=== PATIENT | male | born 1950 | race Caucasian/White ===

== ENCOUNTER 2016-12-22 06:48 | Inpatient (IN) | payer OTHER ==
[2016-12-22] MEDS ORDERED: SOLU-Medrol 125 MG VIAL ONE (06:50)
--- NOTE | 2016-12-22 06:59 | DR.SOBA ---
HPI - Time Seen Time seen: 06:55 - HPI Comment HPI Comment: KNOWN PATIENT WITH COPD AND CHF PRESENTS WITH INCREASE SOB. WORSE THIS AM. DID NOT TAKE BREATHING TREATMENT BEFORE COMING. NO FEVER. - Complaints Chief Complaint Doctors Comments: INCREASING SOB FOR 4 DAYS. - Reviewed Nurses Notes Reviewed: Yes - Source History Provided: Parent - Mode of Arrival Mode of Arrival: Wheelchair - Duration Duration: Hours - Context Onset:: At Rest PE Risk Factors:: None History of:: COPD, CHF Currently on:: Neither Prehospital Care:: None - Modifying Factors Worsens:: Nothing Improves:: Nothing - Associated Signs and Symptoms Associated Signs and Symptoms: Wheeze, Cough, Sore Throat. denies: Nasal Congestion - If Chest Pain Quality: Sharp, Pleuritic Location: Substernal - If Cough Cough: Productive, Yellow PMH - PMH Past Medical History: Angina, [place], Hypertension, Diabetes Past Surgical History: Yes Surgical History: Abdominal Surgery, Angioplasty/Stents, Thyroidectomy - Family History Family Medical History: Diabetes Mellitus, Cancer, [place] - Social History Do you use any recreational Drugs:: No ROS - Review of Systems Constitutional: Diaphoresis, Weakness, Fatigue, Loss of Appetite. negative: Chills, Fever Eyes: No Symptoms Reported. negative: Eye Pain, Discharge ENTM: No Symptoms Reported, Mouth Swelling, Throat Pain. negative: Ear Pain, Nose Discharge, Nose Congestion Respiratoy: Productive Cough, Non-Productive Cough, Short of Breath, Wheezing. negative: Hemoptysis Cardiovascular: Chest Pain, Edema (TRACE) Gastrointestinal/Abdominal: No Symptoms Reported. negative: Abdominal Pain, Diarrhea, Nausea, Vomiting Genitourinary: No Symptoms Reported. negative: Dysuria, Frequency, Hematuria Neurological: Weakness, Dizziness. negative: Headache Musculoskeletal: Muscle Pain Integumentary: No Symptoms Reported Hematologic/Lymphatic: No Symptoms Reported Endocrine: No Symptoms Reported All Other Systems: Reviewed and Negative PE - Vital Signs Vitals: Temperature 97.8 F Pulse Rate [Left Brachial] 62 Pulse Rate 63 Respiratory Rate 28 Blood Pressure [Right Arm] 113/75 Blood Pressure [Left Arm] 152/75 Blood Pressure 154/73 O2 Sat by Pulse Oximetry 88 - General Limitations: Other (RESPIRATORY DISTRESS) General Appearance: Alert - Head Head Exam: Normal Inspection - Eyes Eye exam: Normal Appearance - ENT ENT Exam: Normal External Ear Exam - Neck Neck Exam: Trachea Midline. negative: Tenderness, Meningismus, Lymphadenopathy - Chest Chest Inspection: Symmetric Chest Wall Rise - Respiratory Respiratory Exam: Accessory Muscle Use, Prolonged Expiratory Phase, Respiratory Distress Respiratory Exam: Bilateral Wheezing, Bilateral Rhonchi, Upper Wheezing, Upper Rhonchi, Lower Wheezing, Lower Rhonchi - Cardiovascular Cardiovascular Exam: Regular Rate, Normal Rhythm, Normal Heart Sounds - Abdominal Exam Abdominal Exam: Normal Bowel Sounds, Soft. negative: Tenderness - Extremities Extremities Exam: Normal Inspection - Back Back Exam: Normal Inspection - Neurologic Neurological Exam: Alert, Oriented X3, CN II-XII Intact. negative: Motor Sensory Deficit - Psychiatric Psychiatric Exam: Anxious - Skin Skin Exam: Normal Color MDM - Additional Information Obtained Additional Information Obtained From: Family - Differential Diagnosis Differential Diagnosis: Bronchitis, CHF, COPD, Hypertensive Emergency, Hyponatremia, Mycardial Infarction, Pneumonia, Pneumothorax, Pulmonary embolism , Respiratory Insufficiency, Sinusitis, URI Course - Treatment Treatment: SEE ORDERS. NEB TREATMENT AND IV SOLUMEDROL. PAIN IMPROVING. - Reevaluation 1st: Improved - Consultation Consultation Comments: PATIENT DISCUSS WITH DR. COLEMAN. HE WILL ADMIT PATIENT. - Education/Counseling Education/Counseling: Patient, Education Educated On: Treatment, Diagnosis ROR - Labs Reviewed Laboratory Results Reviewed?: Yes Result Diagrams: 12/23/16 04:37 12/23/16 04:37 Laboratory: WBC 6.9 X10^3/uL (3.6-10.0) 12/22/16 07:17 RBC 4.39 X10^6/uL (4.7-6.0) L 12/22/16 07:17 Hgb 10.4 g/dL (13.5-18.0) L 12/22/16 07:17 Hct 34.2 % (42.0-54.0) L 12/22/16 07:17 MCV 77.9 fL (80.0-100.0) L 12/22/16 07:17 MCH 23.8 pg (27.0-34.0) L 12/22/16 07:17 MCHC 30.5 g/dL (33.0-35.0) L 12/22/16 07:17 RDW 17.9 % (11.6-16.5) H 12/22/16 07:17 Plt Count 189 X10^3/uL (150.0-450.0) 12/22/16 07:17 Plt Count Comment Adequate (ADEQUATE) 12/22/16 07: MPV 8.3 fL (7.4-11.0) 12/22/16 07:17 Neut % 78.9 % (42.0-75.0) H 12/22/16 07:17 Lymph % 13.4 % (21.0-51.0) L 12/22/16 07:17 [place] % 6.0 % (0.0-13.0) 12/22/16 07:17 Eos % 1.4 % (0.9-2.9) 12/22/16 07:17 Baso % 0.3 % (0.2-1.0) 12/22/16 07:17 Neut # 5.4 x10^3/uL (2.2-4.8) H 12/22/16 07:17 Lymph # 0.9 X10^3/uL (1.3-2.9) L 12/22/16 07:17 [place] # 0.4 x10^3/uL (0.3-0.8) 12/22/16 07:17 Eos # 0.1 x10^3/uL (0.0-0.2) 12/22/16 07:17 Baso # 0.0 X10^3/uL (0.0-0.1) 12/22/16 07:17 Absolute Nucleated RBC 0.0 /100WBC 12/22/16 07:17 Plt Morphology Comment Normal (NORMAL) 12/22/16 07:17 RBC Morphology Abnormal (NORMAL) 12/22/16 07:17 Hypochromasia 1+ A 12/22/16 07:17 Sample Site L rad 12/22/16 06:51 ABG pH 7.370 (7.35-7.45) 12/22/16 06:51 ABG pCO2 44.0 mmHg (35.0-45.0) 12/22/16 06:51 ABG pO2 79.0 mmHg (80.0-100.0) L 12/22/16 06:51 ABG HCO3 25.4 mmol/L (22-26) 12/22/16 06:51 ABG O2 Saturation 95.0 % (90-100) 12/22/16 06:51 ABG Base Excess -0.1 mmol/L (-2.0-2.0) 12/22/16 06:51 Marcus Test Pos 12/22/16 06:51 A-a Gradient 579.0 mmHg 12/22/16 06:51 FiO2 100.000 12/22/16 06:51 Blood Gas Comments Taj well, afh 12/22/16 06:51 Sodium 145 mmol/L (136-145) 12/22/16 07:17 Corrected Sodium 147 mmol/L (136-145) H 12/22/16 07:17 Potassium 4.1 mmol/L (3.5-5.1) 12/22/16 07:17 Chloride 107 mmol/L (98-107) 12/22/16 07:17 Carbon Dioxide 27.6 mmol/L (21-32) 12/22/16 07:17 BUN 12 mg/dL (7-18) 12/22/16 07:17 Creatinine 0.99 mg/dL (0.70-1.30) 12/22/16 07:17 Est GFR (MDRD) Af Amer > 60 (>60) 12/22/16 07:17 Est GFR (MDRD) Non-Af > 60 (>60) 12/22/16 07:17 Glucose 182 mg/dL (65-99) H 12/22/16 07:17 Calcium 8.4 mg/dL (8.5-10.1) L 12/22/16 07:17 Corrected Calcium TNP 12/22/16 07:17 Total Bilirubin 0.70 mg/dL (0.2-1.0) 12/22/16 07:17 AST 12 Units/L (15-37) L 12/22/16 07:17 ALT 18 Units/L (12-78) 12/22/16 07:17 Alkaline Phosphatase 95 Units/L (46-116) 12/22/16 07:17 Creatine Kinase 39 Units/L (39-308) 12/22/16 07:17 CK-MB (CK-2) < 1.0 ng/mL (0-4.0) 12/22/16 07:17 CK/CKMB % Calc 2.6 % (<4) 12/22/16 07:17 Troponin I 0.02 ng/mL (0-1.5) 12/22/16 07:17 B-Natriuretic Peptide 487 pg/mL (0-79) H 12/22/16 07:17 Total Protein 7.1 g/dL (6.4-8.2) 12/22/16 07:17 Albumin 3.4 g/dL (3.4-5.0) 12/22/16 07:17 Globulin 3.7 g/dL (2.5-4.5) 12/22/16 07:17 Albumin/Globulin Ratio 0.9 Ratio (1.1-2.1) L 12/22/16 07:17 - XRAY XRAY Interpreted by: Radiologist XRAY Findings: REPORT DISCUSS WITH PATIENT AND FAMILY. - EKG Rhythm: NSR (EKG NOTED.) - Diagnosis Discharge Problem: COPD exacerbation, Pleural effusion CHF (congestive heart failure) Qualifiers: Congestive heart failure type: combined Congestive heart failure chronicity: acute Qualified Code(s): I50.41 - Acute combined systolic (congestive) and diastolic (congestive) heart failure Pulmonary edema Qualifiers: Chronicity: acute Qualified Code(s): J81.0 - Acute pulmonary edema - Discharge Plan Disposition: ADMITTED INPATIENT Condition: Stable - Follow ups/Referrals - Instructions
[2016-12-22 07:02] LABS: ABG BASE EXCESS -0.1 mmol/L (-2.0-2.0); ABG HCO3 25.4 mmol/L (22-26)
[2016-12-22] MEDS ORDERED: SOLU-Medrol 125 MG VIAL IVP ONE (07:02)
[2016-12-22 07:03] LABS: ABG ALLEN TEST POS
[2016-12-22] MEDS ORDERED: DUONEB 0.5 MG/3 MG NEB ONE (07:08)
[2016-12-22 07:27] LABS: BASOPHILS % (AUTO) 0.3 % (0.2-1.0); EOSINOPHILS # (AUTO) 0.1 x10^3/uL (0.0-0.2); EOSINOPHILS % (AUTO) 1.4 % (0.9-2.9); HEMATOCRIT 34.2 % (42.0-54.0); HEMOGLOBIN 10.4 g/dL (13.5-18.0); LYMPHOCYTES # (AUTO) 0.9 X10^3/uL (1.3-2.9); LYMPHOCYTES % (AUTO) 13.4 % (21.0-51.0); MEAN CORPUSCULAR HEMOGLOBIN 23.8 pg (27.0-34.0); MEAN CORPUSCULAR HGB CONC 30.5 g/dL (33.0-35.0); MEAN CORPUSCULAR VOLUME 77.9 fL (80.0-100.0); MEAN PLATELET VOLUME 8.3 fL (7.4-11.0); MONOCYTES # (AUTO) 0.4 x10^3/uL (0.3-0.8); NEUTROPHILS # (AUTO) 5.4 x10^3/uL (2.2-4.8); NEUTROPHILS % (AUTO) 78.9 % (42.0-75.0); PLATELET COUNT 189 X10^3/uL (150.0-450.0); RED BLOOD COUNT 4.39 X10^6/uL (4.7-6.0); RED CELL DISTRIBUTION WIDTH 17.9 % (11.6-16.5); WHITE BLOOD COUNT 6.9 X10^3/uL (3.6-10.0)
--- NOTE | 2016-12-22 07:33 | RAD ---
HISTORY: Chest pain, shortness of breath Study: Single-view chest Comparison: June 02, 2015 Findings: Cardiac monitoring electrodes are noted on the chest. The trachea is midline. There is cardiomegaly with pulmonary vascular congestion and signs of CHF and interstitial and alveolar pulmonary edema bi laterally. Left-sided pleural effusion is suspected. Osseous structures are intact. IMPRESSION: Pulmonary edema pattern, likely on a cardiogenic basis with a left-sided pleural effusion suspected. Reported By:
[2016-12-22 07:38] LABS: B-TYPE NATRIURETIC PEPTIDE 487 pg/mL (0-79)
[2016-12-22 07:45] LABS: ALANINE AMINOTRANSFERASE 18 Units/L (12-78); ALBUMIN 3.4 g/dL (3.4-5.0); ALKALINE PHOSPHATASE 95 Units/L (46-116); ASPARTATE AMINO TRANSFERASE 12 Units/L (15-37); BLOOD UREA NITROGEN 12 mg/dL (7-18); CALCIUM 8.4 mg/dL (8.5-10.1); CARBON DIOXIDE 27.6 mmol/L (21-32); CHLORIDE 107 mmol/L (98-107); CKMB % 2.6 % (<4); COR NA(FOR HYPERGLY) 147 mmol/L (136-145); CREATINE KINASE 39 Units/L (39-308); CREATINE KINASE MB < 1.0 ng/mL (0-4.0); CREATININE 0.99 mg/dL (0.70-1.30); GLUCOSE 182 mg/dL (65-99); SODIUM 145 mmol/L (136-145); TOTAL PROTEIN 7.1 g/dL (6.4-8.2); TROPONIN I 0.02 ng/mL (0-1.5); eGFR BLACK RACES > 60 (>60); eGFR NON BLACK RACES > 60 (>60)
[2016-12-22 07:49] LABS: HYPOCHROMASIA 1+; PLATELET MORPHOLOGY COMMENT NORMAL (NORMAL)
[2016-12-22] MEDS: LASIX IVP SCH ×4 (07:53→20:46)
[2016-12-22] MEDS ORDERED: FLUOXETINE HCL 10 MG PO SCH (09:00)
[2016-12-22] MEDS ORDERED: LOSARTAN POTASSIUM 50 MG PO SCH (09:00)
[2016-12-22] MEDS ORDERED: GLIPIZIDE 5 MG PO SCH (09:00)
[2016-12-22] MEDS ORDERED: METOPROLOL TARTRATE 50 MG PO SCH (09:00)
[2016-12-22] MEDS ORDERED: PATIENT'S HOME MEDICATION (Amlodipine Besylate [Amlodipine Besylate] 10 MG) PO SCH (09:00)
[2016-12-22] MEDS ORDERED: ISOSORBIDE MONONITRATE 30 MG PO SCH (09:00)
[2016-12-22] MEDS ORDERED: LEVOTHYROXINE SODIUM 200 MCG PO SCH (09:00)
[2016-12-22 09:57] LABS: BILIRUBIN,URINE NEGATIVE (NEGATIVE); BLOOD/HEMOGLOBIN,URINE NEGATIVE (NEGATIVE); GLUCOSE, URINE NEGATIVE (NEGATIVE); KETONES,URINE NEGATIVE (NEGATIVE); LEUKOCYTE ESTERASE ,URINE NEGATIVE (NEGATIVE); NITRITES,URINE NEGATIVE (NEGATIVE); PROTEIN,URINE NEGATIVE (NEGATIVE); UROBILINOGEN,URINE NORMAL (NORMAL)
[2016-12-22] MEDS ORDERED: MORPHINE SULFATE INJ 2 MG ONE (10:03)
[2016-12-22] MEDS: MORPHINE SULFATE INJ 2 MG IVP PRN ×3 (10:07→18:48)
[2016-12-22 10:14] LABS: APPEARANCE,URINE CLEAR (CLEAR); BACTERIA,URINE NEGATIVE /HPF (NEGATIVE); COLOR,URINE YELLOW (YELLOW); RBC,URINE NONE SEEN /HPF (NEGATIVE); SQUAMOUS EPITHELIAL CELL,UR NEGATIVE /HPF (NEGATIVE)
[2016-12-22] MEDS ORDERED: GLUCOPHAGE ONE (10:17)
[2016-12-22] MEDS: NS 500 ML IV 500 ML IV SCH (10:26)
[2016-12-22] MEDS: FORTAZ or TAZICEF INJ 1 GM in NS 50 ML IV + SPIKE MINIBAG* 50 ML IV SCH ×3 (10:26→21:44)
[2016-12-22] MEDS: NORVASC TAB 10 MG PO SCH (10:27)
[2016-12-22] MEDS: COZAAR PO SCH (10:27)
[2016-12-22] MEDS: SINGULAIR TAB 10 MG PO SCH (10:27)
[2016-12-22] MEDS: GLUCOPHAGE PO SCH (10:27)
[2016-12-22] MEDS: PROzac PO SCH (10:27)
[2016-12-22] MEDS: NexIUM PO SCH ×2 (10:27→20:44)
[2016-12-22] MEDS: LOPRESSOR TAB 50 MG PO SCH ×2 (10:28→20:44)
[2016-12-22] MEDS: PLAVIX PO SCH (10:28)
[2016-12-22] MEDS: K-DUR TAB 20 MEQ PO SCH (10:28)
[2016-12-22] MEDS: IMDUR PO SCH (10:28)
[2016-12-22] MEDS: SYNTHROID 100 mcg TAB PO SCH (10:28)
[2016-12-22] MEDS: GLUCOTROL PO SCH ×2 (10:30→20:44)
[2016-12-22 11:01] VITALS: BMI 30.4
[2016-12-22] MEDS: HumuLIN R SUBCUT PRN ×3 (11:34→20:44)
[2016-12-22] MEDS ORDERED: NS 100 ML IV 100 ML IV ONE (13:17)
[2016-12-22] MEDS: NEURONTIN CAP 300 MG PO SCH ×2 (13:50→21:44)
--- NOTE | 2016-12-22 14:00 | CT ---
HISTORY: Elevated D-dimer Study: CTA chest with contrast for pulmonary embolus Comparison: October 03, 2013 Technique: Axial post-contrast images with coronal and sagittal reformats. Additional 3 dimensional maximum intensity projection images were obtained and evaluated dose reduction procedures were use w ith MA/kv adjusted for body size. Findings: There is no evidence for acute pulmonary thromboembolic disease. Examination of the mediastinum demo nstrated no evidence for mediastinal masses, enlarged lymphadenopathy, or enlarged hilar adenopathy. Scattered nonenlarged mediastinal nodes are present. The heart is enlarged. Bilateral pleural effus ions are identified. No chest wall or axillary abnormality is identified. Those portions of the uppe r abdominal organs visualized were within normal limits. Examination of the lung pang demonstrate changes of centrilobular emphysema to be present not significantly different from the prior examinat ion. There is diffuse interstitial prominence with prominent Severo's B lines suggestive of mild int erstitial edema. No alveolar edema, alveolar infiltrates, or areas of consolidation are identified. There are some mild atelectatic changes in both lung bases. IMPRESSION: No evidence for acute pulmonary thromboembolic disease Cardiomegaly with mild congestive heart failure in the form of interstitial edema Centrilobular emphysema Reported By:
[2016-12-22 14:01] LABS: CKMB % 1.9 % (<4); CREATINE KINASE MB 0.7 ng/mL (0-4.0); TROPONIN I 0.01 ng/mL (0-1.5)
[2016-12-22 19:53] LABS: CKMB % 2.9 % (<4); CREATINE KINASE 34 Units/L (39-308); CREATINE KINASE MB < 1.0 ng/mL (0-4.0); TROPONIN I < 0.02 ng/mL (0-1.5)
[2016-12-22] MEDS: FLOMAX PO SCH (20:44)
[2016-12-22] MEDS: LIPITOR TAB 40 MG PO SCH (20:44)
[2016-12-22] MEDS: SNACK - Diabetic Appropriate PO SCH (20:45)
[2016-12-22] MEDS ORDERED: ATORVASTATIN CALCIUM 40 MG PO SCH (21:00)
[2016-12-23] MEDS: NEURONTIN CAP 300 MG PO SCH ×3 (05:25→21:50)
[2016-12-23] MEDS: FORTAZ or TAZICEF INJ 1 GM in NS 50 ML IV + SPIKE MINIBAG* 50 ML IV SCH ×3 (05:25→21:50)
[2016-12-23 05:30] LABS: ALANINE AMINOTRANSFERASE 16 Units/L (12-78); ALBUMIN 3.2 g/dL (3.4-5.0); ALKALINE PHOSPHATASE 85 Units/L (46-116); ASPARTATE AMINO TRANSFERASE 8 Units/L (15-37); BLOOD UREA NITROGEN 15 mg/dL (7-18); CALCIUM 8.6 mg/dL (8.5-10.1); CARBON DIOXIDE 33.4 mmol/L (21-32); CHLORIDE 106 mmol/L (98-107); CHOL/HDL RATIO 2.3 (0.0-5.0); CHOLESTEROL 102 mg/dL (0-200); COR CA(FOR HYPOALB) 9.2 mg/dL (8.5-10.1); COR NA(FOR HYPERGLY) 145 mmol/L (136-145); GLUCOSE 134 mg/dL (65-99); HDL CHOLESTEROL 45 mg/dL (40-60); MAGNESIUM 1.3 mg/dL (1.7-2.9); SODIUM 144 mmol/L (136-145); TOTAL PROTEIN 6.6 g/dL (6.4-8.2); TRIGLYCERIDES 66 mg/dL (0-150); eGFR BLACK RACES > 60 (>60); eGFR NON BLACK RACES > 60 (>60)
[2016-12-23 05:31] LABS: BASOPHILS % (AUTO) 0.3 % (0.2-1.0); EOSINOPHILS % (AUTO) 0.1 % (0.9-2.9); LYMPHOCYTES # (AUTO) 0.8 X10^3/uL (1.3-2.9); MEAN CORPUSCULAR HGB CONC 31.4 g/dL (33.0-35.0); MEAN CORPUSCULAR VOLUME 76.6 fL (80.0-100.0); MEAN PLATELET VOLUME 8.5 fL (7.4-11.0); MONOCYTES # (AUTO) 0.6 x10^3/uL (0.3-0.8); MONOCYTES % (AUTO) 8.5 % (0.0-13.0); NEUTROPHILS # (AUTO) 5.1 x10^3/uL (2.2-4.8); NEUTROPHILS % (AUTO) 79.1 % (42.0-75.0); PLATELET COUNT 181 X10^3/uL (150.0-450.0); RED BLOOD COUNT 4.18 X10^6/uL (4.7-6.0); RED CELL DISTRIBUTION WIDTH 17.9 % (11.6-16.5); WHITE BLOOD COUNT 6.5 X10^3/uL (3.6-10.0)
[2016-12-23 05:47] LABS: ANISOCYTOSIS 1+; HYPOCHROMASIA 1+; MICROCYTOSIS 1+; PLATELET MORPHOLOGY COMMENT NORMAL (NORMAL)
[2016-12-23] MEDS: SYNTHROID 100 mcg TAB PO SCH (06:06)
--- NOTE | 2016-12-23 07:40 | DR.H&P ---
H&P - Chief Complaint Chief Complaint: is a 66 year old patient of our who presented to the emergency room with reports of increasing shortness of breath. Patient reports that he has a history of COPD, however, symptoms of shortness of breath has worsened over the last four days. Patient reports shortness of breath while at rest with nothing improving symptoms. He reports sharp pain to substernal area. Patient noted with a productive cough with thick yellow sputum. He reports that associated symptoms include diaphoresis, weakness, fatigue, loss of appetite, dizziness and muscle pain. He is noted with wheezing and rhonchi in bilateral lung pang on auscultation. Vitals on arrival to er were 97.8, 63, 25, 97% 2L NC, 154/73. CBC wnl except RBC 4.39, Hgb 10.4, Hct 34.2, MCV 77.9, MCH 23.8, MCHC 30.5, RDW 17.9. D-Dimer 1360. CMP wnl except Sodium 147, Glucose 182, Calcium 8.4, AST 12, Creatine Kinase 37, BNP 487, A/G Ratio 0.9. ABG: pO2 79.0. Chest X-Ray reported pulmonary edema pattern, likely on a cardiogenic basis with a left-sided pleural effusion suspected. Cardiac enzymes wnl. EKG reported Sinus Rhythm with rate of 71. He was given Lasix 40mg iv x 1 dose, solumedrol 125mg iv x 1 dose, and duoneb x 1 dose in er. We admitted patient for further treatment and evaluation. We started him on ns@20ml /hr, fortaz 1 gm iv q8h, lasix 40mg iv bid, sliding scale insulin, morphine 1- 2mg iv q4h bid, and will review home medications. We planned to recheck labs and follow up with patient in am. - Allergies Allergies/Adverse Reactions: Allergies Allergy/AdvReac Type Severity Reaction Status Date / Time No Known Drug Allergies Allergy Verified 12/22/16 07:08 - Past Medical History Past Medical History: Angina, Anxiety, Asthma, COPD, Coronary Artery Disease, Depression, Diabetes, Dyslipidemia, GERD, Hypertension, Hypothyroidism, [place] Additional Medical History: [place] X 2, UNKNOWN NUMBER OF STENTS, UMBILICAL HERNIA, CYSTITIS, BPH, - Past Surgical History Surgical History: Abdominal Surgery, Angioplasty/Stents, Thyroidectomy Additional Surgical History: COLON RESECTION - Family History Family Medical History: Diabetes Mellitus, Cancer, [place], Coronary Artery Disease - Social History Does patient currently use any type of tobacco product: No Have you used tobacco products in the last 12 months: No Type of Tobacco Use: None Does any household member use tobacco: No Alcohol Use: None Drug Use: None - Medications Home Medications: Albuterol Sulfate [Proair Hfa] 1 inh INH PRN PRN 12/22/16 [History Confirmed ] Clopidogrel Bisulfate [PLAVIX TAB 75 MG *] 1 tab PO DAILY 12/22/16 [History Confirmed 12/22/16] Esomeprazole Magnesium [NEXIUM 40 MG *] 1 tab PO BID 12/22/16 [History Confirmed 12/22/16] - Review of Systems Constitutional: See HPI, Weakness. denies: No Symptoms Reported, Fever, Chills , Sweats, Malaise, Other Eyes: No Symptoms Reported. denies: See HPI, Pain, Vision Change, Conjunctivae Inflammation, Eyelid Inflammation, Redness, Other ENT: No Symptoms Reported. denies: See HPI, Ear Pain, Ear Discharge, Nose Pain , Nose Discharge, Nose Congestion, Mouth Pain, Mouth Swelling, Throat Pain, Throat Swelling, Other Respiratory: See HPI, Cough, Shortness of Breath, Sputum, Wheezing. denies: No Symptoms Reported, Dry, Hemoptysis, SOB with Excertion, Pleuritic Pain, Other Cardiovascular: Light Headedness. denies: No Symptoms Reported, Chest Pain, See HPI, Palpitations, Orthopnea, Paroxysmal Noc. Dyspnea, Edema, Other Gastrointestinal: No Symptoms Reported. denies: See HPI, Nausea, Vomiting, Abdominal Pain, Diarrhea, Constipation, Melena, Hematochezia, Other Genitourinary: No Symptoms Reported. denies: See HPI, Dysuria, Frequency, Incontinence, Hematuria, Retention, Other Musculoskeletal: See HPI. denies: No Symptoms Reported, Shoulder Pain, Arm Pain , Back Pain, Hand Pain, Leg Pain, Foot Pain, Neck Pain, Other Skin: No Symptoms Reported. denies: See HPI, Rash, Lesions, Jaundice, Bruising , Wound, Ecchymosis, Other Neurological: Weakness. denies: No Symptoms Reported, See HPI, Numbness, Incoordination, Change in Speech, Confusion, Seizures, Other - Physical Exam Vital Signs: Temperature 98.6 F Pulse Rate [Left Brachial] 54 Respiratory Rate 16 Blood Pressure [Left Arm] 118/64 O2 Sat by Pulse Oximetry 98 Oriented: Normal. negative: Time, Person, Place, Not Oriented, Unable to test, Other Eyes: Normal. negative: Blurred Vision, Diplopia, Discharge, Pain, Redness, Photophobia, Other Ear: Normal. negative: Right, Left, Swelling, Ecchymosis, Hemotypanum, Abrasion , Laceration Nose: Normal. negative: Injected, Discharge, Blood, Other Throat: Normal. negative: Tonsillar Hypertrophy, Red, Exudate, Dry, Other Respiratory: Rhonchi Throughout, Wheezes Throughout. negative: Clear Throughout , Diminished Throughout, Rales Throughout, RUL Clear, RML Clear, RLL Clear, LATRIC[place] Clear, LML Clear, LLL Clear, RUL Diminished, RML Diminished, RLL Diminished, [place] Diminished, LML Diminished, LLL Diminished, RUL Absent, RML Absent, RLL Absent, [place] Absent, LML Absent, LLL Absent, RUL Rhonchi, RML Rhonchi, RLL Rhonchi, LATRICIA Rhonchi, LML Rhonchi, LLL Rhonchi, RUL Insp. Wheeze, RML Insp. Wheeze, RLL Insp. Wheeze, [place]RIC[place] Insp.Wheeze, LML Insp.Wheeze, LLL Insp.Wheeze, RUL Exp. Wheeze, RML Exp. Wheeze, RLL Exp. Wheeze, LATRICIA Exp. Wheeze, LML Exp. Wheeze, LLL Exp. Wheeze, RUL Rales, RML Rales, RLL Rales, LATRICIA Rales, LML Rales, LLL Rales, RUL Rub, RML Rub, RLL Rub, [place] Rub, LML Rub, LLL Rub, RUL Squeak, RML Squeak, RLL Squeak, LATRICIA Squeak, LML Squeak, LLL Squeak Cardiovascular: Normal. negative: Tachycardia, Bradycardia, Irregular, S3, S4, Systolic, Diastolic, Murmur, Edema, Other : Normal. negative: Dysuria, Hematuria, Frequency, Discharge, Testicular Pain , Bleeding, , Other Auscultation: Bowel Sounds: Normal. negative: Bruit, Absent, Increased, Decreased, High Pitched, Other Palpation: Normal. negative: Spleen Enlarged, Liver Enlarged, Mass Pulsatile, Other Tenderness: Normal. negative: Diffuse, RUQ, RLQ, LUQ, LLQ, Epigastric, Periumbilical, Suprapubic, Mild, Moderate, Severe, Rebound, Guarding, Rigidity, Other Skin: Normal. negative: Decreased Turgur, Rash, Papular, Macular, Maculopapular , Vesicular, Pustular, Petechial, Red, Tender, Hot, Diaphoresis, Wound, Bruising , Ecchymosis, Other Musculoskeletal: Normal. negative: Right, Left, Shoulder, Clavicle, Arm, Elbow , Forearm, Wrist, Hand, Hip, Thigh, Knee, Leg, Ankle, Foot, Back:Thoracic, Back: Lumbar, Back:Midline, Back:Paraspinous, Pelvis, Swelling, Tender, Deformity, Pulse Deficit, Motor Deficit, Sensory Deficit, Instability, Crepitance Psychiatric: Normal. negative: Anxiety, Depression, Agitation, Other Mood Description: Calm. negative: Angry, Apathetic, Depressed, Fearful, Flat, Happy, Hostile, Sad, Suspicious, Withdrawn, Anxious, Appropriate, Labile Affect: Normal. negative: Angry, Anxious, Depressed, Flat, Hysterical, Quiet, Violent Speech Pattern: Clear. negative: Appropriate, Unclear, Inappropriate, Delayed, Slurred, Excessive, Aphasic, Artificially Ventilated - Assessment/Plan (1) Acute on chronic systolic (congestive) heart failure Status: Acute Plan: LASIX 40MG IV BID, DUONEB AND PULMICORT TX, CPAP AT HS, CONTINUE TO MONITOR LABS AND CHEST XRAY (2) COPD exacerbation Status: Acute Plan: SOLU-MEDROL 80MG IV Q8H, DUONEB AND PULMICORT TX, CPAP AT HS, CONTINUE TO MONITOR LABS AND CHEST XRAY (3) Pleural effusion Status: Acute Plan: LASIX 40MG IV BID, FORTAZ 1 GM IV Q8H, CONTINUE TO MONITOR LABS AND CHEST XRAY (4) Pulmonary edema Qualifiers: Chronicity: acute Qualified Code(s): J81.0 - Acute pulmonary edema Status: Acute Plan: LASIX 40MG IV BID, SOLUMEDROL 80MG IV Q8H, DUONEB AND PULMICORT NEB TX, CONTINUE TO MONITOR LABS AND CHEST XRAY,
[2016-12-23] MEDS: NORVASC TAB 10 MG PO SCH (08:28)
[2016-12-23] MEDS: GLUCOTROL PO SCH ×2 (08:28→20:26)
[2016-12-23] MEDS: SINGULAIR TAB 10 MG PO SCH (08:28)
[2016-12-23] MEDS: IMDUR PO SCH (08:28)
[2016-12-23] MEDS: COZAAR PO SCH (08:28)
[2016-12-23] MEDS: NexIUM PO SCH ×2 (08:28→20:25)
[2016-12-23] MEDS: K-DUR TAB 20 MEQ PO SCH (08:28)
[2016-12-23] MEDS: PROzac PO SCH (08:28)
[2016-12-23] MEDS: LOPRESSOR TAB 50 MG PO SCH ×2 (08:28→21:49)
[2016-12-23] MEDS: LASIX IVP SCH ×2 (08:29→20:26)
[2016-12-23] MEDS: PLAVIX PO SCH (08:30)
[2016-12-23] MEDS: SOLU-Medrol 40 MG VIAL IVP SCH ×2 (08:35→16:27)
[2016-12-23] MEDS: HumuLIN R SUBCUT PRN ×3 (11:19→20:33)
[2016-12-23] MEDS: NS 500 ML IV 500 ML IV SCH (11:20)
[2016-12-23] MEDS: MAGNESIUM SULFATE 1 GM/100 mL PREMIX 1 GM/100 ML BAG IV SCH ×2 (11:25→12:35)
[2016-12-23] MEDS: DUONEB 0.5 MG/3 MG NEB SCH ×3 (12:24→21:08)
--- NOTE | 2016-12-23 16:06 | PCM.PROG ---
Progress Note - Progress Note for Day of Date: 12/23/16 - Subjective Subjective: WAS ALERT AND ORIENTED, LYING IN BED ON MORNING ROUNDS. HE CONTINUES WITH COMPLAINTS OF SHORTNESS OF BREATH AND PRODUCTIVE COUGH. HE IS NOTED WITH RHONCHI AND WHEEZING IN BILATERAL LUNG ROSA. LOWER EXTREMITIES NOTED WITH PITTING EDEMA. VITALS THIS AM ARE 98.6-54-16-98%-118/64. CBC WNL EXCEPT RBC 4.18, HGB 10, HCT 32. CMP WNL EXCEPT CARBON DIOXIDE 33.4, GLUCOSE 134 , AST 8, ALBUMIN 3.2, MAGNESIUM 1.3. WE PLAN TO START KLONOPIN 2MG HS, CPAP AT HS, AND FLUID RESTRICTION LESS THAN 1,000CC/HR. WE PLAN TO RECHECK LABS AND XRAY AND FOLLOW UP WITH PATIENT IN AM. - Past Medical Family Social History Past Med/Fam/Surg Hx: No changes since H&P Allergies: Allergies No Known Drug Allergies Allergy (Verified 12/22/16 07:08) - Review of Systems ROS: No change since H&P - Vital Signs and I&O's Vital Signs: Temperature 99 F Pulse Rate [Left Brachial] 58 Respiratory Rate 23 Blood Pressure [Left Arm] 107/57 O2 Sat by Pulse Oximetry 96 Intake and Output: Intake & Output 12/21/16 12/22/16 12/23/16 12/24/16 11:59 11:59 11:59 11:59 Intake Total 073 363 0199 Output Total 1300 2350 1300 Balance -6896 -4970 -285 - Physical Exam Oriented: Normal. negative: Time, Person, Place, Not Oriented, Unable to test, Other Eyes: Normal. negative: Blurred Vision, Diplopia, Discharge, Pain, Redness, Photophobia, Other Ear: Normal. negative: Right, Left, Swelling, Ecchymosis, Hemotypanum, Abrasion , Laceration Nose: Normal. negative: Injected, Discharge, Blood, Other Throat: Normal. negative: Tonsillar Hypertrophy, Red, Exudate, Dry, Other Respiratory: Right, Left, Wheezes, Rhonchi. negative: Normal, Generalized, Superior, Inferior, Diminished, Rales, OTHER Cardiovascular: Normal. negative: Tachycardia, Bradycardia, Irregular, S3, S4, Systolic, Diastolic, Murmur, Edema, Other : Normal. negative: Dysuria, Hematuria, Frequency, Discharge, Testicular Pain , Bleeding, , Other Auscultation: Bowel Sounds: Normal. negative: Bruit, Absent, Increased, Decreased, High Pitched, Other Palpation: Normal Tenderness: Normal. negative: Diffuse, RUQ, RLQ, LUQ, LLQ, Epigastric, Periumbilical, Suprapubic, Mild, Moderate, Severe, Rebound, Guarding, Rigidity, Other Skin: Normal. negative: Decreased Turgur, Rash, Papular, Macular, Maculopapular , Vesicular, Pustular, Petechial, Red, Tender, Hot, Diaphoresis, Wound, Bruising , Ecchymosis, Other Musculoskeletal: Normal. negative: Right, Left, Shoulder, Clavicle, Arm, Elbow , Forearm, Wrist, Hand, Hip, Thigh, Knee, Leg, Ankle, Foot, Back:Thoracic, Back: Lumbar, Back:Midline, Back:Paraspinous, Pelvis, Swelling, Tender, Deformity, Pulse Deficit, Motor Deficit, Sensory Deficit, Instability, Crepitance Psychiatric: Normal. negative: Anxiety, Depression, Agitation, Other Mood Description: Calm. negative: Angry, Apathetic, Depressed, Fearful, Flat, Happy, Hostile, Sad, Suspicious, Withdrawn, Anxious, Appropriate, Labile Affect: Normal. negative: Angry, Anxious, Depressed, Flat, Hysterical, Quiet, Violent Speech Pattern: Clear. negative: Appropriate, Unclear, Inappropriate, Delayed, Slurred, Excessive, Aphasic, Artificially Ventilated - Laboratory and Diagnostics Result Diagrams: 12/23/16 04:37 12/23/16 04:37 Labs: Laboratory WBC 6.5 X10^3/uL (3.6-10.0) 12/23/16 04:37 RBC 4.18 X10^6/uL (4.7-6.0) L 12/23/16 04:37 Hgb 10.0 g/dL (13.5-18.0) L 12/23/16 04:37 Hct 32.0 % (42.0-54.0) L 12/23/16 04:37 MCV 76.6 fL (80.0-100.0) L 12/23/16 04:37 MCH 24.0 pg (27.0-34.0) L 12/23/16 04:37 MCHC 31.4 g/dL (33.0-35.0) L 12/23/16 04:37 RDW 17.9 % (11.6-16.5) H 12/23/16 04:37 Plt Count 181 X10^3/uL (150.0-450.0) 12/23/16 04:37 Plt Count Comment Adequate (ADEQUATE) 12/23/16 04:37 MPV 8.5 fL (7.4-11.0) 12/23/16 04:37 Neut % 79.1 % (42.0-75.0) H 12/23/16 04:37 Lymph % 12.0 % (21.0-51.0) L 12/23/16 04:37 [place] % 8.5 % (0.0-13.0) 12/23/16 04:37 Eos % 0.1 % (0.9-2.9) L 12/23/16 04:37 Baso % 0.3 % (0.2-1.0) 12/23/16 04:37 Neut # 5.1 x10^3/uL (2.2-4.8) H 12/23/16 04:37 Lymph # 0.8 X10^3/uL (1.3-2.9) L 12/23/16 04:37 [place] # 0.6 x10^3/uL (0.3-0.8) 12/23/16 04:37 Eos # 0.0 x10^3/uL (0.0-0.2) 12/23/16 04:37 Baso # 0.0 X10^3/uL (0.0-0.1) 12/23/16 04:37 Absolute Nucleated RBC 0.1 /100WBC 12/23/16 04:37 Plt Morphology Comment Normal (NORMAL) 12/23/16 04:37 RBC Morphology Abnormal (NORMAL) 12/23/16 04:37 Hypochromasia 1+ A 12/23/16 04:37 Anisocytosis 1+ A 12/23/16 04:37 Microcytosis 1+ A 12/23/16 04:37 D-Dimer 1360 ng/mL (0-400) H* 12/22/16 07:20 Sample Site L rad 12/22/16 06:51 ABG pH 7.370 (7.35-7.45) 12/22/16 06:51 ABG pCO2 44.0 mmHg (35.0-45.0) 12/22/16 06:51 ABG pO2 79.0 mmHg (80.0-100.0) L 12/22/16 06:51 ABG HCO3 25.4 mmol/L (22-26) 12/22/16 06:51 ABG O2 Saturation 95.0 % (90-100) 12/22/16 06:51 ABG Base Excess -0.1 mmol/L (-2.0-2.0) 12/22/16 06:51 Marcus Test Pos 12/22/16 06:51 A-a Gradient 579.0 mmHg 12/22/16 06:51 FiO2 100.000 12/22/16 06:51 Blood Gas Comments Taj well, afh 12/22/16 06:51 Sodium 144 mmol/L (136-145) 12/23/16 04:37 Corrected Sodium 145 mmol/L (136-145) 12/23/16 04:37 Potassium 4.3 mmol/L (3.5-5.1) 12/23/16 04:37 Chloride 106 mmol/L (98-107) 12/23/16 04:37 Carbon Dioxide 33.4 mmol/L (21-32) H 12/23/16 04:37 BUN 15 mg/dL (7-18) 12/23/16 04:37 Creatinine 1.10 mg/dL (0.70-1.30) 12/23/16 04:37 Est GFR (MDRD) Af Amer > 60 (>60) 12/23/16 04:37 Est GFR (MDRD) Non-Af > 60 (>60) 12/23/16 04:37 Glucose 134 mg/dL (65-99) H 12/23/16 04:37 Calcium 8.6 mg/dL (8.5-10.1) 12/23/16 04:37 Corrected Calcium 9.2 mg/dL (8.5-10.1) 12/23/16 04:37 Magnesium 1.3 mg/dL (1.7-2.9) L 12/23/16 04:37 Total Bilirubin 0.60 mg/dL (0.2-1.0) 12/23/16 04:37 AST 8 Units/L (15-37) L 12/23/16 04:37 ALT 16 Units/L (12-78) 12/23/16 04:37 Alkaline Phosphatase 85 Units/L (46-116) 12/23/16 04:37 Creatine Kinase 34 Units/L (39-308) L 12/22/16 19:17 CK-MB (CK-2) < 1.0 ng/mL (0-4.0) 12/22/16 19:17 CK/CKMB % Calc 2.9 % (<4) 12/22/16 19:17 Troponin I < 0.02 ng/mL (0-1.5) 12/22/16 19:17 B-Natriuretic Peptide 487 pg/mL (0-79) H 12/22/16 07:17 Total Protein 6.6 g/dL (6.4-8.2) 12/23/16 04:37 Albumin 3.2 g/dL (3.4-5.0) L 12/23/16 04:37 Globulin 3.4 g/dL (2.5-4.5) 12/23/16 04:37 Albumin/Globulin Ratio 0.9 Ratio (1.1-2.1) L 12/23/16 04:37 Triglycerides 66 mg/dL (0-150) 12/23/16 04:37 Cholesterol 102 mg/dL (0-200) 12/23/16 04:37 LDL Cholesterol, Calc 44 mg/dL (0-100) 12/23/16 04:37 HDL Cholesterol 45 mg/dL (40-60) 12/23/16 04:37 Cholesterol/HDL Ratio 2.3 (0.0-5.0) 12/23/16 04:37 Specimen Type Clean catch urine 12/22/16 09:30 Urine Color Yellow (YELLOW) 12/22/16 09:30 Urine Appearance Clear (CLEAR) 12/22/16 09:30 Urine pH 7.0 (5.0 - 8.0) 12/22/16 09:30 Ur Specific [place] 1.010 (1.000-1.030) 12/22/16 09:30 Urine Protein Negative (NEGATIVE) 12/22/16 09:30 Urine Glucose (UA) Negative (NEGATIVE) 12/22/16 09:30 Urine Ketones Negative (NEGATIVE) 12/22/16 09:30 Urine Occult Blood Negative (NEGATIVE) 12/22/16 09:30 Urine Nitrite Negative (NEGATIVE) 12/22/16 09:30 Urine Bilirubin Negative (NEGATIVE) 12/22/16 09:30 Urine Urobilinogen Normal (NORMAL) 12/22/16 09:30 Ur Leukocyte Esterase Negative (NEGATIVE) 12/22/16 09:30 Urine RBC None seen /HPF (NEGATIVE) 12/22/16 09:30 Urine WBC None seen /HPF (NEGATIVE) 12/22/16 09:30 Ur Squamous Epith Cells Negative /HPF (NEGATIVE) 12/22/16 09:30 Urine Bacteria Negative /HPF (NEGATIVE) 12/22/16 09:30 Ur Culture Indicated? No/not indicated 12/22/16 09:30 - Plan (1) Acute on chronic systolic (congestive) heart failure Status: Acute Plan: LASIX 40MG IV BID, DUONEB AND PULMICORT TX, CPAP AT HS, CONTINUE TO MONITOR LABS AND CHEST XRAY (2) COPD exacerbation Status: Acute Plan: SOLU-MEDROL 80MG IV Q8H, DUONEB AND PULMICORT TX, CPAP AT HS, CONTINUE TO MONITOR LABS AND CHEST XRAY (3) Pleural effusion Status: Acute Plan: LASIX 40MG IV BID, FORTAZ 1 GM IV Q8H, CONTINUE TO MONITOR LABS AND CHEST XRAY (4) Pulmonary edema Status: Acute Qualifiers: Chronicity: acute Qualified Code(s): J81.0 - Acute pulmonary edema Plan: LASIX 40MG IV BID, SOLUMEDROL 80MG IV Q8H, DUONEB AND PULMICORT NEB TX, CONTINUE TO MONITOR LABS AND CHEST XRAY,
[2016-12-23] MEDS: SNACK - Diabetic Appropriate PO SCH (20:00)
[2016-12-23] MEDS: FLOMAX PO SCH (20:25)
[2016-12-23] MEDS: LIPITOR TAB 40 MG PO SCH (20:26)
[2016-12-23] MEDS: KLONOPIN TAB 1 MG PO SCH (21:00)
[2016-12-23] MEDS: PULMICORT NEB TX 0.5 MG NEB SCH (21:08)
[2016-12-24] MEDS: DUONEB 0.5 MG/3 MG NEB SCH ×6 (01:10→21:05)
[2016-12-24] MEDS: SOLU-Medrol 40 MG VIAL IVP SCH ×3 (01:35→16:03)
[2016-12-24] MEDS: NEURONTIN CAP 300 MG PO SCH ×3 (06:05→21:27)
[2016-12-24] MEDS: FORTAZ or TAZICEF INJ 1 GM in NS 50 ML IV + SPIKE MINIBAG* 50 ML IV SCH ×3 (06:05→21:24)
[2016-12-24] MEDS: SYNTHROID 100 mcg TAB PO SCH (06:07)
[2016-12-24 06:08] LABS: BASOPHILS % (AUTO) 0.2 % (0.2-1.0); HEMATOCRIT 32.8 % (42.0-54.0); HEMOGLOBIN 10.2 g/dL (13.5-18.0); LYMPHOCYTES # (AUTO) 0.4 X10^3/uL (1.3-2.9); LYMPHOCYTES % (AUTO) 6.3 % (21.0-51.0); MEAN CORPUSCULAR HEMOGLOBIN 23.8 pg (27.0-34.0); MEAN CORPUSCULAR HGB CONC 31.1 g/dL (33.0-35.0); MEAN CORPUSCULAR VOLUME 76.7 fL (80.0-100.0); MEAN PLATELET VOLUME 8.6 fL (7.4-11.0); MONOCYTES # (AUTO) 0.3 x10^3/uL (0.3-0.8); MONOCYTES % (AUTO) 3.7 % (0.0-13.0); NEUTROPHILS # (AUTO) 6.2 x10^3/uL (2.2-4.8); NEUTROPHILS % (AUTO) 89.8 % (42.0-75.0); PLATELET COUNT 170 X10^3/uL (150.0-450.0); RED BLOOD COUNT 4.28 X10^6/uL (4.7-6.0); RED CELL DISTRIBUTION WIDTH 17.6 % (11.6-16.5); WHITE BLOOD COUNT 6.9 X10^3/uL (3.6-10.0)
[2016-12-24] MEDS: HumuLIN R SUBCUT PRN ×4 (06:20→21:26)
[2016-12-24 06:44] LABS: ALANINE AMINOTRANSFERASE 14 Units/L (12-78); ALBUMIN 3.3 g/dL (3.4-5.0); ALKALINE PHOSPHATASE 83 Units/L (46-116); ASPARTATE AMINO TRANSFERASE 7 Units/L (15-37); BLOOD UREA NITROGEN 24 mg/dL (7-18); CALCIUM 8.6 mg/dL (8.5-10.1); CARBON DIOXIDE 31.4 mmol/L (21-32); CHLORIDE 105 mmol/L (98-107); COR CA(FOR HYPOALB) 9.2 mg/dL (8.5-10.1); COR NA(FOR HYPERGLY) 145 mmol/L (136-145); CREATININE 1.37 mg/dL (0.70-1.30); GLUCOSE 187 mg/dL (65-99); SODIUM 143 mmol/L (136-145); TOTAL PROTEIN 6.9 g/dL (6.4-8.2); eGFR BLACK RACES > 60 (>60); eGFR NON BLACK RACES 55 (>60)
[2016-12-24 06:47] LABS: PLATELET MORPHOLOGY COMMENT NORMAL (NORMAL)
[2016-12-24 06:48] LABS: HYPOCHROMASIA 1+
[2016-12-24 07:14] LABS: MAGNESIUM 1.8 mg/dL (1.7-2.9)
[2016-12-24] MEDS: LASIX IVP SCH ×2 (08:01→21:25)
[2016-12-24] MEDS: NORVASC TAB 10 MG PO SCH (08:01)
[2016-12-24] MEDS: COZAAR PO SCH (08:01)
[2016-12-24] MEDS: K-DUR TAB 20 MEQ PO SCH (08:01)
[2016-12-24] MEDS: SINGULAIR TAB 10 MG PO SCH (08:02)
[2016-12-24] MEDS: PLAVIX PO SCH (08:02)
[2016-12-24] MEDS: IMDUR PO SCH (08:02)
[2016-12-24] MEDS: GLUCOTROL PO SCH ×2 (08:02→21:28)
[2016-12-24] MEDS: LOPRESSOR TAB 50 MG PO SCH ×2 (08:02→21:28)
[2016-12-24] MEDS: NexIUM PO SCH ×2 (08:02→21:27)
[2016-12-24] MEDS: PROzac PO SCH (08:02)
[2016-12-24] MEDS: PULMICORT NEB TX 0.5 MG NEB SCH ×2 (09:05→21:05)
--- NOTE | 2016-12-24 09:49 | RAD ---
HISTORY: Shortness of breath Study: Single view of the chest Comparison: December 22, 2016 Findings: The trachea is midline. The cardiac silhouette is enlarged with pulmonary vascular congestion. Abiel ma and or infiltrate are also noted and are most pronounced within the right lower lobe similar to p rior exam. The aortic knob is partially calcified.. IMPRESSION: 1. Cardiomegaly with central pulmonary vascular congestion and interstitial edema versus infiltrate as noted above. Reported By:
[2016-12-24] MEDS: NS 500 ML IV 500 ML IV SCH (11:01)
--- NOTE | 2016-12-24 11:01 | PCM.PROG ---
Progress Note - Progress Note for Day of Date: 12/24/16 - Subjective Subjective: WAS ALERT AND ORIENTED, LYING IN BED ON MORNING ROUNDS. HE CONTINUES WITH COMPLAINTS OF SHORTNESS OF BREATH AND PRODUCTIVE COUGH, BUT REPORTS THAT HE FEELS SOME BETTER THAN YESTERDAY. HE CONTINUES WITH RHONCHI AND WHEEZING IN BILATERAL LUNG ROSA. VITALS THIS AM ARE 98.7-66-17-94%-139/62. CBC WNL EXCEPT RBC 4.28, HGB 10.2, HCT 32.8. CMP WNL EXCEPT BUN 24, CREATININE 1.37, GLUCOSE 187, AST 7, ALBUMIN 3.3, BNP 533. CHEST XRAY REPORTED CARDIOMEGALY WITH CENTRAL PULMONARY VASCULAR CONGESTION AND INTERSTITIAL EDEMA VERSUS INFILTRATE. WE WILL CONTINUE WITH CURRENT PLAN OF CARE. WE PLAN TO RECHECK LABS AND XRAY AND FOLLOW UP WITH PATIENT IN AM. - Past Medical Family Social History Past Med/Fam/Surg Hx: No changes since H&P Allergies: Allergies No Known Drug Allergies Allergy (Verified 12/22/16 07:08) - Review of Systems ROS: No change since H&P - Vital Signs and I&O's Vital Signs: Temperature 98.8 F Pulse Rate [Left Brachial] 69 Pulse Rate 66 Respiratory Rate 19 Blood Pressure [Left Arm] 119/55 O2 Sat by Pulse Oximetry 95 Intake and Output: Intake & Output 12/21/16 12/22/16 12/23/16 12/24/16 11:59 11:59 11:59 11:59 Intake Total 963 420 5054 Output Total 1300 2350 1900 Balance -8281 -9947 -039 - Physical Exam Oriented: Normal. negative: Time, Person, Place, Not Oriented, Unable to test, Other Eyes: Normal. negative: Blurred Vision, Diplopia, Discharge, Pain, Redness, Photophobia, Other Ear: Normal. negative: Right, Left, Swelling, Ecchymosis, Hemotypanum, Abrasion , Laceration Nose: Normal. negative: Injected, Discharge, Blood, Other Throat: Normal. negative: Tonsillar Hypertrophy, Red, Exudate, Dry, Other Respiratory: Right, Left, Wheezes, Rhonchi. negative: Normal, Generalized, Superior, Inferior, Diminished, Rales, OTHER Cardiovascular: Normal. negative: Tachycardia, Bradycardia, Irregular, S3, S4, Systolic, Diastolic, Murmur, Edema, Other : Normal. negative: Dysuria, Hematuria, Frequency, Discharge, Testicular Pain , Bleeding, , Other Auscultation: Bowel Sounds: Normal. negative: Bruit, Absent, Increased, Decreased, High Pitched, Other Palpation: Normal Tenderness: Normal. negative: Diffuse, RUQ, RLQ, LUQ, LLQ, Epigastric, Periumbilical, Suprapubic, Mild, Moderate, Severe, Rebound, Guarding, Rigidity, Other Skin: Normal. negative: Decreased Turgur, Rash, Papular, Macular, Maculopapular , Vesicular, Pustular, Petechial, Red, Tender, Hot, Diaphoresis, Wound, Bruising , Ecchymosis, Other Musculoskeletal: Normal. negative: Right, Left, Shoulder, Clavicle, Arm, Elbow , Forearm, Wrist, Hand, Hip, Thigh, Knee, Leg, Ankle, Foot, Back:Thoracic, Back: Lumbar, Back:Midline, Back:Paraspinous, Pelvis, Swelling, Tender, Deformity, Pulse Deficit, Motor Deficit, Sensory Deficit, Instability, Crepitance Psychiatric: Normal. negative: Anxiety, Depression, Agitation, Other Mood Description: Calm. negative: Angry, Apathetic, Depressed, Fearful, Flat, Happy, Hostile, Sad, Suspicious, Withdrawn, Anxious, Appropriate, Labile Affect: Normal. negative: Angry, Anxious, Depressed, Flat, Hysterical, Quiet, Violent Speech Pattern: Clear, Appropriate - Laboratory and Diagnostics Result Diagrams: 12/24/16 05:36 12/24/16 05:36 Labs: Laboratory WBC 6.9 X10^3/uL (3.6-10.0) 12/24/16 05:36 RBC 4.28 X10^6/uL (4.7-6.0) L 12/24/16 05:36 Hgb 10.2 g/dL (13.5-18.0) L 12/24/16 05:36 Hct 32.8 % (42.0-54.0) L 12/24/16 05:36 MCV 76.7 fL (80.0-100.0) L 12/24/16 05:36 MCH 23.8 pg (27.0-34.0) L 12/24/16 05:36 MCHC 31.1 g/dL (33.0-35.0) L 12/24/16 05:36 RDW 17.6 % (11.6-16.5) H 12/24/16 05:36 Plt Count 170 X10^3/uL (150.0-450.0) 12/24/16 05:36 Plt Count Comment Adequate (ADEQUATE) 12/24/16 05:36 MPV 8.6 fL (7.4-11.0) 12/24/16 05:36 Neut % 89.8 % (42.0-75.0) H 12/24/16 05:36 Lymph % 6.3 % (21.0-51.0) L 12/24/16 05:36 [place] % 3.7 % (0.0-13.0) 12/24/16 05:36 Eos % 0.0 % (0.9-2.9) L 12/24/16 05:36 Baso % 0.2 % (0.2-1.0) 12/24/16 05:36 Neut # 6.2 x10^3/uL (2.2-4.8) H 12/24/16 05:36 Lymph # 0.4 X10^3/uL (1.3-2.9) L 12/24/16 05:36 [place] # 0.3 x10^3/uL (0.3-0.8) 12/24/16 05:36 Eos # 0.0 x10^3/uL (0.0-0.2) 12/24/16 05:36 Baso # 0.0 X10^3/uL (0.0-0.1) 12/24/16 05:36 Absolute Nucleated RBC 0.0 /100WBC 12/24/16 05:36 Plt Morphology Comment Normal (NORMAL) 12/24/16 05:36 RBC Morphology Abnormal (NORMAL) 12/24/16 05:36 Hypochromasia 1+ A 12/24/16 05:36 Anisocytosis 1+ A 12/23/16 04:37 Microcytosis 1+ A 12/23/16 04:37 D-Dimer 1360 ng/mL (0-400) H* 12/22/16 07:20 Sample Site L rad 12/22/16 06:51 ABG pH 7.370 (7.35-7.45) 12/22/16 06:51 ABG pCO2 44.0 mmHg (35.0-45.0) 12/22/16 06:51 ABG pO2 79.0 mmHg (80.0-100.0) L 12/22/16 06:51 ABG HCO3 25.4 mmol/L (22-26) 12/22/16 06:51 ABG O2 Saturation 95.0 % (90-100) 12/22/16 06:51 ABG Base Excess -0.1 mmol/L (-2.0-2.0) 12/22/16 06:51 Marcus Test Pos 12/22/16 06:51 A-a Gradient 579.0 mmHg 12/22/16 06:51 FiO2 100.000 12/22/16 06:51 Blood Gas Comments Taj well, afh 12/22/16 06:51 Sodium 143 mmol/L (136-145) 12/24/16 05:36 Corrected Sodium 145 mmol/L (136-145) 12/24/16 05:36 Potassium 4.3 mmol/L (3.5-5.1) 12/24/16 05:36 Chloride 105 mmol/L (98-107) 12/24/16 05:36 Carbon Dioxide 31.4 mmol/L (21-32) 12/24/16 05:36 BUN 24 mg/dL (7-18) H 12/24/16 05:36 Creatinine 1.37 mg/dL (0.70-1.30) H 12/24/16 05:36 Est GFR (MDRD) Af Amer > 60 (>60) 12/24/16 05:36 Est GFR (MDRD) Non-Af 55 (>60) L 12/24/16 05:36 Glucose 187 mg/dL (65-99) H 12/24/16 05:36 Calcium 8.6 mg/dL (8.5-10.1) 12/24/16 05:36 Corrected Calcium 9.2 mg/dL (8.5-10.1) 12/24/16 05:36 Magnesium 1.8 mg/dL (1.7-2.9) 12/24/16 05:36 Total Bilirubin 0.50 mg/dL (0.2-1.0) 12/24/16 05:36 AST 7 Units/L (15-37) L 12/24/16 05:36 ALT 14 Units/L (12-78) 12/24/16 05:36 Alkaline Phosphatase 83 Units/L (46-116) 12/24/16 05:36 Creatine Kinase 34 Units/L (39-308) L 12/22/16 19:17 CK-MB (CK-2) < 1.0 ng/mL (0-4.0) 12/22/16 19:17 CK/CKMB % Calc 2.9 % (<4) 12/22/16 19:17 Troponin I < 0.02 ng/mL (0-1.5) 12/22/16 19:17 B-Natriuretic Peptide 533 pg/mL (0-79) H* 12/24/16 05:36 Total Protein 6.9 g/dL (6.4-8.2) 12/24/16 05:36 Albumin 3.3 g/dL (3.4-5.0) L 12/24/16 05:36 Globulin 3.6 g/dL (2.5-4.5) 12/24/16 05:36 Albumin/Globulin Ratio 0.9 Ratio (1.1-2.1) L 12/24/16 05:36 Triglycerides 66 mg/dL (0-150) 12/23/16 04:37 Cholesterol 102 mg/dL (0-200) 12/23/16 04:37 LDL Cholesterol, Calc 44 mg/dL (0-100) 12/23/16 04:37 HDL Cholesterol 45 mg/dL (40-60) 12/23/16 04:37 Cholesterol/HDL Ratio 2.3 (0.0-5.0) 12/23/16 04:37 Specimen Type Clean catch urine 12/22/16 09:30 Urine Color Yellow (YELLOW) 12/22/16 09:30 Urine Appearance Clear (CLEAR) 12/22/16 09:30 Urine pH 7.0 (5.0 - 8.0) 12/22/16 09:30 Ur Specific [place] 1.010 (1.000-1.030) 12/22/16 09:30 Urine Protein Negative (NEGATIVE) 12/22/16 09:30 Urine Glucose (UA) Negative (NEGATIVE) 12/22/16 09:30 Urine Ketones Negative (NEGATIVE) 12/22/16 09:30 Urine Occult Blood Negative (NEGATIVE) 12/22/16 09:30 Urine Nitrite Negative (NEGATIVE) 12/22/16 09:30 Urine Bilirubin Negative (NEGATIVE) 12/22/16 09:30 Urine Urobilinogen Normal (NORMAL) 12/22/16 09:30 Ur Leukocyte Esterase Negative (NEGATIVE) 12/22/16 09:30 Urine RBC None seen /HPF (NEGATIVE) 12/22/16 09:30 Urine WBC None seen /HPF (NEGATIVE) 12/22/16 09:30 Ur Squamous Epith Cells Negative /HPF (NEGATIVE) 12/22/16 09:30 Urine Bacteria Negative /HPF (NEGATIVE) 12/22/16 09:30 Ur Culture Indicated? No/not indicated 12/22/16 09:30 - Plan (1) Acute on chronic systolic (congestive) heart failure Status: Acute Plan: LASIX 40MG IV BID, DUONEB AND PULMICORT TX, CPAP AT HS, CONTINUE TO MONITOR LABS AND CHEST XRAY (2) COPD exacerbation Status: Acute Plan: SOLU-MEDROL 80MG IV Q8H, DUONEB AND PULMICORT TX, CPAP AT HS, CONTINUE TO MONITOR LABS AND CHEST XRAY (3) Pleural effusion Status: Acute Plan: LASIX 40MG IV BID, FORTAZ 1 GM IV Q8H, CONTINUE TO MONITOR LABS AND CHEST XRAY (4) Pulmonary edema Status: Acute Qualifiers: Chronicity: acute Qualified Code(s): J81.0 - Acute pulmonary edema Plan: LASIX 40MG IV BID, SOLUMEDROL 80MG IV Q8H, DUONEB AND PULMICORT NEB TX, CONTINUE TO MONITOR LABS AND CHEST XRAY, (5) CAD (coronary artery disease) Status: Chronic Qualifiers: Coronary Disease-Associated Artery/Lesion type: C [place] vs. transplanted heart: N Associated angina: A (6) Diabetes Status: Chronic Qualifiers: Diabetes mellitus type: type 2 Diabetes mellitus complication status: D Diabetes mellitus complication detail: D Diabetic retinopathy severity: D Proliferative retinopathy type: P Diabetes mellitus macular edema: D Diabetes mellitus halfway insulin use: unspecified halfway insulin use status Laterality: L Chronic kidney disease stage: unspecified stage Qualified Code(s): E11.22 - Type 2 diabetes mellitus with diabetic chronic kidney disease Plan: CONTINUE GLUCOTROL, SLIDING SCALE INSULIN, CONTINUE TO MONITOR (7) GERD (gastroesophageal reflux disease) Status: Chronic Qualifiers: Esophagitis presence: esophagitis presence not specified Qualified Code(s) : K21.9 - Gastro-esophageal reflux disease without esophagitis Plan: CONTINUE NEXIUM, CONTINUE TO MONITOR (8) Hyperlipidemia Status: Chronic Qualifiers: Hyperlipidemia type: mixed hyperlipidemia Qualified Code(s): E78.2 - Mixed hyperlipidemia Plan: CONTINUE LIPITOR, CONTINUE TO MONITOR (9) Hypertension Status: Chronic Qualifiers: Hypertension type: essential hypertension Qualified Code(s): I10 - Essential (primary) hypertension Plan: CONTINUE NORVASC, CONTINUE COZAAR, CONTINUE LOPRESSOR, CONTINUE TO MONITOR (10) Hypothyroid Status: Chronic Qualifiers: Hypothyroidism type: acquired Qualified Code(s): E03.9 - Hypothyroidism, unspecified Plan: CONTINUE SYNTHROID, CONTINUE TO MONITOR
[2016-12-24] MEDS ORDERED: MAALOX or MYLANTA PO PRN (11:02)
[2016-12-24] MEDS: SNACK - Diabetic Appropriate PO SCH (19:46)
[2016-12-24] MEDS: LIPITOR TAB 40 MG PO SCH (21:27)
[2016-12-24] MEDS: FLOMAX PO SCH (21:27)
[2016-12-24] MEDS: KLONOPIN TAB 1 MG PO SCH (21:28)
[2016-12-25] MEDS: DUONEB 0.5 MG/3 MG NEB SCH ×6 (00:56→20:57)
[2016-12-25] MEDS: SOLU-Medrol 40 MG VIAL IVP SCH ×3 (01:19→17:02)
[2016-12-25] MEDS: FORTAZ or TAZICEF INJ 1 GM in NS 50 ML IV + SPIKE MINIBAG* 50 ML IV SCH ×3 (05:49→21:28)
[2016-12-25] MEDS: NEURONTIN CAP 300 MG PO SCH ×3 (05:50→21:30)
[2016-12-25] MEDS: HumuLIN R SUBCUT PRN ×4 (05:51→21:37)
[2016-12-25] MEDS ORDERED: NS 250 ML IV 250 ML IV ONE (06:00)
[2016-12-25] MEDS: SYNTHROID 100 mcg TAB PO SCH (06:02)
[2016-12-25 06:14] LABS: BASOPHILS % (AUTO) 0 % (0.2-1.0); HEMOGLOBIN 10.1 g/dL (13.5-18.0); LYMPHOCYTES # (AUTO) 0.4 X10^3/uL (1.3-2.9); LYMPHOCYTES % (AUTO) 5.1 % (21.0-51.0); MEAN CORPUSCULAR HGB CONC 31.5 g/dL (33.0-35.0); MEAN CORPUSCULAR VOLUME 76.1 fL (80.0-100.0); MEAN PLATELET VOLUME 8.5 fL (7.4-11.0); MONOCYTES # (AUTO) 0.2 x10^3/uL (0.3-0.8); MONOCYTES % (AUTO) 2.8 % (0.0-13.0); NEUTROPHILS # (AUTO) 7.2 x10^3/uL (2.2-4.8); NEUTROPHILS % (AUTO) 92.1 % (42.0-75.0); PLATELET COUNT 180 X10^3/uL (150.0-450.0); RED BLOOD COUNT 4.21 X10^6/uL (4.7-6.0); RED CELL DISTRIBUTION WIDTH 17.8 % (11.6-16.5); WHITE BLOOD COUNT 7.8 X10^3/uL (3.6-10.0)
[2016-12-25 06:33] LABS: ALANINE AMINOTRANSFERASE 18 Units/L (12-78); ALBUMIN 3.1 g/dL (3.4-5.0); ALKALINE PHOSPHATASE 72 Units/L (46-116); ASPARTATE AMINO TRANSFERASE 8 Units/L (15-37); BLOOD UREA NITROGEN 30 mg/dL (7-18); CALCIUM 8.6 mg/dL (8.5-10.1); CARBON DIOXIDE 29.4 mmol/L (21-32); CHLORIDE 104 mmol/L (98-107); COR CA(FOR HYPOALB) 9.3 mg/dL (8.5-10.1); COR NA(FOR HYPERGLY) 144 mmol/L (136-145); CREATININE 1.12 mg/dL (0.70-1.30); GLUCOSE 209 mg/dL (65-99); SODIUM 141 mmol/L (136-145); TOTAL PROTEIN 6.5 g/dL (6.4-8.2); eGFR BLACK RACES > 60 (>60); eGFR NON BLACK RACES > 60 (>60)
[2016-12-25 06:44] LABS: B-TYPE NATRIURETIC PEPTIDE 433 pg/mL (0-79)
[2016-12-25 06:51] LABS: PLATELET MORPHOLOGY COMMENT NORMAL (NORMAL)
--- NOTE | 2016-12-25 08:16 | RAD ---
Chest, one view Indication: Shortness of breath Comparison: December 24, 2016 Findings: The cardiac silhouette is enlarged. There is persistent but improving pulmonary vascular c ongestion and interstitial edema. No focal consolidation is identified. Trace bilateral effusions pe rsist. Impression: Decompensated congestive heart failure with persistent but improving interstitial edema and trace bilateral effusions. Reported By:
[2016-12-25] MEDS: NexIUM PO SCH ×2 (08:51→21:31)
[2016-12-25] MEDS: NORVASC TAB 10 MG PO SCH (08:52)
[2016-12-25] MEDS: IMDUR PO SCH (08:52)
[2016-12-25] MEDS: K-DUR TAB 20 MEQ PO SCH (08:52)
[2016-12-25] MEDS: LOPRESSOR TAB 50 MG PO SCH ×2 (08:52→21:30)
[2016-12-25] MEDS: COZAAR PO SCH (08:52)
[2016-12-25] MEDS: SINGULAIR TAB 10 MG PO SCH (08:52)
[2016-12-25] MEDS: GLUCOTROL PO SCH ×2 (08:52→21:31)
[2016-12-25] MEDS: LASIX IVP SCH ×2 (08:53→21:30)
[2016-12-25] MEDS: PROzac PO SCH (08:53)
[2016-12-25] MEDS: PLAVIX PO SCH (08:55)
[2016-12-25] MEDS: PULMICORT NEB TX 0.5 MG NEB SCH ×2 (09:32→20:57)
--- NOTE | 2016-12-25 10:43 | PCM.PROG ---
Progress Note - Progress Note for Day of Date: 12/25/16 - Subjective Subjective: WAS ALERT AND ORIENTED, LYING IN BED ON MORNING ROUNDS. HE REPORTS FEELING MUCH BETTER TODAY. HE DOES COMPLAIN OF MILD SHORTNESS OF BREATH, BUT STATES THAT IT IS MUCH BETTER THAN DAY OF ADMISSION. HE CONTINUES WITH WHEEZING ON AUSCULTATION. VITALS THIS AM ARE 98.7-69-21-92%-125/67. CBC WNL EXCEPT RBC 4.21, HGB 10.1, HCT 32.0. CMP WNL EXCEPT BUN 30, CREATININE 1.12 , GLUCOSE 209, AST 8, ALT 18, ALBUMIN 3.1, BNP 433. CHEST XRAY REPORTED DECOMPENSATED CONGESTIVE HEART FAILURE WITH PERSISTENT BUT IMPROVING INTERSTITIAL EDEMA AND TRACE BILATERAL EFFUSIONS. WE WILL CONTINUE WITH CURRENT PLAN OF CARE. WE PLAN TO RECHECK LABS AND XRAY AND FOLLOW UP WITH PATIENT IN AM WITH PLANS TO DISCHARGE IF STABLE. - Past Medical Family Social History Past Med/Fam/Surg Hx: No changes since H&P Allergies: Allergies No Known Drug Allergies Allergy (Verified 12/22/16 07:08) - Review of Systems ROS: No change since H&P - Vital Signs and I&O's Vital Signs: Temperature 98.5 F Pulse Rate [Left Brachial] 74 Pulse Rate 78 Respiratory Rate 19 Blood Pressure [Left Arm] 128/93 O2 Sat by Pulse Oximetry 92 Intake and Output: Intake & Output 12/22/16 12/23/16 12/24/16 12/25/16 11:59 11:59 11:59 11:59 Intake Total 455 720 0285 1231 Output Total 1300 2350 1900 2300 Balance -3300 -1655 -585 -1069 - Physical Exam Oriented: Normal. negative: Time, Person, Place, Not Oriented, Unable to test, Other Eyes: Normal. negative: Blurred Vision, Diplopia, Discharge, Pain, Redness, Photophobia, Other Ear: Normal. negative: Right, Left, Swelling, Ecchymosis, Hemotypanum, Abrasion , Laceration Nose: Normal. negative: Injected, Discharge, Blood, Other Throat: Normal. negative: Tonsillar Hypertrophy, Red, Exudate, Dry, Other Respiratory: Right, Left, Wheezes. negative: Normal, Generalized, Superior, Inferior, Diminished, Rales, Rhonchi, OTHER Cardiovascular: Normal. negative: Tachycardia, Bradycardia, Irregular, S3, S4, Systolic, Diastolic, Murmur, Edema, Other : Normal. negative: Dysuria, Hematuria, Frequency, Discharge, Testicular Pain , Bleeding, , Other Auscultation: Bowel Sounds: Normal. negative: Bruit, Absent, Increased, Decreased, High Pitched, Other Palpation: Normal Tenderness: Normal. negative: Diffuse, RUQ, RLQ, LUQ, LLQ, Epigastric, Periumbilical, Suprapubic, Mild, Moderate, Severe, Rebound, Guarding, Rigidity, Other Skin: Normal. negative: Decreased Turgur, Rash, Papular, Macular, Maculopapular , Vesicular, Pustular, Petechial, Red, Tender, Hot, Diaphoresis, Wound, Bruising , Ecchymosis, Other Musculoskeletal: Normal. negative: Right, Left, Shoulder, Clavicle, Arm, Elbow , Forearm, Wrist, Hand, Hip, Thigh, Knee, Leg, Ankle, Foot, Back:Thoracic, Back: Lumbar, Back:Midline, Back:Paraspinous, Pelvis, Swelling, Tender, Deformity, Pulse Deficit, Motor Deficit, Sensory Deficit, Instability, Crepitance Psychiatric: Normal. negative: Anxiety, Depression, Agitation, Other Mood Description: Calm. negative: Angry, Apathetic, Depressed, Fearful, Flat, Happy, Hostile, Sad, Suspicious, Withdrawn, Anxious, Appropriate, Labile Affect: Normal. negative: Angry, Anxious, Depressed, Flat, Hysterical, Quiet, Violent Speech Pattern: Clear, Appropriate - Laboratory and Diagnostics Result Diagrams: 12/25/16 05:18 12/25/16 05:18 Labs: Laboratory WBC 7.8 X10^3/uL (3.6-10.0) 12/25/16 05:18 RBC 4.21 X10^6/uL (4.7-6.0) L 12/25/16 05:18 Hgb 10.1 g/dL (13.5-18.0) L 12/25/16 05:18 Hct 32.0 % (42.0-54.0) L 12/25/16 05:18 MCV 76.1 fL (80.0-100.0) L 12/25/16 05:18 MCH 24.0 pg (27.0-34.0) L 12/25/16 05:18 MCHC 31.5 g/dL (33.0-35.0) L 12/25/16 05:18 RDW 17.8 % (11.6-16.5) H 12/25/16 05:18 Plt Count 180 X10^3/uL (150.0-450.0) 12/25/16 05:18 Plt Count Comment Adequate (ADEQUATE) 12/25/16 05:18 MPV 8.5 fL (7.4-11.0) 12/25/16 05:18 Neut % 92.1 % (42.0-75.0) H 12/25/16 05:18 Lymph % 5.1 % (21.0-51.0) L 12/25/16 05:18 [place] % 2.8 % (0.0-13.0) 12/25/16 05:18 Eos % 0.0 % (0.9-2.9) L 12/25/16 05:18 Baso % 0 % (0.2-1.0) L 12/25/16 05:18 Neut # 7.2 x10^3/uL (2.2-4.8) H 12/25/16 05:18 Lymph # 0.4 X10^3/uL (1.3-2.9) L 12/25/16 05:18 [place]kin # 0.2 x10^3/uL (0.3-0.8) L 12/25/16 05:18 Eos # 0.0 x10^3/uL (0.0-0.2) 12/25/16 05:18 Baso # 0.0 X10^3/uL (0.0-0.1) 12/25/16 05:18 Absolute Nucleated RBC 0.1 /100WBC 12/25/16 05:18 Total Counted 100 12/25/16 05:18 Neutrophils % (Manual) 89 % (39-76) H 12/25/16 05:18 Lymphocytes % (Manual) 9 % (13-43) L 12/25/16 05:18 Monocytes % (Manual) 2 % (4-9) L 12/25/16 05:18 Plt Morphology Comment Normal (NORMAL) 12/25/16 05:18 RBC Morphology Normal (NORMAL) 12/25/16 05:18 Hypochromasia 1+ A 12/24/16 05:36 Anisocytosis 1+ A 12/23/16 04:37 Microcytosis 1+ A 12/23/16 04:37 D-Dimer 1360 ng/mL (0-400) H* 12/22/16 07:20 Sample Site L rad 12/22/16 06:51 ABG pH 7.370 (7.35-7.45) 12/22/16 06:51 ABG pCO2 44.0 mmHg (35.0-45.0) 12/22/16 06:51 ABG pO2 79.0 mmHg (80.0-100.0) L 12/22/16 06:51 ABG HCO3 25.4 mmol/L (22-26) 12/22/16 06:51 ABG O2 Saturation 95.0 % (90-100) 12/22/16 06:51 ABG Base Excess -0.1 mmol/L (-2.0-2.0) 12/22/16 06:51 Marcus Test Pos 12/22/16 06:51 A-a Gradient 579.0 mmHg 12/22/16 06:51 FiO2 100.000 12/22/16 06:51 Blood Gas Comments [facility], [facility] 12/22/16 06:51 Sodium 141 mmol/L (136-145) 12/25/16 05:18 Corrected Sodium 144 mmol/L (136-145) 12/25/16 05:18 Potassium 4.1 mmol/L (3.5-5.1) 12/25/16 05:18 Chloride 104 mmol/L (98-107) 12/25/16 05:18 Carbon Dioxide 29.4 mmol/L (21-32) 12/25/16 05:18 BUN 30 mg/dL (7-18) H 12/25/16 05:18 Creatinine 1.12 mg/dL (0.70-1.30) 12/25/16 05:18 Est GFR (MDRD) Af Amer > 60 (>60) 12/25/16 05:18 Est GFR (MDRD) Non-Af > 60 (>60) 12/25/16 05:18 Glucose 209 mg/dL (65-99) H 12/25/16 05:18 Calcium 8.6 mg/dL (8.5-10.1) 12/25/16 05:18 Corrected Calcium 9.3 mg/dL (8.5-10.1) 12/25/16 05:18 Magnesium 1.8 mg/dL (1.7-2.9) 12/24/16 05:36 Total Bilirubin 0.40 mg/dL (0.2-1.0) 12/25/16 05:18 AST 8 Units/L (15-37) L 12/25/16 05:18 ALT 18 Units/L (12-78) 12/25/16 05:18 Alkaline Phosphatase 72 Units/L (46-116) 12/25/16 05:18 Creatine Kinase 34 Units/L (39-308) L 12/22/16 19:17 CK-MB (CK-2) < 1.0 ng/mL (0-4.0) 12/22/16 19:17 CK/CKMB % Calc 2.9 % (<4) 12/22/16 19:17 Troponin I < 0.02 ng/mL (0-1.5) 12/22/16 19:17 B-Natriuretic Peptide 433 pg/mL (0-79) H 12/25/16 05:18 Total Protein 6.5 g/dL (6.4-8.2) 12/25/16 05:18 Albumin 3.1 g/dL (3.4-5.0) L 12/25/16 05:18 Globulin 3.4 g/dL (2.5-4.5) 12/25/16 05:18 Albumin/Globulin Ratio 0.9 Ratio (1.1-2.1) L 12/25/16 05:18 Triglycerides 66 mg/dL (0-150) 12/23/16 04:37 Cholesterol 102 mg/dL (0-200) 12/23/16 04:37 LDL Cholesterol, Calc 44 mg/dL (0-100) 12/23/16 04:37 HDL Cholesterol 45 mg/dL (40-60) 12/23/16 04:37 Cholesterol/HDL Ratio 2.3 (0.0-5.0) 12/23/16 04:37 Specimen Type Clean catch urine 12/22/16 09:30 Urine Color Yellow (YELLOW) 12/22/16 09:30 Urine Appearance Clear (CLEAR) 12/22/16 09:30 Urine pH 7.0 (5.0 - 8.0) 12/22/16 09:30 Ur Specific [place] 1.010 (1.000-1.030) 12/22/16 09:30 Urine Protein Negative (NEGATIVE) 12/22/16 09:30 Urine Glucose (UA) Negative (NEGATIVE) 12/22/16 09:30 Urine Ketones Negative (NEGATIVE) 12/22/16 09:30 Urine Occult Blood Negative (NEGATIVE) 12/22/16 09:30 Urine Nitrite Negative (NEGATIVE) 12/22/16 09:30 Urine Bilirubin Negative (NEGATIVE) 12/22/16 09:30 Urine Urobilinogen Normal (NORMAL) 12/22/16 09:30 Ur Leukocyte Esterase Negative (NEGATIVE) 12/22/16 09:30 Urine RBC None seen /HPF (NEGATIVE) 12/22/16 09:30 Urine WBC None seen /HPF (NEGATIVE) 12/22/16 09:30 Ur Squamous Epith Cells Negative /HPF (NEGATIVE) 12/22/16 09:30 Urine Bacteria Negative /HPF (NEGATIVE) 12/22/16 09:30 Ur Culture Indicated? No/not indicated 12/22/16 09:30 - Plan (1) Acute on chronic systolic (congestive) heart failure Status: Acute Plan: LASIX 40MG IV BID, DUONEB AND PULMICORT TX, CPAP AT HS, CONTINUE TO MONITOR LABS AND CHEST XRAY (2) COPD exacerbation Status: Acute Plan: SOLU-MEDROL 80MG IV Q8H, DUONEB AND PULMICORT TX, CPAP AT HS, CONTINUE TO MONITOR LABS AND CHEST XRAY (3) Pleural effusion Status: Acute Plan: LASIX 40MG IV BID, FORTAZ 1 GM IV Q8H, CONTINUE TO MONITOR LABS AND CHEST XRAY (4) Pulmonary edema Status: Acute Qualifiers: Chronicity: acute Qualified Code(s): J81.0 - Acute pulmonary edema Plan: LASIX 40MG IV BID, SOLUMEDROL 80MG IV Q8H, DUONEB AND PULMICORT NEB TX, CONTINUE TO MONITOR LABS AND CHEST XRAY, (5) CAD (coronary artery disease) Status: Chronic Qualifiers: Coronary Disease-Associated Artery/Lesion type: C [place] vs. transplanted heart: N Associated angina: A (6) Diabetes Status: Chronic Qualifiers: Diabetes mellitus type: type 2 Diabetes mellitus complication status: D Diabetes mellitus complication detail: D Diabetic retinopathy severity: D Proliferative retinopathy type: P Diabetes mellitus macular edema: D Diabetes mellitus terminal makeup operator insulin use: unspecified terminal makeup operator insulin use status Laterality: L Chronic kidney disease stage: unspecified stage Qualified Code(s): E11.22 - Type 2 diabetes mellitus with diabetic chronic kidney disease Plan: CONTINUE GLUCOTROL, SLIDING SCALE INSULIN, CONTINUE TO MONITOR (7) GERD (gastroesophageal reflux disease) Status: Chronic Qualifiers: Esophagitis presence: esophagitis presence not specified Qualified Code(s) : K21.9 - Gastro-esophageal reflux disease without esophagitis Plan: CONTINUE NEXIUM, CONTINUE TO MONITOR (8) Hyperlipidemia Status: Chronic Qualifiers: Hyperlipidemia type: mixed hyperlipidemia Qualified Code(s): E78.2 - Mixed hyperlipidemia Plan: CONTINUE LIPITOR, CONTINUE TO MONITOR (9) Hypertension Status: Chronic Qualifiers: Hypertension type: essential hypertension Qualified Code(s): I10 - Essential (primary) hypertension Plan: CONTINUE NORVASC, CONTINUE COZAAR, CONTINUE LOPRESSOR, CONTINUE TO MONITOR (10) Hypothyroid Status: Chronic Qualifiers: Hypothyroidism type: acquired Qualified Code(s): E03.9 - Hypothyroidism, unspecified Plan: CONTINUE SYNTHROID, CONTINUE TO MONITOR
[2016-12-25] MEDS: NS 500 ML IV 500 ML IV SCH ×2 (11:31→18:32)
[2016-12-25] MEDS ORDERED: GLUCOPHAGE ONE ×2 (11:33→21:13)
[2016-12-25] MEDS: GLUCOPHAGE PO SCH ×2 (11:37→21:31)
[2016-12-25] MEDS ORDERED: RESTORIL CAP 15 MG PO PRN (20:09)
[2016-12-25] MEDS: SNACK - Diabetic Appropriate PO SCH (21:03)
[2016-12-25] MEDS: FLOMAX PO SCH (21:30)
[2016-12-25] MEDS: LIPITOR TAB 40 MG PO SCH (21:30)
[2016-12-25] MEDS: KLONOPIN TAB 1 MG PO SCH (21:30)
[2016-12-26] MEDS: SOLU-Medrol 40 MG VIAL IVP SCH ×2 (00:33→08:42)
[2016-12-26] MEDS: DUONEB 0.5 MG/3 MG NEB SCH ×4 (02:17→12:34)
[2016-12-26] MEDS: HumuLIN R SUBCUT PRN ×2 (06:11→12:45)
[2016-12-26] MEDS: SYNTHROID 100 mcg TAB PO SCH (06:14)
[2016-12-26] MEDS: FORTAZ or TAZICEF INJ 1 GM in NS 50 ML IV + SPIKE MINIBAG* 50 ML IV SCH ×2 (06:14→13:06)
[2016-12-26] MEDS: NEURONTIN CAP 300 MG PO SCH ×2 (06:14→13:06)
[2016-12-26 06:21] LABS: BASOPHILS % (AUTO) 0.1 % (0.2-1.0); HEMATOCRIT 32.4 % (42.0-54.0); HEMOGLOBIN 10.1 g/dL (13.5-18.0); LYMPHOCYTES # (AUTO) 0.4 X10^3/uL (1.3-2.9); MEAN CORPUSCULAR HEMOGLOBIN 23.7 pg (27.0-34.0); MEAN CORPUSCULAR HGB CONC 31.2 g/dL (33.0-35.0); MEAN CORPUSCULAR VOLUME 75.8 fL (80.0-100.0); MEAN PLATELET VOLUME 8.9 fL (7.4-11.0); MONOCYTES # (AUTO) 0.2 x10^3/uL (0.3-0.8); MONOCYTES % (AUTO) 2.5 % (0.0-13.0); NEUTROPHILS # (AUTO) 6.7 x10^3/uL (2.2-4.8); NEUTROPHILS % (AUTO) 92.4 % (42.0-75.0); PLATELET COUNT 189 X10^3/uL (150.0-450.0); RED BLOOD COUNT 4.27 X10^6/uL (4.7-6.0); RED CELL DISTRIBUTION WIDTH 17.3 % (11.6-16.5); WHITE BLOOD COUNT 7.3 X10^3/uL (3.6-10.0)
[2016-12-26 06:22] LABS: ALANINE AMINOTRANSFERASE 20 Units/L (12-78); ALBUMIN 2.9 g/dL (3.4-5.0); ALKALINE PHOSPHATASE 75 Units/L (46-116); ASPARTATE AMINO TRANSFERASE 9 Units/L (15-37); BLOOD UREA NITROGEN 35 mg/dL (7-18); CALCIUM 8.7 mg/dL (8.5-10.1); CARBON DIOXIDE 32.9 mmol/L (21-32); CHLORIDE 102 mmol/L (98-107); COR CA(FOR HYPOALB) 9.6 mg/dL (8.5-10.1); COR NA(FOR HYPERGLY) 143 mmol/L (136-145); CREATININE 1.12 mg/dL (0.70-1.30); GLUCOSE 224 mg/dL (65-99); SODIUM 140 mmol/L (136-145); TOTAL PROTEIN 6.1 g/dL (6.4-8.2); eGFR BLACK RACES > 60 (>60); eGFR NON BLACK RACES > 60 (>60)
[2016-12-26 06:44] LABS: B-TYPE NATRIURETIC PEPTIDE 278 pg/mL (0-79)
[2016-12-26 07:02] LABS: ANISOCYTOSIS 1+; HYPOCHROMASIA 1+; PLATELET MORPHOLOGY COMMENT NORMAL (NORMAL)
[2016-12-26] MEDS ORDERED: GLUCOPHAGE ONE (08:12)
[2016-12-26] MEDS: K-DUR TAB 20 MEQ PO SCH (08:43)
[2016-12-26] MEDS: PLAVIX PO SCH (08:43)
[2016-12-26] MEDS: NexIUM PO SCH (08:43)
[2016-12-26] MEDS: LASIX IVP SCH (08:44)
[2016-12-26] MEDS: NORVASC TAB 10 MG PO SCH (08:45)
[2016-12-26] MEDS: GLUCOTROL PO SCH (08:45)
[2016-12-26] MEDS: GLUCOPHAGE PO SCH (08:45)
[2016-12-26] MEDS: LOPRESSOR TAB 50 MG PO SCH (08:45)
[2016-12-26] MEDS: COZAAR PO SCH (08:45)
[2016-12-26] MEDS: IMDUR PO SCH (08:45)
[2016-12-26] MEDS: SINGULAIR TAB 10 MG PO SCH (08:46)
[2016-12-26] MEDS: PROzac PO SCH (08:46)
[2016-12-26] MEDS: PULMICORT NEB TX 0.5 MG NEB SCH (09:35)
[2016-12-26 16:04] VITALS: BP 123/78
--- NOTE | 2016-12-26 21:55 | RAD ---
Portable chest Indication: Dyspnea Comparison: December 25, 2016 Impression: There is stable cardiomegaly with no significant interval change in appearance of central vascular congestion and mild interstitial edema. Layering left pleural effusion appears similar as well. No n ew abnormality. Reported By:
== END 2016-12-26 16:15 | disposition home or self-care (01) | DRG 292 ==
LOC: ER 06:48 → ICU 08:30
PROVIDERS: ADMIT Internal Medicine; ATTEND Internal Medicine
DX: I50.23 Acute on chronic systolic (congestive) heart failure (principal); J44.1 Chronic obstructive pulmonary disease with (acute) exacerbation; J90 Pleural effusion, not elsewhere classified; J81.0 Acute pulmonary edema; R06.02 Shortness of breath; I10 Essential (primary) hypertension; E11.65 Type 2 diabetes mellitus with hyperglycemia; R94.31 Abnormal electrocardiogram [ECG] [EKG]; R60.0 Localized edema; E11.22 Type 2 diabetes mellitus with diabetic chronic kidney disease; K21.9 Gastro-esophageal reflux disease without esophagitis; E78.2 Mixed hyperlipidemia; E03.8 Other specified hypothyroidism; I25.10 Atherosclerotic heart disease of native coronary artery without angina pectoris; R06.00 Dyspnea, unspecified; J20.8 Acute bronchitis due to other specified organisms
CPT/HCPCS: 36415; 36600; 71010; 71275; 80053; 80061; 81001; 82550; 82553; 82803; 83735; 83880; 84484; 85025; 85378; 93005; 94640; 94660; 96365; 96374; 96375; 99238; 99284; 99285; A4222; A4618; A7030; J0713; J1815; J1940; J2270; J2920; J2930; J7620; J7626

== ENCOUNTER 2017-04-28 02:40 | Inpatient (IN) | payer OTHER ==
[2017-04-28] MEDS ORDERED: DUONEB 0.5 MG/3 MG ONE (02:47)
[2017-04-28] MEDS ORDERED: TORADOL 30 MG VIAL ONE (02:56)
[2017-04-28] MEDS ORDERED: TORADOL 30 MG VIAL IVP ONE (02:56)
--- NOTE | 2017-04-28 03:08 | DR.GENAD ---
HPI - PCP Primary Care Physician: deb - HPI Comment HPI Comment: ALSO GENERALIZE WEAKNESS , CHEST PAIN AND COUGH. TONIGHT WORSE. PATIENT EATING POORLY. HEART RATE RAPID IN ED AND IS IRREGULARLY IRREGULAR. - Complaint/Symptoms Chief Complaint Doctors Comments: INCREASING SOB, FEVER TIMES ONE DAY. Chief Complaint:: pt states" I THINK I'M FILLING UP WITH FLUID CAUSE I CAN'T BREATH I'M HAVING CHEST PAIN TO I TOOK MY ACID REFLUX MEDICINE IT DIDN'T HELP" . PT IN MINOR DISTRESS INSTRUCTED PT TO SLOW HIS BREATHING DOWN - Nurses notes reviewed Nurses Notes Review: Yes - Source History Provided: Patient - Mode of Arrival Mode of Arrival: Ambulatory - Timing Onset of Chief Complaint: 04/27/17 Came on: Suddenly - Duration Duration: Constant Duration: Hours - Severity Severity: Moderate, Severe PMH - PMH Past Medical History: Yes Past Medical History: Angina, CHF, Diabetes, Hypertension, PR Past Surgical History: Yes Surgical History: Abdominal Surgery, Angioplasty/Stents, Thyroidectomy - Family History History of Family Medical Conditions: Yes Family Medical History: Diabetes Mellitus, Cancer, PR - Social History Do you use any recreational Drugs:: No Lives With: Family Lives Where: Home - infectious screening In the last 2 months have you had wt loss of >10#?: NO Have you had fever, night sweats or hemotysis?: No Have you traveled outside the country in the last 6 months?: No Isolation: Standard ROS - Review of Systems Constitutional: No Symptoms Reported Eyes: No Symptoms Reported ENTM: No Symptoms Reported Respiratoy: Short of Breath, Wheezing. negative: Productive Cough, Non- Productive Cough, Hemoptysis Cardiovascular: See HPI, Chest Pain, Palpitations (IRREGULAR HEART RATE.) Gastrointestinal/Abdominal: No Symptoms Reported Genitourinary: No Symptoms Reported Neurological: Headache, Weakness, Dizziness Musculoskeletal: Back Pain Integumentary: Change in Color Hematologic/Lymphatic: Easy Bleeding, Easy Bruising Endocrine: No Symptoms Reported All Other Systems: Reviewed and Negative PE - Vital Signs Vitals: Temperature 103.8 F Pulse Rate [Right Brachial] 122 Pulse Rate 126 Respiratory Rate 22 Blood Pressure [Right Arm] 134/79 Blood Pressure [Left Arm] 123/78 Blood Pressure 177/103 O2 Sat by Pulse Oximetry 93 - General Limitations: No Limitations General Appearance: Alert - Head Head Exam: Normal Inspection - Eyes Eye exam: Normal Appearance - ENT ENT Exam: Normal External Ear Exam External Ear Exam: Normal External Inspection TM/Canal Exam: Bilateral Normal Nose Exam: Normal Nose Exam Mouth Exam: Normal Inspection Throat Exam: Normal Inspection - Chest Chest Inspection: Symmetric Chest Wall Rise - Respiratory Respiratory Exam: Respiratory Distress Respiratory Exam: Bilateral Wheezing, Bilateral Rhonchi, Upper Wheezing, Lower Wheezing, Lower Rhonchi - Cardiovascular Cardiovascular Exam: Tachycardia, Irregular Rhythm - Abdominal Exam Abdominal Exam: Normal Bowel Sounds, Soft. negative: Tenderness - Extremities Extremities Exam: Normal Inspection - Back Back Exam: Paraspinal Tenderness, Vertebral Tenderness - Neurologic Neurological Exam: Alert, Oriented X3, CN II-XII Intact. negative: Motor Sensory Deficit - Psychiatric Psychiatric Exam: Anxious - Skin Skin Exam: Erythema MDM - Additional Information Additional Information Obtained From: Family - Differential Diagnosis Differential Diagnosis: A FIB WITH RVR, RESPIRATORY DISTRESS, CHEST PAIN, PR, PNEUMONIA, FLUE Course - Treatment Treatment: SEE ORDERS. FEVER TREATED, HR STILL HIGH WITH A FIB. CARDIOZEM PO AND RATE CONTROL. PATIENT STILL IN A FIB. THIS IS NEW ONSET FOR PATIENT. - Consultation Consultation Comments: DISCUSS PATIENT WITH DR. COLEMAN. HE WILL ADMIT PATIENT. - Education/Counseling Education/Counseling: Patient, Education Educated On: Diagnosis, Needs for Follow Up ROR - Labs Reviewed Laboratory Results Reviewed?: Yes Result Diagrams: 04/28/17 02:50 04/28/17 02:50 Laboratory: WBC 5.6 X10^3/uL (3.6-10.0) 04/28/17 02:50 RBC 4.99 X10^6/uL (4.7-6.0) 04/28/17 02:50 Hgb 11.3 g/dL (13.5-18.0) L 04/28/17 02:50 Hct 36.3 % (42.0-54.0) L 04/28/17 02:50 MCV 72.8 fL (80.0-100.0) L 04/28/17 02:50 MCH 22.7 pg (27.0-34.0) L 04/28/17 02:50 MCHC 31.1 g/dL (33.0-35.0) L 04/28/17 02:50 RDW 18.2 % (11.6-16.5) H 04/28/17 02:50 Plt Count 155 X10^3/uL (150.0-450.0) 04/28/17 02:50 Plt Count Comment Adequate (ADEQUATE) 04/28/17 02:50 MPV 9.0 fL (7.4-11.0) 04/28/17 02:50 Neut % 74.3 % (42.0-75.0) 04/28/17 02:50 Lymph % 14.7 % (21.0-51.0) L 04/28/17 02:50 [place] % 8.1 % (0.0-13.0) 04/28/17 02:50 Eos % 1.8 % (0.9-2.9) 04/28/17 02:50 Baso % 1.1 % (0.2-1.0) H 04/28/17 02:50 Neut # 4.1 x10^3/uL (2.2-4.8) 04/28/17 02:50 Lymph # 0.8 X10^3/uL (1.3-2.9) L 04/28/17 02:50 [place] # 0.5 x10^3/uL (0.3-0.8) 04/28/17 02:50 Eos # 0.1 x10^3/uL (0.0-0.2) 04/28/17 02:50 Baso # 0.1 X10^3/uL (0.0-0.1) 04/28/17 02:50 Absolute Nucleated RBC 0.0 /100WBC 04/28/17 02:50 Plt Morphology Comment Normal (NORMAL) 04/28/17 02:50 RBC Morphology Abnormal (NORMAL) 04/28/17 02:50 Hypochromasia Slight A 04/28/17 02:50 Sample Site Rrad 04/28/17 03:03 ABG pH 7.500 (7.35-7.45) H 04/28/17 03:03 ABG pCO2 33.0 mmHg (35.0-45.0) L 04/28/17 03:03 ABG pO2 69.0 mmHg (80.0-100.0) L 04/28/17 03:03 ABG HCO3 25.7 mmol/L (22-26) 04/28/17 03:03 ABG O2 Saturation 95.0 % (90-100) 04/28/17 03:03 ABG Base Excess 2.8 mmol/L (-2.0-2.0) H 04/28/17 03:03 Marcus Test Pos 04/28/17 03:03 A-a Gradient 89.0 mmHg 04/28/17 03:03 FiO2 28.000 04/28/17 03:03 Blood Gas Comments Taj abg well-[facility] 04/28/17 03:03 Sodium 140 mmol/L (136-145) 04/28/17 02:50 Corrected Sodium 141 mmol/L (136-145) 04/28/17 02:50 Potassium 4.1 mmol/L (3.5-5.1) 04/28/17 02:50 Chloride 103 mmol/L (98-107) 04/28/17 02:50 Carbon Dioxide 25.2 mmol/L (21-32) 04/28/17 02:50 BUN 15 mg/dL (7-18) 04/28/17 02:50 Creatinine 1.27 mg/dL (0.70-1.30) 04/28/17 02:50 Est GFR (MDRD) Af Amer > 60 (>60) 04/28/17 02:50 Est GFR (MDRD) Non-Af > 60 (>60) 04/28/17 02:50 Glucose 150 mg/dL (65-99) H 04/28/17 02:50 Calcium 9.3 mg/dL (8.5-10.1) 04/28/17 02:50 Corrected Calcium TNP 04/28/17 02:50 Total Bilirubin 0.50 mg/dL (0.2-1.0) 04/28/17 02:50 AST 11 Units/L (15-37) L 04/28/17 02:50 ALT 23 Units/L (12-78) 04/28/17 02:50 Alkaline Phosphatase 112 Units/L (46-116) 04/28/17 02:50 Creatine Kinase 62 Units/L (39-308) 04/28/17 02:50 CK-MB (CK-2) 1.5 ng/mL (0-4.0) 04/28/17 02:50 CK/CKMB % Calc 2.4 % (<4) 04/28/17 02:50 Troponin I 0.02 ng/mL (0-1.5) 04/28/17 02:50 Total Protein 7.5 g/dL (6.4-8.2) 04/28/17 02:50 Albumin 3.7 g/dL (3.4-5.0) 04/28/17 02:50 Globulin 3.8 g/dL (2.5-4.5) 04/28/17 02:50 Albumin/Globulin Ratio 1.0 Ratio (1.1-2.1) L 04/28/17 02:50 Influenza Type A (PCR) Negative (NEGATIVE) 04/28/17 03:04 Influenza Type B (PCR) Negative (NEGATIVE) 04/28/17 03:04 - XRAY XRAY Interpreted by: Radiologist XRAY Findings: REPORT DISCUSS WITH PATIENT. - EKG Rhythm: Afib (EKG NOTED) - Diagnosis Discharge Problem: New onset a-fib, Atrial fibrillation with RVR, Hyperglycemia, Bronchitis Hypertension Qualifiers: Hypertension type: essential hypertension Qualified Code(s): I10 - Essential ( primary) hypertension COPD (chronic obstructive pulmonary disease) Qualifiers: COPD type: COPD with acute exacerbation Qualified Code(s): J44.1 - Chronic obstructive pulmonary disease with (acute) exacerbation Fever Qualifiers: Fever type: unspecified Qualified Code(s): R50.9 - Fever, unspecified - Discharge Plan Condition: Stable - Follow ups/Referrals - Instructions
[2017-04-28] MEDS ORDERED: TYLENOL 500 MG TAB EXTRA STRENGTH PO ONE ×2 (03:14→03:16)
[2017-04-28 03:24] LABS: ABG BASE EXCESS 2.8 mmol/L (-2.0-2.0); ABG HCO3 25.7 mmol/L (22-26)
[2017-04-28 03:25] LABS: ABG ALLEN TEST POS
[2017-04-28 03:36] LABS: BLOOD UREA NITROGEN 15 mg/dL (7-18); CALCIUM 9.3 mg/dL (8.5-10.1); CARBON DIOXIDE 25.2 mmol/L (21-32); CHLORIDE 103 mmol/L (98-107); COR NA(FOR HYPERGLY) 141 mmol/L (136-145); CREATININE 1.27 mg/dL (0.70-1.30); SODIUM 140 mmol/L (136-145); TROPONIN I 0.02 ng/mL (0-1.5); eGFR BLACK RACES > 60 (>60); eGFR NON BLACK RACES > 60 (>60)
[2017-04-28 03:37] LABS: BASOPHILS # (AUTO) 0.1 X10^3/uL (0.0-0.1); BASOPHILS % (AUTO) 1.1 % (0.2-1.0); EOSINOPHILS # (AUTO) 0.1 x10^3/uL (0.0-0.2); EOSINOPHILS % (AUTO) 1.8 % (0.9-2.9); HEMATOCRIT 36.3 % (42.0-54.0); HEMOGLOBIN 11.3 g/dL (13.5-18.0); LYMPHOCYTES # (AUTO) 0.8 X10^3/uL (1.3-2.9); LYMPHOCYTES % (AUTO) 14.7 % (21.0-51.0); MEAN CORPUSCULAR HEMOGLOBIN 22.7 pg (27.0-34.0); MEAN CORPUSCULAR HGB CONC 31.1 g/dL (33.0-35.0); MEAN CORPUSCULAR VOLUME 72.8 fL (80.0-100.0); MONOCYTES # (AUTO) 0.5 x10^3/uL (0.3-0.8); MONOCYTES % (AUTO) 8.1 % (0.0-13.0); NEUTROPHILS # (AUTO) 4.1 x10^3/uL (2.2-4.8); NEUTROPHILS % (AUTO) 74.3 % (42.0-75.0); PLATELET COUNT 155 X10^3/uL (150.0-450.0); RED BLOOD COUNT 4.99 X10^6/uL (4.7-6.0); RED CELL DISTRIBUTION WIDTH 18.2 % (11.6-16.5); WHITE BLOOD COUNT 5.6 X10^3/uL (3.6-10.0)
[2017-04-28 03:40] LABS: ALANINE AMINOTRANSFERASE 23 Units/L (12-78); ALBUMIN 3.7 g/dL (3.4-5.0); ALKALINE PHOSPHATASE 112 Units/L (46-116); ASPARTATE AMINO TRANSFERASE 11 Units/L (15-37); CKMB % 2.4 % (<4); CREATINE KINASE 62 Units/L (39-308); CREATINE KINASE MB 1.5 ng/mL (0-4.0); TOTAL PROTEIN 7.5 g/dL (6.4-8.2)
[2017-04-28 03:44] LABS: HYPOCHROMASIA SLIGHT; PLATELET MORPHOLOGY COMMENT NORMAL (NORMAL)
--- NOTE | 2017-04-28 03:55 | RAD ---
AP chest Indication: Chest pain and shortness of breath Comparison: 12/26/2016 Findings: Heart size remains enlarged. Trachea is midline. Central pulmonary vascular congestion marshall bronchial thickening and interstitial hat opacities bilaterally most consistent with mild interstitia l edema. Blunting of both costophrenic sulci appears similar prior examination likely representing sm all right and smaller moderate left-sided pleural effusions and/or scarring. No pneumothorax. No acut e osseous abnormality. Impression: Cardiomegaly with central pulmonary vascular congestion, interstitial opacities and perib ronchial thickening is most consistent with pulmonary interstitial edema. Suspected small right and s mall to moderate left-sided pleural effusion and/or scarring. Reported By:
[2017-04-28] MEDS ORDERED: LASIX IVP ONE ×2 (04:06→04:14)
[2017-04-28] MEDS ORDERED: ROCEPHIN VIAL 1 GM 1 GM in NS 50 ML IV + SPIKE MINIBAG* 50 ML IV ONE (04:47)
[2017-04-28] MEDS ORDERED: CARDIZEM TAB 30 MG PLAIN PO ONE (04:49)
[2017-04-28] MEDS ORDERED: ROCEPHIN 1 GM IV PREMIX 1 GM/50 ML IV.SOLN. IV ONE (04:57)
[2017-04-28 05:16] LABS: BILIRUBIN,URINE NEGATIVE (NEGATIVE); BLOOD/HEMOGLOBIN,URINE NEGATIVE (NEGATIVE); GLUCOSE, URINE NEGATIVE (NEGATIVE); KETONES,URINE NEGATIVE (NEGATIVE); LEUKOCYTE ESTERASE ,URINE NEGATIVE (NEGATIVE); NITRITES,URINE NEGATIVE (NEGATIVE); PROTEIN,URINE 1+ (NEGATIVE); UROBILINOGEN,URINE NORMAL (NORMAL)
[2017-04-28 05:22] LABS: APPEARANCE,URINE CLEAR (CLEAR); BACTERIA,URINE NEGATIVE /HPF (NEGATIVE); COLOR,URINE YELLOW (YELLOW); RBC,URINE 0-3 /HPF (NEGATIVE); SQUAMOUS EPITHELIAL CELL,UR RARE /HPF (NEGATIVE)
[2017-04-28] MEDS ORDERED: NS 100 ML IV 100 ML IV ONE (05:46)
--- NOTE | 2017-04-28 06:27 | CT ---
HISTORY: Chest pain, shortness of breath, elevated D-dimer Study: CTA chest, PE protocol Comparison: 12/22/2016 Technique: Multiple axial images of the chest were obtained from the thoracic inlet to the upper abdo men during the administration of IV contrast. In addition to standard multi planar reconstructions, M IP reconstructions were performed in coronal and sagittal planes. Dose reduction techniques utilized automatic exposure control. Findings: The mediastinum does not demonstrate significant pathological lymphadenopathy. There is no pericardi al effusion observed. The thoracic aorta is normal in its contour without evidence for aneurysmal di latation. There are calcifications present within right and left coronary arteries. The central pulmo nary arterial system does not demonstrate central filling defects to suggest pulmonary emboli. Evaluation of the lung parenchyma reveals centrilobular emphysema cylindrical bronchiectasis. Patchy bibasilar foci of bronchopneumonia present in the upper lung pang bilaterally. Very small amount of infiltrate is present in the left lung base also.. No dense consolidation or fluid is seen.. No pul monary nodule or mass can be identified. The bony thorax is unremarkable in its appearance. The spl een is enlarged. Liver and adrenal glands are normal. There are multiple calcified gallstones present involving the region of the gallbladder neck.. IMPRESSION: No evidence of thoracic aortic aneurysm or pulmonary embolus. COPD with patchy bilateral infiltrates. No dense consolidation or fluid is seen. Bilateral coronary artery calcifications. Splenomegaly. Multiple calcified gallstones. Reported By:
[2017-04-28] MEDS: DUONEB 0.5 MG/3 MG NEB SCH ×3 (08:43→12:10)
[2017-04-28] MEDS: NS 1000 ML 1,000 ML IV SCH (08:53)
[2017-04-28] MEDS: K-DUR TAB 20 MEQ PO SCH ×2 (08:55)
[2017-04-28] MEDS: FORTAZ or TAZICEF INJ 1 GM in NS 50 ML IV + SPIKE MINIBAG* 50 ML IV SCH ×3 (08:56→21:03)
[2017-04-28] MEDS: LASIX IVP SCH ×3 (08:58→20:54)
[2017-04-28] MEDS ORDERED: CARDIZEM TAB 30 MG PLAIN PO SCH (09:00)
[2017-04-28] MEDS: CARDIZEM INJ 125 MG VIAL 125 MG in NS 100 ML IV 100 ML IV PRN ×2 (09:14→18:35)
[2017-04-28] MEDS: LEVAQUIN PREMIX IV 750 MG 750 MG/150 ML BAG IV SCH ×2 (09:25)
[2017-04-28 09:52] VITALS: BMI 28.4
[2017-04-28 09:56] LABS: CKMB % 2.1 % (<4); CREATINE KINASE 48 Units/L (39-308); CREATINE KINASE MB < 1.0 ng/mL (0-4.0); TROPONIN I < 0.02 ng/mL (0-1.5)
[2017-04-28] MEDS: XOPENEX 1.25 MG/3 ML NEBULE NEB SCH ×2 (12:12→16:39)
[2017-04-28] MEDS ORDERED: TYLENOL 325 MG TAB PO PRN (12:45)
[2017-04-28] MEDS: ZOFRAN INJ 4 MG VIAL IVP PRN (13:03)
[2017-04-28 15:11] LABS: CKMB % 2.3 % (<4); CREATINE KINASE 43 Units/L (39-308); TROPONIN I < 0.02 ng/mL (0-1.5)
[2017-04-28] MEDS ORDERED: NORCO 5/325 MG TAB PO PRN (19:37)
[2017-04-28] MEDS: SNACK - Diabetic Appropriate PO SCH (21:22)
[2017-04-28] MEDS ORDERED: MORPHINE SULFATE INJ 2 MG INJ IVP PRN (23:03)
[2017-04-28] MEDS ORDERED: MORPHINE SULFATE INJ 4 MG ONE (23:11)
[2017-04-28] MEDS: MORPHINE SULFATE INJ 4 MG IVP PRN (23:24)
[2017-04-29] MEDS: XOPENEX 1.25 MG/3 ML NEBULE NEB SCH ×5 (00:58→17:16)
[2017-04-29] MEDS: FORTAZ or TAZICEF INJ 1 GM in NS 50 ML IV + SPIKE MINIBAG* 50 ML IV SCH ×3 (05:42→21:06)
[2017-04-29] MEDS: ZOFRAN INJ 4 MG VIAL IVP PRN (05:43)
[2017-04-29] MEDS: LASIX IVP SCH ×4 (06:08→21:05)
[2017-04-29 06:24] LABS: BASOPHILS % (AUTO) 0.3 % (0.2-1.0); EOSINOPHILS % (AUTO) 1.1 % (0.9-2.9); HEMATOCRIT 34.1 % (42.0-54.0); HEMOGLOBIN 10.6 g/dL (13.5-18.0); LYMPHOCYTES # (AUTO) 0.7 X10^3/uL (1.3-2.9); LYMPHOCYTES % (AUTO) 15.9 % (21.0-51.0); MEAN CORPUSCULAR HEMOGLOBIN 22.8 pg (27.0-34.0); MEAN CORPUSCULAR HGB CONC 31.2 g/dL (33.0-35.0); MEAN CORPUSCULAR VOLUME 73.2 fL (80.0-100.0); MEAN PLATELET VOLUME 8.9 fL (7.4-11.0); MONOCYTES # (AUTO) 0.4 x10^3/uL (0.3-0.8); MONOCYTES % (AUTO) 9.3 % (0.0-13.0); NEUTROPHILS # (AUTO) 3.2 x10^3/uL (2.2-4.8); NEUTROPHILS % (AUTO) 73.4 % (42.0-75.0); PLATELET COUNT 147 X10^3/uL (150.0-450.0); RED BLOOD COUNT 4.66 X10^6/uL (4.7-6.0); RED CELL DISTRIBUTION WIDTH 18.3 % (11.6-16.5); WHITE BLOOD COUNT 4.3 X10^3/uL (3.6-10.0)
[2017-04-29 06:46] LABS: ANISOCYTOSIS SLIGHT; HYPOCHROMASIA SLIGHT; PLATELET MORPHOLOGY COMMENT NORMAL (NORMAL); POIKILOCYTOSIS SLIGHT
[2017-04-29] MEDS: CARDIZEM INJ 125 MG VIAL 125 MG in NS 100 ML IV 100 ML IV PRN ×2 (06:57→21:38)
--- NOTE | 2017-04-29 07:00 | RAD ---
Examination: Chest, portable AP History: Chest pain SOB Comparison reference 04/28/2017 Findings: Continued cardiac prominence with vascular congestion and bilateral interstitial changes co nsistent with fibrosis and/or perivascular edema. No consolidation or pneumothorax. Impression: No change since 1 day earlier. Reported By:
[2017-04-29 07:21] LABS: ALANINE AMINOTRANSFERASE 19 Units/L (12-78); ALKALINE PHOSPHATASE 86 Units/L (46-116); ASPARTATE AMINO TRANSFERASE 11 Units/L (15-37); BLOOD UREA NITROGEN 12 mg/dL (7-18); CALCIUM 8.6 mg/dL (8.5-10.1); CARBON DIOXIDE 25.3 mmol/L (21-32); CHLORIDE 103 mmol/L (98-107); COR CA(FOR HYPOALB) 9.4 mg/dL (8.5-10.1); CREATININE 1.16 mg/dL (0.70-1.30); SODIUM 141 mmol/L (136-145); TOTAL PROTEIN 6.5 g/dL (6.4-8.2); eGFR BLACK RACES > 60 (>60); eGFR NON BLACK RACES > 60 (>60)
[2017-04-29] MEDS ORDERED: PATIENT'S HOME MEDICATION (Tizanidine Hcl [Zanaflex 4 Mg] 4 MG) PO PRN (07:49)
[2017-04-29] MEDS ORDERED: NEURONTIN CAP 400 MG PO PRN (07:49)
[2017-04-29] MEDS ORDERED: PATIENT'S HOME MEDICATION (Albuterol Sulfate [Proair Hfa] 1 INH) INH PRN (07:49)
[2017-04-29] MEDS ORDERED: [UNRECOGNIZED DRUG - OTHER] PO PRN (07:49)
[2017-04-29] MEDS ORDERED: OXYCODONE HCL PO PRN (07:49)
[2017-04-29] MEDS ORDERED: ACETAMINOPHEN PO PRN (07:49)
[2017-04-29] MEDS ORDERED: PATIENT'S HOME MEDICATION (Alprazolam [Alprazolam] 1 MG) PO PRN (07:49)
[2017-04-29] MEDS ORDERED: NORCO 10/325 TAB PO PRN (07:55)
[2017-04-29] MEDS ORDERED: XANAX PO PRN (08:22)
[2017-04-29] MEDS ORDERED: ZANAFLEX PO PRN (08:24)
[2017-04-29 08:41] LABS: ABG BASE EXCESS 5.9 mmol/L (-2.0-2.0); ABG HCO3 29.7 mmol/L (22-26)
[2017-04-29] MEDS: LEVAQUIN PREMIX IV 750 MG 750 MG/150 ML BAG IV SCH (08:48)
[2017-04-29] MEDS: IMDUR PO SCH (08:49)
[2017-04-29] MEDS: PLAVIX PO SCH (08:49)
[2017-04-29] MEDS: NexIUM PO SCH ×2 (08:49→21:08)
[2017-04-29] MEDS: PROzac PO SCH (08:49)
[2017-04-29] MEDS: K-DUR TAB 20 MEQ PO SCH (08:49)
[2017-04-29] MEDS: SINGULAIR TAB 10 MG PO SCH (08:49)
[2017-04-29] MEDS: NS 1000 ML 1,000 ML IV SCH (08:50)
[2017-04-29] MEDS: COZAAR PO SCH (08:50)
[2017-04-29] MEDS ORDERED: LEVOTHYROXINE SODIUM 200 MCG PO SCH (09:00)
[2017-04-29] MEDS ORDERED: ISOSORBIDE MONONITRATE 30 MG PO SCH (09:00)
[2017-04-29] MEDS ORDERED: LASIX PO SCH (09:00)
[2017-04-29] MEDS ORDERED: FLUOXETINE HCL 10 MG PO SCH (09:00)
[2017-04-29] MEDS ORDERED: LASIX ONE (10:18)
[2017-04-29] MEDS: SOLU-Medrol 40 MG VIAL IVP SCH ×3 (10:21→21:05)
[2017-04-29] MEDS: HumuLIN R SUBCUT PRN ×3 (11:18→21:12)
[2017-04-29] MEDS ORDERED: SNACK - Diabetic Appropriate PO SCH (20:00)
[2017-04-29] MEDS ORDERED: ELAVIL PO SCH (21:00)
[2017-04-29] MEDS ORDERED: FLOMAX PO SCH (21:00)
[2017-04-29] MEDS ORDERED: LIPITOR TAB 40 MG PO SCH (21:00)
[2017-04-29] MEDS ORDERED: ATORVASTATIN CALCIUM 40 MG PO SCH (21:00)
--- NOTE | 2017-04-29 21:04 | DR.H&P ---
H&P - History & Physical for Day of: H&P Date: 04/28/17 - Chief Complaint Chief Complaint: short of breath, chest pain, weakness, cough - Allergies Allergies/Adverse Reactions: Allergies Allergy/AdvReac Type Severity Reaction Status Date / Time No Known Drug Allergies Allergy Verified 12/22/16 07:08 - History of Present Illness History of Present Illness: is a 67 year old patient of ours who presented to the emergency room with reports of increasing shortness of breath, weakness, chest pain and congestion. Patient reports symptoms started suddenly yesterday and became worse tonight. Patient states I think Im filling up with fluid because I cant breath. I took my acid reflux medicine and it didnt help. Associated symptoms include shortness of breath, wheezing, headache, weakness and dizziness. Medical history includes the following: CAD, [place], CHF, Hyperlipidemia, Hypertension, [place], Asthma, Bronchitis, COPD, Gerd, Cystitis, BPH , Arthritis, DM type II, Hypothyroidism, Anxiety, Depression. On examination, heart rate is rapid and irregular. Atrial fibrillation is seen on the cardiac monior. Scattered wheezing and rhonchi noted throughout on auscultation of lung pang. Abdomen is round, soft, and non-tender with normal bowel sounds noted in all quadrants. There is normal range of motion noted in all extremities. On arrival to the emergency department, vitals were 103.8, 108, 24, 93% 2L NC, 171/ 98. Labs and xrays were obtained. Abnormal Lab values include the following: Hgb 11.3, Hct 36.3, MCV 72.8, MCH 22.7, MCHC 31.1, RDW 18.2, D-Dimer 421, Glucose 150, AST 11, A/G Ratio 1.0. ABG: pH 7.500, pCO2 33.0, pO2 69.0, Base Excess 2.8. Blood Cultures x2 Pending. Sputum Culture Pending, Sputum Gram Stain - Gram Neg Cocci Few, Gram Pos Diblococci, Yeast Few. EKG reports: Atrial Fibrillation. Zimb=204. Chest X-Ray reports: Cardiomegaly with central pulmonary vascular congestion, interstitial opacities and peribronchial thickening is most consistent with pulmonary interstitial edema. Suspected small right and small to moderate left-sided pleural effusion and/or scarring. Chest CTA reports: No evidence of thoracic aortic aneurysm or pulmonary embolus. COPD with patchy bilateral infiltrates. No dense consolidation or fluid is seen. Bilateral coronary artery calcifications. Splenomegaly. Multiple calcified gallstones. He was given Cardizem 30mg po x 1 in the ER as well as Toradol 30mg iv x 1, Tylenol 1000mg po x 1, Rocephin 1gm iv x 1, duoneb x 1, and Lasix 40mg iv x 1. Only slight improvement in symptoms noted. He was admitted to the intensive care unit for further treatment and evaluation. He was started on Levaquin 750mg iv daily, fortaz 1gm iv q8h, and neb tx. He was also started on a Cardizem drip per protocol. We plan to follow up with am labs , chest xray, and EKG and continue to monitor patient. - Past Medical History Past Medical History: Angina, CHF, Diabetes, Hypertension, [place] Additional Medical History: [place] X 2, UNKNOWN NUMBER OF STENTS, UMBILICAL HERNIA, CYSTITIS, BPH, - Past Surgical History Surgical History: Abdominal Surgery, Angioplasty/Stents, Thyroidectomy, Other Additional Surgical History: COLON RESECTION - Family History Family Medical History: Diabetes Mellitus, Cancer, [place] - Social History Does patient currently use any type of tobacco product: No Have you used tobacco products in the last 12 months: No Type of Tobacco Use: None Does any household member use tobacco: No Alcohol Use: None Drug Use: None - Medications Home Medications: Alprazolam 1 mg PO Q6H PRN 04/28/17 [History Confirmed 04/28/17] Amitriptyline HCl [ELAVIL 25 MG *] 25 mg PO HS 04/28/17 [History Confirmed 04/28] Gabapentin 400 mg PO TID PRN 04/28/17 [History Confirmed 04/28/17] Hydrocodone/Acetaminophen [Lorcet Hd 10-325 mg] 1 tab PO Q6H PRN 04/28/17 [ History Confirmed 04/28/17] Ipratropium/Albuterol Nebule [DUONEB 0.5 MG/3 MG NEBULE *] 1 ea NEB Q4RESP PRN 04/28/17 [History Confirmed 04/28/17] Oxycodone HCl/Acetaminophen [Percocet 10-325 mg Tablet] 1 each PO Q6H PRN [History Confirmed 04/28/17] Tizanidine HCl [Zanaflex 4 mg] 4 mg PO HS PRN 04/28/17 [History Confirmed ] - Review of Systems Constitutional: Fever, Weakness Eyes: No Symptoms Reported. denies: See HPI, Pain, Vision Change, Conjunctivae Inflammation, Eyelid Inflammation, Redness, Other ENT: Nose Congestion Respiratory: See HPI, Cough, Shortness of Breath, Wheezing Cardiovascular: Chest Pain, Palpitations, Light Headedness Gastrointestinal: No Symptoms Reported Genitourinary: No Symptoms Reported Musculoskeletal: Back Pain (chronic back pain ) Skin: No Symptoms Reported Neurological: Weakness - Physical Exam Vital Signs: Temperature 98.9 F Pulse Rate [Apical] 98 Pulse Rate [Right Brachial] 78 Pulse Rate 100 Respiratory Rate 14 Blood Pressure [Right Arm] 122/66 Blood Pressure [Left Arm] 123/78 Blood Pressure 121/86 O2 Sat by Pulse Oximetry 96 Oriented: Normal Eyes: Normal Ear: Normal Nose: Normal Throat: Normal Respiratory: Rhonchi Throughout, Wheezes Throughout Cardiovascular: Irregular (atrial fibrillatin ) : Normal Auscultation: Bowel Sounds: Normal Palpation: Normal Tenderness: Normal Skin: Normal Musculoskeletal: Back:Lumbar (chronic lower back pain ) Psychiatric: Normal Mood Description: Calm Affect: Normal Speech Pattern: Clear - Assessment/Plan (1) Atrial fibrillation with RVR Status: Acute Plan: cardizem drip, telemetry, supplemental oxygen, continue to monitor ekg (2) Bronchitis Status: Acute Plan: continue levaquin, continue fortaz, continue respiratory tx, continue to monitor (3) COPD exacerbation Status: Acute Plan: continue respiratory tx, continue supplemental oxygen, continue to monitor
[2017-04-29] MEDS: SNACK - Diabetic Appropriate PO SCH (21:07)
[2017-04-29] MEDS: MORPHINE SULFATE INJ 4 MG IVP PRN (21:27)
[2017-04-30] MEDS: XOPENEX 1.25 MG/3 ML NEBULE NEB SCH ×3 (00:52→11:32)
[2017-04-30] MEDS: FORTAZ or TAZICEF INJ 1 GM in NS 50 ML IV + SPIKE MINIBAG* 50 ML IV SCH (05:32)
[2017-04-30] MEDS: SOLU-Medrol 40 MG VIAL IVP SCH (05:32)
[2017-04-30 05:47] LABS: BASOPHILS % (AUTO) 0 % (0.2-1.0); HEMATOCRIT 35.5 % (42.0-54.0); HEMOGLOBIN 11.1 g/dL (13.5-18.0); LYMPHOCYTES # (AUTO) 0.4 X10^3/uL (1.3-2.9); LYMPHOCYTES % (AUTO) 8.7 % (21.0-51.0); MEAN CORPUSCULAR HEMOGLOBIN 22.9 pg (27.0-34.0); MEAN CORPUSCULAR HGB CONC 31.4 g/dL (33.0-35.0); MEAN CORPUSCULAR VOLUME 72.8 fL (80.0-100.0); MEAN PLATELET VOLUME 8.5 fL (7.4-11.0); MONOCYTES # (AUTO) 0.1 x10^3/uL (0.3-0.8); MONOCYTES % (AUTO) 3.2 % (0.0-13.0); NEUTROPHILS # (AUTO) 3.6 x10^3/uL (2.2-4.8); NEUTROPHILS % (AUTO) 88.1 % (42.0-75.0); PLATELET COUNT 158 X10^3/uL (150.0-450.0); RED BLOOD COUNT 4.88 X10^6/uL (4.7-6.0); WHITE BLOOD COUNT 4.1 X10^3/uL (3.6-10.0)
[2017-04-30 06:22] LABS: ALANINE AMINOTRANSFERASE 16 Units/L (12-78); ALBUMIN 2.9 g/dL (3.4-5.0); ALKALINE PHOSPHATASE 77 Units/L (46-116); ASPARTATE AMINO TRANSFERASE 9 Units/L (15-37); BLOOD UREA NITROGEN 16 mg/dL (7-18); CALCIUM 8.7 mg/dL (8.5-10.1); CARBON DIOXIDE 26.4 mmol/L (21-32); CHLORIDE 102 mmol/L (98-107); COR CA(FOR HYPOALB) 9.6 mg/dL (8.5-10.1); COR NA(FOR HYPERGLY) 141 mmol/L (136-145); CREATININE 1.33 mg/dL (0.70-1.30); SODIUM 138 mmol/L (136-145); TOTAL PROTEIN 6.7 g/dL (6.4-8.2); eGFR BLACK RACES > 60 (>60); eGFR NON BLACK RACES 57 (>60)
[2017-04-30] MEDS: HumuLIN R SUBCUT PRN (06:23)
[2017-04-30 06:37] LABS: ANISOCYTOSIS SLIGHT; HYPOCHROMASIA SLIGHT; PLATELET MORPHOLOGY COMMENT NORMAL (NORMAL)
[2017-04-30] MEDS ORDERED: SYNTHROID 100 mcg TAB PO SCH (07:00)
[2017-04-30] MEDS ORDERED: LASIX IVP SCH (07:00)
--- NOTE | 2017-04-30 07:40 | RAD ---
The Examination: Portable AP chest History: None available Comparison reference 04/29/2017. Findings: No change in heart size. Vascular distention and diffuse interstitial process again noted w ith perhaps minimal improvement. No developing pleural fluid, or pneumothorax identified. Impression: Persistent interstitial changes of inflammation/edema with slight suspect improvement, no new abnormality. Reported By:
[2017-04-30] MEDS: COZAAR PO SCH (10:49)
[2017-04-30] MEDS: SINGULAIR TAB 10 MG PO SCH (10:49)
[2017-04-30] MEDS: PROzac PO SCH (10:49)
[2017-04-30] MEDS: K-DUR TAB 20 MEQ PO SCH (10:49)
[2017-04-30] MEDS: NexIUM PO SCH (10:49)
[2017-04-30] MEDS: PLAVIX PO SCH (10:50)
[2017-04-30] MEDS: LEVAQUIN PREMIX IV 750 MG 750 MG/150 ML BAG IV SCH (10:51)
[2017-04-30] MEDS: IMDUR PO SCH (10:51)
[2017-04-30 13:34] VITALS: BP 127/77
[2017-04-30] MEDS: NS 1000 ML 1,000 ML IV SCH (13:36)
== END 2017-04-30 13:30 | disposition home or self-care (01) | DRG 309 ==
LOC: ER 02:40 → ICU 07:12
PROVIDERS: ADMIT Internal Medicine; ATTEND Internal Medicine
DX: I48.91 Unspecified atrial fibrillation (principal); J20.8 Acute bronchitis due to other specified organisms; J44.1 Chronic obstructive pulmonary disease with (acute) exacerbation; R07.89 Other chest pain; R06.02 Shortness of breath; R53.1 Weakness; R51 Headache; E11.65 Type 2 diabetes mellitus with hyperglycemia; I10 Essential (primary) hypertension; R94.31 Abnormal electrocardiogram [ECG] [EKG]
CPT/HCPCS: 36415; 36600; 71010; 71275; 80053; 81001; 82550; 82553; 82803; 84484; 85025; 85378; 85610; 85730; 87040; 87070; 87205; 87502; 93005; 93041; 94640; 96365; 96374; 96375; 99284; A4222; J0696; J0713; J1815; J1885; J1940; J1956; J2270; J2405; J2920; J7620

== ENCOUNTER 2017-05-15 17:52 | Inpatient (IN) | payer OTHER ==
[2017-05-15] MEDS ORDERED: SOLU-Medrol 125 MG VIAL IVP ONE (17:57)
[2017-05-15] MEDS ORDERED: DUONEB 0.5 MG/3 MG NEB ONE ×2 (17:57)
--- NOTE | 2017-05-15 18:01 | DR.GENAD ---
HPI - Complaint/Symptoms Chief Complaint Doctors Comments: Patient presents with SOB,wheezing and hurting all over for a long time. States he has taken several breathing treatments at home without improvement. States he had a cough and they doubled his lasix but it is not doing any good. He is continued to swell. He denies chest pain presently, fever or chills. - Nurses notes reviewed Nurses Notes Review: Yes - Source History Provided: Patient, Family Member - Mode of Arrival Mode of Arrival: Wheelchair - Timing Came on: Gradually - Duration Duration: Intermittent How lon Duration: Days - Location Location: hurting all over - Severity Severity: Moderate - Modifying Factors Worsens:: nothing Improves:: nothing PMH - PMH Past Medical History: Angina, CHF, Diabetes, Hypertension, [place] Past Surgical History: Yes Surgical History: Abdominal Surgery, Angioplasty/Stents, Thyroidectomy, Other - Family History Family Medical History: Diabetes Mellitus, Cancer, [place] - Social History Do you use any recreational Drugs:: No ROS - Review of Systems Constitutional: No Symptoms Reported Eyes: No Symptoms Reported ENTM: No Symptoms Reported Respiratoy: Non-Productive Cough, Short of Breath, Wheezing. negative: No Symptoms Reported, See HPI, Productive Cough, Moist Cough, Dry Cough, Hacking Cough, Barking Cough, Brassy Cough, Orthopnea, Stridor, Hemoptysis, Other Cardiovascular: No Symptoms Reported, Chest Pain, Edema Gastrointestinal/Abdominal: No Symptoms Reported Genitourinary: No Symptoms Reported Neurological: No Symptoms Reported Musculoskeletal: No Symptoms Reported Integumentary: No Symptoms Reported Hematologic/Lymphatic: No Symptoms Reported Endocrine: No Symptoms Reported Psychiatric: No Symptoms Reported. negative: See HPI, Anxiety, Depression, Hallucinations, Excessive crying, Suicidal, Other PE - Vital Signs Vitals: Blood Pressure [Right Arm] 127/77 Blood Pressure [Left Arm] 123/78 Blood Pressure 127/77 - General Limitations: No Limitations General Appearance: Alert, In Distress (moderate) - Head Head Exam: Normal Inspection, Atraumatic, Normocephalic - Eyes Eye exam: Normal Appearance, PERRL, EOMI. negative: Scleral Icterus, Conjunctival Injection, Nystagmus, Miosis, Mydrasis, Periorbital Swelling, Periorbital Tenderness, Other - ENT ENT Exam: Normal Exam, Normal Oropharynx, Normal External Ear Exam, Mucous Membranes Moist, TM's Normal Bilaterally External Ear Exam: Normal External Inspection TM/Canal Exam: Bilateral Normal Nose Exam: Normal Nose Exam Mouth Exam: Normal Inspection Throat Exam: Normal Inspection - Neck Neck Exam: Normal Inspection, Full ROM, Trachea Midline - Chest Chest Inspection: Normal Inspection, Symmetric Chest Wall Rise - Respiratory Respiratory Exam: Normal Lung Sounds Bilat, Prolonged Expiratory Phase Respiratory Exam: Bilateral Wheezing, Bilateral Rales, Bilateral Rhonchi, Bilateral Decreased Breath Sounds - Cardiovascular Cardiovascular Exam: Regular Rate, Normal Rhythm, Normal Heart Sounds - Abdominal Exam Abdominal Exam: Normal Inspection, Normal Bowel Sounds, Soft Abdominal Tenderness: negative: RUQ, RLQ, LUQ, LLQ, Epigastrium, Suprapubic, Diffuse, Mild, Moderate, Severe, Other - Extremities Extremities Exam: Normal Inspection, Full ROM, Normal Capillary Refill - Back Back Exam: Normal Inspection, Full ROM, Tenderness - Neurologic Neurological Exam: Alert, Oriented X3, CN II-XII Intact, Reflexes Normal. negative: Normal Gait (gait not tested) - Psychiatric Psychiatric Exam: Normal Affect, Normal Mood - Skin Skin Exam: Warm, Dry, Intact, Normal Color ROR - Labs Reviewed Laboratory Results Reviewed?: Yes (all labs and x-ray results reviewed and discussed with patient) Result Diagrams: 05/15/17 17:55 05/15/17 17:55 - Diagnosis Discharge Problem: Hypercapnemia, COPD (chronic obstructive pulmonary disease), Respiratory failure, Acute on chronic systolic (congestive) heart failure, Chronic kidney disease (CKD) - Discharge Plan Disposition: ADMITTED INPATIENT Condition: Stable - Follow ups/Referrals - Instructions
[2017-05-15 18:08] LABS: BASOPHILS % (AUTO) 0.4 % (0.2-1.0); EOSINOPHILS # (AUTO) 0.1 x10^3/uL (0.0-0.2); EOSINOPHILS % (AUTO) 0.8 % (0.9-2.9); HEMATOCRIT 35.9 % (42.0-54.0); HEMOGLOBIN 11.4 g/dL (13.5-18.0); LYMPHOCYTES # (AUTO) 0.9 X10^3/uL (1.3-2.9); LYMPHOCYTES % (AUTO) 8.8 % (21.0-51.0); MEAN CORPUSCULAR HEMOGLOBIN 22.9 pg (27.0-34.0); MEAN CORPUSCULAR HGB CONC 31.8 g/dL (33.0-35.0); MEAN CORPUSCULAR VOLUME 72.1 fL (80.0-100.0); MEAN PLATELET VOLUME 8.6 fL (7.4-11.0); MONOCYTES # (AUTO) 0.8 x10^3/uL (0.3-0.8); MONOCYTES % (AUTO) 7.7 % (0.0-13.0); NEUTROPHILS # (AUTO) 8.8 x10^3/uL (2.2-4.8); NEUTROPHILS % (AUTO) 82.3 % (42.0-75.0); PLATELET COUNT 170 X10^3/uL (150.0-450.0); RED BLOOD COUNT 4.98 X10^6/uL (4.7-6.0); RED CELL DISTRIBUTION WIDTH 18.3 % (11.6-16.5); WHITE BLOOD COUNT 10.8 X10^3/uL (3.6-10.0)
[2017-05-15] MEDS ORDERED: SOLU-Medrol 125 MG VIAL ONE (18:13)
[2017-05-15] MEDS ORDERED: TYLENOL 325 MG TAB PO ONE ×2 (18:17→18:18)
[2017-05-15 18:24] LABS: BLOOD UREA NITROGEN 36 mg/dL (7-18); CALCIUM 8.7 mg/dL (8.5-10.1); CHLORIDE 105 mmol/L (98-107); CREATININE 1.99 mg/dL (0.70-1.30); SODIUM 144 mmol/L (136-145); TROPONIN I < 0.02 ng/mL (0-1.5); eGFR BLACK RACES 43 (>60); eGFR NON BLACK RACES 36 (>60)
[2017-05-15 18:26] LABS: PLATELET MORPHOLOGY COMMENT NORMAL (NORMAL)
[2017-05-15 18:27] LABS: ANISOCYTOSIS SLIGHT; HYPOCHROMASIA SLIGHT
[2017-05-15 18:28] LABS: ALANINE AMINOTRANSFERASE 27 Units/L (12-78); ALBUMIN 3.4 g/dL (3.4-5.0); ALKALINE PHOSPHATASE 80 Units/L (46-116); ASPARTATE AMINO TRANSFERASE 14 Units/L (15-37); CKMB % 3.1 % (<4); CREATINE KINASE 32 Units/L (39-308); CREATINE KINASE MB < 1.0 ng/mL (0-4.0); MAGNESIUM 1.2 mg/dL (1.7-2.9); TOTAL PROTEIN 7.3 g/dL (6.4-8.2)
[2017-05-15] MEDS ORDERED: ROCEPHIN VIAL 1 GM 1 GM in NS 100 ML IV + SPIKE MINIBAG* 100 ML IV ONE (20:09)
[2017-05-15] MEDS ORDERED: PROTONIX INJ 40 MG VIAL IVP ONE (20:15)
[2017-05-15] MEDS ORDERED: ROCEPHIN VIAL 1 GM ONE (20:35)
[2017-05-15] MEDS ORDERED: NS 100 ML IV 0 ML IV ONE (20:36)
[2017-05-15] MEDS ORDERED: LEVAQUIN PREMIX IV 500 MG 500 MG/100 ML BAG IV ONE (21:00)
--- NOTE | 2017-05-15 21:15 | RAD ---
Chest, one view Indication: 'I can't breath' Comparison: 04/30/2017 Findings: There is stable cardiomegaly. Interstitial opacities within the mid and lower left lung mercy ear unchanged. There are new patchy opacities within the right lung base. The upper lungs remain eric r. No significant pleural effusion or pneumothorax identified. Impression: Stable cardiomegaly with persistent and slightly worsening bilateral interstitial opacities, either r eflecting edema from congestive heart failure or acute infiltrate. Correlation recommended. Reported By:
[2017-05-15] MEDS: DUONEB 0.5 MG/3 MG NEB SCH (21:41)
[2017-05-15 21:55] VITALS: BMI 26.6
[2017-05-15] MEDS ORDERED: MERREM VIAL ONE (22:11)
[2017-05-15] MEDS: NS 250 ML IV 250 ML IV SCH (22:22)
[2017-05-15] MEDS: MERREM PREMIX IV 500 MG 500 MG/50 ML BAG IV SCH (22:32)
[2017-05-15] MEDS ORDERED: NS 50 ML IV 50 ML IV ONE (22:33)
[2017-05-15] MEDS ORDERED: PROTONIX INJ 40 MG VIAL ONE (22:33)
[2017-05-16] MEDS: DUONEB 0.5 MG/3 MG NEB SCH ×7 (01:15→21:10)
[2017-05-16] MEDS: SOLU-Medrol 40 MG VIAL IVP SCH ×3 (06:03→21:52)
[2017-05-16 06:31] LABS: BASOPHILS % (AUTO) 0.1 % (0.2-1.0); HEMATOCRIT 30.6 % (42.0-54.0); HEMOGLOBIN 9.6 g/dL (13.5-18.0); LYMPHOCYTES # (AUTO) 0.3 X10^3/uL (1.3-2.9); LYMPHOCYTES % (AUTO) 7.5 % (21.0-51.0); MEAN CORPUSCULAR HGB CONC 31.5 g/dL (33.0-35.0); MEAN CORPUSCULAR VOLUME 72.9 fL (80.0-100.0); MONOCYTES # (AUTO) 0.1 x10^3/uL (0.3-0.8); MONOCYTES % (AUTO) 1.6 % (0.0-13.0); NEUTROPHILS # (AUTO) 3.4 x10^3/uL (2.2-4.8); NEUTROPHILS % (AUTO) 90.8 % (42.0-75.0); PLATELET COUNT 120 X10^3/uL (150.0-450.0); RED BLOOD COUNT 4.19 X10^6/uL (4.7-6.0); RED CELL DISTRIBUTION WIDTH 18.3 % (11.6-16.5); WHITE BLOOD COUNT 3.8 X10^3/uL (3.6-10.0)
[2017-05-16 06:55] LABS: ALBUMIN 2.8 g/dL (3.4-5.0); CALCIUM 8.5 mg/dL (8.5-10.1); CARBON DIOXIDE 27.4 mmol/L (21-32); CHOL/HDL RATIO 1.9 (0.0-5.0); COR CA(FOR HYPOALB) 9.5 mg/dL (8.5-10.1); CREATININE 1.74 mg/dL (0.70-1.30); TOTAL PROTEIN 6.3 g/dL (6.4-8.2)
[2017-05-16 07:54] LABS: PLATELET MORPHOLOGY COMMENT NORMAL (NORMAL)
[2017-05-16 07:55] LABS: BAND NEUTROPHILS % 4 % (0-10); BASOPHILS % (MANUAL) 1 % (0-1)
[2017-05-16 08:25] LABS: ABG BASE EXCESS 2.8 mmol/L (-2.0-2.0); ABG HCO3 28.5 mmol/L (22-26)
[2017-05-16 08:27] LABS: ABG ALLEN TEST POS
[2017-05-16] MEDS: MERREM VIAL 500 MG in NS 100 ML IV 100 ML IV SCH ×2 (09:00→20:58)
[2017-05-16] MEDS ORDERED: LEVAQUIN PREMIX IV 500 MG 500 MG/100 ML BAG IV SCH (09:00)
[2017-05-16] MEDS ORDERED: SOLU-Medrol 40 MG VIAL IVP SCH (09:00)
[2017-05-16] MEDS: MERREM PREMIX IV 500 MG 500 MG/50 ML BAG IV SCH (09:33)
[2017-05-16] MEDS: NS 250 ML IV 250 ML IV SCH (12:00)
--- NOTE | 2017-05-16 12:59 | RAD ---
Examination: Chest, PA and lateral views History: Respiratory failure Comparison reference 05/15/2017 Findings: Persistent cardiomegaly. Again is identified central vascular dilatation with diffuse inter stitial prominence consistent with perivascular edema. No localized consolidation or pneumothorax is seen. Impression: Little definite change identified since 1 day prior. The radiographic findings are most c onsistent with pulmonary edema, although an associated inflammatory component may be present. Reported By:
[2017-05-16] MEDS ORDERED: DUONEB 0.5 MG/3 MG ONE ×2 (13:07→16:48)
[2017-05-16] MEDS ORDERED: HumuLIN R SC PRN (16:49)
[2017-05-16] MEDS: HumuLIN R SUBCUT PRN ×2 (16:57→20:50)
[2017-05-16] MEDS ORDERED: NEURONTIN CAP 400 MG PO PRN (18:31)
[2017-05-16] MEDS ORDERED: TESSALON PERLES PO PRN (18:31)
[2017-05-16] MEDS ORDERED: GLUCOPHAGE ONE (19:18)
--- NOTE | 2017-05-16 19:31 | DR.H&P ---
H&P - History & Physical for Day of: H&P Date: 05/15/17 - Chief Complaint Chief Complaint: short of breath - Allergies Allergies/Adverse Reactions: Allergies Allergy/AdvReac Type Severity Reaction Status Date / Time No Known Drug Allergies Allergy Verified 12/22/16 07:08 - History of Present Illness History of Present Illness: is a 67 year old patient of ours who presented to the emergency room with complaints of shortness of breath and wheezing. Patient also reports aching all over. Patient reports that he has taken multiple breathing treatments at home, however, symptoms have progressively gotten worse despite increase in treatments and an increase in dosage of Lasix. Associated symptoms include non-productive cough, shortness of breath, wheezing, and swelling. Medical History includes angina, CHF, diabetes, hypertension, [place], and angioplasty/stents. On examination, patient is noted to be in respiratory distress. Heart is regular in rate and rhythm. Bilateral wheezing, rales and rhonchi are noted throughout. Oxygen saturation is noted to be in the 70s on supplemental oxygen. Patient is noted to be using accessory muscles to breath. He was placed on a non-rebreather. Abdomen is round , soft, and non-tender with normal bowel sounds noted in all quadrants. Bilateral lower extremities are noted with 1+ pitting edema. There is normal range of motion noted to all extremities. On arrival to the emergency room, vitals were 102.9, 96, 28, 79%NC 2LPM, 141/71. Labs, EKG, and chest xray were obtained. Abnormal Labs include the following: WBC 10.8, Hgb 11.4, Hct 35.9, MCV 72.1, MCH 22.9, MCHC 31.8, RDW 18.3, BUN 36, Creatinine 1.99, GFR(AA) 43, GFR(non) 36, Glucose 103, Magnesium 1.2, AST 14, Creatine Kinase 32, BNP 659, A/ G Ratio 0.9. Blood cultures were obtained and are pending. EKG reports: Atrial fibrillation. Heart rate=97. Chest xray reports: Stable cardiomegaly with persistent and slightly worsening bilateral interstitial opacities, either reflecting edema from congestive heart failure or acute infiltrate. Correlation recommended. Patient was given multiple breathing treatments and solu-medrol 125mg iv x 1 in the ER with slight improvement in symptoms. We admitted patient for further evaluation and treatment. we plan to follow up with AM labs and chest xray continue to monitor patient. - Past Medical History Past Medical History: Angina, CHF, Diabetes, Hypertension, [place] Additional Medical History: [place] X 2, UNKNOWN NUMBER OF STENTS, UMBILICAL HERNIA, CYSTITIS, BPH, - Past Surgical History Surgical History: Abdominal Surgery, Angioplasty/Stents, Thyroidectomy, Other Additional Surgical History: COLON RESECTION - Family History Family Medical History: Diabetes Mellitus, Cancer, [place] - Social History Does patient currently use any type of tobacco product: No Have you used tobacco products in the last 12 months: No Type of Tobacco Use: None Does any household member use tobacco: No Alcohol Use: None Drug Use: None - Medications Home Medications: Amitriptyline HCl 25 mg PO HS 05/16/17 [History Confirmed 05/16/17] Amlodipine Besylate [Norvasc] 10 mg PO DAILY 05/16/17 [History Confirmed ] Atorvastatin Calcium 40 mg PO HS 05/16/17 [History Confirmed 05/16/17] Benzonatate [Tessalon Perle] 200 mg PO TID PRN 05/16/17 [History Confirmed 05/16] Clopidogrel Bisulfate [PLAVIX TAB 75 MG *] 75 mg PO DAILY 05/16/17 [History Confirmed 05/16/17] Diltiazem HCl [Diltiazem 24Hr ER] 180 mg PO DAILY 05/16/17 [History Confirmed ] Esomeprazole Magnesium [Nexium] 40 mg PO DAILY 05/16/17 [History Confirmed 05/16] Fluoxetine HCl [Prozac cap 40 mg] 1 cap PO DAILY 05/16/17 [History Confirmed 11/24] Furosemide 40 mg PO DAILY 05/16/17 [History Confirmed 05/16/17] Gabapentin 400 mg PO TID PRN 05/16/17 [History Confirmed 05/16/17] Glipizide 5 mg PO BID 05/16/17 [History Confirmed 05/16/17] Isosorbide Mononitrate [Isosorbide Mononitrate ER] 30 mg PO DAILY 05/16/17 [ History Confirmed 05/16/17] Levothyroxine Sodium [Levoxyl] 1 tab PO DAILYAC 05/16/17 [History Confirmed 11/24] Losartan Potassium [LOSARTAN POTASSIUM 50 MG *] 50 mg PO DAILY 05/16/17 [ History Confirmed 05/16/17] Metformin HCl [Glucophage] 500 mg PO BID 05/16/17 [History Confirmed 05/16/17] Metoprolol Tartrate 50 mg PO BID 05/16/17 [History Confirmed 05/16/17] Montelukast Sodium [Singulair Tab 10 mg] 10 mg PO HS 05/16/17 [History Confirmed 05/16/17] Tamsulosin HCl [Flomax] 0.4 mg PO HS 05/16/17 [History Confirmed 05/16/17] Tizanidine HCl [Zanaflex 4 mg] 4 mg PO HS 05/16/17 [History Confirmed 05/16/17] - Review of Systems Constitutional: See HPI, Weakness Eyes: No Symptoms Reported. denies: See HPI, Pain, Vision Change, Conjunctivae Inflammation, Eyelid Inflammation, Redness, Other ENT: No Symptoms Reported. denies: See HPI, Ear Pain, Ear Discharge, Nose Pain , Nose Discharge, Nose Congestion, Mouth Pain, Mouth Swelling, Throat Pain, Throat Swelling, Other Respiratory: See HPI, Cough, Shortness of Breath, SOB with Excertion, Wheezing Cardiovascular: Edema (BILATERAL LOWER EXTREMITY) Gastrointestinal: No Symptoms Reported. denies: See HPI, Nausea, Vomiting, Abdominal Pain, Diarrhea, Constipation, Melena, Hematochezia, Other Genitourinary: No Symptoms Reported. denies: See HPI, Dysuria, Frequency, Incontinence, Hematuria, Retention, Other Musculoskeletal: No Symptoms Reported. denies: See HPI, Shoulder Pain, Arm Pain , Back Pain, Hand Pain, Leg Pain, Foot Pain, Neck Pain, Other Skin: No Symptoms Reported. denies: See HPI, Rash, Lesions, Jaundice, Bruising , Wound, Ecchymosis, Other Neurological: Weakness - Physical Exam Vital Signs: Temperature 97.9 F Pulse Rate [Right Brachial] 97 Pulse Rate 100 Respiratory Rate 20 Blood Pressure [Right Arm] 133/77 Blood Pressure [Left Arm] 123/78 Blood Pressure 141/71 O2 Sat by Pulse Oximetry 95 Oriented: Normal Eyes: Normal. negative: Blurred Vision, Diplopia, Discharge, Pain, Redness, Photophobia, Other Ear: Normal. negative: Right, Left, Swelling, Ecchymosis, Hemotypanum, Abrasion , Laceration Nose: Normal. negative: Injected, Discharge, Blood, Other Throat: Normal. negative: Tonsillar Hypertrophy, Red, Exudate, Dry, Other Respiratory: Rhonchi Throughout, Rales Throughout, Wheezes Throughout Cardiovascular: Edema (BILATERAL LOWER EXTREMITY PITTING EDEMA ) : Normal. negative: Dysuria, Hematuria, Frequency, Discharge, Testicular Pain , Bleeding, , Other Auscultation: Bowel Sounds: Normal. negative: Bruit, Absent, Increased, Decreased, High Pitched, Other Palpation: Normal. negative: Spleen Enlarged, Liver Enlarged, Mass Pulsatile, Other Tenderness: Normal. negative: Rebound, Guarding, Rigidity Skin: Normal Musculoskeletal: Normal Psychiatric: Normal Mood Description: Calm. negative: Angry, Apathetic, Depressed, Fearful, Flat, Happy, Hostile, Sad, Suspicious, Withdrawn, Anxious, Appropriate, Labile Affect: Normal. negative: Angry, Anxious, Depressed, Flat, Hysterical, Quiet, Violent Speech Pattern: Clear. negative: Appropriate, Unclear, Inappropriate, Delayed, Slurred, Excessive, Aphasic, Artificially Ventilated - Assessment/Plan (1) Respiratory failure with hypercapnia Qualifiers: Chronicity: acute on chronic Qualified Code(s): J96.22 - Acute and chronic respiratory failure with hypercapnia Status: Acute Plan: IV ANTIBIOTICS, CONTINUE RESPIRATORY TX, CONTINUE SUPPLEMENTAL OXYGEN, TELEMETRY, CONTINUOUS 02 MONITORING, MONITOR LABS AND CHEST XRAY (2) Acute on chronic systolic (congestive) heart failure Status: Acute Plan: IV ANTIBIOTICS, CONTINUE RESPIRATORY TX, CONTINUE SUPPLEMENTAL OXYGEN, TELEMETRY, CONTINUOUS 02 MONITORING, MONITOR LABS AND CHEST XRAY (3) Chronic kidney disease (CKD) Qualifiers: Chronic kidney disease stage: stage 3 (moderate) Qualified Code(s): N18.3 - Chronic kidney disease, stage 3 (moderate) Status: Acute Plan: CONTINUE TO MONITOR
[2017-05-16] MEDS: ELAVIL PO SCH (20:21)
[2017-05-16] MEDS: FLOMAX PO SCH (20:22)
[2017-05-16] MEDS: SINGULAIR TAB 10 MG PO SCH (20:22)
[2017-05-16] MEDS: SNACK - Diabetic Appropriate PO SCH (20:22)
[2017-05-16] MEDS: LIPITOR TAB 40 MG PO SCH (20:22)
[2017-05-16] MEDS: LEVAQUIN PREMIX IV 250 MG 250 MG/50 ML BAG IV SCH (20:22)
[2017-05-16] MEDS: ZANAFLEX PO SCH (20:22)
[2017-05-16] MEDS: LASIX IVP SCH ×2 (20:22→21:08)
[2017-05-16] MEDS: GLUCOPHAGE PO SCH (20:23)
[2017-05-16] MEDS: GLUCOTROL PO SCH (20:23)
[2017-05-16] MEDS: LOPRESSOR TAB 50 MG PO SCH (20:23)
[2017-05-16] MEDS ORDERED: PATIENT'S HOME MEDICATION (Tizanidine Hcl [Zanaflex 4 Mg] 4 MG) PO SCH (21:00)
[2017-05-17] MEDS ORDERED: DUONEB 0.5 MG/3 MG ONE ×2 (00:51→13:27)
[2017-05-17] MEDS: DUONEB 0.5 MG/3 MG NEB SCH ×6 (00:52→21:43)
[2017-05-17] MEDS: NS 250 ML IV 250 ML IV SCH ×3 (02:58→19:06)
--- NOTE | 2017-05-17 05:54 | RAD ---
Examination: Portable AP chest History: Respiratory failure Comparison 05/16/2017 Findings: Interval development of near-complete opacification of the left chest. The mediastinum cony ins in the midline position. There is diffuse infiltrate which is stable in the right lower lung. Impression: Increasing opacification of the left virgil thorax consistent with combination of airspace disease and pleural fluid. Reported By:
[2017-05-17] MEDS: HumuLIN R SUBCUT PRN ×3 (06:18→22:16)
[2017-05-17] MEDS: SOLU-Medrol 40 MG VIAL IVP SCH ×3 (06:18→21:01)
[2017-05-17] MEDS: SYNTHROID 100 mcg TAB PO SCH (06:18)
[2017-05-17 06:22] LABS: BASOPHILS % (AUTO) 0 % (0.2-1.0); HEMATOCRIT 29.6 % (42.0-54.0); HEMOGLOBIN 9.5 g/dL (13.5-18.0); LYMPHOCYTES # (AUTO) 0.4 X10^3/uL (1.3-2.9); LYMPHOCYTES % (AUTO) 6.5 % (21.0-51.0); MEAN CORPUSCULAR HEMOGLOBIN 23.1 pg (27.0-34.0); MEAN CORPUSCULAR HGB CONC 32.1 g/dL (33.0-35.0); MEAN CORPUSCULAR VOLUME 71.9 fL (80.0-100.0); MEAN PLATELET VOLUME 9.1 fL (7.4-11.0); MONOCYTES # (AUTO) 0.2 x10^3/uL (0.3-0.8); MONOCYTES % (AUTO) 3.4 % (0.0-13.0); NEUTROPHILS # (AUTO) 5.3 x10^3/uL (2.2-4.8); NEUTROPHILS % (AUTO) 90.1 % (42.0-75.0); PLATELET COUNT 114 X10^3/uL (150.0-450.0); RED BLOOD COUNT 4.12 X10^6/uL (4.7-6.0); RED CELL DISTRIBUTION WIDTH 18.7 % (11.6-16.5); WHITE BLOOD COUNT 5.8 X10^3/uL (3.6-10.0)
[2017-05-17 06:36] LABS: B-TYPE NATRIURETIC PEPTIDE 620 pg/mL (0-79)
[2017-05-17 06:40] LABS: ALANINE AMINOTRANSFERASE 19 Units/L (12-78); ALBUMIN 2.7 g/dL (3.4-5.0); ALKALINE PHOSPHATASE 59 Units/L (46-116); ASPARTATE AMINO TRANSFERASE 11 Units/L (15-37); BLOOD UREA NITROGEN 28 mg/dL (7-18); CALCIUM 8.8 mg/dL (8.5-10.1); CARBON DIOXIDE 24.9 mmol/L (21-32); CHLORIDE 106 mmol/L (98-107); COR CA(FOR HYPOALB) 9.8 mg/dL (8.5-10.1); COR NA(FOR HYPERGLY) 146 mmol/L (136-145); CREATININE 1.45 mg/dL (0.70-1.30); SODIUM 143 mmol/L (136-145); TOTAL PROTEIN 6.1 g/dL (6.4-8.2); eGFR BLACK RACES > 60 (>60); eGFR NON BLACK RACES 52 (>60)
[2017-05-17 07:28] LABS: PLATELET MORPHOLOGY COMMENT NORMAL (NORMAL)
[2017-05-17] MEDS ORDERED: GLUCOPHAGE ONE ×2 (08:18→20:21)
[2017-05-17] MEDS ORDERED: FLUOXETINE HCL PO SCH (09:00)
[2017-05-17] MEDS ORDERED: LASIX PO SCH (09:00)
[2017-05-17] MEDS ORDERED: DILTIAZEM HCL 180 MG PO SCH (09:00)
[2017-05-17] MEDS: IMDUR PO SCH (09:01)
[2017-05-17] MEDS: COZAAR PO SCH (09:01)
[2017-05-17] MEDS: GLUCOPHAGE PO SCH ×2 (09:01→21:00)
[2017-05-17] MEDS: GLUCOTROL PO SCH ×2 (09:01→20:59)
[2017-05-17] MEDS: CARDIZEM CD 180 MG PO SCH (09:01)
[2017-05-17] MEDS: NexIUM PO SCH (09:02)
[2017-05-17] MEDS: PLAVIX PO SCH (09:02)
[2017-05-17] MEDS: MERREM VIAL 500 MG in NS 100 ML IV 100 ML IV SCH ×2 (09:02→21:01)
[2017-05-17] MEDS: LOPRESSOR TAB 50 MG PO SCH ×2 (09:02→21:00)
[2017-05-17] MEDS: NORVASC TAB 10 MG PO SCH (09:02)
[2017-05-17] MEDS: PROzac PO SCH (09:03)
[2017-05-17] MEDS ORDERED: LEVOTHYROXINE SODIUM PO SCH (16:30)
--- NOTE | 2017-05-17 17:17 | PCM.PROG ---
Progress Note - Progress Note for Day of Date: 05/16/17 - Subjective Subjective: WAS ADMITTED FOR ACUTE ON CHRONIC RESPIRATORY FAILURE WITH HYPERCAPNIA, CONGESTIVE HEART FAILURE, AND COPD EXACERBATION. TODAY, HE IS ALERT AND ORIENTED, LYING IN BED ON MORNING ROUNDS. HE CONTINUES WITH MODERATE SHORTNESS OF BREATH AND COUGH. ON EXAMINATION, HEART IS REGULAR IN RATE AND RHYTHM. BILATERAL LUNGS CONTINUE WITH SCATTERED WHEEZING AND RHONCHI THROUGHOUT. HE IS CURRENTLY UTILIZING OXYGEN VIA NON-REBREATHER. ABDOMEN IS ROUND, SOFT, AND NON-TENDER WITH NORMAL BOWEL SOUNDS NOTED TO ALL QUADRANTS. BILATERAL LOWER EXTREMITIES CONTINUE WITH 1+ PITTING EDEMA. THERE IS NORMAL RANGE OF MOTION NOTED TO ALL EXTREMITIES. HIS VITALS THIS MORNING ARE 98.2-86-16 -100%-106/67. LABS WERE OBTAINED. ABNORMAL LAB VALUES INCLUDE THE FOLLOWING: RBC 4.19, HGB 9.6, HCT 30.6, BUN 33, CREATININE 1.74, GLUCOSE 271, BNP 811, TOTAL PROTEIN 6.3, ALBUMIN 2.8. ARTERIAL BLOOD GAS REPORTS PH 7.390, PC02 47, P02 250, HC03 8.5, BASE EXCESS 2.8. TODAYS CHEST XRAY REPORTS RADIOGRAPHIC FINDINGS MOST CONSISTENT WITH PULMONARY EDEMA, ALTHOUGH AN ASSOCIATED INFLAMMATORY COMPONENT MAY BE PRESENT. HE IS CURRENTLY RECEIVING IV ANTIBIOTICS , RESPIRATORY TREATMENTS, AND IV STEROIDS. WE WILL CONTINUE THIS TODAY AND START LASIX 40MG IV BID. WE WILL OBTAIN AM LABS AND CHEST XRAY AND CONTINUE TO MONITOR PATIENT. - Past Medical Family Social History Past Med/Fam/Surg Hx: No changes since H&P Allergies: Allergies No Known Drug Allergies Allergy (Verified 12/22/16 07:08) - Review of Systems ROS: No change since H&P - Vital Signs and I&O's Vital Signs: Temperature 97.7 F Pulse Rate [Right Brachial] 88 Pulse Rate 106 Respiratory Rate 20 Blood Pressure [Right Arm] 128/77 Blood Pressure [Left Arm] 123/78 Blood Pressure 141/71 O2 Sat by Pulse Oximetry 93 Intake and Output: Intake & Output 05/15/17 05/16/17 05/17/17 05/18/17 11:59 11:59 11:59 11:59 Intake Total 410 1320 800 Output Total 1725 900 Balance 410 -405 -100 - Physical Exam Oriented: Normal Eyes: Normal. negative: Blurred Vision, Diplopia, Discharge, Pain, Redness, Photophobia, Other Ear: Normal. negative: Right, Left, Swelling, Ecchymosis, Hemotypanum, Abrasion , Laceration Nose: Normal. negative: Injected, Discharge, Blood, Other Throat: Normal. negative: Tonsillar Hypertrophy, Red, Exudate, Dry, Other Respiratory: Right, Left, Generalized, Wheezes, Rhonchi Cardiovascular: Edema (BILATERAL LOWER EXTREMITY 1+ PITTING EDEMA ) : Normal. negative: Dysuria, Hematuria, Frequency, Discharge, Testicular Pain , Bleeding, , Other Auscultation: Bowel Sounds: Normal. negative: Bruit, Absent, Increased, Decreased, High Pitched, Other Palpation: Normal Tenderness: Normal. negative: Rebound, Guarding, Rigidity Skin: Normal Musculoskeletal: Normal Psychiatric: Normal Mood Description: Calm. negative: Angry, Apathetic, Depressed, Fearful, Flat, Happy, Hostile, Sad, Suspicious, Withdrawn, Anxious, Appropriate, Labile Affect: Normal. negative: Angry, Anxious, Depressed, Flat, Hysterical, Quiet, Violent Speech Pattern: Clear. negative: Appropriate, Unclear, Inappropriate, Delayed, Slurred, Excessive, Aphasic, Artificially Ventilated - Laboratory and Diagnostics Result Diagrams: 05/17/17 05:30 05/17/17 05:30 Labs: 05/15/17 20:40 Blood Blood Culture - Preliminary Laboratory WBC 5.8 X10^3/uL (3.6-10.0) 05/17/17 05:30 RBC 4.12 X10^6/uL (4.7-6.0) L 05/17/17 05:30 Hgb 9.5 g/dL (13.5-18.0) L 05/17/17 05:30 Hct 29.6 % (42.0-54.0) L 05/17/17 05:30 MCV 71.9 fL (80.0-100.0) L 05/17/17 05:30 MCH 23.1 pg (27.0-34.0) L 05/17/17 05:30 MCHC 32.1 g/dL (33.0-35.0) L 05/17/17 05:30 RDW 18.7 % (11.6-16.5) H 05/17/17 05:30 Plt Count 114 X10^3/uL (150.0-450.0) L 05/17/17 05:30 Plt Count Comment Adequate (ADEQUATE) 05/17/17 05:30 MPV 9.1 fL (7.4-11.0) 05/17/17 05:30 Neut % 90.1 % (42.0-75.0) H 05/17/17 05:30 Lymph % 6.5 % (21.0-51.0) L 05/17/17 05:30 [place] % 3.4 % (0.0-13.0) 05/17/17 05:30 Eos % 0.0 % (0.9-2.9) L 05/17/17 05:30 Baso % 0 % (0.2-1.0) L 05/17/17 05:30 Neut # 5.3 x10^3/uL (2.2-4.8) H 05/17/17 05:30 Lymph # 0.4 X10^3/uL (1.3-2.9) L 05/17/17 05:30 [place] # 0.2 x10^3/uL (0.3-0.8) L 05/17/17 05:30 Eos # 0.0 x10^3/uL (0.0-0.2) 05/17/17 05:30 Baso # 0.0 X10^3/uL (0.0-0.1) 05/17/17 05:30 Absolute Nucleated RBC 0.1 /100WBC 05/17/17 05:30 Total Counted 100 05/17/17 05:30 Neutrophils % (Manual) 91 % (39-76) H 05/17/17 05:30 Band Neutrophils % 4 % (0-10) 05/16/17 06:10 Lymphocytes % (Manual) 7 % (13-43) L 05/17/17 05:30 Monocytes % (Manual) 1 % (4-9) L 05/17/17 05:30 Basophils % (Manual) 1 % (0-1) 05/16/17 06:10 Plt Morphology Comment Normal (NORMAL) 05/17/17 05:30 RBC Morphology Normal (NORMAL) 05/17/17 05:30 Hypochromasia Slight A 05/15/17 17:55 Anisocytosis Slight A 05/15/17 17:55 INR Target Range - 05/15/17 17:55 INR 1.11 (0.8-1.3) 05/15/17 17:55 PTT 33.2 SECONDS (22.9-36.5) 05/15/17 17:55 PTT Comment - 05/15/17 17:55 Sample Site Rt rad 05/16/17 07:45 ABG pH 7.390 (7.35-7.45) 05/16/17 07:45 ABG pCO2 47.0 mmHg (35.0-45.0) H 05/16/17 07:45 ABG pO2 250.0 mmHg (80.0-100.0) H 05/16/17 07:45 ABG HCO3 28.5 mmol/L (22-26) H 05/16/17 07:45 ABG O2 Saturation 100.0 % (90-100) 05/16/17 07:45 ABG Base Excess 2.8 mmol/L (-2.0-2.0) H 05/16/17 07:45 Marcus Test Pos 05/16/17 07:45 A-a Gradient 404.0 mmHg 05/16/17 07:45 FiO2 100.000 05/16/17 07:45 Blood Gas Comments Toleratedmm 05/16/17 07:45 Sodium 143 mmol/L (136-145) 05/17/17 05:30 Corrected Sodium 146 mmol/L (136-145) H 05/17/17 05:30 Potassium 4.5 mmol/L (3.5-5.1) 05/17/17 05:30 Chloride 106 mmol/L (98-107) 05/17/17 05:30 Carbon Dioxide 24.9 mmol/L (21-32) 05/17/17 05:30 BUN 28 mg/dL (7-18) H 05/17/17 05:30 Creatinine 1.45 mg/dL (0.70-1.30) H 05/17/17 05:30 Est GFR (MDRD) Af Amer > 60 (>60) 05/17/17 05:30 Est GFR (MDRD) Non-Af 52 (>60) L 05/17/17 05:30 Glucose 225 mg/dL (65-99) H 05/17/17 05:30 POC Glucose (mg/dL) 176 mg/dL (65-99) H 05/17/17 15:42 Calcium 8.8 mg/dL (8.5-10.1) 05/17/17 05:30 Corrected Calcium 9.8 mg/dL (8.5-10.1) 05/17/17 05:30 Magnesium 1.2 mg/dL (1.7-2.9) L 05/15/17 17:55 Total Bilirubin 0.40 mg/dL (0.2-1.0) 05/17/17 05:30 AST 11 Units/L (15-37) L 05/17/17 05:30 ALT 19 Units/L (12-78) 05/17/17 05:30 Alkaline Phosphatase 59 Units/L (46-116) 05/17/17 05:30 Creatine Kinase 32 Units/L (39-308) L 05/15/17 17:55 CK-MB (CK-2) < 1.0 ng/mL (0-4.0) 05/15/17 17:55 CK/CKMB % Calc 3.1 % (<4) 05/15/17 17:55 Troponin I < 0.02 ng/mL (0-1.5) 05/15/17 17:55 B-Natriuretic Peptide 620 pg/mL (0-79) H* 05/17/17 05:30 Total Protein 6.1 g/dL (6.4-8.2) L 05/17/17 05:30 Albumin 2.7 g/dL (3.4-5.0) L 05/17/17 05:30 Globulin 3.4 g/dL (2.5-4.5) 05/17/17 05:30 Albumin/Globulin Ratio 0.8 Ratio (1.1-2.1) L 05/17/17 05:30 Triglycerides 39 mg/dL (0-150) 05/16/17 06:10 Cholesterol 99 mg/dL (0-200) 05/16/17 06:10 LDL Cholesterol, Calc 38 mg/dL (0-100) 05/16/17 06:10 HDL Cholesterol 53 mg/dL (40-60) 05/16/17 06:10 Cholesterol/HDL Ratio 1.9 (0.0-5.0) 05/16/17 06:10 Influenza Type A (PCR) Negative (NEGATIVE) 01/06/18 18:11 Influenza Type B (PCR) Negative (NEGATIVE) 05/15/17 18:11 - Plan (1) Respiratory failure with hypercapnia Status: Acute Qualifiers: Chronicity: acute on chronic Qualified Code(s): J96.22 - Acute and chronic respiratory failure with hypercapnia Plan: IV ANTIBIOTICS, CONTINUE RESPIRATORY TX, CONTINUE SUPPLEMENTAL OXYGEN, TELEMETRY, CONTINUOUS 02 MONITORING, MONITOR LABS AND CHEST XRAY (2) Acute on chronic systolic (congestive) heart failure Status: Acute Plan: IV ANTIBIOTICS, CONTINUE RESPIRATORY TX, CONTINUE SUPPLEMENTAL OXYGEN, TELEMETRY, CONTINUOUS 02 MONITORING, MONITOR LABS AND CHEST XRAY (3) Chronic kidney disease (CKD) Status: Acute Qualifiers: Chronic kidney disease stage: stage 3 (moderate) Qualified Code(s): N18.3 - Chronic kidney disease, stage 3 (moderate) Plan: CONTINUE TO MONITOR (4) COPD (chronic obstructive pulmonary disease) Status: Chronic Qualifiers: COPD type: COPD with acute exacerbation Qualified Code(s): J44.1 - Chronic obstructive pulmonary disease with (acute) exacerbation Plan: IV ANTIBIOTICS, CONTINUE RESPIRATORY TX, CONTINUE SUPPLEMENTAL OXYGEN, TELEMETRY, CONTINUOUS 02 MONITORING, MONITOR LABS AND CHEST XRAY
[2017-05-17] MEDS: ELAVIL PO SCH (20:59)
[2017-05-17] MEDS: FLOMAX PO SCH (20:59)
[2017-05-17] MEDS: ZANAFLEX PO SCH (21:00)
[2017-05-17] MEDS: LIPITOR TAB 40 MG PO SCH (21:00)
[2017-05-17] MEDS: SINGULAIR TAB 10 MG PO SCH (21:00)
[2017-05-17] MEDS: LEVAQUIN PREMIX IV 250 MG 250 MG/50 ML BAG IV SCH (21:01)
[2017-05-17] MEDS: SNACK - Diabetic Appropriate PO SCH (21:01)
[2017-05-18] MEDS: DUONEB 0.5 MG/3 MG NEB SCH ×6 (00:50→21:36)
[2017-05-18] MEDS: NS 250 ML IV 250 ML IV SCH ×2 (04:39→16:54)
[2017-05-18] MEDS: SOLU-Medrol 40 MG VIAL IVP SCH ×3 (06:00→21:28)
[2017-05-18 06:10] LABS: BASOPHILS % (AUTO) 0.2 % (0.2-1.0); HEMOGLOBIN 9.2 g/dL (13.5-18.0); LYMPHOCYTES # (AUTO) 0.4 X10^3/uL (1.3-2.9); MEAN CORPUSCULAR HGB CONC 31.6 g/dL (33.0-35.0); MEAN CORPUSCULAR VOLUME 72.6 fL (80.0-100.0); MEAN PLATELET VOLUME 8.9 fL (7.4-11.0); MONOCYTES # (AUTO) 0.2 x10^3/uL (0.3-0.8); MONOCYTES % (AUTO) 3.9 % (0.0-13.0); NEUTROPHILS # (AUTO) 4.7 x10^3/uL (2.2-4.8); NEUTROPHILS % (AUTO) 88.9 % (42.0-75.0); PLATELET COUNT 132 X10^3/uL (150.0-450.0); RED BLOOD COUNT 3.99 X10^6/uL (4.7-6.0); RED CELL DISTRIBUTION WIDTH 18.2 % (11.6-16.5); WHITE BLOOD COUNT 5.3 X10^3/uL (3.6-10.0)
[2017-05-18 06:26] LABS: ALANINE AMINOTRANSFERASE 20 Units/L (12-78); ALBUMIN 2.6 g/dL (3.4-5.0); ALKALINE PHOSPHATASE 56 Units/L (46-116); ASPARTATE AMINO TRANSFERASE 10 Units/L (15-37); BLOOD UREA NITROGEN 33 mg/dL (7-18); CALCIUM 8.8 mg/dL (8.5-10.1); CARBON DIOXIDE 23.8 mmol/L (21-32); CHLORIDE 107 mmol/L (98-107); COR CA(FOR HYPOALB) 9.9 mg/dL (8.5-10.1); COR NA(FOR HYPERGLY) 146 mmol/L (136-145); CREATININE 1.37 mg/dL (0.70-1.30); SODIUM 142 mmol/L (136-145); TOTAL PROTEIN 5.8 g/dL (6.4-8.2); eGFR BLACK RACES > 60 (>60); eGFR NON BLACK RACES 55 (>60)
[2017-05-18] MEDS: SYNTHROID 100 mcg TAB PO SCH (06:30)
[2017-05-18] MEDS: HumuLIN R SUBCUT PRN ×3 (06:47→22:12)
[2017-05-18 06:57] LABS: HYPOCHROMASIA 1+; PLATELET MORPHOLOGY COMMENT NORMAL (NORMAL)
--- NOTE | 2017-05-18 07:02 | RAD ---
Examination: Portable AP chest History: Respiratory failure Comparison reference 05/17/2017 Findings: Continued upper normal heart size. Improved aeration of the left lung with decreasing airsp jose l process/atelectasis in the left lung. The heart and mediastinum are now in normal position. There is persistent perihilar congestion and suspect mild edema. Impression: Interval improvement in aeration of the left lung with persistent pulmonary vascular dila tation and suspect perivascular edema. Reported By:
[2017-05-18] MEDS ORDERED: GLUCOPHAGE ONE ×2 (08:29→20:20)
[2017-05-18] MEDS: NORVASC TAB 10 MG PO SCH (09:11)
[2017-05-18] MEDS: IMDUR PO SCH (09:11)
[2017-05-18] MEDS: GLUCOTROL PO SCH ×2 (09:11→21:28)
[2017-05-18] MEDS: GLUCOPHAGE PO SCH ×2 (09:11→21:27)
[2017-05-18] MEDS: PROzac PO SCH (09:11)
[2017-05-18] MEDS: NexIUM PO SCH (09:12)
[2017-05-18] MEDS: CARDIZEM CD 180 MG PO SCH (09:12)
[2017-05-18] MEDS: LOPRESSOR TAB 50 MG PO SCH ×2 (09:12→21:27)
[2017-05-18] MEDS: PLAVIX PO SCH (09:12)
[2017-05-18] MEDS: COZAAR PO SCH (09:12)
[2017-05-18] MEDS: MERREM VIAL 500 MG in NS 100 ML IV 100 ML IV SCH ×2 (09:13→21:29)
[2017-05-18] MEDS: LASIX IVP SCH ×2 (13:14→21:28)
[2017-05-18 14:31] LABS: ABG BASE EXCESS 0.8 mmol/L (-2.0-2.0)
[2017-05-18] MEDS: FLOMAX PO SCH (21:27)
[2017-05-18] MEDS: SINGULAIR TAB 10 MG PO SCH (21:27)
[2017-05-18] MEDS: LIPITOR TAB 40 MG PO SCH (21:27)
[2017-05-18] MEDS: ZANAFLEX PO SCH (21:27)
[2017-05-18] MEDS: ELAVIL PO SCH (21:28)
[2017-05-18] MEDS: SNACK - Diabetic Appropriate PO SCH (22:10)
[2017-05-18] MEDS: LEVAQUIN PREMIX IV 250 MG 250 MG/50 ML BAG IV SCH (23:31)
[2017-05-19] MEDS: DUONEB 0.5 MG/3 MG NEB SCH ×6 (01:28→21:33)
[2017-05-19] MEDS: NS 250 ML IV 250 ML IV SCH ×2 (04:38→07:05)
[2017-05-19] MEDS: SOLU-Medrol 40 MG VIAL IVP SCH (05:28)
[2017-05-19] MEDS: SYNTHROID 100 mcg TAB PO SCH (06:04)
[2017-05-19 06:16] LABS: BASOPHILS % (AUTO) 0.1 % (0.2-1.0); LYMPHOCYTES # (AUTO) 0.5 X10^3/uL (1.3-2.9); LYMPHOCYTES % (AUTO) 10.4 % (21.0-51.0); MEAN CORPUSCULAR HEMOGLOBIN 23.3 pg (27.0-34.0); MEAN CORPUSCULAR HGB CONC 32.3 g/dL (33.0-35.0); MEAN CORPUSCULAR VOLUME 72.1 fL (80.0-100.0); MEAN PLATELET VOLUME 8.7 fL (7.4-11.0); MONOCYTES # (AUTO) 0.2 x10^3/uL (0.3-0.8); MONOCYTES % (AUTO) 3.6 % (0.0-13.0); NEUTROPHILS # (AUTO) 4.1 x10^3/uL (2.2-4.8); NEUTROPHILS % (AUTO) 85.9 % (42.0-75.0); PLATELET COUNT 152 X10^3/uL (150.0-450.0); RED BLOOD COUNT 4.29 X10^6/uL (4.7-6.0); RED CELL DISTRIBUTION WIDTH 18.8 % (11.6-16.5); WHITE BLOOD COUNT 4.8 X10^3/uL (3.6-10.0)
[2017-05-19] MEDS: HumuLIN R SUBCUT PRN ×3 (06:29→22:48)
[2017-05-19 06:47] LABS: ALBUMIN 2.8 g/dL (3.4-5.0); CALCIUM 9.1 mg/dL (8.5-10.1); CARBON DIOXIDE 24.6 mmol/L (21-32); COR CA(FOR HYPOALB) 10.1 mg/dL (8.5-10.1); CREATININE 1.55 mg/dL (0.70-1.30); TOTAL PROTEIN 6.1 g/dL (6.4-8.2)
[2017-05-19 06:50] LABS: HYPOCHROMASIA SLIGHT; PLATELET MORPHOLOGY COMMENT NORMAL (NORMAL)
--- NOTE | 2017-05-19 06:54 | RAD ---
HISTORY: Follow-up respiratory failure Study: Chest AP portable Comparison: 05/18/2017 Findings: The heart remains enlarged. No definite congestive heart failure is noted. There is persistent increa sed density in the right lower perihilar region suggestive of infiltrate. The remainder of the right lung is clear. The left lung is clear. No pleural effusions are identified. The bony thorax is unrema rkable. IMPRESSION: Cardiomegaly without definite congestive heart failure Persistent airspace disease right lung base Reported By:
[2017-05-19] MEDS ORDERED: GLUCOPHAGE ONE ×2 (08:02→20:22)
[2017-05-19] MEDS: LASIX IVP SCH ×2 (09:18→22:28)
[2017-05-19] MEDS: PLAVIX PO SCH (09:20)
[2017-05-19] MEDS: LOPRESSOR TAB 50 MG PO SCH ×2 (09:21→22:24)
[2017-05-19] MEDS: COZAAR PO SCH (09:21)
[2017-05-19] MEDS: GLUCOTROL PO SCH ×2 (09:21→22:23)
[2017-05-19] MEDS: GLUCOPHAGE PO SCH ×2 (09:21→22:25)
[2017-05-19] MEDS: PROzac PO SCH (09:21)
[2017-05-19] MEDS: CARDIZEM CD 180 MG PO SCH (09:21)
[2017-05-19] MEDS: NexIUM PO SCH (09:22)
[2017-05-19] MEDS: IMDUR PO SCH (09:22)
[2017-05-19] MEDS: NORVASC TAB 10 MG PO SCH (09:22)
[2017-05-19] MEDS: MERREM VIAL 500 MG in NS 100 ML IV 100 ML IV SCH ×2 (09:23→22:28)
[2017-05-19] MEDS ORDERED: MAALOX or MYLANTA PO PRN (12:24)
[2017-05-19 12:25] LABS: ABG BASE EXCESS 2.8 mmol/L (-2.0-2.0); ABG HCO3 25.7 mmol/L (22-26)
--- NOTE | 2017-05-19 20:51 | PCM.PROG ---
Progress Note - Progress Note for Day of Date: 05/19/17 - Subjective Subjective: WAS ADMITTED FOR ACUTE ON CHRONIC RESPIRATORY FAILURE WITH HYPERCAPNIA, CONGESTIVE HEART FAILURE, AND COPD EXACERBATION. TODAY, HE IS ALERT AND ORIENTED, LYING IN BED ON MORNING ROUNDS. HE CONTINUES WITH SHORTNESS OF BREATH AND PERSISTENT COUGH, HOWEVER, REPORTS FEELING SLIGHTLY BETTER THAN YESTERDAY. ON EXAMINATION, HEART IS REGULAR IN RATE AND RHYTHM. BILATERAL LUNGS CONTINUE WITH SCATTERED WHEEZING. HE IS CURRENTLY UTILIZING OXYGEN VIA NON- REBREATHER. ABDOMEN IS ROUND, SOFT, AND NON-TENDER WITH NORMAL BOWEL SOUNDS NOTED TO ALL QUADRANTS. TRACE EDEMA NOTED TO BILATERAL LOWER EXTREMITIES. THERE IS NORMAL RANGE OF MOTION NOTED TO ALL EXTREMITIES. HIS VITALS THIS MORNING ARE 97.4-98-20-91%-122/73. LABS WERE OBTAINED. ABNORMAL LAB VALUES INCLUDE THE FOLLOWING: RBC 4.29, HGB 10.0, HCT 31.0, BUN 40, CREATININE 1.55, GLUCOSE 240, AST 13, TOTAL PROTEIN 6.1, ALBUMIN 2.8. AN ABG WAS OBTAINED TODAY AND REPORTED PH 7.500, PC02 33.0, P02 50.0, 02 SATURATION 89, ABG BASE EXCESS 2.8. TODAYS CHEST XRAY REPORTS CARDIOMEGALY WITHOUT DEFINITE CONGESTIVE HEART FAILURE. PERSISTENT AIRSPACE DISEASE RIGHT LUNG BASE. STAFF REPORTS THAT PATIENTS OXYGEN SATURATIONS FALL INTO THE 80S WHEN AMBULATING. HE CURRENTLY HAS HOME OXYGEN, BUT WE FEEL THAT HE MAY ALSO BENEFIT FROM TRILOGY AT HOME. HE IS CURRENTLY RECEIVING IV ANTIBIOTICS, RESPIRATORY TREATMENTS, AND IV STEROIDS. WE WILL CONTINUE THIS TODAY. WE WILL OBTAIN AM LABS AND CHEST XRAY AND CONTINUE TO MONITOR PATIENT. - Past Medical Family Social History Past Med/Fam/Surg Hx: No changes since H&P Allergies: Allergies No Known Drug Allergies Allergy (Verified 12/22/16 07:08) - Review of Systems ROS: No change since H&P - Vital Signs and I&O's Vital Signs: Temperature 98.1 F Pulse Rate [Right Brachial] 84 Pulse Rate 84 Respiratory Rate 20 Blood Pressure [Right Arm] 129/67 Blood Pressure [Left Arm] 123/78 Blood Pressure 141/71 O2 Sat by Pulse Oximetry 87 Intake and Output: Intake & Output 05/17/17 05/18/17 05/19/17 05/20/17 11:59 11:59 11:59 11:59 Intake Total 1320 1250 1330 540 Output Total 1725 900 Balance -902 012 3928 540 - Physical Exam Oriented: Normal Eyes: Normal. negative: Blurred Vision, Diplopia, Discharge, Pain, Redness, Photophobia, Other Ear: Normal. negative: Right, Left, Swelling, Ecchymosis, Hemotypanum, Abrasion , Laceration Nose: Normal. negative: Injected, Discharge, Blood, Other Throat: Normal. negative: Tonsillar Hypertrophy, Red, Exudate, Dry, Other Respiratory: Right, Left, Generalized, Wheezes Cardiovascular: Edema (TRACE EDEMA BILATERAL LOWER EXTREMITIES) : Normal. negative: Dysuria, Hematuria, Frequency, Discharge, Testicular Pain , Bleeding, , Other Auscultation: Bowel Sounds: Normal. negative: Bruit, Absent, Increased, Decreased, High Pitched, Other Palpation: Normal Tenderness: Normal. negative: Rebound, Guarding, Rigidity Skin: Normal Musculoskeletal: Normal Psychiatric: Normal Mood Description: Calm. negative: Angry, Apathetic, Depressed, Fearful, Flat, Happy, Hostile, Sad, Suspicious, Withdrawn, Anxious, Appropriate, Labile Affect: Normal. negative: Angry, Anxious, Depressed, Flat, Hysterical, Quiet, Violent Speech Pattern: Clear, Appropriate - Laboratory and Diagnostics Result Diagrams: 05/19/17 05:26 05/19/17 05:26 Labs: 05/15/17 20:40 Blood Blood Culture - Preliminary Laboratory WBC 4.8 X10^3/uL (3.6-10.0) 05/19/17 05:26 RBC 4.29 X10^6/uL (4.7-6.0) L 05/19/17 05:26 Hgb 10.0 g/dL (13.5-18.0) L 05/19/17 05:26 Hct 31.0 % (42.0-54.0) L 05/19/17 05:26 MCV 72.1 fL (80.0-100.0) L 05/19/17 05:26 MCH 23.3 pg (27.0-34.0) L 05/19/17 05:26 MCHC 32.3 g/dL (33.0-35.0) L 05/19/17 05:26 RDW 18.8 % (11.6-16.5) H 05/19/17 05:26 Plt Count 152 X10^3/uL (150.0-450.0) 05/19/17 05:26 Plt Count Comment Adequate (ADEQUATE) 05/19/17 05:26 MPV 8.7 fL (7.4-11.0) 05/19/17 05:26 Neut % 85.9 % (42.0-75.0) H 05/19/17 05:26 Lymph % 10.4 % (21.0-51.0) L 05/19/17 05:26 [place] % 3.6 % (0.0-13.0) 05/19/17 05:26 Eos % 0.0 % (0.9-2.9) L 05/19/17 05:26 Baso % 0.1 % (0.2-1.0) L 05/19/17 05:26 Neut # 4.1 x10^3/uL (2.2-4.8) 05/19/17 05:26 Lymph # 0.5 X10^3/uL (1.3-2.9) L 05/19/17 05:26 [place] # 0.2 x10^3/uL (0.3-0.8) L 05/19/17 05:26 Eos # 0.0 x10^3/uL (0.0-0.2) 05/19/17 05:26 Baso # 0.0 X10^3/uL (0.0-0.1) 05/19/17 05:26 Absolute Nucleated RBC 0.3 /100WBC 05/19/17 05:26 Total Counted 100 05/17/17 05:30 Neutrophils % (Manual) 91 % (39-76) H 05/17/17 05:30 Band Neutrophils % 4 % (0-10) 05/16/17 06:10 Lymphocytes % (Manual) 7 % (13-43) L 05/17/17 05:30 Monocytes % (Manual) 1 % (4-9) L 05/17/17 05:30 Basophils % (Manual) 1 % (0-1) 05/16/17 06:10 Plt Morphology Comment Normal (NORMAL) 05/19/17 05:26 RBC Morphology Abnormal (NORMAL) 05/19/17 05:26 Hypochromasia Slight A 05/19/17 05:26 Anisocytosis Slight A 05/15/17 17:55 INR Target Range - 05/15/17 17:55 INR 1.11 (0.8-1.3) 05/15/17 17:55 PTT 33.2 SECONDS (22.9-36.5) 05/15/17 17:55 PTT Comment - 05/15/17 17:55 Sample Site Rba 05/19/17 12:08 ABG pH 7.500 (7.35-7.45) H 05/19/17 12:08 ABG pCO2 33.0 mmHg (35.0-45.0) L 05/19/17 12:08 ABG pO2 50.0 mmHg (80.0-100.0) L 05/19/17 12:08 ABG HCO3 25.7 mmol/L (22-26) 05/19/17 12:08 ABG O2 Saturation 89.0 % (90-100) L 05/19/17 12:08 ABG Base Excess 2.8 mmol/L (-2.0-2.0) H 05/19/17 12:08 Marcus Test Na 05/19/17 12:08 A-a Gradient 58.0 mmHg 05/19/17 12:08 FiO2 21.000 05/19/17 12:08 Blood Gas Comments [place] well cs 05/19/17 12:08 Sodium 143 mmol/L (136-145) 05/19/17 05:26 Corrected Sodium 146 mmol/L (136-145) H 05/19/17 05:26 Potassium 4.0 mmol/L (3.5-5.1) 05/19/17 05:26 Chloride 106 mmol/L (98-107) 05/19/17 05:26 Carbon Dioxide 24.6 mmol/L (21-32) 05/19/17 05:26 BUN 40 mg/dL (7-18) H 05/19/17 05:26 Creatinine 1.55 mg/dL (0.70-1.30) H 05/19/17 05:26 Est GFR (MDRD) Af Amer 58 (>60) L 05/19/17 05:26 Est GFR (MDRD) Non-Af 48 (>60) L 05/19/17 05:26 Glucose 240 mg/dL (65-99) H 05/19/17 05:26 POC Glucose (mg/dL) 133 mg/dL (65-99) H 05/19/17 17:00 Calcium 9.1 mg/dL (8.5-10.1) 05/19/17 05:26 Corrected Calcium 10.1 mg/dL (8.5-10.1) 05/19/17 05:26 Magnesium 1.2 mg/dL (1.7-2.9) L 05/15/17 17:55 Total Bilirubin 0.40 mg/dL (0.2-1.0) 05/19/17 05:26 AST 13 Units/L (15-37) L 05/19/17 05:26 ALT 23 Units/L (12-78) 05/19/17 05:26 Alkaline Phosphatase 51 Units/L (46-116) 05/19/17 05:26 Creatine Kinase 32 Units/L (39-308) L 05/15/17 17:55 CK-MB (CK-2) < 1.0 ng/mL (0-4.0) 05/15/17 17:55 CK/CKMB % Calc 3.1 % (<4) 05/15/17 17:55 Troponin I < 0.02 ng/mL (0-1.5) 05/15/17 17:55 B-Natriuretic Peptide 620 pg/mL (0-79) H* 05/17/17 05:30 Total Protein 6.1 g/dL (6.4-8.2) L 05/19/17 05:26 Albumin 2.8 g/dL (3.4-5.0) L 05/19/17 05:26 Globulin 3.3 g/dL (2.5-4.5) 05/19/17 05:26 Albumin/Globulin Ratio 0.8 Ratio (1.1-2.1) L 05/19/17 05:26 Triglycerides 39 mg/dL (0-150) 05/16/17 06:10 Cholesterol 99 mg/dL (0-200) 05/16/17 06:10 LDL Cholesterol, Calc 38 mg/dL (0-100) 05/16/17 06:10 HDL Cholesterol 53 mg/dL (40-60) 05/16/17 06:10 Cholesterol/HDL Ratio 1.9 (0.0-5.0) 05/16/17 06:10 Influenza Type A (PCR) Negative (NEGATIVE) 05/15/17 18:11 Influenza Type B (PCR) Negative (NEGATIVE) 05/15/17 18:11 - Plan (1) Respiratory failure with hypercapnia Status: Acute Qualifiers: Chronicity: acute on chronic Qualified Code(s): J96.22 - Acute and chronic respiratory failure with hypercapnia Plan: IV ANTIBIOTICS, CONTINUE RESPIRATORY TX, CONTINUE SUPPLEMENTAL OXYGEN, TELEMETRY, CONTINUOUS 02 MONITORING, MONITOR LABS AND CHEST XRAY (2) Acute on chronic systolic (congestive) heart failure Status: Acute Plan: IV ANTIBIOTICS, CONTINUE RESPIRATORY TX, CONTINUE SUPPLEMENTAL OXYGEN, TELEMETRY, CONTINUOUS 02 MONITORING, MONITOR LABS AND CHEST XRAY (3) Chronic kidney disease (CKD) Status: Acute Qualifiers: Chronic kidney disease stage: stage 3 (moderate) Qualified Code(s): N18.3 - Chronic kidney disease, stage 3 (moderate) Plan: CONTINUE TO MONITOR (4) COPD (chronic obstructive pulmonary disease) Status: Chronic Qualifiers: COPD type: COPD with acute exacerbation Qualified Code(s): J44.1 - Chronic obstructive pulmonary disease with (acute) exacerbation Plan: IV ANTIBIOTICS, CONTINUE RESPIRATORY TX, CONTINUE SUPPLEMENTAL OXYGEN, TELEMETRY, CONTINUOUS 02 MONITORING, MONITOR LABS AND CHEST XRAY
[2017-05-19] MEDS: LIPITOR TAB 40 MG PO SCH (22:23)
[2017-05-19] MEDS: SINGULAIR TAB 10 MG PO SCH (22:24)
[2017-05-19] MEDS: ELAVIL PO SCH (22:24)
[2017-05-19] MEDS: FLOMAX PO SCH (22:25)
[2017-05-19] MEDS: ZANAFLEX PO SCH (22:25)
[2017-05-19] MEDS: LEVAQUIN PREMIX IV 250 MG 250 MG/50 ML BAG IV SCH (22:27)
[2017-05-19] MEDS: SNACK - Diabetic Appropriate PO SCH (22:49)
[2017-05-20] MEDS: DUONEB 0.5 MG/3 MG NEB SCH ×3 (01:48→09:13)
[2017-05-20] MEDS: NS 250 ML IV 250 ML IV SCH (05:58)
[2017-05-20 06:22] LABS: BASOPHILS % (AUTO) 0.2 % (0.2-1.0); HEMATOCRIT 28.6 % (42.0-54.0); HEMOGLOBIN 9.3 g/dL (13.5-18.0); LYMPHOCYTES # (AUTO) 0.6 X10^3/uL (1.3-2.9); LYMPHOCYTES % (AUTO) 11.5 % (21.0-51.0); MEAN CORPUSCULAR HEMOGLOBIN 23.3 pg (27.0-34.0); MEAN CORPUSCULAR HGB CONC 32.7 g/dL (33.0-35.0); MEAN CORPUSCULAR VOLUME 71.3 fL (80.0-100.0); MEAN PLATELET VOLUME 8.6 fL (7.4-11.0); MONOCYTES # (AUTO) 0.3 x10^3/uL (0.3-0.8); MONOCYTES % (AUTO) 6.4 % (0.0-13.0); NEUTROPHILS # (AUTO) 4.1 x10^3/uL (2.2-4.8); NEUTROPHILS % (AUTO) 81.9 % (42.0-75.0); PLATELET COUNT 143 X10^3/uL (150.0-450.0); RED BLOOD COUNT 4.02 X10^6/uL (4.7-6.0); RED CELL DISTRIBUTION WIDTH 18.4 % (11.6-16.5)
[2017-05-20] MEDS: SYNTHROID 100 mcg TAB PO SCH (06:22)
[2017-05-20 06:32] LABS: ALANINE AMINOTRANSFERASE 21 Units/L (12-78); ALBUMIN 2.6 g/dL (3.4-5.0); ALKALINE PHOSPHATASE 43 Units/L (46-116); ASPARTATE AMINO TRANSFERASE 10 Units/L (15-37); BLOOD UREA NITROGEN 41 mg/dL (7-18); CALCIUM 8.7 mg/dL (8.5-10.1); CARBON DIOXIDE 24.7 mmol/L (21-32); CHLORIDE 106 mmol/L (98-107); COR CA(FOR HYPOALB) 9.8 mg/dL (8.5-10.1); COR NA(FOR HYPERGLY) 144 mmol/L (136-145); CREATININE 1.38 mg/dL (0.70-1.30); SODIUM 143 mmol/L (136-145); TOTAL PROTEIN 5.6 g/dL (6.4-8.2); eGFR BLACK RACES > 60 (>60); eGFR NON BLACK RACES 55 (>60)
--- NOTE | 2017-05-20 06:55 | RAD ---
Examination: Portable AP chest History: Respiratory failure Comparison 05/19/2017 Findings: Continued cardiomegaly with improved aeration of the lungs, decreasing infiltrates/pulmonar y edema. The lungs are not yet clear, however. No new abnormality is noted. Impression: Interval improvement in appearance of the lungs. Stable cardiac size. Reported By:
[2017-05-20 07:18] LABS: HYPOCHROMASIA 1+; PLATELET MORPHOLOGY COMMENT NORMAL (NORMAL)
[2017-05-20] MEDS ORDERED: GLUCOPHAGE ONE (07:25)
[2017-05-20] MEDS: MERREM VIAL 500 MG in NS 100 ML IV 100 ML IV SCH (08:22)
[2017-05-20] MEDS: LASIX IVP SCH (08:23)
[2017-05-20] MEDS: NexIUM PO SCH (08:23)
[2017-05-20] MEDS: GLUCOPHAGE PO SCH (08:23)
[2017-05-20] MEDS: CARDIZEM CD 180 MG PO SCH (08:23)
[2017-05-20] MEDS: LOPRESSOR TAB 50 MG PO SCH (08:23)
[2017-05-20] MEDS: NORVASC TAB 10 MG PO SCH (08:23)
[2017-05-20] MEDS: PROzac PO SCH (08:23)
[2017-05-20] MEDS: COZAAR PO SCH (08:24)
[2017-05-20] MEDS: PLAVIX PO SCH (08:24)
[2017-05-20] MEDS: GLUCOTROL PO SCH (08:24)
[2017-05-20] MEDS: IMDUR PO SCH (08:24)
[2017-05-20 12:59] VITALS: BP 125/78
== END 2017-05-20 15:15 | disposition home health service (06) | DRG 189 ==
LOC: ER 18:01 → OBS 20:10 → MED/SURG 05-17 17:00
PROVIDERS: ADMIT Internal Medicine; ATTEND Internal Medicine
DX: J96.22 Acute and chronic respiratory failure with hypercapnia (principal); I50.23 Acute on chronic systolic (congestive) heart failure; J44.1 Chronic obstructive pulmonary disease with (acute) exacerbation; R06.02 Shortness of breath; I10 Essential (primary) hypertension; N18.3 Chronic kidney disease, stage 3 (moderate); R94.31 Abnormal electrocardiogram [ECG] [EKG]; E11.65 Type 2 diabetes mellitus with hyperglycemia; R60.0 Localized edema; Z66 Do not resuscitate
CPT/HCPCS: 36415; 36600; 71045; 71046; 80053; 80061; 82550; 82553; 82803; 83735; 83880; 84484; 85025; 85610; 85730; 87040; 87502; 93005; 93306; 94640; 94760; 96365; 96374; 96375; 99284; A4216; A4222; C9113; J0696; J1815; J1940; J1956; J2185; J2920; J2930; J7620

== ENCOUNTER 2017-07-29 16:09 | Inpatient (IN) | payer OTHER ==
[2017-07-29] MEDS ORDERED: DUONEB 0.5 MG/3 MG NEB ONE ×3 (16:15→20:02)
[2017-07-29] MEDS ORDERED: LASIX IVP ONE ×2 (16:16→16:19)
[2017-07-29] MEDS ORDERED: SOLU-Medrol 125 MG VIAL ONE (16:16)
[2017-07-29] MEDS ORDERED: SOLU-Medrol 125 MG VIAL IVP ONE (16:18)
[2017-07-29 16:39] LABS: BASOPHILS % (AUTO) 0.6 % (0.2-1.0); EOSINOPHILS # (AUTO) 0.2 x10^3/uL (0.0-0.2); EOSINOPHILS % (AUTO) 2.4 % (0.9-2.9); HEMATOCRIT 32.6 % (42.0-54.0); HEMOGLOBIN 10.3 g/dL (13.5-18.0); LYMPHOCYTES # (AUTO) 1.5 X10^3/uL (1.3-2.9); LYMPHOCYTES % (AUTO) 22.8 % (21.0-51.0); MEAN CORPUSCULAR HEMOGLOBIN 24.1 pg (27.0-34.0); MEAN CORPUSCULAR HGB CONC 31.5 g/dL (33.0-35.0); MEAN CORPUSCULAR VOLUME 76.5 fL (80.0-100.0); MEAN PLATELET VOLUME 8.2 fL (7.4-11.0); MONOCYTES # (AUTO) 0.5 x10^3/uL (0.3-0.8); NEUTROPHILS # (AUTO) 4.5 x10^3/uL (2.2-4.8); NEUTROPHILS % (AUTO) 66.2 % (42.0-75.0); PLATELET COUNT 213 X10^3/uL (150.0-450.0); RED BLOOD COUNT 4.25 X10^6/uL (4.7-6.0); RED CELL DISTRIBUTION WIDTH 18.4 % (11.6-16.5); WHITE BLOOD COUNT 6.8 X10^3/uL (3.6-10.0)
--- NOTE | 2017-07-29 16:42 | RAD ---
HISTORY: Chest pain. Shortness of breath. Study: AP portable chest Comparison: 05/20/2017 Findings: There has been an increase in the left lower lobe atelectatic change/infiltrate of a mild degree and minimal in the right lung base. Moderate cardiomegaly is present. No acute bony abnormalities are i dentified. IMPRESSION: 1. Moderate cardiomegaly. 2. Increasing atelectatic change/infiltrate left lung base of a mild degree and minimal in the right lung base. Reported By:
[2017-07-29 16:44] LABS: PLATELET MORPHOLOGY COMMENT NORMAL (NORMAL)
[2017-07-29] MEDS ORDERED: MORPHINE SULFATE INJ 4 MG IVP ONE (16:44)
[2017-07-29] MEDS ORDERED: MORPHINE SULFATE INJ 4 MG ONE (16:45)
--- NOTE | 2017-07-29 16:46 | DR.GENAD ---
HPI - PCP Primary Care Physician: NLD - Complaint/Symptoms Chief Complaint Doctors Comments: Patient resented to the ED from pcp office secondary to abnormal EKG. He was hypoxic on 3L oxygen. He has a history of COPD uses his nebs infrequently during the day. He is a non smoker after a long history of cigarettes. Chief Complaint:: ABNORMAL EKG AT [facility] OFFICE. SOB - Source History Provided: Patient, EMS - Mode of Arrival Mode of Arrival: Stretcher - Timing Onset of Chief Complaint: 07/29/17 PMH - PMH Past Medical History: Yes Past Medical History: Angina, CHF, Diabetes, Hypertension, [place] Past Surgical History: Yes Surgical History: Abdominal Surgery, Angioplasty/Stents, Thyroidectomy, Other - Family History History of Family Medical Conditions: Yes Family Medical History: Diabetes Mellitus, Cancer, [place] - Social History Does patient currently use any type of tobacco product: No Have you used tobacco products in the last 12 months: No Type of Tobacco Use: None Does any household member use tobacco: No Alcohol Use: None Do you use any recreational Drugs:: No Lives With: Alone Lives Where: Home - infectious screening In the last 2 months have you had wt loss of >10#?: NO Have you had fever, night sweats or hemotysis?: No Have you traveled outside the country in the last 6 months?: No Isolation: Standard ROS - Review of Systems Eyes: No Symptoms Reported ENTM: No Symptoms Reported Respiratoy: No Symptoms Reported, Wheezing Cardiovascular: No Symptoms Reported. negative: Chest Pain Gastrointestinal/Abdominal: No Symptoms Reported Genitourinary: No Symptoms Reported Neurological: No Symptoms Reported Musculoskeletal: No Symptoms Reported Integumentary: No Symptoms Reported Hematologic/Lymphatic: No Symptoms Reported Endocrine: No Symptoms Reported Psychiatric: No Symptoms Reported All Other Systems: Reviewed and Negative PE - Vital Signs Vitals: Pulse Rate [Left Radial] 108 Pulse Rate 105 Respiratory Rate 18 Blood Pressure [Right Arm] 130/65 Blood Pressure [Left Arm] 123/78 Blood Pressure 125/79 O2 Sat by Pulse Oximetry 91 - General Limitations: No Limitations General Appearance: Alert, Anxious - Head Head Exam: Normal Inspection, Atraumatic - Eyes Eye exam: Normal Appearance, PERRL, EOMI - ENT ENT Exam: Normal Exam TM/Canal Exam: Bilateral Normal Nose Exam: Normal Nose Exam Mouth Exam: Normal Inspection Throat Exam: Normal Inspection - Neck Neck Exam: Normal Inspection, Full ROM - Chest Chest Inspection: Normal Inspection - Respiratory Respiratory Exam: Normal Lung Sounds Bilat Respiratory Exam: Bilateral Wheezing (bases), Bilateral Decreased Breath Sounds - Cardiovascular Cardiovascular Exam: Regular Rate - Abdominal Exam Abdominal Exam: Normal Inspection Abdominal Tenderness: negative: RUQ, RLQ, LUQ, LLQ, Epigastrium, Suprapubic, Diffuse, Mild, Moderate, Severe, Other - Extremities Extremities Exam: Normal Inspection, Full ROM - Back Back Exam: Normal Inspection, Full ROM - Neurologic Neurological Exam: Alert, Oriented X3, CN II-XII Intact - Psychiatric Psychiatric Exam: Normal Affect - Skin Skin Exam: Warm, Dry, Intact Course - Reevaluation 1st: Improved - Education/Counseling Educated On: Treatment, Diagnosis, Prognosis ROR - Labs Reviewed Result Diagrams: 07/29/17 16:07/29/17 16: Laboratory: WBC 6.8 X10^3/uL (3.6-10.0) 07/29/17 16: RBC 4.25 X10^6/uL (4.7-6.0) L 07/29/17 16: Hgb 10.3 g/dL (13.5-18.0) L 07/29/17 16: Hct 32.6 % (42.0-54.0) L 07/29/17 16: MCV 76.5 fL (80.0-100.0) L 07/29/17 16: MCH 24.1 pg (27.0-34.0) L 07/29/17 16: MCHC 31.5 g/dL (33.0-35.0) L 07/29/17 16: RDW 18.4 % (11.6-16.5) H 07/29/17 16: Plt Count 213 X10^3/uL (150.0-450.0) 07/29/17 16: Plt Count Comment Adequate (ADEQUATE) 07/29/17 16: MPV 8.2 fL (7.4-11.0) 07/29/17 16: Neut % (Auto) 66.2 % (42.0-75.0) 07/29/17 16: Lymph % (Auto) 22.8 % (21.0-51.0) 07/29/17 16: [place] % (Auto) 8.0 % (0.0-13.0) 07/29/17 16: Eos % (Auto) 2.4 % (0.9-2.9) 07/29/17 16: Baso % (Auto) 0.6 % (0.2-1.0) 07/29/17 16: Neut # (Auto) 4.5 x10^3/uL (2.2-4.8) 07/29/17 16: Lymph # (Auto) 1.5 X10^3/uL (1.3-2.9) 07/29/17 16: [place] # (Auto) 0.5 x10^3/uL (0.3-0.8) 07/29/17 16: Eos # (Auto) 0.2 x10^3/uL (0.0-0.2) 07/29/17 16: Baso # (Auto) 0.0 X10^3/uL (0.0-0.1) 07/29/17: Absolute Nucleated RBC 0.1 /100WBC 07/29/17 16: Plt Morphology Comment Normal (NORMAL) 07/29/17 16: RBC Morphology Abnormal (NORMAL) 07/29/17 16: Hypochromasia 2+ A 07/29/17 16: Anisocytosis Slight A 07/29/17 16: INR Target Range - 07/29/17: INR 1.08 (0.8-1.3) 07/29/17: APTT 33.1 SECONDS (22.9-36.5) 07/29/17: PTT Comment - 07/29/17 16: D-Dimer 390 ng/mL (0-400) 07/29/17 16: Sample Site Lb 07/29/17 19: ABG pH 7.420 (7.35-7.45) 07/29/17 19: ABG pCO2 40.0 mmHg (35.0-45.0) 07/29/17 19: ABG pO2 53.0 mmHg (80.0-100.0) L 07/29/17: ABG HCO3 25.9 mmol/L (22-26) 07/29/17 19:16 ABG O2 Saturation 88.0 % (90-100) L 07/29/17 19:16 ABG Base Excess 1.3 mmol/L (-2.0-2.0) 07/29/17 19:16 Marcus Test N/a 07/29/17 19:16 A-a Gradient 125.0 mmHg 07/29/17 19:16 FiO2 32.000 07/29/17 19:16 Blood Gas Comments Taj well ae 07/29/17 19:16 Sodium 144 mmol/L (136-145) 07/29/17 16:26 Corrected Sodium TNP 07/29/17 16:26 Potassium 3.9 mmol/L (3.5-5.1) 07/29/17 16:26 Chloride 105 mmol/L (98-107) 07/29/17 16:26 Carbon Dioxide 28.0 mmol/L (21-32) 07/29/17 16:26 BUN 21 mg/dL (7-18) H 07/29/17 16:26 Creatinine 1.94 mg/dL (0.70-1.30) H 07/29/17 16:26 Est GFR (MDRD) Af Amer 45 (>60) L 07/29/17 16:26 Est GFR (MDRD) Non-Af 37 (>60) L 07/29/17 16:26 Glucose 108 mg/dL (65-99) H 07/29/17 16:26 Calcium 8.4 mg/dL (8.5-10.1) L 07/29/17 16:26 Corrected Calcium TNP 07/29/17 16:26 Magnesium 1.4 mg/dL (1.7-2.9) L 07/29/17 16:26 Total Bilirubin 0.80 mg/dL (0.2-1.0) 07/29/17 16:26 AST 12 Units/L (15-37) L 07/29/17 16:26 ALT 20 Units/L (12-78) 07/29/17 16:26 Alkaline Phosphatase 113 Units/L (46-116) 07/29/17 16:26 Creatine Kinase 96 Units/L (39-308) 07/29/17 16:26 CK-MB (CK-2) < 1.0 ng/mL (0-4.0) 07/29/17 16:26 CK/CKMB % Calc 1.0 % (<4) 07/29/17 16:26 Troponin I < 0.02 ng/mL (0-1.5) 07/29/17 16:26 Total Protein 7.3 g/dL (6.4-8.2) 07/29/17 16:26 Albumin 3.7 g/dL (3.4-5.0) 07/29/17 16:26 Globulin 3.6 g/dL (2.5-4.5) 07/29/17 16:26 Albumin/Globulin Ratio 1.0 Ratio (1.1-2.1) L 07/29/17 16:26 - XRAY XRAY Interpreted by: Radiologist (Chest: therre has been an increase in the left lower lobe atelectatic change/infiltrate of a mild degree and minimal in the right lung base. Moderate cardiomegaly is present. No acute bony abnormalities are identified.) - Diagnosis Discharge Problem: COPD, severe Pneumonia Qualifiers: Pneumonia type: due to unspecified organism Laterality: unspecified laterality Lung location: upper lobe of lung Qualified Code(s): J18.1 - Lobar pneumonia, unspecified organism - Follow ups/Referrals Follow ups/Referrals: OMAIRA GREENE [Primary Care Provider] - 3 days - Instructions
[2017-07-29 16:48] LABS: HYPOCHROMASIA 2+
[2017-07-29 16:49] LABS: ANISOCYTOSIS SLIGHT
[2017-07-29 16:51] LABS: BLOOD UREA NITROGEN 21 mg/dL (7-18); CALCIUM 8.4 mg/dL (8.5-10.1); CHLORIDE 105 mmol/L (98-107); CREATININE 1.94 mg/dL (0.70-1.30); SODIUM 144 mmol/L (136-145); TROPONIN I < 0.02 ng/mL (0-1.5); eGFR BLACK RACES 45 (>60); eGFR NON BLACK RACES 37 (>60)
[2017-07-29 16:55] LABS: ALANINE AMINOTRANSFERASE 20 Units/L (12-78); ALBUMIN 3.7 g/dL (3.4-5.0); ALKALINE PHOSPHATASE 113 Units/L (46-116); ASPARTATE AMINO TRANSFERASE 12 Units/L (15-37); CREATINE KINASE 96 Units/L (39-308); CREATINE KINASE MB < 1.0 ng/mL (0-4.0); MAGNESIUM 1.4 mg/dL (1.7-2.9); TOTAL PROTEIN 7.3 g/dL (6.4-8.2)
[2017-07-29] MEDS ORDERED: DECADRON JET NEB (RESP USE) NEB ONE (17:12)
[2017-07-29] MEDS ORDERED: DECADRON INJ ONE (17:13)
--- NOTE | 2017-07-29 18:14 | CT ---
CT chest without contrast Indication: Chest pain, shortness of breath Comparison: Radiograph from today. CTA from 04/28/2017 Technique: CT images of the chest were obtained without contrast. Automatic exposure control was util ized. Findings: The upper abdomen is grossly unremarkable. No aggressive osseous lesions are seen. There is cardiomegaly, without significant pericardial thickening or pericardial effusion. There is s evere coronary artery disease with right coronary stent noted. There is small amount of gas within th e nondependent right ventricle, likely iatrogenic related to IV access, of doubtful clinical signific ance. Shotty mediastinal lymph nodes are similar to the prior study. For example, there is a precarin al lymph node measuring 1.0 cm in short axis, stable to slightly decreased in size. No bulky intratho racic adenopathy. The thoracic aorta is grossly unremarkable aside from scattered atherosclerotic sivan cifications. There is severe upper lobe predominant centrilobular emphysema. Mild interlobular septal thickening i s noted within the lung bases, with minimal patchy ground-glass. No pleural effusion or pneumothorax. The major airways are patent. Impression: Cardiomegaly with findings of CHF, including basilar septal thickening with patchy ground-glass. Severe COPD. Severe coronary artery disease. Stable shotty mediastinal lymph nodes, likely reactive. Reported By:
[2017-07-29 19:22] LABS: ABG BASE EXCESS 1.3 mmol/L (-2.0-2.0); ABG HCO3 25.9 mmol/L (22-26)
[2017-07-29] MEDS ORDERED: SALINE 3% 15 ML NEB TX ONE (19:58)
[2017-07-29] MEDS ORDERED: SALINE 3% 15 ML NEB TX NEB ONE (20:02)
[2017-07-29] MEDS ORDERED: ROCEPHIN VIAL 1 GM 1 GM in NS 100 ML IV + SPIKE MINIBAG* 100 ML IV SCH (20:45)
[2017-07-29] MEDS ORDERED: ROCEPHIN 1 GM IV PREMIX 1 GM/50 ML IV.SOLN. IV ONE (20:46)
[2017-07-29] MEDS ORDERED: NEURONTIN CAP 400 MG PO PRN (21:14)
[2017-07-29] MEDS ORDERED: TYLENOL 325 MG TAB PO PRN (21:37)
[2017-07-29] MEDS ORDERED: ROXICODONE TAB 5 MG PO PRN (21:37)
[2017-07-29 22:23] VITALS: BMI 28.8
[2017-07-30] MEDS: DUONEB 0.5 MG/3 MG NEB SCH ×6 (01:45→21:40)
[2017-07-30 06:01] LABS: ABG BASE EXCESS 1.8 mmol/L (-2.0-2.0); ABG HCO3 27.2 mmol/L (22-26)
[2017-07-30 06:13] LABS: BASOPHILS % (AUTO) 0.3 % (0.2-1.0); HEMATOCRIT 29.2 % (42.0-54.0); HEMOGLOBIN 9.2 g/dL (13.5-18.0); LYMPHOCYTES # (AUTO) 0.4 X10^3/uL (1.3-2.9); LYMPHOCYTES % (AUTO) 12.3 % (21.0-51.0); MEAN CORPUSCULAR HEMOGLOBIN 23.8 pg (27.0-34.0); MEAN CORPUSCULAR HGB CONC 31.5 g/dL (33.0-35.0); MEAN CORPUSCULAR VOLUME 75.6 fL (80.0-100.0); MEAN PLATELET VOLUME 8.5 fL (7.4-11.0); MONOCYTES # (AUTO) 0 x10^3/uL (0.3-0.8); MONOCYTES % (AUTO) 1.2 % (0.0-13.0); NEUTROPHILS % (AUTO) 86.2 % (42.0-75.0); PLATELET COUNT 168 X10^3/uL (150.0-450.0); RED BLOOD COUNT 3.86 X10^6/uL (4.7-6.0); RED CELL DISTRIBUTION WIDTH 18.3 % (11.6-16.5); WHITE BLOOD COUNT 3.5 X10^3/uL (3.6-10.0)
[2017-07-30] MEDS: SYNTHROID 100 mcg TAB PO SCH (06:15)
[2017-07-30 06:27] LABS: ALBUMIN 3.3 g/dL (3.4-5.0); CALCIUM 8.4 mg/dL (8.5-10.1); CARBON DIOXIDE 26.9 mmol/L (21-32); CREATININE 1.8 mg/dL (0.70-1.30); TOTAL PROTEIN 6.8 g/dL (6.4-8.2)
[2017-07-30 06:40] LABS: PLATELET MORPHOLOGY COMMENT NORMAL (NORMAL)
[2017-07-30 06:41] LABS: HYPOCHROMASIA 1+
[2017-07-30 06:42] LABS: ANISOCYTOSIS SLIGHT
[2017-07-30] MEDS: HumuLIN R SUBCUT PRN ×3 (06:44→17:17)
[2017-07-30] MEDS ORDERED: FLUOXETINE HCL PO SCH (09:00)
[2017-07-30] MEDS ORDERED: DILTIAZEM HCL 180 MG PO SCH (09:00)
[2017-07-30] MEDS ORDERED: PATIENT'S HOME MEDICATION (Alprazolam [Alprazolam] 1 TAB) PO SCH (09:00)
[2017-07-30] MEDS ORDERED: GLUCOPHAGE ONE ×2 (09:47→19:25)
[2017-07-30] MEDS: COZAAR PO SCH (09:54)
[2017-07-30] MEDS: GLUCOPHAGE PO SCH ×2 (09:54→21:22)
[2017-07-30] MEDS: CARDIZEM CD 180 MG PO SCH (09:54)
[2017-07-30] MEDS: GLUCOTROL PO SCH ×2 (09:54→21:22)
[2017-07-30] MEDS: IMDUR PO SCH (09:55)
[2017-07-30] MEDS: NORVASC TAB 10 MG PO SCH (09:55)
[2017-07-30] MEDS: LOPRESSOR TAB 50 MG PO SCH ×2 (09:55→21:21)
[2017-07-30] MEDS: LASIX PO SCH ×2 (09:55→21:22)
[2017-07-30] MEDS: NexIUM PO SCH (09:55)
[2017-07-30] MEDS: PLAVIX PO SCH (09:55)
[2017-07-30] MEDS: PROzac PO SCH (09:56)
[2017-07-30] MEDS: XANAX PO SCH ×2 (09:56→21:22)
[2017-07-30] MEDS ORDERED: LEVOTHYROXINE SODIUM PO SCH (16:30)
[2017-07-30] MEDS ORDERED: ROCEPHIN VIAL 1 GM 1 GM in NS 100 ML IV + SPIKE MINIBAG* 100 ML IV SCH (21:00)
[2017-07-30] MEDS: FLOMAX PO SCH (21:21)
[2017-07-30] MEDS: SNACK - Diabetic Appropriate PO SCH (21:21)
[2017-07-30] MEDS: ZANAFLEX PO SCH (21:22)
[2017-07-30] MEDS: LIPITOR TAB 40 MG PO SCH (21:22)
[2017-07-30] MEDS: SINGULAIR TAB 10 MG PO SCH (21:24)
[2017-07-30] MEDS ORDERED: NS 250 ML IV 250 ML IV ONE (21:39)
[2017-07-30] MEDS: NS 250 ML IV 250 ML IV SCH (21:59)
[2017-07-31] MEDS: DUONEB 0.5 MG/3 MG NEB SCH ×6 (01:37→20:56)
[2017-07-31] MEDS: SYNTHROID 100 mcg TAB PO SCH (06:08)
[2017-07-31] MEDS ORDERED: GLUCOPHAGE ONE ×2 (08:36→19:25)
[2017-07-31] MEDS: PROzac PO SCH (09:11)
[2017-07-31] MEDS: XANAX PO SCH ×2 (09:11→23:09)
[2017-07-31] MEDS: NexIUM PO SCH (09:12)
[2017-07-31] MEDS: PLAVIX PO SCH (09:12)
[2017-07-31] MEDS: NORVASC TAB 10 MG PO SCH (09:12)
[2017-07-31] MEDS: LOPRESSOR TAB 50 MG PO SCH ×2 (09:13→21:15)
[2017-07-31] MEDS: LASIX PO SCH (09:13)
[2017-07-31] MEDS: GLUCOPHAGE PO SCH ×2 (09:13→21:14)
[2017-07-31] MEDS: GLUCOTROL PO SCH ×2 (09:13→21:14)
[2017-07-31] MEDS: COZAAR PO SCH (09:13)
[2017-07-31] MEDS: IMDUR PO SCH (09:13)
[2017-07-31] MEDS: CARDIZEM CD 180 MG PO SCH (09:14)
[2017-07-31] MEDS ORDERED: FORTAZ or TAZICEF INJ ONE ×2 (10:13→13:47)
[2017-07-31] MEDS ORDERED: NS 100 ML IV + SPIKE MINIBAG* 100 ML IV ONE ×2 (10:13→13:47)
[2017-07-31] MEDS: LASIX IVP SCH ×2 (10:15→21:15)
[2017-07-31] MEDS: FORTAZ or TAZICEF INJ 1 GM in NS 100 ML IV + SPIKE MINIBAG* 100 ML IV SCH ×3 (10:19→21:13)
[2017-07-31] MEDS: LEVAQUIN PREMIX IV 750 MG 750 MG/150 ML BAG IV SCH (10:19)
[2017-07-31] MEDS: NORCO 10/325 TAB PO PRN ×2 (14:14→17:31)
--- NOTE | 2017-07-31 20:42 | DR.H&P ---
H&P - History & Physical for Day of: H&P Date: 07/29/17 - Chief Complaint Chief Complaint: SHORT OF BREATH - Allergies Allergies/Adverse Reactions: Allergies Allergy/AdvReac Type Severity Reaction Status Date / Time No Known Drug Allergies Allergy Verified 12/22/16 07:08 - History of Present Illness History of Present Illness: IS A 67 YEAR OLD PATIENT OF OURS WHO PRESENTED TO THE EMERGENCY ROOM WITH COMPLAINTS OF SHORTNESS OF BREATH. PATIENT REPORTS THAT HE WAS SEEN AT [facility] TODAY AND HAD AN ABNORMAL EKG. HE ALSO REPORTED THAT HIS OXYGEN SATURATIONS WERE LOW ON 3 LITERS OF OXYGEN. PATIENT HAS A HISTORY SIGNIFICANT FOR COPD. HE REPORTS THAT SYMPTOMS HAVE PROGRESSIVLY WORSENED OVER THE PAST TWO DAYS DESPITE FREQUENT USE OF HIS NEBULIZER TREATMENTS. ON ARRIVAL TO THE ER, VITALS WERE 97.8-74-20-89%NC- 125/79. ABNORMAL LAB VALUES INCLUDED THE FOLLOWING: RBC 4.25, HGB 10.3, HCT 32.6 , BUN 21, CREATININE 1.94, GLUCOSE 108, CALCIUM 8.4, MAGNESIUM 1.4, AST 12. AN ABG WAS OBTAINED AND REVEALED PH 7.420, PC02 40, P02 53, HC03 25.9, 02 SATURATION 88.0. A CHEST XRAY REVEALED MODERATE CARDIOMEGALY, INCREASING ATELECTATIC CHANGE/INFILTRATE LEFT LUNG BASE OF A MILD DEGREE AND MINIMAL IN THE RIGHT LUNG BASE. A CHEST CT WAS ALSO OBTAINED AND REVEALED CARDIOMEGALY WITH FINDINGS OF CHF, INCLUDING BASILAR SEPTAL THICKENING WITH PATCHY GROUND- GLASS. SEVERE COPD. SEVERE CORONARY ARTERY DISEASE. STABLE SHOTTY MEDIASTINAL LYMPH NODES, LIKELY REACTIVE. WE ADMITTED PATIENT FOR FURTHER EVALUATION AND TREATMENT. HE WAS STARTED ON ROCEPHIN 1GM IV DAILY AND DUONEBS Q4H. WE PLAN TO FOLLOW UP WITH AM LABS AND CHEST XRAY AND CONTINUE TO MONITOR PATIENT. - Past Medical History Past Medical History: Angina, CHF, Diabetes, Hypertension, [place] Additional Medical History: [place] X 2, UNKNOWN NUMBER OF STENTS, UMBILICAL HERNIA, CYSTITIS, BPH, - Past Surgical History Surgical History: Abdominal Surgery, Angioplasty/Stents, Thyroidectomy, Other Additional Surgical History: COLON RESECTION - Family History Family Medical History: Diabetes Mellitus, Cancer, [place] - Social History Does patient currently use any type of tobacco product: No Have you used tobacco products in the last 12 months: No Type of Tobacco Use: None Does any household member use tobacco: No Alcohol Use: None Drug Use: None - Medications Home Medications: Alprazolam [Alprazolam] 1 tab PO BID 07/29/17 [History Confirmed 07/29/17] Furosemide 40 mg PO BID 07/29/17 [History Confirmed 07/30/17] Oxycodone HCl/Acetaminophen [Oxycodone-Acetaminophen 10-325] 1 tab PO Q6HR PRN 07/29/17 [History Confirmed 07/29/17] Fluoxetine HCl [FLUOXETINE 10 MG *] 1 cap PO DAILY 07/30/17 [History Confirmed 07/30/17] Hydrocodone-Acet 10/325 mg [NORCO 10 MG/325 MG *] 1 tab PO QID PRN 07/31/17 [ History Confirmed 07/31/17] - Review of Systems Constitutional: Weakness. denies: Fever Eyes: No Symptoms Reported ENT: No Symptoms Reported Respiratory: See HPI, Cough, Shortness of Breath, SOB with Excertion, Sputum, Wheezing. denies: Hemoptysis Cardiovascular: Edema (BILATERAL LOWER EXTREMITIES ) Gastrointestinal: No Symptoms Reported Genitourinary: No Symptoms Reported Musculoskeletal: Back Pain Skin: No Symptoms Reported Neurological: Weakness - Physical Exam Vital Signs: Temperature 98.4 F Pulse Rate [Right Brachial] 81 Pulse Rate [Left Radial] 82 Pulse Rate 81 Respiratory Rate 22 Blood Pressure [Right Arm] 99/61 Blood Pressure [Left Arm] 123/78 Blood Pressure 125/79 O2 Sat by Pulse Oximetry 97 Oriented: Normal Eyes: Normal Ear: Normal Nose: Normal Throat: Normal Respiratory: Rhonchi Throughout, Wheezes Throughout Cardiovascular: Edema (BILATERAL LOWER EXTREMITY EDEMA ). negative: S3, S4, Murmur : Normal Auscultation: Bowel Sounds: Normal Palpation: Normal Tenderness: Normal Skin: Normal Musculoskeletal: Normal Psychiatric: Normal Mood Description: Calm Affect: Normal Speech Pattern: Clear - Assessment/Plan (1) COPD, severe Status: Acute Plan: DUONEBS Q4HR, SUPPLEMENTAL OXYGEN, ROCEPHIN 1GM IV DAILY, LASIX 80MG PO BID, CONTINUE TO MONITOR (2) Pneumonia Qualifiers: Pneumonia type: due to unspecified organism Laterality: unspecified laterality Lung location: upper lobe of lung Qualified Code(s): J18.1 - Lobar pneumonia, unspecified organism Status: Acute Plan: DUONEBS Q4HR, SUPPLEMENTAL OXYGEN, ROCEPHIN 1GM IV DAILY, LASIX 80MG PO BID, MONITOR CHEST XRAY, CONTINUE TO MONITOR (3) Acute on chronic systolic (congestive) heart failure Status: Acute Plan: DUONEBS Q4HR, SUPPLEMENTAL OXYGEN, ROCEPHIN 1GM IV DAILY, LASIX 80MG PO BID, CONTINUE TO MONITOR
[2017-07-31] MEDS: SNACK - Diabetic Appropriate PO SCH (21:12)
[2017-07-31] MEDS: SINGULAIR TAB 10 MG PO SCH (21:13)
[2017-07-31] MEDS: LIPITOR TAB 40 MG PO SCH (21:14)
[2017-07-31] MEDS: FLOMAX PO SCH (21:14)
--- NOTE | 2017-07-31 22:35 | PCM.PROG ---
Progress Note - Progress Note for Day of Date: 07/30/17 - Subjective Subjective: WAS ADMITTED FOR COPD EXACERBATION, CONGESTIVE HEART FAILURE, AND PNEUMONIA. TODAY, HE IS ALERT AND ORIENTED, LYING IN BED ON MORNING ROUNDS. HE CONTINUES WITH COMPLAINTS OF SEVERE SHORTNESS OF BREATH. ON EXAMINATION, HEART IS REGULAR IN RATE AND RHYTHM. BILATERAL LUNGS ARE NOTED WITH SCATTERED WHEEZING AND RHONCHI THROUGHOUT. HE IS CURRENTLY UTILIZING OXYGEN VIA NASAL CANNULA AT 2L/MIN. ABDOMEN IS ROUND, SOFT, AND NON-TENDER WITH NORMAL BOWEL SOUNDS NOTED IN ALL QUADRANTS. THERE IS NORMAL RANGE OF MOTION NOTED TO ALL EXTREMITIES. HIS VITALS THIS MORNING ARE 97.9-104-20-93%-125/69. LABS WERE OBTAINED. ABNORMAL LAB VALUES INCLUDE THE FOLLOWING: WBC 3.5, RBC 3.86 , HGB 9.2, HCT 29.2, BUN 21, CREATININE 1.80, GFR 40, GLUCOSE 299, CALCIUM 8.4, AST 8, ALBUMIN 3.3. AN ABG WAS REPEATED AND REVEALED PH 7.390, PC02 45, P02 65, HC03 27.2, 02 SATURATION 92. TODAY, WE PLAN TO CONTINUE WITH IV ANTIBIOTICS, RESPIRATORY TREATMENTS, AND LASIX. WE WILL FOLLOW UP WITH AM LABS AND CHEST XRAY AND CONTINUE TO MONITOR PATIENT. - Past Medical Family Social History Past Med/Fam/Surg Hx: No changes since H&P Allergies: Allergies No Known Drug Allergies Allergy (Verified 12/22/16 07:08) - Review of Systems ROS: No change since H&P - Vital Signs and I&O's Vital Signs: Temperature 98.4 F Pulse Rate [Right Brachial] 81 Pulse Rate [Left Radial] 82 Pulse Rate 81 Respiratory Rate 22 Blood Pressure [Right Arm] 99/61 Blood Pressure [Left Arm] 123/78 Blood Pressure 125/79 O2 Sat by Pulse Oximetry 91 Intake and Output: Intake & Output 07/29/17 07/30/17 07/31/17 08/01/17 11:59 11:59 11:59 11:59 Intake Total 195 1480 890 Output Total 450 1250 Balance -255 230 890 - Physical Exam Oriented: Normal Eyes: Normal Ear: Normal Nose: Normal Throat: Normal Respiratory: Right, Left, Generalized, Wheezes, Rhonchi Cardiovascular: Edema (BILATERAL LOWER EXTREMITY EDEMA ). negative: S3, S4, Murmur : Normal Auscultation: Bowel Sounds: Normal Palpation: Normal Tenderness: Normal Skin: Normal Musculoskeletal: Normal Psychiatric: Normal Mood Description: Calm Affect: Normal Speech Pattern: Clear - Laboratory and Diagnostics Result Diagrams: 07/30/17 05:45 07/30/17 05:45 Labs: Laboratory WBC 3.5 X10^3/uL (3.6-10.0) L 07/30/17 05:45 RBC 3.86 X10^6/uL (4.7-6.0) L 07/30/17 05:45 Hgb 9.2 g/dL (13.5-18.0) L 07/30/17 05:45 Hct 29.2 % (42.0-54.0) L 07/30/17 05:45 MCV 75.6 fL (80.0-100.0) L 07/30/17 05:45 MCH 23.8 pg (27.0-34.0) L 07/30/17 05:45 MCHC 31.5 g/dL (33.0-35.0) L 07/30/17 05:45 RDW 18.3 % (11.6-16.5) H 07/30/17 05:45 Plt Count 168 X10^3/uL (150.0-450.0) 07/30/17 05:45 Plt Count Comment Adequate (ADEQUATE) 07/30/17 05:45 MPV 8.5 fL (7.4-11.0) 07/30/17 05:45 Neut % (Auto) 86.2 % (42.0-75.0) H 07/30/17 05:45 Lymph % (Auto) 12.3 % (21.0-51.0) L 07/30/17 05:45 [place] % (Auto) 1.2 % (0.0-13.0) 07/30/17 05:45 Eos % (Auto) 0.0 % (0.9-2.9) L 07/30/17 05:45 Baso % (Auto) 0.3 % (0.2-1.0) 07/30/17 05:45 Neut # (Auto) 3.0 x10^3/uL (2.2-4.8) 07/30/17 05:45 Lymph # (Auto) 0.4 X10^3/uL (1.3-2.9) L 07/30/17 05:45 [place] # (Auto) 0 x10^3/uL (0.3-0.8) L 07/30/17 05:45 Eos # (Auto) 0.0 x10^3/uL (0.0-0.2) 07/30/17 05:45 Baso # (Auto) 0.0 X10^3/uL (0.0-0.1) 07/30/17 05:45 Absolute Nucleated RBC 0.1 /100WBC 07/30/17 05:45 Plt Morphology Comment Normal (NORMAL) 07/30/17 05:45 RBC Morphology Abnormal (NORMAL) 07/30/17 05:45 Hypochromasia 1+ A 07/30/17 05:45 Anisocytosis Slight A 07/30/17 05:45 INR Target Range - 07/29/17 16:26 INR 1.08 (0.8-1.3) 07/29/17 16:26 APTT 33.1 SECONDS (22.9-36.5) 07/29/17 16:26 PTT Comment - 07/29/17 16:26 D-Dimer 390 ng/mL (0-400) 07/29/17 16:26 Sample Site Rbra 07/30/17 05:42 ABG pH 7.390 (7.35-7.45) 07/30/17 05:42 ABG pCO2 45.0 mmHg (35.0-45.0) 07/30/17 05:42 ABG pO2 65.0 mmHg (80.0-100.0) L 07/30/17 05:42 ABG HCO3 27.2 mmol/L (22-26) H 07/30/17 05:42 ABG O2 Saturation 92.0 % (90-100) 07/30/17 05:42 ABG Base Excess 1.8 mmol/L (-2.0-2.0) 07/30/17 05:42 Marcus Test Na 07/30/17 05:42 A-a Gradient 107.0 mmHg 07/30/17 05:42 FiO2 32.000 07/30/17 05:42 Blood Gas Comments Taj abg well-mtf 07/30/17 05:42 Sodium 142 mmol/L (136-145) 07/30/17 05:45 Corrected Sodium 147 mmol/L (136-145) H 07/30/17 05:45 Potassium 4.2 mmol/L (3.5-5.1) 07/30/17 05:45 Chloride 104 mmol/L (98-107) 07/30/17 05:45 Carbon Dioxide 26.9 mmol/L (21-32) 07/30/17 05:45 BUN 21 mg/dL (7-18) H 07/30/17 05:45 Creatinine 1.80 mg/dL (0.70-1.30) H 07/30/17 05:45 Est GFR (MDRD) Af Amer 49 (>60) L 07/30/17 05:45 Est GFR (MDRD) Non-Af 40 (>60) L 07/30/17 05:45 Glucose 299 mg/dL (65-99) H 07/30/17 05:45 POC Glucose (mg/dL) 120 mg/dL (65-99) H 07/31/17 20:27 Calcium 8.4 mg/dL (8.5-10.1) L 07/30/17 05:45 Corrected Calcium 9.0 mg/dL (8.5-10.1) 07/30/17 05:45 Magnesium 1.4 mg/dL (1.7-2.9) L 07/29/17 16:26 Total Bilirubin 0.50 mg/dL (0.2-1.0) 07/30/17 05:45 AST 8 Units/L (15-37) L 07/30/17 05:45 ALT 18 Units/L (12-78) 07/30/17 05:45 Alkaline Phosphatase 103 Units/L (46-116) 07/30/17 05:45 Creatine Kinase 96 Units/L (39-308) 07/29/17 16:26 CK-MB (CK-2) < 1.0 ng/mL (0-4.0) 07/29/17 16:26 CK/CKMB % Calc 1.0 % (<4) 07/29/17 16:26 Troponin I < 0.02 ng/mL (0-1.5) 07/29/17 16:26 Total Protein 6.8 g/dL (6.4-8.2) 07/30/17 05:45 Albumin 3.3 g/dL (3.4-5.0) L 07/30/17 05:45 Globulin 3.5 g/dL (2.5-4.5) 07/30/17 05:45 Albumin/Globulin Ratio 0.9 Ratio (1.1-2.1) L 07/30/17 05:45 - Plan (1) COPD, severe Status: Acute Plan: DUONEBS Q4HR, SUPPLEMENTAL OXYGEN, ROCEPHIN 1GM IV DAILY, LASIX 80MG PO BID, CONTINUE TO MONITOR (2) Pneumonia Status: Acute Qualifiers: Pneumonia type: due to unspecified organism Laterality: unspecified laterality Lung location: upper lobe of lung Qualified Code(s): J18.1 - Lobar pneumonia, unspecified organism Plan: DUONEBS Q4HR, SUPPLEMENTAL OXYGEN, ROCEPHIN 1GM IV DAILY, LASIX 80MG PO BID, MONITOR CHEST XRAY, CONTINUE TO MONITOR (3) Acute on chronic systolic (congestive) heart failure Status: Acute Plan: DUONEBS Q4HR, SUPPLEMENTAL OXYGEN, ROCEPHIN 1GM IV DAILY, LASIX 80MG PO BID, CONTINUE TO MONITOR
[2017-07-31] MEDS: ZANAFLEX PO SCH (23:09)
[2017-08-01] MEDS: DUONEB 0.5 MG/3 MG NEB SCH ×6 (01:15→21:35)
[2017-08-01] MEDS: NS 250 ML IV 250 ML IV SCH (03:35)
[2017-08-01] MEDS: FORTAZ or TAZICEF INJ 1 GM in NS 100 ML IV + SPIKE MINIBAG* 100 ML IV SCH ×3 (05:16→21:43)
[2017-08-01 05:59] LABS: BASOPHILS % (AUTO) 0.5 % (0.2-1.0); EOSINOPHILS # (AUTO) 0.3 x10^3/uL (0.0-0.2); EOSINOPHILS % (AUTO) 3.6 % (0.9-2.9); HEMATOCRIT 33.7 % (42.0-54.0); HEMOGLOBIN 10.5 g/dL (13.5-18.0); LYMPHOCYTES # (AUTO) 1.7 X10^3/uL (1.3-2.9); LYMPHOCYTES % (AUTO) 23.7 % (21.0-51.0); MEAN CORPUSCULAR HEMOGLOBIN 23.5 pg (27.0-34.0); MEAN CORPUSCULAR HGB CONC 31.3 g/dL (33.0-35.0); MEAN CORPUSCULAR VOLUME 75.1 fL (80.0-100.0); MEAN PLATELET VOLUME 8.4 fL (7.4-11.0); MONOCYTES # (AUTO) 0.6 x10^3/uL (0.3-0.8); MONOCYTES % (AUTO) 8.3 % (0.0-13.0); NEUTROPHILS # (AUTO) 4.7 x10^3/uL (2.2-4.8); NEUTROPHILS % (AUTO) 63.9 % (42.0-75.0); PLATELET COUNT 218 X10^3/uL (150.0-450.0); RED BLOOD COUNT 4.48 X10^6/uL (4.7-6.0); RED CELL DISTRIBUTION WIDTH 18.7 % (11.6-16.5); WHITE BLOOD COUNT 7.3 X10^3/uL (3.6-10.0)
[2017-08-01] MEDS: SYNTHROID 100 mcg TAB PO SCH (06:03)
[2017-08-01 06:26] LABS: ALBUMIN 3.3 g/dL (3.4-5.0); ALKALINE PHOSPHATASE 93 Units/L (46-116); ASPARTATE AMINO TRANSFERASE 9 Units/L (15-37); BLOOD UREA NITROGEN 21 mg/dL (7-18); CALCIUM 8.8 mg/dL (8.5-10.1); CARBON DIOXIDE 32.1 mmol/L (21-32); CHLORIDE 103 mmol/L (98-107); COR CA(FOR HYPOALB) 9.4 mg/dL (8.5-10.1); CREATININE 1.44 mg/dL (0.70-1.30); SODIUM 145 mmol/L (136-145); TOTAL PROTEIN 6.9 g/dL (6.4-8.2); eGFR BLACK RACES > 60 (>60); eGFR NON BLACK RACES 52 (>60)
--- NOTE | 2017-08-01 06:55 | RAD ---
Examination: AP chest History: COPD, pneumonia, SOB Comparison 07/29/2017 Findings: Stable cardiomegaly, pulmonary hyperaeration and central pulmonary vascular distention. No evidence for developing pneumothorax, consolidation or large pleural effusion. Impression: No interval change. Persistent cardiomegaly. Suspect COPD and mild CHF. Reported By:
[2017-08-01 07:07] LABS: ALANINE AMINOTRANSFERASE 17 Units/L (12-78)
[2017-08-01 07:08] LABS: ANISOCYTOSIS 2+; BASOPHILS % (MANUAL) 1 % (0-1); HYPOCHROMASIA 1+; PLATELET MORPHOLOGY COMMENT NORMAL (NORMAL)
[2017-08-01 07:09] LABS: OVALOCYTES 1+
[2017-08-01] MEDS ORDERED: GLUCOPHAGE ONE ×2 (07:58→19:14)
[2017-08-01] MEDS: GLUCOPHAGE PO SCH ×2 (08:40→21:41)
[2017-08-01] MEDS: COZAAR PO SCH (08:40)
[2017-08-01] MEDS: CARDIZEM CD 180 MG PO SCH (08:40)
[2017-08-01] MEDS: IMDUR PO SCH (08:41)
[2017-08-01] MEDS: NORCO 10/325 TAB PO PRN ×3 (08:41→17:08)
[2017-08-01] MEDS: XANAX PO SCH ×2 (08:41→21:40)
[2017-08-01] MEDS: LASIX IVP SCH ×2 (08:41→21:41)
[2017-08-01] MEDS: GLUCOTROL PO SCH ×2 (08:41→21:42)
[2017-08-01] MEDS: PLAVIX PO SCH (08:42)
[2017-08-01] MEDS: NexIUM PO SCH (08:42)
[2017-08-01] MEDS: LEVAQUIN PREMIX IV 750 MG 750 MG/150 ML BAG IV SCH (08:42)
[2017-08-01] MEDS: PROzac PO SCH (08:42)
[2017-08-01] MEDS: NORVASC TAB 10 MG PO SCH (08:42)
[2017-08-01] MEDS: LOPRESSOR TAB 50 MG PO SCH ×2 (08:49→21:42)
[2017-08-01] MEDS: LIPITOR TAB 40 MG PO SCH (21:40)
[2017-08-01] MEDS: ZANAFLEX PO SCH (21:40)
[2017-08-01] MEDS: FLOMAX PO SCH (21:41)
[2017-08-01] MEDS: SNACK - Diabetic Appropriate PO SCH (21:41)
[2017-08-01] MEDS: SINGULAIR TAB 10 MG PO SCH (21:43)
[2017-08-02] MEDS: DUONEB 0.5 MG/3 MG NEB SCH ×4 (01:23→12:15)
[2017-08-02] MEDS: NS 250 ML IV 250 ML IV SCH (05:26)
[2017-08-02] MEDS: FORTAZ or TAZICEF INJ 1 GM in NS 100 ML IV + SPIKE MINIBAG* 100 ML IV SCH (05:26)
[2017-08-02 06:00] LABS: BASOPHILS % (AUTO) 0.5 % (0.2-1.0); EOSINOPHILS # (AUTO) 0.2 x10^3/uL (0.0-0.2); EOSINOPHILS % (AUTO) 3.6 % (0.9-2.9); HEMATOCRIT 32.9 % (42.0-54.0); HEMOGLOBIN 10.4 g/dL (13.5-18.0); LYMPHOCYTES # (AUTO) 1.2 X10^3/uL (1.3-2.9); LYMPHOCYTES % (AUTO) 20.4 % (21.0-51.0); MEAN CORPUSCULAR HEMOGLOBIN 23.7 pg (27.0-34.0); MEAN CORPUSCULAR HGB CONC 31.6 g/dL (33.0-35.0); MEAN CORPUSCULAR VOLUME 74.9 fL (80.0-100.0); MEAN PLATELET VOLUME 8.2 fL (7.4-11.0); MONOCYTES # (AUTO) 0.5 x10^3/uL (0.3-0.8); MONOCYTES % (AUTO) 9.1 % (0.0-13.0); NEUTROPHILS # (AUTO) 3.9 x10^3/uL (2.2-4.8); NEUTROPHILS % (AUTO) 66.4 % (42.0-75.0); PLATELET COUNT 198 X10^3/uL (150.0-450.0); RED BLOOD COUNT 4.39 X10^6/uL (4.7-6.0); RED CELL DISTRIBUTION WIDTH 18.2 % (11.6-16.5); WHITE BLOOD COUNT 5.8 X10^3/uL (3.6-10.0)
[2017-08-02] MEDS: SYNTHROID 100 mcg TAB PO SCH (06:10)
[2017-08-02 06:14] LABS: ALANINE AMINOTRANSFERASE 16 Units/L (12-78); ALBUMIN 3.2 g/dL (3.4-5.0); ALKALINE PHOSPHATASE 86 Units/L (46-116); ASPARTATE AMINO TRANSFERASE 8 Units/L (15-37); BLOOD UREA NITROGEN 17 mg/dL (7-18); CALCIUM 8.5 mg/dL (8.5-10.1); CARBON DIOXIDE 28.9 mmol/L (21-32); CHLORIDE 103 mmol/L (98-107); COR CA(FOR HYPOALB) 9.1 mg/dL (8.5-10.1); CREATININE 1.15 mg/dL (0.70-1.30); SODIUM 144 mmol/L (136-145); TOTAL PROTEIN 6.7 g/dL (6.4-8.2); eGFR BLACK RACES > 60 (>60); eGFR NON BLACK RACES > 60 (>60)
[2017-08-02] MEDS ORDERED: K-RIDER 10 MEQ/NS 100 ML 10 MEQ/100 ML BAG IV PRN (06:24)
[2017-08-02] MEDS ORDERED: MAGNESIUM SULFATE 1 GM/100 mL PREMIX 1 GM/100 ML BAG IV PRN (06:24)
[2017-08-02] MEDS ORDERED: POTASSIUM CHL 40 MEQ/NS 0.45% 500 ML IV PRN (06:24)
[2017-08-02] MEDS ORDERED: POTASSIUM CHL 60 MEQ/NS 0.45% 500 ML IV PRN (06:24)
[2017-08-02] MEDS ORDERED: K-LYTE EFFERVESCENT PO PRN (06:24)
[2017-08-02] MEDS ORDERED: POTASSIUM CHLORIDE LIQ 20 MEQ UDC PO PRN (06:24)
[2017-08-02 06:46] LABS: PLATELET MORPHOLOGY COMMENT NORMAL (NORMAL)
[2017-08-02 06:47] LABS: HYPOCHROMASIA 1+
--- NOTE | 2017-08-02 06:55 | RAD ---
History: Chest pain and dyspnea. Exam: Single portable of the chest. Comparison: 07/29/2017. Findings: The trachea is shifted leftward. The cardiomediastinal silhouette is enlarged but stable. T here is worsening ground-glass/airspace disease in the left mid lung zone and left lower lobe which c ould reflect a developing pneumonia. There is no pneumothorax or mediastinal shift. The lungs are berenice ar without consolidation, effusion, or pneumothorax. The chest is hyperinflated with an increased AP dimension of the chest, diaphragmatic flattening, and central interstitial changes which would be com patible with changes of obstructive airways disease. No other cardiopulmonary changes are appreciated . No acute bony abnormalities are seen. Impression: Cardiomegaly with worsening left mid lung zone and left lower lobe ground-glass/airspace disease whic h is concerning for a developing pneumonia. Chest CT imaging suggested. Reported By:
[2017-08-02] MEDS ORDERED: GLUCOPHAGE ONE (08:58)
[2017-08-02] MEDS: LOPRESSOR TAB 50 MG PO SCH (09:54)
[2017-08-02] MEDS: LEVAQUIN PREMIX IV 750 MG 750 MG/150 ML BAG IV SCH (09:54)
[2017-08-02] MEDS: XANAX PO SCH (09:55)
[2017-08-02] MEDS: IMDUR PO SCH (09:55)
[2017-08-02] MEDS: NexIUM PO SCH (09:55)
[2017-08-02] MEDS: GLUCOPHAGE PO SCH (09:55)
[2017-08-02] MEDS: PROzac PO SCH (09:55)
[2017-08-02] MEDS: GLUCOTROL PO SCH (09:55)
[2017-08-02] MEDS: NORVASC TAB 10 MG PO SCH (09:55)
[2017-08-02] MEDS: COZAAR PO SCH (09:55)
[2017-08-02] MEDS: CARDIZEM CD 180 MG PO SCH (09:56)
[2017-08-02] MEDS: PLAVIX PO SCH (09:56)
[2017-08-02] MEDS: LASIX IVP SCH (09:57)
[2017-08-02 12:05] VITALS: BP 104/62
[2017-08-02] MEDS ORDERED: K-DUR TAB 20 MEQ PO STA (12:51)
[2017-08-03] MEDS ORDERED: K-DUR TAB 20 MEQ PO SCH (12:40)
== END 2017-08-02 13:00 | disposition home or self-care (01) | DRG 190 ==
LOC: ER 16:09 → MED/SURG 21:00
PROVIDERS: ADMIT Internal Medicine; ATTEND Internal Medicine
DX: J44.1 Chronic obstructive pulmonary disease with (acute) exacerbation (principal); J18.1 Lobar pneumonia, unspecified organism; R94.31 Abnormal electrocardiogram [ECG] [EKG]; I50.23 Acute on chronic systolic (congestive) heart failure; E11.65 Type 2 diabetes mellitus with hyperglycemia; I10 Essential (primary) hypertension; I25.10 Atherosclerotic heart disease of native coronary artery without angina pectoris; R06.02 Shortness of breath; I51.7 Cardiomegaly; R60.0 Localized edema
CPT/HCPCS: 36415; 36600; 71045; 71250; 80053; 82550; 82553; 82803; 83735; 84484; 85025; 85378; 85610; 85730; 93005; 94760; 96365; 96374; 96375; 99284; A4216; A4222; J0696; J0713; J1100; J1815; J1940; J1956; J2270; J2930; J7620

== ENCOUNTER 2017-08-11 22:34 | Inpatient (IN) | payer OTHER ==
[2017-08-11 22:41] VITALS: BMI 28.1
[2017-08-11] MEDS ORDERED: SOLU-Medrol 125 MG VIAL ONE (22:42)
[2017-08-11] MEDS ORDERED: XOPENEX 1.25 MG/3 ML NEBULE NEB ONE ×2 (22:43→22:46)
[2017-08-11] MEDS ORDERED: Atrovent NEB TX 0.02% ONE (22:43)
[2017-08-11] MEDS ORDERED: SOLU-Medrol 125 MG VIAL IVP ONE (22:43)
--- NOTE | 2017-08-11 22:56 | RAD ---
Chest AP portable Indication: Dyspnea and chest pain Comparison: 08/02/2017 Findings: There is no pneumothorax. Heart size is prominent. Patchy pulmonary opacities are seen in t he bases, probably worse in left lung base. Mild increased interstitial markings noted. Overlying mon itoring leads obscure detail. Impression: 1. Cardiomegaly and mild edema with bibasilar opacities, worse on the left. Underlying pneumonia favo red. Follow-up to resolution. Reported By:
[2017-08-11 22:57] LABS: ABG BASE EXCESS 1.1 mmol/L (-2.0-2.0); ABG HCO3 25.1 mmol/L (22-26)
[2017-08-11 23:17] LABS: BASOPHILS % (AUTO) 0.6 % (0.2-1.0); EOSINOPHILS # (AUTO) 0.2 x10^3/uL (0.0-0.2); HEMATOCRIT 31.9 % (42.0-54.0); LYMPHOCYTES # (AUTO) 1.3 X10^3/uL (1.3-2.9); LYMPHOCYTES % (AUTO) 15.3 % (21.0-51.0); MEAN CORPUSCULAR HEMOGLOBIN 23.7 pg (27.0-34.0); MEAN CORPUSCULAR HGB CONC 31.4 g/dL (33.0-35.0); MEAN CORPUSCULAR VOLUME 75.5 fL (80.0-100.0); MEAN PLATELET VOLUME 9.1 fL (7.4-11.0); MONOCYTES # (AUTO) 0.6 x10^3/uL (0.3-0.8); MONOCYTES % (AUTO) 7.6 % (0.0-13.0); NEUTROPHILS # (AUTO) 6.2 x10^3/uL (2.2-4.8); NEUTROPHILS % (AUTO) 74.5 % (42.0-75.0); PLATELET COUNT 176 X10^3/uL (150.0-450.0); RED BLOOD COUNT 4.23 X10^6/uL (4.7-6.0); RED CELL DISTRIBUTION WIDTH 18.5 % (11.6-16.5); WHITE BLOOD COUNT 8.2 X10^3/uL (3.6-10.0)
[2017-08-11] MEDS ORDERED: LASIX IVP ONE ×2 (23:19→23:25)
--- NOTE | 2017-08-11 23:22 | DR.GENAD ---
HPI - PCP Primary Care Physician: BAMBI GREENE - Complaint/Symptoms Chief Complaint Doctors Comments: Patient presented to the ED for COPD and chest pain. He was admitted on 07/29/17 and discharged 08/02. He was treated for pneumonia. Patieht with a history of severe COPD has been seen by a electrician office. Upon presention patient was in distress. His ABG ph7.44,pco2 37, Pao2 42; HC03 25; sat 80%. He was pu on Bipap 14/5, 70%. His respiratory distress improved. He is able to speak in full sentences. He denies fever, vomiting,diarrhea or cigarettes. Chief Complaint:: PT C/O SOB AND CP STARTED WEDNESDAY - Source History Provided: Patient - Mode of Arrival Mode of Arrival: Ambulatory - Timing Onset of Chief Complaint: 08/07/17 PMH - PMH Past Medical History: Yes Past Medical History: Angina, CHF, Diabetes, Hypertension, [place] Past Surgical History: Yes Surgical History: Abdominal Surgery, Angioplasty/Stents, Thyroidectomy, Other - Family History History of Family Medical Conditions: Yes Family Medical History: Diabetes Mellitus, Cancer, [place] - Social History Does any household member use tobacco: No Alcohol Use: None Do you use any recreational Drugs:: No Lives With: Family Lives Where: Home - infectious screening In the last 2 months have you had wt loss of >10#?: NO Have you had fever, night sweats or hemotysis?: No Have you traveled outside the country in the last 6 months?: No Isolation: Standard ROS - Review of Systems Eyes: No Symptoms Reported ENTM: No Symptoms Reported Respiratoy: Non-Productive Cough, Short of Breath Cardiovascular: No Symptoms Reported Gastrointestinal/Abdominal: No Symptoms Reported Genitourinary: No Symptoms Reported Neurological: No Symptoms Reported Musculoskeletal: No Symptoms Reported Integumentary: No Symptoms Reported Hematologic/Lymphatic: No Symptoms Reported Endocrine: No Symptoms Reported Psychiatric: No Symptoms Reported All Other Systems: Reviewed and Negative PE - Vital Signs Vitals: Temperature 99 F Pulse Rate 83 Respiratory Rate 34 Blood Pressure [Right Arm] 104/62 Blood Pressure [Left Arm] 123/78 Blood Pressure 156/78 O2 Sat by Pulse Oximetry 80 - General Limitations: Physical Limitation General Appearance: Alert, Anxious - Head Head Exam: Normal Inspection, Atraumatic - Eyes Eye exam: Normal Appearance, PERRL, EOMI - ENT ENT Exam: Normal Exam External Ear Exam: Normal External Inspection TM/Canal Exam: Bilateral Normal Nose Exam: Normal Nose Exam Mouth Exam: Normal Inspection Throat Exam: Normal Inspection - Neck Neck Exam: Normal Inspection - Chest Chest Inspection: Normal Inspection - Respiratory Respiratory Exam: Accessory Muscle Use, Prolonged Expiratory Phase, Respiratory Distress. negative: Stridor Respiratory Exam: Bilateral Decreased Breath Sounds (prolong expiratory phase) - Cardiovascular Cardiovascular Exam: Regular Rate - Abdominal Exam Abdominal Exam: Normal Inspection, Normal Bowel Sounds Abdominal Tenderness: negative: RUQ, RLQ, LUQ, LLQ, Epigastrium, Suprapubic, Diffuse, Mild, Moderate, Severe, Other - Extremities Extremities Exam: Normal Inspection, Full ROM - Back Back Exam: Normal Inspection - Neurologic Neurological Exam: Alert, Oriented X3, CN II-XII Intact Course - Consultation Called: 23:50 (Dr Oliveros agreed to admit for further treatment and evaluation) - Education/Counseling Educated On: Treatment, Diagnosis ROR - Labs Reviewed Result Diagrams: 08/11/17 22:58 08/11/17 22:58 Laboratory: WBC 8.2 X10^3/uL (3.6-10.0) 08/11/17 22:58 RBC 4.23 X10^6/uL (4.7-6.0) L 08/11/17 22:58 Hgb 10.0 g/dL (13.5-18.0) L 08/11/17 22:58 Hct 31.9 % (42.0-54.0) L 08/11/17 22:58 MCV 75.5 fL (80.0-100.0) L 08/11/17 22:58 MCH 23.7 pg (27.0-34.0) L 08/11/17 22:58 MCHC 31.4 g/dL (33.0-35.0) L 08/11/17 22:58 RDW 18.5 % (11.6-16.5) H 08/11/17 22:58 Plt Count 176 X10^3/uL (150.0-450.0) 08/11/17 22:58 Plt Count Comment Adequate (ADEQUATE) 08/11/17 22:58 MPV 9.1 fL (7.4-11.0) 08/11/17 22:58 Neut % (Auto) 74.5 % (42.0-75.0) 08/11/17 22:58 Lymph % (Auto) 15.3 % (21.0-51.0) L 08/11/17 22:58 [place] % (Auto) 7.6 % (0.0-13.0) 08/11/17 22:58 Eos % (Auto) 2.0 % (0.9-2.9) 08/11/17 22:58 Baso % (Auto) 0.6 % (0.2-1.0) 08/11/17 22:58 Neut # (Auto) 6.2 x10^3/uL (2.2-4.8) H 08/11/17 22:58 Lymph # (Auto) 1.3 X10^3/uL (1.3-2.9) 08/11/17 22:58 [place] # (Auto) 0.6 x10^3/uL (0.3-0.8) 08/11/17 22:58 Eos # (Auto) 0.2 x10^3/uL (0.0-0.2) 08/11/17 22:58 Baso # (Auto) 0.0 X10^3/uL (0.0-0.1) 08/11/17 22:58 Absolute Nucleated RBC 0.1 /100WBC 08/11/17 22:58 Plt Morphology Comment Normal (NORMAL) 08/11/17 22:58 RBC Morphology Abnormal (NORMAL) 08/11/17 22:58 Hypochromasia 1+ A 08/11/17 22:58 INR Target Range - 08/11/17 22:58 INR 1.06 (0.8-1.3) 08/11/17 22:58 APTT 33.7 SECONDS (22.9-36.5) 08/11/17 22:58 PTT Comment - 08/11/17 22:58 D-Dimer 1110 ng/mL (0-400) H* 08/11/17 22:58 Sample Site Lbra 08/11/17 22:50 ABG pH 7.440 (7.35-7.45) 08/11/17 22:50 ABG pCO2 37.0 mmHg (35.0-45.0) 08/11/17 22:50 ABG pO2 42.0 mmHg (80.0-100.0) L* 08/11/17 22:50 ABG HCO3 25.1 mmol/L (22-26) 08/11/17 22:50 ABG O2 Saturation 80.0 % (90-100) L* 08/11/17 22:50 ABG Base Excess 1.1 mmol/L (-2.0-2.0) 08/11/17 22:50 Marcus Test Na 08/11/17 22:50 A-a Gradient 140.0 mmHg 08/11/17 22:50 FiO2 32.000 08/11/17 22:50 Blood Gas Comments Taj abg well-mtf 08/11/17 22:50 Sodium 146 mmol/L (136-145) H 08/11/17 22:58 Corrected Sodium 148 mmol/L (136-145) H 08/11/17 22:58 Potassium 4.1 mmol/L (3.5-5.1) 08/11/17 22:58 Chloride 108 mmol/L (98-107) H 08/11/17 22:58 Carbon Dioxide 26.6 mmol/L (21-32) 08/11/17 22:58 BUN 19 mg/dL (7-18) H 08/11/17 22:58 Creatinine 1.48 mg/dL (0.70-1.30) H 08/11/17 22:58 Est GFR (MDRD) Af Amer > 60 (>60) 08/11/17 22:58 Est GFR (MDRD) Non-Af 50 (>60) L 08/11/17 22:58 Glucose 181 mg/dL (65-99) H 08/11/17 22:58 Lactic Acid 1.9 mmol/L (0.4-2.0) 08/11/17 22:58 Calcium 8.7 mg/dL (8.5-10.1) 08/11/17 22:58 Corrected Calcium TNP 08/11/17 22:58 Magnesium 1.6 mg/dL (1.7-2.9) L 08/11/17 22:58 Total Bilirubin 0.80 mg/dL (0.2-1.0) 08/11/17 22:58 AST 11 Units/L (15-37) L 08/11/17 22:58 ALT 34 Units/L (12-78) 08/11/17 22:58 Alkaline Phosphatase 107 Units/L (46-116) 08/11/17 22:58 Creatine Kinase 31 Units/L (39-308) L 08/11/17 22:58 CK-MB (CK-2) < 1.0 ng/mL (0-4.0) 08/11/17 22:58 CK/CKMB % Calc 3.2 % (<4) 08/11/17 22:58 Troponin I 0.02 ng/mL (0-1.5) 08/11/17 22:58 B-Natriuretic Peptide 340 pg/mL (0-79) H 08/11/17 22:58 Total Protein 7.1 g/dL (6.4-8.2) 08/11/17 22:58 Albumin 3.6 g/dL (3.4-5.0) 08/11/17 22:58 Globulin 3.5 g/dL (2.5-4.5) 08/11/17 22:58 Albumin/Globulin Ratio 1.0 Ratio (1.1-2.1) L 08/11/17 22:58 - XRAY XRAY Interpreted by: Radiologist (Chest: There is no pneumothorax. Heart size is prominent. Patchy pulmonary opacities are seen in the bases, probably worse in left lung base. Mild increased interstitial markings noted. Impression: Cardiomegaly and mild edema with bibasilar opacities, worse on the left. underlying pneumonia favored.) - Diagnosis Discharge Problem: COPD, severe - Discharge Plan Condition: Stable - Follow ups/Referrals Follow ups/Referrals: OMAIRA GREENE [Primary Care Provider] - 3 days - Instructions
[2017-08-11 23:24] LABS: B-TYPE NATRIURETIC PEPTIDE 340 pg/mL (0-79)
[2017-08-11 23:30] LABS: ALANINE AMINOTRANSFERASE 34 Units/L (12-78); ALBUMIN 3.6 g/dL (3.4-5.0); ALKALINE PHOSPHATASE 107 Units/L (46-116); ASPARTATE AMINO TRANSFERASE 11 Units/L (15-37); CALCIUM 8.7 mg/dL (8.5-10.1); CARBON DIOXIDE 26.6 mmol/L (21-32); CHLORIDE 108 mmol/L (98-107); CKMB % 3.2 % (<4); COR NA(FOR HYPERGLY) 148 mmol/L (136-145); CREATINE KINASE 31 Units/L (39-308); CREATINE KINASE MB < 1.0 ng/mL (0-4.0); CREATININE 1.48 mg/dL (0.70-1.30); MAGNESIUM 1.6 mg/dL (1.7-2.9); SODIUM 146 mmol/L (136-145); TOTAL PROTEIN 7.1 g/dL (6.4-8.2); TROPONIN I 0.02 ng/mL (0-1.5); eGFR BLACK RACES > 60 (>60); eGFR NON BLACK RACES 50 (>60)
[2017-08-11 23:35] LABS: HYPOCHROMASIA 1+; PLATELET MORPHOLOGY COMMENT NORMAL (NORMAL)
[2017-08-11] MEDS ORDERED: MORPHINE SULFATE INJ 4 MG IVP ONE (23:43)
[2017-08-11] MEDS ORDERED: MORPHINE SULFATE INJ 4 MG ONE (23:44)
[2017-08-11 23:49] LABS: BLOOD UREA NITROGEN 19 mg/dL (7-18)
[2017-08-11 23:50] LABS: BILIRUBIN,URINE NEGATIVE (NEGATIVE); BLOOD/HEMOGLOBIN,URINE NEGATIVE (NEGATIVE); GLUCOSE, URINE NEGATIVE (NEGATIVE); KETONES,URINE NEGATIVE (NEGATIVE); LEUKOCYTE ESTERASE ,URINE NEGATIVE (NEGATIVE); NITRITES,URINE NEGATIVE (NEGATIVE); PROTEIN,URINE NEGATIVE (NEGATIVE); UROBILINOGEN,URINE NORMAL (NORMAL)
[2017-08-11 23:53] LABS: APPEARANCE,URINE CLEAR (CLEAR); COLOR,URINE PALE YELLOW (YELLOW)
[2017-08-12] MEDS ORDERED: NEURONTIN CAP 400 MG PO PRN (00:09)
[2017-08-12] MEDS ORDERED: XOPENEX 1.25 MG/3 ML NEBULE NEB PRN (00:16)
[2017-08-12] MEDS ORDERED: NS 100 ML IV 100 ML IV ONE (00:39)
[2017-08-12 01:02] LABS: ABG HCO3 27.9 mmol/L (22-26)
[2017-08-12] MEDS ORDERED: SALINE 3% 15 ML NEB TX NEB ONE (01:29)
--- NOTE | 2017-08-12 01:42 | CT ---
CT angiogram chest with contrast Indication: Dyspnea and elevated D-dimer Comparison: 07/29/2017 CT chest Technique: Helical images through the chest after IV contrast per protocol. Coronal and sagittal refo rmats provided. MIP images provided. Findings: Limited images through the upper abdomen shows gallstones without other acute abnormality. Vasculature shows a few calcifications. Review of bone windows demonstrates no destructive osseous le karthikeyan. Chest: Aortic arch branch vessels shows scattered calcifications. There are shotty lymph nodes. There is cardiomegaly with marked coronary artery calcifications. Pulmonary artery bolus timing is adequat e, without large central or segmental pulmonary artery filling defect identified. There is moderate COPD change with increased interstitial markings and interlobular septal thickening . There is small bilateral effusions with dependent atelectasis. Developing consolidation in the left lower lobe noted. There is right middle lobe lung nodule measuring 4 mm on axial image 67 there is n o pneumothorax. Impression: 1. Cardiomegaly, pleural effusions and increased interstitial markings compatible with pulmonary fazal a. 2. Right middle lobe lung nodule and left lower lung nodular opacities merits CT follow-up to exclude lesion. Follow-up CT recommended after resolution of acute symptoms. 3. Patchy left lower lung opacities concerning for superimposed pneumonia. Follow-up to resolution Reported By:
[2017-08-12] MEDS: CIPRO IV 400 MG PREMIX* 400 MG/200 ML IV.SOLN. IV SCH ×3 (01:50→20:56)
[2017-08-12 05:51] LABS: ABG BASE EXCESS 2.8 mmol/L (-2.0-2.0); ABG HCO3 27.2 mmol/L (22-26)
[2017-08-12] MEDS: DUONEB 0.5 MG/3 MG NEB SCH ×6 (05:58→20:09)
[2017-08-12 06:08] LABS: BASOPHILS % (AUTO) 0.2 % (0.2-1.0); EOSINOPHILS % (AUTO) 0.3 % (0.9-2.9); HEMATOCRIT 29.8 % (42.0-54.0); HEMOGLOBIN 9.5 g/dL (13.5-18.0); LYMPHOCYTES # (AUTO) 0.4 X10^3/uL (1.3-2.9); LYMPHOCYTES % (AUTO) 6.4 % (21.0-51.0); MEAN CORPUSCULAR HEMOGLOBIN 24.1 pg (27.0-34.0); MEAN CORPUSCULAR VOLUME 75.3 fL (80.0-100.0); MEAN PLATELET VOLUME 9.2 fL (7.4-11.0); MONOCYTES # (AUTO) 0.1 x10^3/uL (0.3-0.8); MONOCYTES % (AUTO) 2.1 % (0.0-13.0); NEUTROPHILS # (AUTO) 6.2 x10^3/uL (2.2-4.8); PLATELET COUNT 158 X10^3/uL (150.0-450.0); RED BLOOD COUNT 3.96 X10^6/uL (4.7-6.0); RED CELL DISTRIBUTION WIDTH 18.5 % (11.6-16.5); WHITE BLOOD COUNT 6.8 X10^3/uL (3.6-10.0)
[2017-08-12] MEDS: SYNTHROID 100 mcg TAB PO SCH (06:23)
[2017-08-12 06:37] LABS: BLOOD UREA NITROGEN 19 mg/dL (7-18); CALCIUM 8.8 mg/dL (8.5-10.1); CARBON DIOXIDE 24.8 mmol/L (21-32); CHLORIDE 107 mmol/L (98-107); COR NA(FOR HYPERGLY) 146 mmol/L (136-145); CREATININE 1.43 mg/dL (0.70-1.30); SODIUM 143 mmol/L (136-145); eGFR BLACK RACES > 60 (>60); eGFR NON BLACK RACES 52 (>60)
[2017-08-12 06:42] LABS: PLATELET MORPHOLOGY COMMENT NORMAL (NORMAL)
[2017-08-12 07:06] LABS: CKMB % 4.2 % (<4); CREATINE KINASE 24 Units/L (39-308); TROPONIN I < 0.02 ng/mL (0-1.5)
[2017-08-12] MEDS: LASIX PO SCH ×2 (08:30→20:57)
[2017-08-12] MEDS: COZAAR PO SCH (08:40)
[2017-08-12] MEDS: PROzac PO SCH (08:50)
[2017-08-12] MEDS: IMDUR PO SCH (08:50)
[2017-08-12] MEDS: LOPRESSOR TAB 50 MG PO SCH ×2 (08:50→20:57)
[2017-08-12] MEDS: PLAVIX PO SCH (08:51)
[2017-08-12] MEDS: SINGULAIR TAB 10 MG PO SCH (08:51)
[2017-08-12] MEDS: GLUCOTROL PO SCH ×2 (08:52→20:56)
[2017-08-12] MEDS: NexIUM PO SCH ×2 (08:52→20:59)
[2017-08-12] MEDS: CARDIZEM CD 180 MG PO SCH (08:52)
[2017-08-12] MEDS: NORVASC TAB 10 MG PO SCH (08:52)
[2017-08-12] MEDS ORDERED: GLUCOPHAGE PO SCH (09:00)
[2017-08-12] MEDS ORDERED: DILTIAZEM HCL 180 MG PO SCH (09:00)
[2017-08-12] MEDS ORDERED: LEVOTHYROXINE SODIUM PO SCH (09:00)
[2017-08-12] MEDS ORDERED: TYLENOL 325 MG TAB PO PRN (14:31)
[2017-08-12] MEDS: HumuLIN R SUBCUT PRN ×2 (16:42→21:13)
[2017-08-12] MEDS: FLOMAX PO SCH (20:56)
[2017-08-12] MEDS: ELAVIL PO SCH (20:56)
[2017-08-12] MEDS: LIPITOR TAB 40 MG PO SCH (20:57)
[2017-08-12] MEDS: SNACK - Diabetic Appropriate PO SCH (21:21)
[2017-08-13] MEDS: DUONEB 0.5 MG/3 MG NEB SCH ×6 (01:08→20:16)
[2017-08-13 05:26] LABS: BASOPHILS % (AUTO) 0.3 % (0.2-1.0); HEMATOCRIT 26.9 % (42.0-54.0); HEMOGLOBIN 8.7 g/dL (13.5-18.0); LYMPHOCYTES # (AUTO) 0.7 X10^3/uL (1.3-2.9); LYMPHOCYTES % (AUTO) 10.4 % (21.0-51.0); MEAN CORPUSCULAR HGB CONC 32.4 g/dL (33.0-35.0); MEAN CORPUSCULAR VOLUME 74.1 fL (80.0-100.0); MEAN PLATELET VOLUME 8.9 fL (7.4-11.0); MONOCYTES # (AUTO) 0.4 x10^3/uL (0.3-0.8); MONOCYTES % (AUTO) 6.4 % (0.0-13.0); NEUTROPHILS # (AUTO) 5.6 x10^3/uL (2.2-4.8); NEUTROPHILS % (AUTO) 82.9 % (42.0-75.0); PLATELET COUNT 141 X10^3/uL (150.0-450.0); RED BLOOD COUNT 3.63 X10^6/uL (4.7-6.0); RED CELL DISTRIBUTION WIDTH 18.4 % (11.6-16.5); WHITE BLOOD COUNT 6.7 X10^3/uL (3.6-10.0)
[2017-08-13 05:34] LABS: ALBUMIN 3.1 g/dL (3.4-5.0); CALCIUM 8.5 mg/dL (8.5-10.1); CARBON DIOXIDE 26.4 mmol/L (21-32); COR CA(FOR HYPOALB) 9.2 mg/dL (8.5-10.1); CREATININE 1.75 mg/dL (0.70-1.30); TOTAL PROTEIN 6.4 g/dL (6.4-8.2)
[2017-08-13 05:35] LABS: PLATELET MORPHOLOGY COMMENT NORMAL (NORMAL)
[2017-08-13 05:36] LABS: HYPOCHROMASIA SLIGHT
[2017-08-13] MEDS: SYNTHROID 100 mcg TAB PO SCH (06:09)
[2017-08-13] MEDS: HumuLIN R SUBCUT PRN ×4 (06:17→21:18)
--- NOTE | 2017-08-13 07:03 | RAD ---
History: Shortness of breath Study: AP chest Comparison: August 11 Findings coal there is mild cardiomegaly. There is vascular congestion. There are tiny pleural effusi ons. Impression: Probable congestive heart failure with cardiomegaly and vascular congestion and small eff usions Reported By:
[2017-08-13] MEDS ORDERED: NS 1000 ML 1,000 ML ONE (07:35)
[2017-08-13] MEDS ORDERED: SOLU-Medrol 40 MG VIAL IVP SCH (09:00)
[2017-08-13] MEDS: SINGULAIR TAB 10 MG PO SCH (09:26)
[2017-08-13] MEDS: NORVASC TAB 10 MG PO SCH (09:26)
[2017-08-13] MEDS: COZAAR PO SCH (09:26)
[2017-08-13] MEDS: NexIUM PO SCH ×2 (09:26→20:51)
[2017-08-13] MEDS: CARDIZEM CD 180 MG PO SCH (09:26)
[2017-08-13] MEDS: PLAVIX PO SCH (09:27)
[2017-08-13] MEDS: LASIX PO SCH ×2 (09:27→20:50)
[2017-08-13] MEDS: LOPRESSOR TAB 50 MG PO SCH ×2 (09:27→21:26)
[2017-08-13] MEDS: GLUCOTROL PO SCH ×2 (09:27→20:50)
[2017-08-13] MEDS: CIPRO IV 400 MG PREMIX* 400 MG/200 ML IV.SOLN. IV SCH ×2 (09:27→20:49)
[2017-08-13] MEDS: PROzac PO SCH (09:27)
[2017-08-13] MEDS: IMDUR PO SCH (09:27)
[2017-08-13] MEDS ORDERED: NS 1000 ML 1,000 ML IV PRN (09:31)
[2017-08-13] MEDS: SNACK - Diabetic Appropriate PO SCH (20:49)
[2017-08-13] MEDS: ELAVIL PO SCH (20:49)
[2017-08-13] MEDS: FLOMAX PO SCH (20:50)
[2017-08-13] MEDS: LIPITOR TAB 40 MG PO SCH (20:51)
[2017-08-13] MEDS: SOLU-Medrol 40 MG VIAL IVP SCH (22:06)
[2017-08-14] MEDS: DUONEB 0.5 MG/3 MG NEB SCH ×5 (00:12→16:28)
[2017-08-14 05:40] LABS: BASOPHILS % (AUTO) 0.1 % (0.2-1.0); HEMATOCRIT 27.6 % (42.0-54.0); HEMOGLOBIN 8.8 g/dL (13.5-18.0); LYMPHOCYTES # (AUTO) 0.4 X10^3/uL (1.3-2.9); MEAN CORPUSCULAR HEMOGLOBIN 24.1 pg (27.0-34.0); MEAN CORPUSCULAR VOLUME 75.1 fL (80.0-100.0); MEAN PLATELET VOLUME 9.4 fL (7.4-11.0); MONOCYTES # (AUTO) 0.1 x10^3/uL (0.3-0.8); MONOCYTES % (AUTO) 1.7 % (0.0-13.0); NEUTROPHILS # (AUTO) 6.7 x10^3/uL (2.2-4.8); NEUTROPHILS % (AUTO) 93.2 % (42.0-75.0); PLATELET COUNT 153 X10^3/uL (150.0-450.0); RED BLOOD COUNT 3.68 X10^6/uL (4.7-6.0); RED CELL DISTRIBUTION WIDTH 18.6 % (11.6-16.5); WHITE BLOOD COUNT 7.2 X10^3/uL (3.6-10.0)
[2017-08-14 05:58] LABS: ALBUMIN 3.2 g/dL (3.4-5.0); CALCIUM 8.6 mg/dL (8.5-10.1); CARBON DIOXIDE 26.9 mmol/L (21-32); COR CA(FOR HYPOALB) 9.2 mg/dL (8.5-10.1); CREATININE 1.88 mg/dL (0.70-1.30); TOTAL PROTEIN 6.6 g/dL (6.4-8.2)
[2017-08-14] MEDS: SYNTHROID 100 mcg TAB PO SCH (06:09)
[2017-08-14] MEDS: SOLU-Medrol 40 MG VIAL IVP SCH ×2 (06:11→13:16)
[2017-08-14] MEDS: HumuLIN R SUBCUT PRN ×3 (06:12→17:00)
--- NOTE | 2017-08-14 06:17 | RAD ---
Chest AP portable Indication: COPD and pneumonia Comparison: 08/13/2017 Findings: There is cardiomegaly with COPD. Peribronchial thickening and patchy lower lung opacities n oted. Impression: Cardiomegaly and COPD with underlying pneumonia possible. Follow-up to resolution. Mild e aurora may be present suggesting concurrent CHF. Reported By:
[2017-08-14 06:36] LABS: HYPOCHROMASIA SLIGHT; PLATELET MORPHOLOGY COMMENT NORMAL (NORMAL)
[2017-08-14] MEDS: CARDIZEM CD 180 MG PO SCH (08:10)
[2017-08-14] MEDS: CIPRO IV 400 MG PREMIX* 400 MG/200 ML IV.SOLN. IV SCH (08:15)
[2017-08-14] MEDS: NORVASC TAB 10 MG PO SCH ×2 (08:15→11:40)
[2017-08-14] MEDS: COZAAR PO SCH (08:15)
[2017-08-14] MEDS: SINGULAIR TAB 10 MG PO SCH (08:15)
[2017-08-14] MEDS: LOPRESSOR TAB 50 MG PO SCH (08:15)
[2017-08-14] MEDS: IMDUR PO SCH (08:15)
[2017-08-14] MEDS: NexIUM PO SCH (08:15)
[2017-08-14] MEDS: PLAVIX PO SCH (08:15)
[2017-08-14] MEDS: GLUCOTROL PO SCH (08:15)
[2017-08-14] MEDS: LASIX PO SCH (08:15)
[2017-08-14] MEDS: PROzac PO SCH (08:15)
[2017-08-14] MEDS ORDERED: GLUCOPHAGE ONE (11:42)
[2017-08-14] MEDS ORDERED: PULMICORT NEB TX 0.5 MG NEB SCH (16:00)
[2017-08-14 17:25] VITALS: BP 120/66
[2017-08-14] MEDS ORDERED: ZANAFLEX PO PRN (21:00)
== END 2017-08-14 17:20 | disposition short-term general hospital (02) | DRG 190 ==
LOC: ER 22:46 → ICU 08-12 00:02
PROVIDERS: ADMIT Internal Medicine; ATTEND Internal Medicine
DX: J44.1 Chronic obstructive pulmonary disease with (acute) exacerbation (principal); I50.9 Heart failure, unspecified; J18.8 Other pneumonia, unspecified organism; R07.89 Other chest pain; E11.65 Type 2 diabetes mellitus with hyperglycemia; I10 Essential (primary) hypertension; R94.31 Abnormal electrocardiogram [ECG] [EKG]; I25.10 Atherosclerotic heart disease of native coronary artery without angina pectoris; E78.2 Mixed hyperlipidemia; M54.5 Low back pain; K52.89 Other specified noninfective gastroenteritis and colitis; Z79.01 Long term (current) use of anticoagulants; R26.89 Other abnormalities of gait and mobility
CPT/HCPCS: 36415; 36600; 71045; 71275; 80048; 80053; 81003; 82550; 82553; 82803; 83605; 83735; 83880; 84484; 85025; 85378; 85610; 85730; 87040; 93005; 93010; 94640; 94660; 96365; 96374; 96375; 97535; 99284; A4216; A4222; A4618; A7030; J0744; J1815; J1940; J2270; J2920; J2930; J7620; J7626; J7644

== ENCOUNTER → 2017-09-23 | Outpatient (CLI) | payer OTHER ==
--- NOTE | 2017-09-23 11:30 | MRI ---
STUDY: MRI OF THE LUMBAR SPINE HISTORY: Low back pain at multiple sites. Low back pain with pain to left hip. Comparison: None. Technique: Multiplanar multi-sequence MRI of the lumbar spine was performed. Sagittal T1, sagittal T 2, and STIR images, axial T1, and axial T2 images were obtained. Findings: Sagittal images: Vertebral body heights and alignment are within normal limits. There is multilevel degenerative disc disease and degenerative endplate change. There is severe loss of disc height at L1/2. Mild degenerat bienvenido endplate changes noted at multiple levels. There is grade 1 anterolisthesis of L5 on S1. This mercy ears degenerative in nature. The conus medullaris is normal in appearance terminating at the level of L1/2. Axial images: T12 -- L1: There is bilateral facet arthropathy and ligamentum flavum infolding. The central canal an d neural foramina are adequate. L1 -- L2: There is focal disc herniation with extruded disc material into the left lateral recess. Ov erall, the central canal and neural foramina are adequate. L2 -- L3: There is a shallow disc bulge, bilateral facet arthropathy and ligamentum flavum infolding. The central canal and neural foramina are adequate. L3 -- L4: There is a shallow disc bulge asymmetric into the left lateral recess and left neural nathen en. The central canal and right neural foramina are adequate. There is mild left neural foraminal tori nosis. L4 -- L5: There is a shallow disc bulge, bilateral facet arthropathy and ligamentum flavum infolding. The central canal and right neural foramina are adequate. There is mild left neural foraminal stenos is. L5 -- S1: There is a broad-based disc bulge, bilateral facet arthropathy and ligamentum flavum infold ing. The central canal and neural foramina are adequate. IMPRESSION: 1. Multilevel lumbar spondylosis, with mild grade 1 anterolisthesis of L5 on S1. 2. No significant spinal stenosis. 3. Mild left neural foraminal stenosis at L3/4 and L4/5 as described. Reported By:
--- NOTE | 2017-09-24 08:45 | MRI ---
History: Left shoulder pain and rotator cuff Pain. Exam: Non contrast MRI exam of the left shoulder. Technique: Multisequence and multiplanar T1 and T2 weighted sequences of the left shoulder were obtai treasure without the administration of IV paramagnetic contrast at 1.5 Destiny. Comparison: Not available. Findings: There is Grade 1/2 left shoulder joint chondromalacia and mild to moderate left shoulder joint DJD ob served. The sub-scapularis is intact. There is an interstitial strain, acute to subacute in appearanc e, of the distal fibers of the supraspinatus which is best seen on image 9-16 of series 701. There is tendinosis of the supraspinatus and infraspinatus also seen with inflammation in the subacromial bur sa. There is mild to moderate left AC joint DJD with a type 2 or downsloping acromion. No other cuff injury or cuff disease is seen. There is no cuff atrophy appreciated. There is biceps tendinosis with out biceps tendon tear or subluxation. There is red bone marrow seen within the glenoid and proximal humerus without evidence for aggressive bone marrow lesion. No other shoulder joint injuries or muscu loskeletal abnormalities are identified. No acute fractures are observed. No intra-articular loose estevan dies or focal joint erosions are identified. Impression: Acute to subacute appearing interstitial strain of the distal supraspinatus. No high-grade rotator cuff tear or rotator cuff atrophy is seen. Tendinosis of the remainder of the supraspinatus and infraspinatus. Mild inflammation in the subacromial/subdeltoid bursa. Biceps tendinosis. Mild to moderate glenohumeral joint chondromalacia and osteoarthritis. Srdm-om-[id number] left AC joint osteoarthritis with a downsloping acromion. Reported By:
== END | disposition home or self-care (01) | DRG 554 ==
LOC: RAD 08:24
PROVIDERS: ATTEND Psychiatry & Neurology Neurology
DX: M19.012 Primary osteoarthritis, left shoulder (principal); M54.5 Low back pain; M75.22 Bicipital tendinitis, left shoulder; M47.896 Other spondylosis, lumbar region; M48.061 Spinal stenosis, lumbar region without neurogenic claudication
CPT/HCPCS: 72148; 73221

== ENCOUNTER 2018-05-30 12:17 | Observation (INO) ==
[2018-05-30 14:01] LABS: ABG BASE EXCESS 8.6 mmol/L (-2.0-2.0)
[2018-05-30 14:03] LABS: ABG ALLEN TEST POS; ABG HCO3 34.5 mmol/L (22-26)
--- NOTE | 2018-05-30 14:08 | RAD ---
History: Acute shortness of breath Study: Portable AP chest Comparison: August 14, 2017 Findings: The heart size is prominent. The lungs are grossly clear. There are surgical clips at the base of the right neck. There is no edema or effusion. Impression: No evidence for acute cardiopulmonary disease Reported By:
[2018-05-30 14:18] VITALS: BMI 28.5
[2018-05-30 14:24] LABS: BASOPHILS # (AUTO) 0.1 X10^3/uL (0.0-0.1); BASOPHILS % (AUTO) 1.1 % (0.2-1.0); EOSINOPHILS # (AUTO) 0.2 x10^3/uL (0.0-0.2); HEMATOCRIT 34.6 % (42.0-54.0); HEMOGLOBIN 10.9 g/dL (13.5-18.0); LYMPHOCYTES # (AUTO) 1.4 X10^3/uL (1.3-2.9); LYMPHOCYTES % (AUTO) 22.2 % (21.0-51.0); MEAN CORPUSCULAR HEMOGLOBIN 23.9 pg (27.0-34.0); MEAN CORPUSCULAR HGB CONC 31.5 g/dL (33.0-35.0); MEAN PLATELET VOLUME 9.1 fL (7.4-11.0); MONOCYTES # (AUTO) 0.5 x10^3/uL (0.3-0.8); NEUTROPHILS # (AUTO) 4.3 x10^3/uL (2.2-4.8); NEUTROPHILS % (AUTO) 66.7 % (42.0-75.0); PLATELET COUNT 156 X10^3/uL (150.0-450.0); RED BLOOD COUNT 4.55 X10^6/uL (4.7-6.0); RED CELL DISTRIBUTION WIDTH 20.9 % (11.6-16.5); WHITE BLOOD COUNT 6.5 X10^3/uL (3.6-10.0)
[2018-05-30] MEDS ORDERED: SALINE 3% 15 ML NEB TX NEB ONE (14:37)
[2018-05-30 14:41] LABS: ALANINE AMINOTRANSFERASE 25 Units/L (12-78); ALBUMIN 3.8 g/dL (3.4-5.0); ALKALINE PHOSPHATASE 112 Units/L (46-116); ASPARTATE AMINO TRANSFERASE 20 Units/L (15-37); BLOOD UREA NITROGEN 13 mg/dL (7-18); CALCIUM 8.6 mg/dL (8.5-10.1); CARBON DIOXIDE 29.1 mmol/L (21-32); CHLORIDE 99 mmol/L (98-107); COR NA(FOR HYPERGLY) 141 mmol/L (136-145); CREATINE KINASE 228 Units/L (39-308); CREATINE KINASE MB 2.3 ng/mL (0-4.0); CREATININE 1.74 mg/dL (0.70-1.30); SODIUM 139 mmol/L (136-145); TOTAL PROTEIN 7.3 g/dL (6.4-8.2); TROPONIN I < 0.02 ng/mL (0-1.5); eGFR NON BLACK RACES 42 (>60)
[2018-05-30] MEDS ORDERED: POTASSIUM CHLORIDE LIQ 20 MEQ UDC PO PRN (14:43)
[2018-05-30] MEDS ORDERED: KLOR-CON PO PRN (14:43)
[2018-05-30] MEDS ORDERED: POTASSIUM CHL 40 MEQ/NS 0.45% 500 ML IV PRN (14:43)
[2018-05-30] MEDS ORDERED: K-RIDER 10 MEQ/NS 100 ML 10 MEQ/100 ML BAG IV PRN (14:43)
[2018-05-30] MEDS ORDERED: POTASSIUM CHL 60 MEQ/NS 0.45% 500 ML IV PRN (14:43)
[2018-05-30] MEDS ORDERED: MICRO K EXTEN CAP 10 MEQ PO PRN (14:43)
[2018-05-30] MEDS ORDERED: TYLENOL 325 MG TAB PO PRN (14:47)
[2018-05-30 14:48] LABS: ANISOCYTOSIS 1+; HYPOCHROMASIA 1+; OVALOCYTES SLIGHT; PLATELET MORPHOLOGY COMMENT NORMAL (NORMAL)
[2018-05-30] MEDS: NS 1000 ML 1,000 ML IV SCH (14:55)
[2018-05-30 14:57] LABS: B-TYPE NATRIURETIC PEPTIDE 209 pg/mL (0-79)
[2018-05-30] MEDS: K-DUR TAB 20 MEQ PO PRN ×2 (16:28→20:12)
[2018-05-30] MEDS: MAGNESIUM SULFATE 1 GRAM/100 mL PREMIX 1 GM/100 ML BAG IV PRN ×6 (16:31→23:55)
[2018-05-30 17:11] LABS: BILIRUBIN,URINE NEGATIVE (NEGATIVE); BLOOD/HEMOGLOBIN,URINE NEGATIVE (NEGATIVE); GLUCOSE, URINE NEGATIVE (NEGATIVE); KETONES,URINE NEGATIVE (NEGATIVE); LEUKOCYTE ESTERASE ,URINE NEGATIVE (NEGATIVE); NITRITES,URINE NEGATIVE (NEGATIVE); PROTEIN,URINE NEGATIVE (NEGATIVE); UROBILINOGEN,URINE NORMAL (NORMAL)
[2018-05-30 17:19] LABS: APPEARANCE,URINE CLEAR (CLEAR); COLOR,URINE YELLOW (YELLOW)
[2018-05-30] MEDS: HumuLIN R SC PRN ×2 (17:19→20:34)
[2018-05-30] MEDS: MORPHINE SULFATE INJ 2 MG INJ IVP PRN (17:20)
[2018-05-30 20:09] LABS: CKMB % 1.1 % (<4); TROPONIN I 0.02 ng/mL (0-1.5)
[2018-05-30] MEDS: LASIX IVP SCH (20:11)
[2018-05-31 02:23] LABS: CKMB % 1.1 % (<4); TROPONIN I 0.02 ng/mL (0-1.5)
[2018-05-31 05:29] LABS: ABG BASE EXCESS 10.2 mmol/L (-2.0-2.0)
[2018-05-31] MEDS: HumuLIN R SC PRN (05:31)
[2018-05-31 05:32] LABS: ABG HCO3 35.6 mmol/L (22-26)
[2018-05-31 06:12] LABS: BASOPHILS % (AUTO) 0.3 % (0.2-1.0); EOSINOPHILS # (AUTO) 0.1 x10^3/uL (0.0-0.2); EOSINOPHILS % (AUTO) 1.8 % (0.9-2.9); HEMOGLOBIN 10.4 g/dL (13.5-18.0); LYMPHOCYTES # (AUTO) 0.7 X10^3/uL (1.3-2.9); MEAN CORPUSCULAR HEMOGLOBIN 23.8 pg (27.0-34.0); MEAN CORPUSCULAR HGB CONC 31.4 g/dL (33.0-35.0); MEAN CORPUSCULAR VOLUME 75.7 fL (80.0-100.0); MEAN PLATELET VOLUME 8.9 fL (7.4-11.0); MONOCYTES # (AUTO) 0.3 x10^3/uL (0.3-0.8); MONOCYTES % (AUTO) 3.9 % (0.0-13.0); NEUTROPHILS # (AUTO) 6.7 x10^3/uL (2.2-4.8); PLATELET COUNT 130 X10^3/uL (150.0-450.0); RED BLOOD COUNT 4.36 X10^6/uL (4.7-6.0); RED CELL DISTRIBUTION WIDTH 20.8 % (11.6-16.5); WHITE BLOOD COUNT 7.8 X10^3/uL (3.6-10.0)
[2018-05-31 06:25] LABS: ALANINE AMINOTRANSFERASE 25 Units/L (12-78); ALBUMIN 3.5 g/dL (3.4-5.0); ALKALINE PHOSPHATASE 100 Units/L (46-116); ASPARTATE AMINO TRANSFERASE 16 Units/L (15-37); BLOOD UREA NITROGEN 12 mg/dL (7-18); CALCIUM 8.7 mg/dL (8.5-10.1); CARBON DIOXIDE 32.2 mmol/L (21-32); CHLORIDE 99 mmol/L (98-107); COR NA(FOR HYPERGLY) 142 mmol/L (136-145); CREATININE 1.44 mg/dL (0.70-1.30); MAGNESIUM 2.2 mg/dL (1.7-2.9); SODIUM 139 mmol/L (136-145); TOTAL PROTEIN 6.9 g/dL (6.4-8.2); eGFR NON BLACK RACES 52 (>60)
[2018-05-31 06:48] LABS: PLATELET MORPHOLOGY COMMENT NORMAL (NORMAL)
[2018-05-31 06:49] LABS: ANISOCYTOSIS 1+; HYPOCHROMASIA 1+
[2018-05-31] MEDS: LASIX IVP SCH ×2 (08:39→20:56)
[2018-05-31] MEDS: MORPHINE SULFATE INJ 2 MG INJ IVP PRN ×2 (08:50→19:39)
[2018-05-31] MEDS: XOPENEX 1.25 MG/3 ML NEBULE NEB PRN ×2 (09:30→20:47)
[2018-05-31] MEDS: FORTAZ or TAZICEF VIAL INJ IVP SCH ×3 (11:05→21:06)
[2018-05-31] MEDS: LEVAQUIN PREMIX IV 750 MG 750 MG/150 ML BAG IV SCH (11:08)
[2018-05-31] MEDS: NS 1000 ML 1,000 ML IV SCH (13:25)
[2018-05-31] MEDS ORDERED: ULTRAM PO PRN (17:11)
[2018-05-31] MEDS ORDERED: ZANAFLEX PO PRN (17:11)
[2018-05-31] MEDS ORDERED: PATIENT'S HOME MEDICATION (Oxycodone-Acetaminophen [Oxycodone-Acetaminophen] 0 MG) PO PRN (17:11)
[2018-05-31] MEDS ORDERED: GABAPENTIN 400 MG PO PRN (17:11)
[2018-05-31] MEDS: NORVASC TAB 10 MG PO SCH ×2 (17:35→17:42)
[2018-05-31] MEDS: COZAAR PO SCH (17:35)
[2018-05-31] MEDS: LINAGLIPTIN 5 MG PO SCH (17:35)
[2018-05-31] MEDS: SINGULAIR TAB 10 MG PO SCH (17:38)
[2018-05-31] MEDS: PROzac PO SCH (17:40)
[2018-05-31] MEDS: PLAVIX PO SCH (17:41)
[2018-05-31] MEDS: LINZESS PO SCH (17:41)
[2018-05-31] MEDS ORDERED: SYNTHROID 175 mcg TAB PO SCH (18:00)
[2018-05-31] MEDS ORDERED: GLUCOPHAGE ONE (19:32)
[2018-05-31] MEDS ORDERED: SNACK - Diabetic Appropriate PO SCH (20:00)
--- NOTE | 2018-05-31 20:23 | DR.UPDATE ---
H&P Update History and Physical Update: WAS SEEN BY JOSÉ ALTAMIRANO IN THE OFFICE YESTERDAY. HE WAS ADMITTED FOR FURTHER EVALUATION AND TREATMENT OF CONGESTIVE HEART FAILURE. A HISTORY AND PHYSICAL WAS COMPLETED PRIOR TO ADMISSION. PATIENT HAS BEEN SEEN AND EXAMINED WITH NO CHANGES NOTED TO H&P. Changes noted: NO Yes with the following:
--- NOTE | 2018-05-31 20:46 | PCM.PROG ---
Progress Note - Progress Note for Day of Date of Exam: 05/31/18 - Subjective Subjective: WAS ADMITTED FOR CHF EXACERBATION. TODAY, HE IS ALERT AND ORIENTED, LYING IN BED ON MORNING ROUNDS. HE CONTINUES WITH COMPLAINTS OF SHORTNESS OF BREATH AND A PRODUCTIVE COUGH. ON EXAMINATION, HE IS NOTED WITH SCATTERED WHEEZING AND RHONCHI. ATRIAL FIBRILLATION NOTED WITH HR IN THE 80S. ABDOMEN IS DISTENDED AND NOTED WITH DIFFUSE TENDERNESS ON PALPATION. THERE IS 2+ PITTING EDEMA NOTED WITH TO BILATERAL LOWER EXTREMITIES. HIS VITALS THIS MORNING ARE 98.6-86-14-92%NC-112/58. LABS WERE OBTAINED. ABNORMAL LAB VALUES INCLUDE THE FOLLOWING: RBC 4.36, HGB 10.4, HCT 33.0, CARBON DIOXIDE 32.2, CREATININE 1.44, GLUCOSE 205. HIS ABG THIS MORNING REVEALED: PH 7.460, PC02 50.0, P02 56.0, HC03 35.6, 02 SATURATION 90.0, BASE EXCESS 10.2. SPUTUM CULTURE REVEALED GRAM NEGATIVE RODS WITH NORMAL JERE AT DAY 1. HE IS CURRENTLY RECEIVING RESPIRATORY TREATMENTS AND LASIX 40MG IV BID. TODAY, WE WILL START FORTAZ IV AND LEVAQUIN IV. WE WILL ALSO OBTAIN AN ECHOCARDIOGRAM. OTHERWISE, WE WILL CONTINUE WITH CURRENT PLAN OF CARE. WE WILL FOLLOW UP WITH AM LABS AND CONTINUE TO MONITOR. - Past Medical Family Social History Past Med/Fam/Surg Hx: No changes since H&P Allergies: Allergies No Known Drug Allergies Allergy (Verified 08/11/17 22:50) - Review of Systems ROS: No change since H&P - Vital Signs and I&O's Vital Signs: Temperature 99.1 F Pulse Rate [Left Radial] 81 Pulse Rate 119 Respiratory Rate 22 Blood Pressure [Right Arm] 112/61 Blood Pressure [Left Arm] 123/78 Blood Pressure 133/82 O2 Sat by Pulse Oximetry 91 Intake and Output: Intake & Output 05/29/18 05/30/18 05/31/18 06/01/18 11:59 11:59 11:59 11:59 Intake Total 1468 / 1468 670 / 670 Output Total 2350 / 2350 1000 / 1000 Balance -882 / -882 -330 / -330 - Physical Exam Oriented: Normal Eyes: Normal Ear: Normal Nose: Normal Throat: Normal Respiratory: Right, Left, Generalized, Wheezes, Rhonchi Cardiovascular: Normal, Edema. negative: S3, S4, Murmur : Normal Auscultation: Bowel Sounds: Normal Palpation: Normal Tenderness: Normal Skin: Normal Musculoskeletal: Normal Psychiatric: Normal Mood Description: Calm Affect: Normal Speech Pattern: Clear, Appropriate - Laboratory and Diagnostics Result Diagrams: 05/31/18 05:45 05/31/18 05:45 Labs: 05/30/18 16:30 Sputum - Expectorated Sputum Sputum Culture - Preliminary 05/30/18 16:30 Sputum - Expectorated Sputum - Final Laboratory WBC 7.8 X10^3/uL (3.6-10.0) 05/31/18 05:45 RBC 4.36 X10^6/uL (4.7-6.0) L 05/31/18 05:45 Hgb 10.4 g/dL (13.5-18.0) L 05/31/18 05:45 Hct 33.0 % (42.0-54.0) L 05/31/18 05:45 MCV 75.7 fL (80.0-100.0) L 05/31/18 05:45 MCH 23.8 pg (27.0-34.0) L 05/31/18 05:45 MCHC 31.4 g/dL (33.0-35.0) L 05/31/18 05:45 RDW 20.8 % (11.6-16.5) H 05/31/18 05:45 Plt Count 130 X10^3/uL (150.0-450.0) L 05/31/18 05:45 Plt Count Comment Adequate (ADEQUATE) 05/31/18 05:45 MPV 8.9 fL (7.4-11.0) 05/31/18 05:45 Neut % (Auto) 85.0 % (42.0-75.0) H 05/31/18 05:45 Lymph % (Auto) 9.0 % (21.0-51.0) L 05/31/18 05:45 [place] % (Auto) 3.9 % (0.0-13.0) 05/31/18 05:45 Eos % (Auto) 1.8 % (0.9-2.9) 05/31/18 05:45 Baso % (Auto) 0.3 % (0.2-1.0) 05/31/18 05:45 Neut # (Auto) 6.7 x10^3/uL (2.2-4.8) H 05/31/18 05:45 Lymph # (Auto) 0.7 X10^3/uL (1.3-2.9) L 05/31/18 05:45 [place] # (Auto) 0.3 x10^3/uL (0.3-0.8) 05/31/18 05:45 Eos # (Auto) 0.1 x10^3/uL (0.0-0.2) 05/31/18 05:45 Baso # (Auto) 0.0 X10^3/uL (0.0-0.1) 05/31/18 05:45 Absolute Nucleated RBC 0.1 /100WBC 05/31/18 05:45 Plt Morphology Comment Normal (NORMAL) 05/31/18 05:45 RBC Morphology Abnormal (NORMAL) 05/31/18 05:45 Hypochromasia 1+ A 05/31/18 05:45 Anisocytosis 1+ A 05/31/18 05:45 Ovalocytes Slight A 05/30/18 14:10 INR Target Range - 05/30/18 14:10 INR 1.08 (0.8-1.3) 05/30/18 14:10 Sample Site Lbra 05/31/18 05:17 ABG pH 7.460 (7.35-7.45) H 05/31/18 05:17 ABG pCO2 50.0 mmHg (35.0-45.0) H 05/31/18 05:17 ABG pO2 56.0 mmHg (80.0-100.0) L 05/31/18 05:17 ABG HCO3 35.6 mmol/L (22-26) H* 05/31/18 05:17 ABG O2 Saturation 90.0 % (90-100) 05/31/18 05:17 ABG Base Excess 10.2 mmol/L (-2.0-2.0) H 05/31/18 05:17 Marcus Test Na 05/31/18 05:17 A-a Gradient 110.0 mmHg 05/31/18 05:17 FiO2 32.0 05/31/18 05:17 Blood Gas Comments Taj abg well-mtf 05/31/18 05:17 Sodium 139 mmol/L (136-145) 05/31/18 05:45 Corrected Sodium 142 mmol/L (136-145) 05/31/18 05:45 Potassium 4.2 mmol/L (3.5-5.1) 05/31/18 05:45 Chloride 99 mmol/L (98-107) 05/31/18 05:45 Carbon Dioxide 32.2 mmol/L (21-32) H 05/31/18 05:45 BUN 12 mg/dL (7-18) 05/31/18 05:45 Creatinine 1.44 mg/dL (0.70-1.30) H 05/31/18 05:45 Est GFR (MDRD) Af Amer > 60 (>60) 05/31/18 05:45 Est GFR (MDRD) Non-Af 52 (>60) L 05/31/18 05:45 Glucose 205 mg/dL (65-99) H 05/31/18 05:45 Hemoglobin A1c 10.0 % 05/30/18 14:10 Calcium 8.7 mg/dL (8.5-10.1) 05/31/18 05:45 Corrected Calcium TNP 05/31/18 05:45 Magnesium 2.2 mg/dL (1.7-2.9) 05/31/18 05:45 Total Bilirubin 0.40 mg/dL (0.2-1.0) 05/31/18 05:45 AST 16 Units/L (15-37) 05/31/18 05:45 ALT 25 Units/L (12-78) 05/31/18 05:45 Alkaline Phosphatase 100 Units/L (46-116) 05/31/18 05:45 Creatine Kinase 181 Units/L (39-308) 05/31/18 01:41 CK-MB (CK-2) 2.0 ng/mL (0-4.0) 05/31/18 01:41 CK/CKMB % Calc 1.1 % (<4) 05/31/18 01:41 Troponin I 0.02 ng/mL (0-1.5) 05/31/18 01:41 B-Natriuretic Peptide 209 pg/mL (0-79) H 05/30/18 14:10 Total Protein 6.9 g/dL (6.4-8.2) 05/31/18 05:45 Albumin 3.5 g/dL (3.4-5.0) 05/31/18 05:45 Globulin 3.4 g/dL (2.5-4.5) 05/31/18 05:45 Albumin/Globulin Ratio 1.0 Ratio (1.1-2.1) L 05/31/18 05:45 Specimen Type Clean catch urine 05/30/18 16:55 Urine Color Yellow (YELLOW) 05/30/18 16:55 Urine Appearance Clear (CLEAR) 05/30/18 16:55 Urine pH 6.0 (5.0 - 8.0) 05/30/18 16:55 Ur Specific [place] 1.015 (1.000-1.030) 05/30/18 16:55 Urine Protein Negative (NEGATIVE) 05/30/18 16:55 Urine Glucose (UA) Negative (NEGATIVE) 05/30/18 16:55 Urine Ketones Negative (NEGATIVE) 05/30/18 16:55 Urine Occult Blood Negative (NEGATIVE) 05/30/18 16:55 Urine Nitrite Negative (NEGATIVE) 05/30/18 16:55 Urine Bilirubin Negative (NEGATIVE) 05/30/18 16:55 Urine Urobilinogen Normal (NORMAL) 05/30/18 16:55 Ur Leukocyte Esterase Negative (NEGATIVE) 05/30/18 16:55 - Plan (1) CHF exacerbation Status: Acute Qualifiers: Heart failure type: unspecified Qualified Code(s): I50.9 - Heart failure, unspecified Plan: LASIX 40MG IV BID, RESPIRATORY TREATMENTS, SUPPLEMENTAL OXYGEN, CONTINUE TO MONITOR (2) Bronchopneumonia Status: Acute Plan: IV FORTAZ, IV LEVAQUIN, RESPIRATORY TREATMENTS, SUPPLEMENTAL OXYGEN, CONTINUE TO MONITOR
[2018-05-31] MEDS: ELIQUIS PO SCH (20:57)
[2018-05-31] MEDS: GLUCOPHAGE PO SCH (20:57)
[2018-05-31] MEDS: GLUCOTROL PO SCH (20:57)
[2018-05-31] MEDS ORDERED: FLOMAX PO SCH (21:00)
[2018-05-31] MEDS ORDERED: LIPITOR TAB 40 MG PO SCH (21:00)
[2018-05-31] MEDS ORDERED: METOPROLOL TARTRATE 50 MG PO SCH (21:00)
[2018-05-31] MEDS: NEURONTIN CAP 400 MG PO SCH (21:06)
[2018-06-01] MEDS: FORTAZ or TAZICEF VIAL INJ IVP SCH (05:05)
[2018-06-01] MEDS: NEURONTIN CAP 400 MG PO SCH (05:05)
[2018-06-01 06:39] LABS: BASOPHILS % (AUTO) 0.6 % (0.2-1.0); EOSINOPHILS # (AUTO) 0.2 x10^3/uL (0.0-0.2); EOSINOPHILS % (AUTO) 2.6 % (0.9-2.9); HEMATOCRIT 35.6 % (42.0-54.0); HEMOGLOBIN 11.1 g/dL (13.5-18.0); LYMPHOCYTES # (AUTO) 1.1 X10^3/uL (1.3-2.9); LYMPHOCYTES % (AUTO) 17.8 % (21.0-51.0); MEAN CORPUSCULAR HEMOGLOBIN 23.8 pg (27.0-34.0); MEAN CORPUSCULAR HGB CONC 31.3 g/dL (33.0-35.0); MEAN PLATELET VOLUME 9.1 fL (7.4-11.0); MONOCYTES # (AUTO) 0.4 x10^3/uL (0.3-0.8); MONOCYTES % (AUTO) 6.9 % (0.0-13.0); NEUTROPHILS # (AUTO) 4.6 x10^3/uL (2.2-4.8); NEUTROPHILS % (AUTO) 72.1 % (42.0-75.0); PLATELET COUNT 141 X10^3/uL (150.0-450.0); RED BLOOD COUNT 4.69 X10^6/uL (4.7-6.0); RED CELL DISTRIBUTION WIDTH 20.7 % (11.6-16.5); WHITE BLOOD COUNT 6.4 X10^3/uL (3.6-10.0)
[2018-06-01 07:08] LABS: ALBUMIN 3.2 g/dL (3.4-5.0); CALCIUM 8.6 mg/dL (8.5-10.1); CARBON DIOXIDE 31.3 mmol/L (21-32); COR CA(FOR HYPOALB) 9.2 mg/dL (8.5-10.1); CREATININE 1.68 mg/dL (0.70-1.30); TOTAL PROTEIN 6.8 g/dL (6.4-8.2)
[2018-06-01 07:24] LABS: ANISOCYTOSIS 1+; HYPOCHROMASIA 1+; MICROCYTOSIS SLIGHT; PLATELET MORPHOLOGY COMMENT NORMAL (NORMAL)
--- NOTE | 2018-06-01 07:25 | RAD ---
HISTORY: Shortness of breath Study: Chest AP portable Comparison: 05/30/2018 Findings: Patient is rotated to the left. The heart is enlarged. No congestive heart failure is noted. The aorta is calcified. The lungs are free of acute alveolar infiltrates. Mild interstitial lung changes are stable. No pleural effusions are identified. The bony thorax is unremarkable. IMPRESSION: Continued cardiomegaly without congestive heart failure No acute alveolar infiltrates Mild interstitial lung changes Reported By:
[2018-06-01] MEDS ORDERED: GLUCOPHAGE ONE (08:10)
[2018-06-01] MEDS: XOPENEX 1.25 MG/3 ML NEBULE NEB PRN (09:00)
[2018-06-01] MEDS ORDERED: LOPRESSOR TAB 50 MG PO SCH (09:00)
[2018-06-01] MEDS: LEVAQUIN PREMIX IV 750 MG 750 MG/150 ML BAG IV SCH (10:05)
[2018-06-01] MEDS: LINZESS PO SCH (10:06)
[2018-06-01] MEDS: COZAAR PO SCH (10:06)
[2018-06-01] MEDS: GLUCOTROL PO SCH (10:07)
[2018-06-01] MEDS: PLAVIX PO SCH (10:08)
[2018-06-01] MEDS: NORVASC TAB 10 MG PO SCH (10:08)
[2018-06-01] MEDS: SINGULAIR TAB 10 MG PO SCH (10:09)
[2018-06-01] MEDS: ELIQUIS PO SCH (10:09)
[2018-06-01] MEDS: PROzac PO SCH (10:09)
[2018-06-01] MEDS: LASIX IVP SCH (10:09)
[2018-06-01] MEDS: LINAGLIPTIN 5 MG PO SCH (10:23)
[2018-06-01] MEDS: GLUCOPHAGE PO SCH (10:23)
[2018-06-01 13:23] VITALS: BP 119/61
== END 2018-06-01 13:30 | disposition home or self-care (01) ==
LOC: ICU → MED/SURG 05-31 10:43
PROVIDERS: ADMIT Internal Medicine; ATTEND Internal Medicine
DX: R60.0 Localized edema; Z79.899 Other long term (current) drug therapy; I50.9 Heart failure, unspecified; I48.91 Unspecified atrial fibrillation; R94.4 Abnormal results of kidney function studies; R06.02 Shortness of breath; J18.0 Bronchopneumonia, unspecified organism; R94.31 Abnormal electrocardiogram [ECG] [EKG]
CPT/HCPCS: 36415; 36600; 71010; 71045; 80053; 81003; 82550; 82553; 82803; 83036; 83735; 83880; 84132; 84484; 85025; 85610; 87070; 87077; 87086; 87186; 87205; 93005; 93306; 94640; 96367; 96372; 96374; 97165; A4222; G0378; J0713; J1815; J1940; J1956; J2270; J3475; J3490; J7030

== ENCOUNTER 2018-06-21 12:28 | Observation (INO) ==
[2018-06-21] MEDS ORDERED: TORADOL 30 MG VIAL IVP ONE (12:46)
[2018-06-21 12:53] LABS: ABG BASE EXCESS 6.7 mmol/L (-2.0-2.0)
[2018-06-21 12:54] LABS: ABG HCO3 30.4 mmol/L (22-26)
[2018-06-21] MEDS ORDERED: TORADOL 30 MG VIAL ONE (12:57)
[2018-06-21] MEDS ORDERED: NS 1000 ML 1,000 ML IV SCH (13:00)
[2018-06-21 13:15] LABS: BASOPHILS % (AUTO) 0.7 % (0.2-1.0); EOSINOPHILS % (AUTO) 0.7 % (0.9-2.9); HEMATOCRIT 35.5 % (42.0-54.0); HEMOGLOBIN 11.2 g/dL (13.5-18.0); LYMPHOCYTES # (AUTO) 1.1 X10^3/uL (1.3-2.9); MEAN CORPUSCULAR HEMOGLOBIN 24.2 pg (27.0-34.0); MEAN CORPUSCULAR HGB CONC 31.6 g/dL (33.0-35.0); MEAN CORPUSCULAR VOLUME 76.6 fL (80.0-100.0); MEAN PLATELET VOLUME 8.2 fL (7.4-11.0); MONOCYTES # (AUTO) 0.7 x10^3/uL (0.3-0.8); MONOCYTES % (AUTO) 14.5 % (0.0-13.0); NEUTROPHILS # (AUTO) 2.7 x10^3/uL (2.2-4.8); NEUTROPHILS % (AUTO) 59.1 % (42.0-75.0); PLATELET COUNT 129 X10^3/uL (150.0-450.0); RED BLOOD COUNT 4.63 X10^6/uL (4.7-6.0); RED CELL DISTRIBUTION WIDTH 19.7 % (11.6-16.5); WHITE BLOOD COUNT 4.5 X10^3/uL (3.6-10.0)
[2018-06-21 13:28] LABS: ANISOCYTOSIS SLIGHT; HYPOCHROMASIA SLIGHT; MICROCYTOSIS SLIGHT; PLATELET MORPHOLOGY COMMENT NORMAL (NORMAL)
[2018-06-21 13:31] LABS: ALANINE AMINOTRANSFERASE 23 Units/L (12-78); ALBUMIN 3.3 g/dL (3.4-5.0); ALKALINE PHOSPHATASE 68 Units/L (46-116); ASPARTATE AMINO TRANSFERASE 37 Units/L (15-37); BLOOD UREA NITROGEN 18 mg/dL (7-18); CALCIUM 8.5 mg/dL (8.5-10.1); CARBON DIOXIDE 28.1 mmol/L (21-32); CHLORIDE 100 mmol/L (98-107); COR CA(FOR HYPOALB) 9.1 mg/dL (8.5-10.1); CREATININE 1.76 mg/dL (0.70-1.30); SODIUM 141 mmol/L (136-145); eGFR NON BLACK RACES 41 (>60)
--- NOTE | 2018-06-21 14:10 | DR.URIAD ---
HPI Time Seen Time Seen by Provider: 06/21/18 12:46 PCP Primary Care Physician: JOSÉ NELSON Complaint Chief Complaint:: PT. C/O FATIGUE, FEVER, BODY ACHES. PT. WAS AT PCP WHEN EMS WAS NOTIFIED. PT'S O2 SAT WAS IN THE 70 S. Source History Provided: Patient and EMS Mode of Arrival Mode of Arrival: EMS Timing Onset of Chief Complaint: 06/17/18 PMH PMH Past Medical History: Yes Past Medical History: Angina, CHF, COPD, Diabetes, Hypertension and [place] Past Surgical History: Yes Surgical History: Abdominal Surgery, Angioplasty/Stents and Thyroidectomy Family History History of Family Medical Conditions: Yes Family Medical History: Diabetes Mellitus, Cancer and [place] Social History Does patient currently use any type of tobacco product: No Have you used tobacco products in the last 12 months: No Type of Tobacco Use: None Does any household member use tobacco: No Alcohol Use: None Do you use any recreational Drugs:: No Lives With: Alone Lives Where: Home infectious screening In the last 2 months have you had wt loss of >10#?: NO Have you had fever, night sweats or hemotysis?: No Have you traveled outside the country in the last 6 months?: No Isolation: Standard PE Vital Signs Vitals: Temperature 98 F Pulse Rate [Left Brachial] 55 Pulse Rate 74 Respiratory Rate 20 Blood Pressure [Right Arm] 115/75 Blood Pressure [Left Arm] 100/56 Blood Pressure 136/88 O2 Sat by Pulse Oximetry 93 General Limitations: No Limitations General Appearance: Alert and In No Apparent Distress Head Head Exam: Normal Inspection, Atraumatic and Normocephalic Eyes Eye exam: Normal Appearance, PERRL and EOMI ENT ENT Exam: Normal Exam and Normal Oropharynx External Ear Exam: Normal External Inspection and Auricular Hematoma Nose Exam: Normal Nose Exam Nasal Speculum Exam: Bilateral: Normal Mouth Exam: Normal Inspection Throat Exam: Normal Inspection Neck Neck Exam: Normal Inspection and Full ROM Chest Chest Inspection: Normal Inspection and Symmetric Chest Wall Rise Respiratory Respiratory Exam: Prolonged Expiratory Phase Respiratory Exam: Bilateral: Wheezing (Expiratory) Cardiovascular Cardiovascular Exam: Regular Rate and Normal Rhythm Abdominal Exam Abdominal Exam: Normal Inspection, Normal Bowel Sounds and Soft Abdominal Tenderness: RUQ and RLQ Extremeties Extremities Exam: Normal Inspection and Full ROM Back Back Exam: Normal Inspection Neurologic Neurological Exam: Alert, Oriented X3 and CN II-XII Intact Psychiatric Psychiatric Exam: Normal Affect and Normal Mood Skin Skin Exam: Warm, Dry and Intact COURSE Reevaluation 1st: Improved Consultation Called: 14:20 Consultation Comments: Dr. Martinez agreed to admits for further treatment and evaluation ROR Labs Reviewed Laboratory Results Reviewed?: Yes Result Diagrams: 06/22/18 05:20 06/22/18 05:20 Laboratory: 06/21/18 14:55 Sputum - Expectorated Sputum - Final WBC 3.4 X10^3/uL (3.6-10.0) L 06/22/18 05:20 RBC 4.06 X10^6/uL (4.7-6.0) L 06/22/18 05:20 Hgb 9.9 g/dL (13.5-18.0) L 06/22/18 05:20 Hct 31.2 % (42.0-54.0) L 06/22/18 05:20 MCV 76.9 fL (80.0-100.0) L 06/22/18 05:20 MCH 24.3 pg (27.0-34.0) L 06/22/18 05:20 MCHC 31.7 g/dL (33.0-35.0) L 06/22/18 05:20 RDW 20.1 % (11.6-16.5) H 06/22/18 05:20 Plt Count 102 X10^3/uL (150.0-450.0) L 06/22/18 05:20 Plt Count Comment Adequate (ADEQUATE) 06/22/18 05:20 MPV 8.6 fL (7.4-11.0) 06/22/18 05:20 Neut % (Auto) 52.5 % (42.0-75.0) 06/22/18 05:20 Lymph % (Auto) 28.4 % (21.0-51.0) 06/22/18 05:20 [place] % (Auto) 15.5 % (0.0-13.0) H 06/22/18 05:20 Eos % (Auto) 3.0 % (0.9-2.9) H 06/22/18 05:20 Baso % (Auto) 0.6 % (0.2-1.0) 06/22/18 05:20 Neut # (Auto) 1.8 x10^3/uL (2.2-4.8) L 06/22/18 05:20 Lymph # (Auto) 1.0 X10^3/uL (1.3-2.9) L 06/22/18 05:20 [place] # (Auto) 0.5 x10^3/uL (0.3-0.8) 06/22/18 05:20 Eos # (Auto) 0.1 x10^3/uL (0.0-0.2) 06/22/18 05:20 Baso # (Auto) 0.0 X10^3/uL (0.0-0.1) 06/22/18 05:20 Absolute Nucleated RBC 0.0 /100WBC 06/22/18 05:20 Plt Morphology Comment Normal (NORMAL) 06/22/18 05:20 RBC Morphology Abnormal (NORMAL) 06/22/18 05:20 Hypochromasia Slight A 06/22/18 05:20 Anisocytosis 1+ A 06/22/18 05:20 Microcytosis Slight A 06/21/18 13:05 Sample Site Rbr 06/21/18 12:47 ABG pH 7.500 (7.35-7.45) H 06/21/18 12:47 ABG pCO2 39.0 mmHg (35.0-45.0) 06/21/18 12:47 ABG pO2 53.0 mmHg (80.0-100.0) L 06/21/18 12:47 ABG HCO3 30.4 mmol/L (22-26) H* 06/21/18 12:47 ABG O2 Saturation 90.0 % (90-100) 06/21/18 12:47 ABG Base Excess 6.7 mmol/L (-2.0-2.0) H 06/21/18 12:47 Marcus Test Na 06/21/18 12:47 A-a Gradient 98.0 mmHg 06/21/18 12:47 FiO2 28.0 06/21/18 12:47 Blood Gas Comments Taj well gmb 06/21/18 12:47 Sodium 139 mmol/L (136-145) 06/22/18 05:20 Corrected Sodium TNP 06/22/18 05:20 Potassium 4.0 mmol/L (3.5-5.1) 06/22/18 05:20 Chloride 101 mmol/L (98-107) 06/22/18 05:20 Carbon Dioxide 30.2 mmol/L (21-32) 06/22/18 05:20 BUN 23 mg/dL (7-18) H 06/22/18 05:20 Creatinine 1.58 mg/dL (0.70-1.30) H 06/22/18 05:20 Est GFR (MDRD) Af Amer 56 (>60) L 06/22/18 05:20 Est GFR (MDRD) Non-Af 47 (>60) L 06/22/18 05:20 Glucose 77 mg/dL (65-99) 06/22/18 05:20 POC Glucose (mg/dL) 60 mg/dL (65-99) L 06/22/18 05:55 Lactic Acid 1.2 mmol/L (0.4-2.0) 06/21/18 14:26 Calcium 7.8 mg/dL (8.5-10.1) L 06/22/18 05:20 Corrected Calcium 8.8 mg/dL (8.5-10.1) 06/22/18 05:20 Magnesium 2.5 mg/dL (1.7-2.9) 06/22/18 05:20 Total Bilirubin 0.30 mg/dL (0.2-1.0) 06/22/18 05:20 AST 32 Units/L (15-37) 06/22/18 05:20 ALT 23 Units/L (12-78) 06/22/18 05:20 Alkaline Phosphatase 65 Units/L (46-116) 06/22/18 05:20 C-Reactive Protein 88.70 mg/L (0-3.0) H 06/21/18 13:05 Total Protein 6.1 g/dL (6.4-8.2) L 06/22/18 05:20 Albumin 2.8 g/dL (3.4-5.0) L 06/22/18 05:20 Globulin 3.3 g/dL (2.5-4.5) 06/22/18 05:20 Albumin/Globulin Ratio 0.8 Ratio (1.1-2.1) L 06/22/18 05:20 Influenza Type A (PCR) Positive (NEGATIVE) A 06/21/18 13:04 Influenza Type B (PCR) Negative (NEGATIVE) 06/21/18 13:04 Other Results Comments: Chest: Mild cardiomegaly is again seen. No significant vascular congestion however. Right perihilar and basilar infiltrates are seen. Atelectasis is noted in the left base. No significant effusion on either side. Bony thorax is unremarkable. XRAY XRAY Interpreted by: Radiologist Diagnosis Discharge Problem: Influenza A, Hypoxia, Hypokalemia, Pneumonia ADDITIONAL NOTES Additional Notes Additional Notes: Patient will be admitted for further treatment
[2018-06-21] MEDS ORDERED: K-LYTE EFFERVESCENT ONE (14:13)
--- NOTE | 2018-06-21 14:13 | RAD ---
Exam: Portable chest History: 68-year-old male with fever and cough Comparison: Previous chest radiograph from 05/30/2018 Findings: Mild cardiomegaly is again seen. No significant vascular congestion however. Right perihilar and basilar infiltrates are seen. Atelectasis is noted in the left base. No significant effusion on either side. Bony thorax is unremarkable. Impression: 1. Mild cardiomegaly though without significant vascular congestion. 2. Right perihilar and basilar infiltrate. Reported By:
[2018-06-21] MEDS: TAMIFLU PO SCH ×2 (14:21→21:26)
[2018-06-21] MEDS: K-LYTE EFFERVESCENT PO ONE (14:21)
[2018-06-21] MEDS ORDERED: TUSSIONEX PENNKINETIC SUSP PO PRN (14:34)
[2018-06-21] MEDS ORDERED: TYGACIL 50 MG VIAL 100 MG in NS 100 ML IV 100 ML IV ONE (14:34)
[2018-06-21] MEDS ORDERED: NS 1/2 1000 ML IV 1,000 ML IV ONE (14:39)
[2018-06-21] MEDS: NS 1/2 1000 ML IV 1,000 ML IV SCH (15:01)
[2018-06-21] MEDS ORDERED: NORCO 10/325 TAB PO ONE (15:21)
[2018-06-21] MEDS ORDERED: NORCO 10/325 TAB ONE (15:25)
[2018-06-21] MEDS: XOPENEX 1.25 MG/3 ML NEBULE NEB SCH (16:23)
[2018-06-21] MEDS ORDERED: GABAPENTIN 400 MG PO PRN (17:38)
[2018-06-21] MEDS ORDERED: PATIENT'S HOME MEDICATION (Oxycodone-Acetaminophen [Oxycodone-Acetaminophen] 0 MG) PO PRN (17:38)
[2018-06-21] MEDS ORDERED: ZANAFLEX PO PRN (17:38)
[2018-06-21] MEDS ORDERED: HumuLIN R SC PRN (17:38)
[2018-06-21] MEDS ORDERED: NEURONTIN CAP 400 MG PO PRN (18:00)
[2018-06-21] MEDS: ROBITUSSIN DM PO SCH ×2 (18:11→21:25)
[2018-06-21 18:24] VITALS: BMI 27.5
[2018-06-21] MEDS ORDERED: K-RIDER 10 MEQ/NS 100 ML 10 MEQ/100 ML BAG IV PRN (20:02)
[2018-06-21] MEDS ORDERED: K-DUR TAB 20 MEQ PO PRN (20:02)
[2018-06-21] MEDS ORDERED: POTASSIUM CHL 40 MEQ/NS 0.45% 500 ML IV PRN (20:02)
[2018-06-21] MEDS ORDERED: MICRO K EXTEN CAP 10 MEQ PO PRN (20:02)
[2018-06-21] MEDS ORDERED: POTASSIUM CHLORIDE LIQ 20 MEQ UDC PO PRN (20:02)
[2018-06-21] MEDS ORDERED: POTASSIUM CHL 60 MEQ/NS 0.45% 500 ML IV PRN (20:02)
[2018-06-21] MEDS ORDERED: GLUCOPHAGE ONE (20:09)
[2018-06-21] MEDS: SNACK - Diabetic Appropriate PO SCH (20:15)
[2018-06-21] MEDS ORDERED: METOPROLOL TARTRATE 50 MG PO SCH (21:00)
[2018-06-21] MEDS ORDERED: LASIX PO SCH (21:00)
[2018-06-21] MEDS: NexIUM PO SCH (21:26)
[2018-06-21] MEDS: ELIQUIS PO SCH (21:26)
[2018-06-21] MEDS: FLOMAX PO SCH (21:26)
[2018-06-21] MEDS: GLUCOTROL PO SCH (21:26)
[2018-06-21] MEDS: GLUCOPHAGE PO SCH (21:26)
[2018-06-21] MEDS: LOPRESSOR TAB 50 MG PO SCH (21:26)
[2018-06-21] MEDS: LIPITOR TAB 40 MG PO SCH (21:26)
[2018-06-21] MEDS: MAGNESIUM SULFATE 1 GRAM/100 mL PREMIX 1 GM/100 ML BAG IV PRN ×2 (21:27→23:10)
[2018-06-21] MEDS: PULMICORT NEB TX 0.5 MG NEB SCH (21:40)
[2018-06-21] MEDS ORDERED: PERCOCET TAB 5/325 MG PO PRN (23:00)
[2018-06-21] MEDS: KLOR-CON PO PRN ×2 (23:10→23:18)
[2018-06-21] MEDS ORDERED: RESTORIL CAP 15 MG PO PRN (23:15)
[2018-06-22] MEDS: MAGNESIUM SULFATE 1 GRAM/100 mL PREMIX 1 GM/100 ML BAG IV PRN ×2 (00:15→01:22)
[2018-06-22] MEDS: PULMICORT NEB TX 0.5 MG NEB SCH ×3 (01:03→21:30)
[2018-06-22] MEDS: XOPENEX 1.25 MG/3 ML NEBULE NEB SCH ×5 (01:03→16:59)
[2018-06-22] MEDS ORDERED: NS 1/2 1000 ML IV 1,000 ML IV ONE (05:11)
[2018-06-22] MEDS: NS 1/2 1000 ML IV 1,000 ML IV SCH (05:43)
[2018-06-22 06:02] LABS: BASOPHILS % (AUTO) 0.6 % (0.2-1.0); EOSINOPHILS # (AUTO) 0.1 x10^3/uL (0.0-0.2); HEMATOCRIT 31.2 % (42.0-54.0); HEMOGLOBIN 9.9 g/dL (13.5-18.0); LYMPHOCYTES % (AUTO) 28.4 % (21.0-51.0); MEAN CORPUSCULAR HEMOGLOBIN 24.3 pg (27.0-34.0); MEAN CORPUSCULAR HGB CONC 31.7 g/dL (33.0-35.0); MEAN CORPUSCULAR VOLUME 76.9 fL (80.0-100.0); MEAN PLATELET VOLUME 8.6 fL (7.4-11.0); MONOCYTES # (AUTO) 0.5 x10^3/uL (0.3-0.8); MONOCYTES % (AUTO) 15.5 % (0.0-13.0); NEUTROPHILS # (AUTO) 1.8 x10^3/uL (2.2-4.8); NEUTROPHILS % (AUTO) 52.5 % (42.0-75.0); PLATELET COUNT 102 X10^3/uL (150.0-450.0); RED BLOOD COUNT 4.06 X10^6/uL (4.7-6.0); RED CELL DISTRIBUTION WIDTH 20.1 % (11.6-16.5); WHITE BLOOD COUNT 3.4 X10^3/uL (3.6-10.0)
[2018-06-22] MEDS: SYNTHROID 100 mcg TAB PO SCH (06:29)
[2018-06-22] MEDS: LASIX PO SCH ×2 (06:29→18:00)
[2018-06-22 06:39] LABS: ALANINE AMINOTRANSFERASE 23 Units/L (12-78); ALBUMIN 2.8 g/dL (3.4-5.0); ALKALINE PHOSPHATASE 65 Units/L (46-116); ASPARTATE AMINO TRANSFERASE 32 Units/L (15-37); BLOOD UREA NITROGEN 23 mg/dL (7-18); CALCIUM 7.8 mg/dL (8.5-10.1); CARBON DIOXIDE 30.2 mmol/L (21-32); CHLORIDE 101 mmol/L (98-107); COR CA(FOR HYPOALB) 8.8 mg/dL (8.5-10.1); CREATININE 1.58 mg/dL (0.70-1.30); MAGNESIUM 2.5 mg/dL (1.7-2.9); SODIUM 139 mmol/L (136-145); TOTAL PROTEIN 6.1 g/dL (6.4-8.2); eGFR NON BLACK RACES 47 (>60)
[2018-06-22 06:48] LABS: ANISOCYTOSIS 1+; HYPOCHROMASIA SLIGHT; PLATELET MORPHOLOGY COMMENT NORMAL (NORMAL)
[2018-06-22] MEDS ORDERED: GLUCOPHAGE ONE ×2 (08:32→20:27)
[2018-06-22] MEDS ORDERED: PATIENT'S HOME MEDICATION (Diltiazem Hcl [Diltiazem Hcl] 180 MG) PO SCH (09:00)
[2018-06-22] MEDS ORDERED: PATIENT'S HOME MEDICATION (Fluticasone-Vilanterol [Breo Ellipta] 1 INH) IN SCH (09:00)
[2018-06-22] MEDS ORDERED: PROzac PO SCH (09:00)
[2018-06-22] MEDS ORDERED: SYNTHROID 175 mcg TAB PO SCH (09:00)
[2018-06-22] MEDS: GLUCOTROL PO SCH (10:26)
[2018-06-22] MEDS: GLUCOPHAGE PO SCH ×2 (10:26→20:43)
[2018-06-22] MEDS: CARDIZEM CD 180 MG PO SCH (10:27)
[2018-06-22] MEDS: LINZESS PO SCH (10:27)
[2018-06-22] MEDS: COZAAR PO SCH (10:27)
[2018-06-22] MEDS: ELIQUIS PO SCH ×2 (10:27→20:43)
[2018-06-22] MEDS: FOLIC ACID TAB 1 MG PO SCH (10:27)
[2018-06-22] MEDS: LOPRESSOR TAB 50 MG PO SCH ×2 (10:28→20:44)
[2018-06-22] MEDS: COLACE CAP 100 MG PO SCH (10:28)
[2018-06-22] MEDS: TAMIFLU PO SCH ×2 (10:42→20:43)
[2018-06-22] MEDS: SINGULAIR TAB 10 MG PO SCH (10:42)
[2018-06-22] MEDS: NexIUM PO SCH ×2 (10:42→20:43)
[2018-06-22] MEDS: PROzac PO SCH (10:42)
[2018-06-22] MEDS: ROBITUSSIN DM PO SCH ×4 (10:43→20:43)
[2018-06-22] MEDS: TYGACIL 50 MG VIAL 50 MG in NS 100 ML IV 100 ML IV SCH ×2 (10:43→20:43)
[2018-06-22] MEDS: PLAVIX PO SCH (10:43)
[2018-06-22] MEDS: NORVASC TAB 10 MG PO SCH (10:43)
[2018-06-22] MEDS ORDERED: D5W 1000 ML IV 1,000 ML IV NR (13:00)
[2018-06-22] MEDS: LINAGLIPTIN 5 MG PO SCH (13:42)
[2018-06-22] MEDS: K-LYTE EFFERVESCENT PO ONE (13:54)
[2018-06-22] MEDS: PATIENT'S HOME MEDICATION (Fluticasone-Salmeterol 1 INH) IN SCH (16:57)
[2018-06-22] MEDS ORDERED: ZOFRAN INJ 4 MG VIAL IVP PRN (20:00)
[2018-06-22] MEDS: LIPITOR TAB 40 MG PO SCH (20:43)
[2018-06-22] MEDS: FLOMAX PO SCH (20:43)
[2018-06-22] MEDS: SNACK - Diabetic Appropriate PO SCH (20:44)
--- NOTE | 2018-06-22 21:23 | DR.H&P ---
H&P - History & Physical for Day of: H&P Date: 06/21/18 - Chief Complaint Chief Complaint: COUGH, FATIGUE, BODY ACHES, FEVER - History of Present Illness History of Present Illness: IS A 68 YEAR OLD PATIENT OF [facility]. HE PRESENTED TO THE ER WITH COMPLAINTS OF COUGH, FATIGUE, FEVER, AND BODY ACHES. HE WAS AT HIS [facility] OFFICE WHEN HIS OXYGEN SATURATIONS WERE NOTED TO BE IN THE 70S. HE HAS A MEDICAL HISTORY OF COPD, CHF, DIABETES, HYPERTENSION, AND [place]. ON ARRIVAL, VITALS WERE 101.5-73-22-99%-136/88. LABS WERE OBTAINED. ABNORMAL LAB VALUES INCLUDE THE FOLLOWING: RBC 4.63, HGB 11.2, HCT 35.5, POTASSIUM 3.1, CREATININE 1.76, CRP 88.70, MAGNESIUM 1.3, ALBUMIN 3.3. INFLUENZA A POSITIVE. ABG REVEALED PH 7.500, PC02 39.0, P02 53.0, HC03 30.4, 02 SATURATION 90, BASE EXCESS 6.7. BLOOD AND SPUTUM CULTURES PENDING. CHEST XRAY REVEALED: Mild cardiomegaly though without significant vascular congestion. Right perihilar and basilar infiltrate. HE WAS ADMITTED FOR FURTHER EVALUATION AND TREATMENT OF PNEUMONIA, COPD EXACERBATION, AND INFLUENZA A. HE WAS STARTED ON TYGACIL 100MG IV, NORMAL SALINE AT 125ML/HR, TAMIFLU 75MG PO BID, RESPIRATORY TREATMENTS, LASIX, AND SUPPLEMENTAL OXYGEN. WE PLAN TO FOLLOW UP WITH AM LABS AND CHEST XRAY AND CONTINUE TO MONITOR. - Past Medical History Past Medical History: Angina, [place], Hypertension, Diabetes, COPD, CHF Additional Medical History: [place] X 2, UNKNOWN NUMBER OF STENTS, UMBILICAL HERNIA, CYSTITIS, BPH, - Past Surgical History Surgical History: Abdominal Surgery, Angioplasty/Stents, Thyroidectomy Additional Surgical History: COLON RESECTION - Family History Family Medical History: Diabetes Mellitus, Cancer, [place] - Social History Does patient currently use any type of tobacco product: No Have you used tobacco products in the last 12 months: No Type of Tobacco Use: None Does any household member use tobacco: No Alcohol Use: None Drug Use: Prescription Drugs - Medications Home Medications: No Known Drug Allergies Allergy (Verified 06/21/18 12:35) CONTINUE taking the following medications amlodipine 10 mg PO DAILY 06/21/18 [History] apixaban [Eliquis] 5 mg PO BID 06/21/18 [History] diltiazem HCl 180 mg PO DAILY 06/21/18 [History] docusate sodium [Colace] 200 mg PO DAILY 06/21/18 [History] dronedarone [Multaq] 400 mg PO BID 06/21/18 [History] esomeprazole magnesium [Nexium] 40 mg PO BID 06/21/18 [History] fluticasone-salmeterol [Advair Diskus] 1 inh INHALATION BID 06/21/18 [History] fluticasone-vilanterol [Breo Ellipta] 1 inh INHALATION DAILY 06/21/18 [History] folic acid 1 mg PO DAILY 06/21/18 [History] insulin regular human [Novolin R Regular U-100 Insuln] 1 unit SUBCUT PRN PRN 06/21/18 [History] linaclotide [Linzess] 145 mcg PO DAILY 06/21/18 [History] linagliptin [Tradjenta] 5 mg PO DAILY 06/21/18 [History] - Physical Exam Vital Signs: Temperature 97.7 F Pulse Rate [Left Brachial] 54 Pulse Rate 57 Respiratory Rate 18 Blood Pressure [Right Arm] 115/75 Blood Pressure [Left Arm] 110/56 Blood Pressure 136/88 O2 Sat by Pulse Oximetry 97 - Allergies Allergies/Adverse Reactions: Allergies Allergy/AdvReac Type Severity Reaction Status Date / Time No Known Drug Allergies Allergy Verified 06/21/18 12:35
[2018-06-23] MEDS: XOPENEX 1.25 MG/3 ML NEBULE NEB SCH ×3 (00:45→12:01)
[2018-06-23] MEDS ORDERED: NS 1/2 1000 ML IV 1,000 ML IV ONE (05:54)
[2018-06-23] MEDS: LASIX PO SCH (06:02)
[2018-06-23] MEDS: SYNTHROID 100 mcg TAB PO SCH (06:02)
[2018-06-23] MEDS: NS 1/2 1000 ML IV 1,000 ML IV SCH (06:02)
[2018-06-23 06:30] LABS: BASOPHILS % (AUTO) 0.4 % (0.2-1.0); EOSINOPHILS # (AUTO) 0.1 x10^3/uL (0.0-0.2); EOSINOPHILS % (AUTO) 3.1 % (0.9-2.9); HEMATOCRIT 31.4 % (42.0-54.0); HEMOGLOBIN 10.1 g/dL (13.5-18.0); LYMPHOCYTES # (AUTO) 1.2 X10^3/uL (1.3-2.9); LYMPHOCYTES % (AUTO) 28.7 % (21.0-51.0); MEAN CORPUSCULAR HEMOGLOBIN 24.5 pg (27.0-34.0); MEAN CORPUSCULAR HGB CONC 32.2 g/dL (33.0-35.0); MEAN CORPUSCULAR VOLUME 76.3 fL (80.0-100.0); MEAN PLATELET VOLUME 9.2 fL (7.4-11.0); MONOCYTES # (AUTO) 0.5 x10^3/uL (0.3-0.8); MONOCYTES % (AUTO) 10.5 % (0.0-13.0); NEUTROPHILS # (AUTO) 2.5 x10^3/uL (2.2-4.8); NEUTROPHILS % (AUTO) 57.3 % (42.0-75.0); PLATELET COUNT 133 X10^3/uL (150.0-450.0); RED BLOOD COUNT 4.12 X10^6/uL (4.7-6.0); RED CELL DISTRIBUTION WIDTH 19.8 % (11.6-16.5); WHITE BLOOD COUNT 4.3 X10^3/uL (3.6-10.0)
--- NOTE | 2018-06-23 06:31 | RAD ---
HISTORY: Cough, fever, flu Study: Chest AP portable Comparison: 06/21/2018 Findings: The patient is rotated to the left. The heart is enlarged. No congestive heart failure is present. Right basilar lung infiltrate is slightly more prominent compared to the prior examination. The remainder of the lung pang are clear. No definite pleural effusions are identified. The bony thorax is unremarkable. IMPRESSION: Continued mild cardiomegaly without congestive heart failure Right basilar lung infiltrate slightly more prominent Reported By:
[2018-06-23 06:55] LABS: PLATELET MORPHOLOGY COMMENT NORMAL (NORMAL)
[2018-06-23 07:28] LABS: ALANINE AMINOTRANSFERASE 20 Units/L (12-78); ALBUMIN 2.9 g/dL (3.4-5.0); ALKALINE PHOSPHATASE 68 Units/L (46-116); ASPARTATE AMINO TRANSFERASE 28 Units/L (15-37); BLOOD UREA NITROGEN 28 mg/dL (7-18); CALCIUM 8.3 mg/dL (8.5-10.1); CHLORIDE 100 mmol/L (98-107); COR CA(FOR HYPOALB) 9.2 mg/dL (8.5-10.1); CREATININE 1.48 mg/dL (0.70-1.30); SODIUM 136 mmol/L (136-145); TOTAL PROTEIN 6.2 g/dL (6.4-8.2); eGFR NON BLACK RACES 50 (>60)
[2018-06-23] MEDS ORDERED: GLUCOPHAGE ONE (07:31)
[2018-06-23] MEDS: TYGACIL 50 MG VIAL 50 MG in NS 100 ML IV 100 ML IV SCH (08:17)
[2018-06-23] MEDS: ROBITUSSIN DM PO SCH ×2 (08:21→13:30)
[2018-06-23] MEDS: LINZESS PO SCH ×2 (08:22→08:29)
[2018-06-23] MEDS: NexIUM PO SCH (08:23)
[2018-06-23] MEDS: LOPRESSOR TAB 50 MG PO SCH (08:23)
[2018-06-23] MEDS: PROzac PO SCH (08:25)
[2018-06-23] MEDS: COLACE CAP 100 MG PO SCH (08:25)
[2018-06-23] MEDS: ELIQUIS PO SCH (08:25)
[2018-06-23] MEDS: PLAVIX PO SCH (08:25)
[2018-06-23] MEDS: COZAAR PO SCH (08:26)
[2018-06-23] MEDS: SINGULAIR TAB 10 MG PO SCH (08:26)
[2018-06-23] MEDS: CARDIZEM CD 180 MG PO SCH (08:26)
[2018-06-23] MEDS: FOLIC ACID TAB 1 MG PO SCH (08:27)
[2018-06-23] MEDS: GLUCOPHAGE PO SCH (08:28)
[2018-06-23] MEDS: LINAGLIPTIN 5 MG PO SCH (08:28)
[2018-06-23] MEDS: TAMIFLU PO SCH (08:28)
[2018-06-23] MEDS: NORVASC TAB 10 MG PO SCH (08:43)
[2018-06-23] MEDS: PULMICORT NEB TX 0.5 MG NEB SCH (09:32)
[2018-06-23 11:42] VITALS: BP 91/53
== END 2018-06-23 16:45 | disposition home or self-care (01) ==
LOC: MED/SURG 12:28 → ER 12:28 → MED/SURG 15:48
PROVIDERS: ADMIT Internal Medicine; ATTEND Internal Medicine
DX: R79.82 Elevated C-reactive protein (CRP); E87.6 Hypokalemia; R09.02 Hypoxemia; J15.6 Pneumonia due to other Gram-negative bacteria; J44.1 Chronic obstructive pulmonary disease with (acute) exacerbation; I10 Essential (primary) hypertension; E11.65 Type 2 diabetes mellitus with hyperglycemia; J10.08 Influenza due to other identified influenza virus with other specified pneumonia; R94.4 Abnormal results of kidney function studies
CPT/HCPCS: 36415; 36600; 71010; 71045; 80053; 82803; 83605; 83735; 84132; 85025; 86140; 87040; 87070; 87077; 87186; 87205; 87502; 94640; 94669; 94760; 96367; 96374; 96375; 99283; 99284; A4222; G9035; G0378; J1885; J2405; J3243; J3475; J7030; J7050; J7060; J7626; J8499

== ENCOUNTER 2018-10-24 10:05 | Inpatient (IN) ==
[2018-10-24 10:16] VITALS: BMI 30.4
[2018-10-24] MEDS ORDERED: DUONEB 0.5 MG/3 MG ONE (10:20)
[2018-10-24] MEDS ORDERED: DUONEB 0.5 MG/3 MG NEB ONE (10:23)
--- NOTE | 2018-10-24 10:26 | DR.SOBA ---
HPI Time Seen Time Seen by Provider: 10/24/18 10:26 Primary Care Physician Primary Care Physician: SEDA MELCHOR Complaints Chief Complaint Doctors Comments: A 68 y/o male with SOB x 4 days, worsening. There is no associated c/p or n/v. Chief Complaint:: PT C/O BEING SOB, AND CP FOR THE PAST FOUR DAYS ,BR Self Treatment fo Chief Complaint: PT HAS EXP WHEEZING AND RHONCHI, AND PT HAS PUFFY UNDER EYES , PT RESP LABORDED ..BR Reviewed Nurses Notes Reviewed: Yes Source History Provided: Patient Mode of Arrival Mode of Arrival: Ambulatory Timing Onset of Chief Complaint: 10/21/18 Duration Duration: Days Context Onset:: At Rest PE Risk Factors:: None History of:: COPD and CHF Currently on:: Inhaled Bronchodilators and Steroids Prehospital Care:: None Modifying Factors Worsens:: Exertion and Lying Flat Improves:: Nothing Associated Signs and Symptoms Associated Signs and Symptoms: Wheeze PMH PMH Past Medical History: Yes Past Medical History: Angina, CHF, COPD, Diabetes, Dyslipidemia, GERD, Hypertension, Hypothyroidism and [place] Past Surgical History: Yes Surgical History: Abdominal Surgery, Angioplasty/Stents and Thyroidectomy Family History History of Family Medical Conditions: Yes Family Medical History: Diabetes Mellitus, Cancer and [place] Social History Does patient currently use any type of tobacco product: No Have you used tobacco products in the last 12 months: No Type of Tobacco Use: None Does any household member use tobacco: No Alcohol Use: None Do you use any recreational Drugs:: No Lives With: Family Lives Where: Home infectious screening In the last 2 months have you had wt loss of >10#?: NO Have you had fever, night sweats or hemotysis?: No Have you traveled outside the country in the last 6 months?: No Isolation: Standard ROS Review of Systems Constitutional: No Symptoms Reported Eyes: No Symptoms Reported ENTM: No Symptoms Reported Respiratoy: Short of Breath Cardiovascular: No Symptoms Reported Gastrointestinal/Abdominal: No Symptoms Reported Genitourinary: No Symptoms Reported Neurological: No Symptoms Reported Musculoskeletal: No Symptoms Reported Integumentary: No Symptoms Reported Hematologic/Lymphatic: No Symptoms Reported Endocrine: No Symptoms Reported Psychiatric: No Symptoms Reported PE Vital Signs Vitals: Temperature 98.2 F Pulse Rate 60 Respiratory Rate 21 Blood Pressure [Right Arm] 115/75 Blood Pressure [Left Arm] 91/53 Blood Pressure 121/66 O2 Sat by Pulse Oximetry 92 General Limitations: No Limitations General Appearance: Alert and In Distress (respiratory) Head Head Exam: Normal Inspection, Atraumatic and Normocephalic Eyes Eye exam: Normal Appearance and EOMI ENT ENT Exam: Normal Oropharynx and Mucous Membranes Moist Neck Neck Exam: Normal Inspection, Full ROM and Trachea Midline Chest Chest Inspection: Normal Inspection Respiratory Respiratory Exam: Bilateral: Wheezing Cardiovascular Cardiovascular Exam: Regular Rate, Normal Rhythm, +S1 and +S2 Abdominal Exam Abdominal Exam: Normal Inspection, Normal Bowel Sounds, Soft and Other (protruberent) Extremities Extremities Exam: Normal Inspection and Edema (1+) Back Back Exam: Normal Inspection Neurologic Neurological Exam: Alert and Oriented X3 Psychiatric Psychiatric Exam: Normal Affect and Normal Mood Skin Skin Exam: Dry and Normal Color COURSE Education/Counseling Education/Counseling: Patient, Family, Education and Counseling Educated On: Treatment, Diagnosis, Prognosis and Needs for Follow Up ROR Labs Reviewed Result Diagrams: 10/24/18 10:20 10/24/18 10:20 Laboratory: WBC 8.8 X10^3/uL (3.6-10.0) 10/24/18 10:20 RBC 4.16 X10^6/uL (4.7-6.0) L 10/24/18 10:20 Hgb 10.3 g/dL (13.5-18.0) L 10/24/18 10:20 Hct 32.2 % (42.0-54.0) L 10/24/18 10:20 MCV 77.3 fL (80.0-100.0) L 10/24/18 10:20 MCH 24.8 pg (27.0-34.0) L 10/24/18 10:20 MCHC 32.1 g/dL (33.0-35.0) L 10/24/18 10:20 RDW 16.9 % (11.6-16.5) H 10/24/18 10:20 Plt Count 180 X10^3/uL (150.0-450.0) 10/24/18 10:20 Plt Count Comment Adequate (ADEQUATE) 10/24/18 10:20 MPV 8.6 fL (7.4-11.0) 10/24/18 10:20 Neut % (Auto) 82.6 % (42.0-75.0) H 10/24/18 10:20 Lymph % (Auto) 9.4 % (21.0-51.0) L 10/24/18 10:20 [place] % (Auto) 7.5 % (0.0-13.0) 10/24/18 10:20 Eos % (Auto) 0.1 % (0.9-2.9) L 10/24/18 10:20 Baso % (Auto) 0.4 % (0.2-1.0) 10/24/18 10:20 Neut # (Auto) 7.3 x10^3/uL (2.2-4.8) H 10/24/18 10:20 Lymph # (Auto) 0.8 X10^3/uL (1.3-2.9) L 10/24/18 10:20 [place] # (Auto) 0.7 x10^3/uL (0.3-0.8) 10/24/18 10:20 Eos # (Auto) 0.0 x10^3/uL (0.0-0.2) 10/24/18 10:20 Baso # (Auto) 0.0 X10^3/uL (0.0-0.1) 10/24/18 10:20 Absolute Nucleated RBC 0.0 /100WBC 10/24/18 10:20 Plt Morphology Comment Normal (NORMAL) 10/24/18 10:20 RBC Morphology Normal (NORMAL) 10/24/18 10:20 Sample Site Left brachial 10/24/18 11:22 ABG pH 7.450 (7.35-7.45) 10/24/18 11:22 ABG pCO2 35.0 mmHg (35.0-45.0) 10/24/18 11:22 ABG pO2 40.0 mmHg (80.0-100.0) L* 10/24/18 11:22 ABG HCO3 24.3 mmol/L (22-26) 10/24/18 11:22 ABG O2 Saturation 78.0 % (90-100) L* 10/24/18 11:22 ABG Base Excess 0.6 mmol/L (-2.0-2.0) 10/24/18 11:22 Marcus Test Na 10/24/18 11:22 A-a Gradient 66.0 mmHg 10/24/18 11:22 FiO2 21.0 10/24/18 11:22 Blood Gas Comments Taj well aw 10/24/18 11:22 Sodium 142 mmol/L (136-145) 10/24/18 10:20 Corrected Sodium 143 mmol/L (136-145) 10/24/18 10:20 Potassium 4.6 mmol/L (3.5-5.1) 10/24/18 10:20 Chloride 105 mmol/L (98-107) 10/24/18 10:20 Carbon Dioxide 25.2 mmol/L (21-32) 10/24/18 10:20 BUN 39 mg/dL (7-18) H 10/24/18 10:20 Creatinine 2.65 mg/dL (0.70-1.30) H 10/24/18 10:20 Est GFR (MDRD) Af Amer 31 (>60) L 10/24/18 10:20 Est GFR (MDRD) Non-Af 26 (>60) L 10/24/18 10:20 Glucose 148 mg/dL (65-99) H 10/24/18 10:20 Lactic Acid 1.9 mmol/L (0.4-2.0) 10/24/18 10:30 Calcium 9.2 mg/dL (8.5-10.1) 10/24/18 10:20 Corrected Calcium 9.8 mg/dL (8.5-10.1) 10/24/18 10:20 Total Bilirubin 0.50 mg/dL (0.2-1.0) 10/24/18 10:20 AST 9 Units/L (15-37) L 10/24/18 10:20 ALT 18 Units/L (12-78) 10/24/18 10:20 Alkaline Phosphatase 75 Units/L (46-116) 10/24/18 10:20 Total Protein 7.3 g/dL (6.4-8.2) 10/24/18 10:20 Albumin 3.3 g/dL (3.4-5.0) L 10/24/18 10:20 Globulin 4.0 g/dL (2.5-4.5) 10/24/18 10:20 Albumin/Globulin Ratio 0.8 Ratio (1.1-2.1) L 10/24/18 10:20 TSH 3rd Generation 0.549 uIU/mL (0.358-3.74) 10/24/18 10:20 Other Results Comments: Rt. perihilar infiltrate. cardiomegaly. Silhouetting of the Lt hemidiaphragm, likely indicating atelectasis or infiltrate in this region. EKG Rate: 57 [place]: Normal Rhythm: NSR Block: None Hypertrophy: None ST: Normal Opioid Opioid Risk Tool Total: 0 Total Score Risk Category: Low Risk Copyright: Farias LR predicting aberrant behaviors Diagnosis Discharge Problem: Pneumonia Qualifiers: Pneumonia type: due to unspecified organism Laterality: right Lung location: middle lobe of lung Qualified Code(s): J18.1 - Lobar pneumonia, unspecified organism CHF (congestive heart failure) Qualifiers: Heart failure type: unspecified Heart failure chronicity: acute on chronic Qualified Code(s): I50.9 - Heart failure, unspecified Instructions Forms: Excuse From Work
[2018-10-24 11:01] LABS: BASOPHILS % (AUTO) 0.4 % (0.2-1.0); EOSINOPHILS % (AUTO) 0.1 % (0.9-2.9); HEMATOCRIT 32.2 % (42.0-54.0); HEMOGLOBIN 10.3 g/dL (13.5-18.0); LYMPHOCYTES # (AUTO) 0.8 X10^3/uL (1.3-2.9); LYMPHOCYTES % (AUTO) 9.4 % (21.0-51.0); MEAN CORPUSCULAR HEMOGLOBIN 24.8 pg (27.0-34.0); MEAN CORPUSCULAR HGB CONC 32.1 g/dL (33.0-35.0); MEAN CORPUSCULAR VOLUME 77.3 fL (80.0-100.0); MEAN PLATELET VOLUME 8.6 fL (7.4-11.0); MONOCYTES # (AUTO) 0.7 x10^3/uL (0.3-0.8); MONOCYTES % (AUTO) 7.5 % (0.0-13.0); NEUTROPHILS # (AUTO) 7.3 x10^3/uL (2.2-4.8); NEUTROPHILS % (AUTO) 82.6 % (42.0-75.0); PLATELET COUNT 180 X10^3/uL (150.0-450.0); RED BLOOD COUNT 4.16 X10^6/uL (4.7-6.0); RED CELL DISTRIBUTION WIDTH 16.9 % (11.6-16.5); WHITE BLOOD COUNT 8.8 X10^3/uL (3.6-10.0)
--- NOTE | 2018-10-24 11:16 | RAD ---
HISTORY: Dyspnea. Prior history of COPD, [place], CHF, diabetes and hypertension. Study: Single-view chest Comparison: 06/23/2018. Findings: There are surgical clips present in the right paratracheal region, likely from thyroid surgery. The trachea is midline. There is cardiomegaly with aortic uncoiling. Infiltrate is present in the right perihilar region. There is also now silhouetting of the left hemidiaphragm, likely indicating atelectasis or infiltrate in this region as well. No CHF is seen. Left-sided pleural effusion is not reliably excluded. No pneumothorax is seen. Osseous structures are intact. IMPRESSION: Cardiomegaly . Right perihilar infiltrate. Silhouetting of the left hemidiaphragm, likely indicating atelectasis or infiltrate in this region as well. Small left pleural effusion is not reliably excluded. Reported By:
[2018-10-24 11:30] LABS: ABG BASE EXCESS 0.6 mmol/L (-2.0-2.0); ABG HCO3 24.3 mmol/L (22-26)
[2018-10-24 11:45] LABS: ALBUMIN 3.3 g/dL (3.4-5.0); CALCIUM 9.2 mg/dL (8.5-10.1); CARBON DIOXIDE 25.2 mmol/L (21-32); COR CA(FOR HYPOALB) 9.8 mg/dL (8.5-10.1); CREATININE 2.65 mg/dL (0.70-1.30); TOTAL PROTEIN 7.3 g/dL (6.4-8.2)
[2018-10-24] MEDS ORDERED: PERCOCET TAB 5/325 MG ONE (11:47)
[2018-10-24 11:48] LABS: PLATELET MORPHOLOGY COMMENT NORMAL (NORMAL)
[2018-10-24] MEDS: ROCEPHIN VIAL 1 GRAM IVP SCH (11:51)
[2018-10-24] MEDS ORDERED: PERCOCET TAB 5/325 MG PO ONE (11:52)
[2018-10-24] MEDS ORDERED: TUSSIONEX PENNKINETIC SUSP PO PRN (12:35)
[2018-10-24] MEDS ORDERED: PATIENT'S HOME MEDICATION (Oxycodone-Acetaminophen [Oxycodone-Acetaminophen] 0 MG) PO PRN (13:24)
[2018-10-24] MEDS ORDERED: XANAX PO PRN (13:24)
[2018-10-24] MEDS ORDERED: NS 1/2 1000 ML IV 1,000 ML ONE (13:33)
[2018-10-24] MEDS: NS 1/2 1000 ML IV 1,000 ML IV SCH (13:48)
[2018-10-24] MEDS: ROBITUSSIN DM PO SCH ×3 (13:48→20:15)
[2018-10-24] MEDS: PERCOCET TAB 5/325 MG PO PRN ×2 (13:49→19:42)
[2018-10-24] MEDS ORDERED: GLUCOPHAGE PO SCH (14:00)
[2018-10-24] MEDS ORDERED: HumuLIN R SC SCH (14:00)
[2018-10-24] MEDS ORDERED: HumuLIN R SC PRN (14:15)
[2018-10-24] MEDS: DUONEB 0.5 MG/3 MG NEB SCH ×2 (16:15→20:50)
[2018-10-24] MEDS: ELIQUIS PO SCH (20:15)
[2018-10-24] MEDS: FLOMAX PO SCH (20:15)
[2018-10-24] MEDS: VIBRAMYCIN 100 MG in NS 100 ML IV + SPIKE MINIBAG* 100 ML IV SCH (20:18)
[2018-10-24] MEDS: PULMICORT NEB TX 0.5 MG NEB SCH (20:50)
[2018-10-24] MEDS ORDERED: GLUCOTROL PO SCH (21:00)
[2018-10-24] MEDS ORDERED: LASIX PO SCH (21:00)
[2018-10-24] MEDS ORDERED: LOPRESSOR TAB 50 MG PO SCH (21:00)
[2018-10-25] MEDS: DUONEB 0.5 MG/3 MG NEB SCH ×6 (00:15→21:51)
[2018-10-25 01:15] LABS: CKMB % 2.6 % (<4); CREATINE KINASE 42 Units/L (39-308); CREATINE KINASE MB 1.1 ng/mL (0-4.0); TROPONIN I < 0.02 ng/mL (0-1.5)
[2018-10-25] MEDS ORDERED: NS 1/2 1000 ML IV 1,000 ML ONE (03:45)
[2018-10-25] MEDS: NS 1/2 1000 ML IV 1,000 ML IV SCH (03:58)
[2018-10-25] MEDS ORDERED: ZOFRAN INJ 4 MG VIAL IVP ONE (04:14)
[2018-10-25] MEDS ORDERED: ZOFRAN INJ 4 MG VIAL ONE (04:20)
[2018-10-25] MEDS: PERCOCET TAB 5/325 MG PO PRN (04:38)
[2018-10-25 04:51] LABS: ABG BASE EXCESS -1.9 mmol/L (-2.0-2.0); ABG HCO3 24.3 mmol/L (22-26)
[2018-10-25 04:52] LABS: ABG ALLEN TEST POS
--- NOTE | 2018-10-25 05:09 | RAD ---
Chest, one view Indication: Respiratory distress Comparison: 10/24/2018 Findings: There is stable enlargement of the cardiac silhouette. Bibasilar airspace disease persists and has worsened on the right since prior exam. Upper lungs remain clear. A trace suspected left pleural effusion appears unchanged. No pneumothorax. Impression: Stable cardiomegaly. Persistent bibasilar airspace disease, worsened on the right with stable trace left pleural effusion. Reported By:
[2018-10-25 05:40] LABS: BASOPHILS % (AUTO) 0.4 % (0.2-1.0); EOSINOPHILS % (AUTO) 0.5 % (0.9-2.9); HEMATOCRIT 31.2 % (42.0-54.0); HEMOGLOBIN 9.7 g/dL (13.5-18.0); LYMPHOCYTES # (AUTO) 0.9 X10^3/uL (1.3-2.9); LYMPHOCYTES % (AUTO) 13.1 % (21.0-51.0); MEAN CORPUSCULAR HEMOGLOBIN 24.6 pg (27.0-34.0); MEAN CORPUSCULAR VOLUME 79.3 fL (80.0-100.0); MEAN PLATELET VOLUME 9.6 fL (7.4-11.0); MONOCYTES # (AUTO) 0.6 x10^3/uL (0.3-0.8); MONOCYTES % (AUTO) 8.3 % (0.0-13.0); NEUTROPHILS # (AUTO) 5.6 x10^3/uL (2.2-4.8); NEUTROPHILS % (AUTO) 77.7 % (42.0-75.0); PLATELET COUNT 154 X10^3/uL (150.0-450.0); RED BLOOD COUNT 3.93 X10^6/uL (4.7-6.0); RED CELL DISTRIBUTION WIDTH 17.2 % (11.6-16.5); WHITE BLOOD COUNT 7.2 X10^3/uL (3.6-10.0)
[2018-10-25 05:59] LABS: ALBUMIN 3.3 g/dL (3.4-5.0); CARBON DIOXIDE 23.9 mmol/L (21-32); COR CA(FOR HYPOALB) 9.6 mg/dL (8.5-10.1); CREATININE 2.32 mg/dL (0.70-1.30); TOTAL PROTEIN 7.4 g/dL (6.4-8.2)
[2018-10-25 06:04] LABS: BILIRUBIN,URINE NEGATIVE (NEGATIVE); BLOOD/HEMOGLOBIN,URINE 5+ (NEGATIVE); GLUCOSE, URINE NEGATIVE (NEGATIVE); KETONES,URINE NEGATIVE (NEGATIVE); LEUKOCYTE ESTERASE ,URINE NEGATIVE (NEGATIVE); NITRITES,URINE NEGATIVE (NEGATIVE); PROTEIN,URINE 2+ (NEGATIVE); UROBILINOGEN,URINE NORMAL (NORMAL)
[2018-10-25 06:13] LABS: COLOR,URINE YELLOW (YELLOW)
[2018-10-25 06:14] LABS: AMORPHOUS SEDIMENT,UR 1+ /HPF (NEGATIVE); APPEARANCE,URINE SLIGHTLY HAZY (CLEAR); BACTERIA,URINE NEGATIVE /HPF (NEGATIVE); SQUAMOUS EPITHELIAL CELL,UR RARE /HPF (NEGATIVE); TRANSITIONAL EPI CELLS,URINE RARE /HPF (NEGATIVE)
[2018-10-25 06:42] LABS: HYPOCHROMASIA SLIGHT; PLATELET MORPHOLOGY COMMENT NORMAL (NORMAL)
[2018-10-25 07:29] LABS: ABG BASE EXCESS -0.9 mmol/L (-2.0-2.0); ABG HCO3 26.8 mmol/L (22-26)
[2018-10-25] MEDS ORDERED: NORVASC TAB 10 MG PO SCH (09:00)
[2018-10-25] MEDS: PULMICORT NEB TX 0.5 MG NEB SCH ×2 (09:00→21:51)
[2018-10-25] MEDS: SYNTHROID 100 mcg TAB PO SCH (09:20)
[2018-10-25] MEDS: COZAAR PO SCH (09:38)
[2018-10-25] MEDS: ELIQUIS PO SCH ×2 (09:38→20:47)
[2018-10-25] MEDS: FOLIC ACID TAB 1 MG PO SCH (09:38)
[2018-10-25] MEDS: LINZESS PO SCH (09:39)
[2018-10-25] MEDS: COREG TAB 6.25 MG PO SCH ×2 (09:40→20:47)
[2018-10-25] MEDS: PLAVIX PO SCH (09:41)
[2018-10-25] MEDS: ROCEPHIN VIAL 1 GRAM IVP SCH (09:43)
[2018-10-25] MEDS: VIBRAMYCIN 100 MG in NS 100 ML IV + SPIKE MINIBAG* 100 ML IV SCH ×2 (09:43→20:48)
[2018-10-25] MEDS: LASIX IVP SCH ×2 (11:14→20:48)
[2018-10-25 11:30] LABS: ABG BASE EXCESS -1.3 mmol/L (-2.0-2.0); ABG HCO3 23.7 mmol/L (22-26)
[2018-10-25] MEDS: LINAGLIPTIN 5 MG PO SCH (11:33)
[2018-10-25] MEDS: PROTONIX TAB 40 MG PO SCH (20:47)
[2018-10-25] MEDS: FLOMAX PO SCH (20:47)
[2018-10-26] MEDS: DUONEB 0.5 MG/3 MG NEB SCH ×6 (00:55→20:25)
[2018-10-26] MEDS: PERCOCET TAB 5/325 MG PO PRN (05:06)
[2018-10-26 05:31] LABS: BASOPHILS % (AUTO) 0.5 % (0.2-1.0); EOSINOPHILS # (AUTO) 0.1 x10^3/uL (0.0-0.2); EOSINOPHILS % (AUTO) 2.4 % (0.9-2.9); HEMATOCRIT 29.4 % (42.0-54.0); HEMOGLOBIN 9.3 g/dL (13.5-18.0); LYMPHOCYTES # (AUTO) 0.6 X10^3/uL (1.3-2.9); LYMPHOCYTES % (AUTO) 12.1 % (21.0-51.0); MEAN CORPUSCULAR HEMOGLOBIN 24.9 pg (27.0-34.0); MEAN CORPUSCULAR HGB CONC 31.8 g/dL (33.0-35.0); MEAN CORPUSCULAR VOLUME 78.2 fL (80.0-100.0); MEAN PLATELET VOLUME 9.1 fL (7.4-11.0); MONOCYTES # (AUTO) 0.4 x10^3/uL (0.3-0.8); MONOCYTES % (AUTO) 7.9 % (0.0-13.0); NEUTROPHILS # (AUTO) 4.1 x10^3/uL (2.2-4.8); NEUTROPHILS % (AUTO) 77.1 % (42.0-75.0); PLATELET COUNT 170 X10^3/uL (150.0-450.0); RED BLOOD COUNT 3.75 X10^6/uL (4.7-6.0); RED CELL DISTRIBUTION WIDTH 16.9 % (11.6-16.5); WHITE BLOOD COUNT 5.3 X10^3/uL (3.6-10.0)
[2018-10-26 05:32] LABS: ABG BASE EXCESS 1.4 mmol/L (-2.0-2.0); ABG HCO3 27.2 mmol/L (22-26)
[2018-10-26 05:34] LABS: ABG ALLEN TEST POS
[2018-10-26 05:38] LABS: ALANINE AMINOTRANSFERASE 13 Units/L (12-78); ALBUMIN 2.9 g/dL (3.4-5.0); ALKALINE PHOSPHATASE 64 Units/L (46-116); ASPARTATE AMINO TRANSFERASE 8 Units/L (15-37); BLOOD UREA NITROGEN 34 mg/dL (7-18); CARBON DIOXIDE 25.4 mmol/L (21-32); CHLORIDE 103 mmol/L (98-107); COR CA(FOR HYPOALB) 9.9 mg/dL (8.5-10.1); SODIUM 140 mmol/L (136-145); TOTAL PROTEIN 7.1 g/dL (6.4-8.2); eGFR NON BLACK RACES 35 (>60)
[2018-10-26 06:13] LABS: PLATELET MORPHOLOGY COMMENT NORMAL (NORMAL)
--- NOTE | 2018-10-26 06:16 | RAD ---
HISTORY: Follow-up congestive heart failure Study: Chest AP portable Comparison: 10/25/2018 Findings: The heart is enlarged. Bibasilar interstitial and alveolar lung disease has improved somewhat when compared with the prior examination. The upper lung pang are clear. No definite pleural effusions are identified. The bony thorax is unremarkable. IMPRESSION: Mild cardiomegaly Improving bilateral lower lobe interstitial and alveolar infiltrates Reported By:
[2018-10-26] MEDS: PULMICORT NEB TX 0.5 MG NEB SCH ×2 (08:36→20:25)
[2018-10-26] MEDS: COREG TAB 6.25 MG PO SCH ×2 (08:40→20:56)
[2018-10-26] MEDS: COZAAR PO SCH (08:41)
[2018-10-26] MEDS: ROCEPHIN VIAL 1 GRAM IVP SCH (08:41)
[2018-10-26] MEDS: FOLIC ACID TAB 1 MG PO SCH (08:41)
[2018-10-26] MEDS: LINZESS PO SCH (08:41)
[2018-10-26] MEDS: PLAVIX PO SCH (08:42)
[2018-10-26] MEDS: SYNTHROID 100 mcg TAB PO SCH (08:43)
[2018-10-26] MEDS: PROTONIX TAB 40 MG PO SCH ×2 (08:43→20:56)
[2018-10-26] MEDS: ELIQUIS PO SCH ×2 (08:43→20:56)
[2018-10-26] MEDS: LASIX IVP SCH ×2 (08:44→20:56)
[2018-10-26] MEDS: VIBRAMYCIN 100 MG in NS 100 ML IV + SPIKE MINIBAG* 100 ML IV SCH ×2 (08:45→20:56)
[2018-10-26] MEDS: LINAGLIPTIN 5 MG PO SCH (09:00)
[2018-10-26] MEDS: FLOMAX PO SCH (20:56)
[2018-10-27] MEDS: DUONEB 0.5 MG/3 MG NEB SCH ×6 (01:30→20:40)
[2018-10-27 06:02] LABS: ABG BASE EXCESS 6.1 mmol/L (-2.0-2.0)
[2018-10-27 06:03] LABS: ABG HCO3 30.6 mmol/L (22-26)
[2018-10-27] MEDS: SYNTHROID 100 mcg TAB PO SCH (06:23)
[2018-10-27 06:45] LABS: BASOPHILS % (AUTO) 0.8 % (0.2-1.0); EOSINOPHILS # (AUTO) 0.1 x10^3/uL (0.0-0.2); EOSINOPHILS % (AUTO) 3.4 % (0.9-2.9); HEMATOCRIT 28.1 % (42.0-54.0); HEMOGLOBIN 9.1 g/dL (13.5-18.0); LYMPHOCYTES # (AUTO) 0.7 X10^3/uL (1.3-2.9); LYMPHOCYTES % (AUTO) 16.2 % (21.0-51.0); MEAN CORPUSCULAR HEMOGLOBIN 24.8 pg (27.0-34.0); MEAN CORPUSCULAR HGB CONC 32.4 g/dL (33.0-35.0); MEAN CORPUSCULAR VOLUME 76.5 fL (80.0-100.0); MEAN PLATELET VOLUME 8.1 fL (7.4-11.0); MONOCYTES # (AUTO) 0.4 x10^3/uL (0.3-0.8); MONOCYTES % (AUTO) 9.2 % (0.0-13.0); NEUTROPHILS # (AUTO) 2.8 x10^3/uL (2.2-4.8); NEUTROPHILS % (AUTO) 70.4 % (42.0-75.0); PLATELET COUNT 200 X10^3/uL (150.0-450.0); RED BLOOD COUNT 3.68 X10^6/uL (4.7-6.0); RED CELL DISTRIBUTION WIDTH 17.2 % (11.6-16.5)
[2018-10-27 07:08] LABS: ALANINE AMINOTRANSFERASE 12 Units/L (12-78); ALBUMIN 2.6 g/dL (3.4-5.0); ALKALINE PHOSPHATASE 54 Units/L (46-116); ASPARTATE AMINO TRANSFERASE 10 Units/L (15-37); BLOOD UREA NITROGEN 24 mg/dL (7-18); CARBON DIOXIDE 27.3 mmol/L (21-32); CHLORIDE 106 mmol/L (98-107); COR CA(FOR HYPOALB) 10.1 mg/dL (8.5-10.1); SODIUM 143 mmol/L (136-145); TOTAL PROTEIN 6.5 g/dL (6.4-8.2); eGFR NON BLACK RACES 49 (>60)
[2018-10-27 07:20] LABS: PLATELET MORPHOLOGY COMMENT NORMAL (NORMAL)
[2018-10-27] MEDS: PULMICORT NEB TX 0.5 MG NEB SCH ×2 (08:40→20:40)
[2018-10-27] MEDS ORDERED: MICRO K EXTEN CAP 10 MEQ PO PRN (09:52)
[2018-10-27] MEDS ORDERED: KLOR-CON PO PRN (09:52)
[2018-10-27] MEDS ORDERED: POTASSIUM CHL 40 MEQ/NS 0.45% 500 ML IV PRN (09:52)
[2018-10-27] MEDS ORDERED: POTASSIUM CHLORIDE LIQ 20 MEQ UDC PO PRN (09:52)
[2018-10-27] MEDS ORDERED: K-RIDER 10 MEQ/NS 100 ML 10 MEQ/100 ML BAG IV PRN (09:52)
[2018-10-27] MEDS ORDERED: POTASSIUM CHL 60 MEQ/NS 0.45% 500 ML IV PRN (09:52)
[2018-10-27] MEDS ORDERED: K-DUR TAB 20 MEQ ONE (10:03)
[2018-10-27] MEDS: COZAAR PO SCH (10:15)
[2018-10-27] MEDS: COREG TAB 6.25 MG PO SCH ×2 (10:15→21:30)
[2018-10-27] MEDS: K-DUR TAB 20 MEQ PO PRN (10:16)
[2018-10-27] MEDS: ELIQUIS PO SCH ×2 (10:16→21:31)
[2018-10-27] MEDS: FOLIC ACID TAB 1 MG PO SCH (10:16)
[2018-10-27] MEDS: VIBRAMYCIN 100 MG in NS 100 ML IV + SPIKE MINIBAG* 100 ML IV SCH ×2 (10:17→21:32)
[2018-10-27] MEDS: LINAGLIPTIN 5 MG PO SCH (10:17)
[2018-10-27] MEDS: ROCEPHIN VIAL 1 GRAM IVP SCH (10:17)
[2018-10-27] MEDS: PROTONIX TAB 40 MG PO SCH ×2 (10:18→21:31)
[2018-10-27] MEDS: PLAVIX PO SCH (10:18)
[2018-10-27] MEDS: LINZESS PO SCH (10:18)
[2018-10-27] MEDS: LASIX PO SCH (10:54)
[2018-10-27] MEDS: MAGNESIUM SULFATE 1 GRAM/100 mL PREMIX 1 GM/100 ML BAG IV PRN ×4 (11:56→16:16)
[2018-10-27] MEDS: FLOMAX PO SCH (21:30)
[2018-10-28] MEDS: DUONEB 0.5 MG/3 MG NEB SCH ×3 (00:59→08:58)
[2018-10-28] MEDS: SYNTHROID 100 mcg TAB PO SCH (06:00)
[2018-10-28 06:29] LABS: ALANINE AMINOTRANSFERASE 13 Units/L (12-78); ALBUMIN 2.7 g/dL (3.4-5.0); ALKALINE PHOSPHATASE 57 Units/L (46-116); ASPARTATE AMINO TRANSFERASE 8 Units/L (15-37); BLOOD UREA NITROGEN 17 mg/dL (7-18); CARBON DIOXIDE 27.7 mmol/L (21-32); CHLORIDE 107 mmol/L (98-107); CREATININE 1.35 mg/dL (0.70-1.30); SODIUM 144 mmol/L (136-145); TOTAL PROTEIN 6.1 g/dL (6.4-8.2); eGFR NON BLACK RACES 56 (>60)
[2018-10-28 06:44] LABS: BASOPHILS % (AUTO) 0.9 % (0.2-1.0); EOSINOPHILS # (AUTO) 0.2 x10^3/uL (0.0-0.2); EOSINOPHILS % (AUTO) 4.1 % (0.9-2.9); HEMATOCRIT 29.1 % (42.0-54.0); HEMOGLOBIN 9.4 g/dL (13.5-18.0); LYMPHOCYTES # (AUTO) 0.6 X10^3/uL (1.3-2.9); LYMPHOCYTES % (AUTO) 15.2 % (21.0-51.0); MEAN CORPUSCULAR HEMOGLOBIN 24.9 pg (27.0-34.0); MEAN CORPUSCULAR HGB CONC 32.4 g/dL (33.0-35.0); MEAN CORPUSCULAR VOLUME 76.9 fL (80.0-100.0); MEAN PLATELET VOLUME 7.7 fL (7.4-11.0); MONOCYTES # (AUTO) 0.5 x10^3/uL (0.3-0.8); NEUTROPHILS # (AUTO) 2.7 x10^3/uL (2.2-4.8); NEUTROPHILS % (AUTO) 67.8 % (42.0-75.0); PLATELET COUNT 233 X10^3/uL (150.0-450.0); RED BLOOD COUNT 3.79 X10^6/uL (4.7-6.0); RED CELL DISTRIBUTION WIDTH 16.9 % (11.6-16.5)
[2018-10-28 07:06] LABS: PLATELET MORPHOLOGY COMMENT NORMAL (NORMAL)
[2018-10-28] MEDS: K-DUR TAB 20 MEQ PO PRN (08:44)
[2018-10-28] MEDS: COREG TAB 6.25 MG PO SCH (08:44)
[2018-10-28] MEDS: ROCEPHIN VIAL 1 GRAM IVP SCH (08:44)
[2018-10-28] MEDS: VIBRAMYCIN 100 MG in NS 100 ML IV + SPIKE MINIBAG* 100 ML IV SCH (08:44)
[2018-10-28] MEDS: COZAAR PO SCH (08:44)
[2018-10-28] MEDS: LASIX PO SCH (08:44)
[2018-10-28] MEDS: FOLIC ACID TAB 1 MG PO SCH (08:45)
[2018-10-28] MEDS: LINZESS PO SCH (08:45)
[2018-10-28] MEDS: PROTONIX TAB 40 MG PO SCH (08:45)
[2018-10-28] MEDS: ELIQUIS PO SCH (08:45)
[2018-10-28] MEDS: LINAGLIPTIN 5 MG PO SCH (08:52)
[2018-10-28] MEDS: PLAVIX PO SCH (08:52)
[2018-10-28] MEDS: PULMICORT NEB TX 0.5 MG NEB SCH (08:58)
[2018-10-28 10:32] VITALS: BP 156/71
== END 2018-10-28 12:10 | disposition home or self-care (01) | DRG 192 ==
LOC: ER 10:12 → ICU 13:10 → MED/SURG 10-27 17:10
PROVIDERS: ADMIT Obstetrics & Gynecology Obstetrics; ATTEND Obstetrics & Gynecology Obstetrics
DX: I50.9 Heart failure, unspecified; R60.0 Localized edema; R06.02 Shortness of breath; K21.9 Gastro-esophageal reflux disease without esophagitis; R94.4 Abnormal results of kidney function studies; Z66 Do not resuscitate; E11.65 Type 2 diabetes mellitus with hyperglycemia; J44.1 Chronic obstructive pulmonary disease with (acute) exacerbation; E03.8 Other specified hypothyroidism
CPT/HCPCS: 36415; 36600; 71010; 71045; 80053; 81001; 82550; 82553; 82803; 83605; 83735; 84443; 84484; 85025; 87040; 87070; 87077; 87186; 87205; 93005; 94640; 94660; 94669; 96365; 96374; 99285; A4216; A4222; A4618; A7030; J0696; J1940; J2405; J3475; J3490; J7050; J7620; J7626

== ENCOUNTER 2019-01-16 11:41 | Inpatient (IN) ==
[2019-01-16] MEDS ORDERED: ZOSYN VIAL 3.375 GRAMS 3.375 G in NS 100 ML IV + SPIKE MINIBAG* 100 ML IV SCH (13:01)
[2019-01-16] MEDS ORDERED: MILK OF MAGNESIA PO PRN (13:01)
[2019-01-16] MEDS ORDERED: DUONEB 0.5 MG/3 MG NEB SCH (13:01)
[2019-01-16 13:19] VITALS: BMI 30.4
[2019-01-16 13:35] LABS: BASOPHILS # (AUTO) 0.1 X10^3/uL (0.0-0.1); BASOPHILS % (AUTO) 0.8 % (0.2-1.0); EOSINOPHILS # (AUTO) 0.2 x10^3/uL (0.0-0.2); EOSINOPHILS % (AUTO) 2.3 % (0.9-2.9); HEMATOCRIT 32.4 % (42.0-54.0); HEMOGLOBIN 10.2 g/dL (13.5-18.0); LYMPHOCYTES % (AUTO) 13.1 % (21.0-51.0); MEAN CORPUSCULAR HEMOGLOBIN 23.4 pg (27.0-34.0); MEAN CORPUSCULAR HGB CONC 31.6 g/dL (33.0-35.0); MEAN PLATELET VOLUME 7.9 fL (7.4-11.0); MONOCYTES # (AUTO) 0.5 x10^3/uL (0.3-0.8); MONOCYTES % (AUTO) 7.3 % (0.0-13.0); NEUTROPHILS # (AUTO) 5.6 x10^3/uL (2.2-4.8); NEUTROPHILS % (AUTO) 76.5 % (42.0-75.0); PLATELET COUNT 224 X10^3/uL (150.0-450.0); RED BLOOD COUNT 4.38 X10^6/uL (4.7-6.0); RED CELL DISTRIBUTION WIDTH 17.1 % (11.6-16.5); WHITE BLOOD COUNT 7.3 X10^3/uL (3.6-10.0)
[2019-01-16 13:47] LABS: ALANINE AMINOTRANSFERASE 10 Units/L (12-78); ALBUMIN 3.4 g/dL (3.4-5.0); ALKALINE PHOSPHATASE 110 Units/L (46-116); ASPARTATE AMINO TRANSFERASE 12 Units/L (15-37); BLOOD UREA NITROGEN 13 mg/dL (7-18); CALCIUM 8.6 mg/dL (8.5-10.1); CARBON DIOXIDE 29.9 mmol/L (21-32); CHLORIDE 99 mmol/L (98-107); COR NA(FOR HYPERGLY) 140 mmol/L (136-145); CREATININE 1.48 mg/dL (0.70-1.30); SODIUM 139 mmol/L (136-145); TOTAL PROTEIN 7.4 g/dL (6.4-8.2); eGFR NON BLACK RACES 50 (>60)
--- NOTE | 2019-01-16 14:12 | RAD ---
HISTORY: Hypoxia, pneumonia Study: Two-view chest Comparison: 11/25/2018. Findings: There are surgical clips present in the right paratracheal region, likely from thyroid surgery. Trachea is midline. There is cardiomegaly with atherosclerotic calcification and aortic uncoiling. Left lung is clear. There is right basilar infiltrate medially and posteriorly. This is better seen on the lateral view. No CHF, pleural fluid or pneumothorax is seen. Osseous structures are intact. IMPRESSION: Right basilar infiltrate medially and posteriorly. Cardiomegaly. Reported By:
[2019-01-16 14:41] LABS: HYPOCHROMASIA 1+; PLATELET MORPHOLOGY COMMENT NORMAL (NORMAL)
[2019-01-16] MEDS: PERCOCET TAB 5/325 MG PO SCH ×3 (14:55→21:14)
[2019-01-16] MEDS: LASIX PO SCH (14:58)
[2019-01-16] MEDS: COZAAR PO SCH (14:58)
[2019-01-16] MEDS: ZOSYN VIAL 3.375 GRAMS 3.375 G in NS 100 ML IV + SPIKE MINIBAG* 100 ML IV SCH ×2 (14:59→22:05)
[2019-01-16] MEDS: PROTONIX TAB 40 MG PO SCH (14:59)
[2019-01-16] MEDS: LR 1000 ML IV 1,000 ML IV SCH (15:00)
[2019-01-16] MEDS: DUONEB 0.5 MG/3 MG NEB SCH ×2 (16:31→20:35)
[2019-01-16] MEDS ORDERED: GLUCOPHAGE ONE (16:35)
[2019-01-16] MEDS: CORDARONE TAB 200 MG PO SCH (16:53)
[2019-01-16] MEDS: GLUCOPHAGE PO SCH (16:55)
[2019-01-16] MEDS: PULMICORT NEB TX 0.5 MG NEB SCH (20:35)
[2019-01-16] MEDS: COLACE CAP 100 MG PO SCH (21:13)
[2019-01-16] MEDS: ELIQUIS PO SCH (21:13)
[2019-01-16] MEDS: COREG TAB 6.25 MG PO SCH (21:13)
[2019-01-16] MEDS: SINGULAIR TAB 10 MG PO SCH (21:14)
[2019-01-16] MEDS: FLOMAX PO SCH (21:14)
[2019-01-17] MEDS: ZOSYN VIAL 3.375 GRAMS 3.375 G in NS 100 ML IV + SPIKE MINIBAG* 100 ML IV SCH ×3 (05:17→21:00)
[2019-01-17] MEDS ORDERED: GLUCOPHAGE ONE ×2 (08:11→17:33)
[2019-01-17] MEDS: LR 1000 ML IV 1,000 ML IV SCH ×2 (08:25→18:43)
[2019-01-17] MEDS: COZAAR PO SCH (08:26)
[2019-01-17] MEDS: ELIQUIS PO SCH ×2 (08:26→20:41)
[2019-01-17] MEDS: COREG TAB 6.25 MG PO SCH ×2 (08:26→20:41)
[2019-01-17] MEDS: PERCOCET TAB 5/325 MG PO SCH ×4 (08:26→20:41)
[2019-01-17] MEDS: LASIX PO SCH (08:27)
[2019-01-17] MEDS: PROTONIX TAB 40 MG PO SCH (08:27)
[2019-01-17] MEDS: GLUCOPHAGE PO SCH ×2 (08:27→17:38)
[2019-01-17] MEDS: CORDARONE TAB 200 MG PO SCH ×2 (08:28→17:30)
[2019-01-17] MEDS: DUONEB 0.5 MG/3 MG NEB SCH ×4 (08:51→20:21)
[2019-01-17] MEDS: PULMICORT NEB TX 0.5 MG NEB SCH ×2 (08:51→20:20)
[2019-01-17] MEDS: FLOMAX PO SCH (20:41)
[2019-01-17] MEDS: COLACE CAP 100 MG PO SCH (20:41)
[2019-01-17] MEDS: SINGULAIR TAB 10 MG PO SCH (20:41)
[2019-01-18] MEDS: LR 1000 ML IV 1,000 ML IV SCH ×3 (04:11→20:06)
[2019-01-18] MEDS ORDERED: ZOFRAN INJ 4 MG VIAL ONE (04:48)
[2019-01-18] MEDS: ZOSYN VIAL 3.375 GRAMS 3.375 G in NS 100 ML IV + SPIKE MINIBAG* 100 ML IV SCH ×3 (05:02→21:10)
[2019-01-18] MEDS: ZOFRAN INJ 4 MG VIAL IVP PRN ×2 (05:02→08:53)
[2019-01-18 05:05] LABS: BASOPHILS % (AUTO) 0.6 % (0.2-1.0); EOSINOPHILS # (AUTO) 0.2 x10^3/uL (0.0-0.2); EOSINOPHILS % (AUTO) 3.6 % (0.9-2.9); HEMATOCRIT 30.6 % (42.0-54.0); HEMOGLOBIN 9.6 g/dL (13.5-18.0); LYMPHOCYTES # (AUTO) 0.8 X10^3/uL (1.3-2.9); MEAN CORPUSCULAR HEMOGLOBIN 23.3 pg (27.0-34.0); MEAN CORPUSCULAR HGB CONC 31.5 g/dL (33.0-35.0); MEAN PLATELET VOLUME 7.9 fL (7.4-11.0); MONOCYTES # (AUTO) 0.5 x10^3/uL (0.3-0.8); MONOCYTES % (AUTO) 9.9 % (0.0-13.0); NEUTROPHILS # (AUTO) 3.3 x10^3/uL (2.2-4.8); NEUTROPHILS % (AUTO) 68.9 % (42.0-75.0); PLATELET COUNT 207 X10^3/uL (150.0-450.0); RED BLOOD COUNT 4.13 X10^6/uL (4.7-6.0); WHITE BLOOD COUNT 4.8 X10^3/uL (3.6-10.0)
[2019-01-18 05:18] LABS: ALANINE AMINOTRANSFERASE 7 Units/L (12-78); ALBUMIN 2.8 g/dL (3.4-5.0); ALKALINE PHOSPHATASE 83 Units/L (46-116); ASPARTATE AMINO TRANSFERASE 10 Units/L (15-37); BLOOD UREA NITROGEN 13 mg/dL (7-18); CALCIUM 8.5 mg/dL (8.5-10.1); CARBON DIOXIDE 29.2 mmol/L (21-32); CHLORIDE 103 mmol/L (98-107); COR CA(FOR HYPOALB) 9.5 mg/dL (8.5-10.1); CREATININE 1.33 mg/dL (0.70-1.30); SODIUM 142 mmol/L (136-145); TOTAL PROTEIN 6.6 g/dL (6.4-8.2); eGFR NON BLACK RACES 57 (>60)
[2019-01-18 05:19] LABS: HYPOCHROMASIA 1+; PLATELET MORPHOLOGY COMMENT NORMAL (NORMAL)
[2019-01-18] MEDS ORDERED: GLUCOPHAGE ONE ×2 (07:32→17:37)
[2019-01-18] MEDS: CORDARONE TAB 200 MG PO SCH (07:35)
[2019-01-18] MEDS: GLUCOPHAGE PO SCH ×2 (07:35→17:38)
[2019-01-18] MEDS: COZAAR PO SCH (08:52)
[2019-01-18] MEDS: PROTONIX TAB 40 MG PO SCH (08:52)
[2019-01-18] MEDS: ELIQUIS PO SCH ×2 (08:52→20:04)
[2019-01-18] MEDS: LASIX PO SCH (08:52)
[2019-01-18] MEDS: COREG TAB 6.25 MG PO SCH ×2 (08:53→20:04)
[2019-01-18] MEDS: PERCOCET TAB 5/325 MG PO SCH ×4 (08:53→20:05)
[2019-01-18] MEDS: PULMICORT NEB TX 0.5 MG NEB SCH ×2 (08:55→20:19)
[2019-01-18] MEDS: DUONEB 0.5 MG/3 MG NEB SCH ×4 (08:55→20:19)
[2019-01-18] MEDS ORDERED: NS 100 ML IV 100 ML with VENOFER 400 MG IV NR ×2 (09:00)
[2019-01-18] MEDS ORDERED: TORADOL 15 MG VIAL ONE (09:47)
[2019-01-18] MEDS: TORADOL 15 MG VIAL IVP PRN (09:48)
[2019-01-18] MEDS ORDERED: D50W ABBOJECT SYR IV ONE (11:52)
[2019-01-18] MEDS ORDERED: D50W ABBOJECT SYR ONE (11:54)
[2019-01-18] MEDS: COLACE CAP 100 MG PO SCH (20:04)
[2019-01-18] MEDS: FLOMAX PO SCH (20:04)
[2019-01-18] MEDS: SINGULAIR TAB 10 MG PO SCH (20:05)
[2019-01-19] MEDS: TORADOL 15 MG VIAL IVP PRN (01:39)
[2019-01-19 05:19] LABS: BASOPHILS % (AUTO) 0.7 % (0.2-1.0); EOSINOPHILS # (AUTO) 0.2 x10^3/uL (0.0-0.2); EOSINOPHILS % (AUTO) 3.3 % (0.9-2.9); HEMATOCRIT 29.5 % (42.0-54.0); HEMOGLOBIN 9.3 g/dL (13.5-18.0); LYMPHOCYTES # (AUTO) 0.9 X10^3/uL (1.3-2.9); LYMPHOCYTES % (AUTO) 16.3 % (21.0-51.0); MEAN CORPUSCULAR HEMOGLOBIN 23.7 pg (27.0-34.0); MEAN CORPUSCULAR HGB CONC 31.5 g/dL (33.0-35.0); MEAN CORPUSCULAR VOLUME 75.1 fL (80.0-100.0); MEAN PLATELET VOLUME 7.8 fL (7.4-11.0); MONOCYTES # (AUTO) 0.4 x10^3/uL (0.3-0.8); MONOCYTES % (AUTO) 8.3 % (0.0-13.0); NEUTROPHILS # (AUTO) 3.7 x10^3/uL (2.2-4.8); NEUTROPHILS % (AUTO) 71.4 % (42.0-75.0); PLATELET COUNT 204 X10^3/uL (150.0-450.0); RED BLOOD COUNT 3.93 X10^6/uL (4.7-6.0); RED CELL DISTRIBUTION WIDTH 17.6 % (11.6-16.5); WHITE BLOOD COUNT 5.2 X10^3/uL (3.6-10.0)
[2019-01-19 05:27] LABS: ALANINE AMINOTRANSFERASE 6 Units/L (12-78); ALBUMIN 2.6 g/dL (3.4-5.0); ALKALINE PHOSPHATASE 71 Units/L (46-116); ASPARTATE AMINO TRANSFERASE 12 Units/L (15-37); BLOOD UREA NITROGEN 12 mg/dL (7-18); CALCIUM 8.3 mg/dL (8.5-10.1); CHLORIDE 106 mmol/L (98-107); COR CA(FOR HYPOALB) 9.4 mg/dL (8.5-10.1); CREATININE 1.45 mg/dL (0.70-1.30); SODIUM 144 mmol/L (136-145); TOTAL PROTEIN 6.2 g/dL (6.4-8.2); eGFR NON BLACK RACES 51 (>60)
[2019-01-19 05:39] LABS: HYPOCHROMASIA SLIGHT; PLATELET MORPHOLOGY COMMENT NORMAL (NORMAL)
[2019-01-19] MEDS: LR 1000 ML IV 1,000 ML IV SCH ×2 (06:13→19:25)
[2019-01-19] MEDS: ZOSYN VIAL 3.375 GRAMS 3.375 G in NS 100 ML IV + SPIKE MINIBAG* 100 ML IV SCH ×3 (06:13→22:11)
--- NOTE | 2019-01-19 06:16 | RAD ---
Chest PA and lateral Indication: Pneumonia Comparison: 01/16/2019 Findings: There is no pneumothorax or effusion. There is no consolidation. There is cardiomegaly with monitoring leads obscure detail. Diffuse increased interstitial markings noted. . Basilar infiltrate is unchanged. Impression: Basilar infiltrate is unchanged from the prior most compatible pneumonia. Cardiomegaly, COPD and developing CHF possible Reported By:
[2019-01-19] MEDS: PULMICORT NEB TX 0.5 MG NEB SCH ×2 (08:14→21:00)
[2019-01-19] MEDS: DUONEB 0.5 MG/3 MG NEB SCH ×4 (08:14→21:00)
[2019-01-19] MEDS ORDERED: NS 100 ML IV 100 ML with VENOFER 400 MG IV NR ×2 (09:00)
[2019-01-19] MEDS: ELIQUIS PO SCH ×2 (09:26→20:20)
[2019-01-19] MEDS: LASIX PO SCH (09:26)
[2019-01-19] MEDS: PROTONIX TAB 40 MG PO SCH (09:26)
[2019-01-19] MEDS: COREG TAB 6.25 MG PO SCH ×2 (09:26→20:19)
[2019-01-19] MEDS: PERCOCET TAB 5/325 MG PO SCH ×4 (09:27→20:20)
[2019-01-19] MEDS: COZAAR PO SCH (09:29)
[2019-01-19] MEDS: CORDARONE TAB 200 MG PO SCH (09:30)
[2019-01-19] MEDS: GLUCOPHAGE PO SCH ×2 (09:36→17:15)
[2019-01-19] MEDS: ZOFRAN INJ 4 MG VIAL IVP PRN (09:48)
[2019-01-19 09:52] LABS: ABG BASE EXCESS 6.2 mmol/L (-2.0-2.0)
[2019-01-19 09:53] LABS: ABG HCO3 31.8 mmol/L (22-26)
[2019-01-19] MEDS: TOPAMAX PO SCH ×2 (10:45→20:20)
[2019-01-19] MEDS ORDERED: GLUCOPHAGE ONE (16:44)
[2019-01-19] MEDS: COLACE CAP 100 MG PO SCH (20:19)
[2019-01-19] MEDS: FLOMAX PO SCH (20:20)
[2019-01-19] MEDS: SINGULAIR TAB 10 MG PO SCH (20:20)
[2019-01-20] MEDS: ZOSYN VIAL 3.375 GRAMS 3.375 G in NS 100 ML IV + SPIKE MINIBAG* 100 ML IV SCH (05:10)
[2019-01-20 06:36] LABS: BASOPHILS % (AUTO) 0.6 % (0.2-1.0); EOSINOPHILS # (AUTO) 0.2 x10^3/uL (0.0-0.2); HEMATOCRIT 28.9 % (42.0-54.0); HEMOGLOBIN 9.1 g/dL (13.5-18.0); LYMPHOCYTES # (AUTO) 1.2 X10^3/uL (1.3-2.9); LYMPHOCYTES % (AUTO) 22.9 % (21.0-51.0); MEAN CORPUSCULAR HEMOGLOBIN 23.8 pg (27.0-34.0); MEAN CORPUSCULAR HGB CONC 31.3 g/dL (33.0-35.0); MEAN CORPUSCULAR VOLUME 76.1 fL (80.0-100.0); MEAN PLATELET VOLUME 8.2 fL (7.4-11.0); MONOCYTES # (AUTO) 0.4 x10^3/uL (0.3-0.8); MONOCYTES % (AUTO) 8.4 % (0.0-13.0); NEUTROPHILS # (AUTO) 3.3 x10^3/uL (2.2-4.8); NEUTROPHILS % (AUTO) 64.1 % (42.0-75.0); PLATELET COUNT 208 X10^3/uL (150.0-450.0); RED BLOOD COUNT 3.81 X10^6/uL (4.7-6.0); RED CELL DISTRIBUTION WIDTH 17.2 % (11.6-16.5); WHITE BLOOD COUNT 5.1 X10^3/uL (3.6-10.0)
[2019-01-20 06:38] LABS: ALBUMIN 2.6 g/dL (3.4-5.0); ALKALINE PHOSPHATASE 71 Units/L (46-116); ASPARTATE AMINO TRANSFERASE 13 Units/L (15-37); BLOOD UREA NITROGEN 11 mg/dL (7-18); CALCIUM 8.5 mg/dL (8.5-10.1); CARBON DIOXIDE 30.3 mmol/L (21-32); CHLORIDE 105 mmol/L (98-107); COR CA(FOR HYPOALB) 9.6 mg/dL (8.5-10.1); CREATININE 1.39 mg/dL (0.70-1.30); SODIUM 142 mmol/L (136-145); TOTAL PROTEIN 6.2 g/dL (6.4-8.2); eGFR NON BLACK RACES 54 (>60)
[2019-01-20 06:46] LABS: ALANINE AMINOTRANSFERASE 7 Units/L (12-78)
[2019-01-20] MEDS ORDERED: GLUCOPHAGE ONE (07:04)
[2019-01-20 07:11] LABS: ANISOCYTOSIS SLIGHT; HYPOCHROMASIA 1+; PLATELET MORPHOLOGY COMMENT NORMAL (NORMAL)
[2019-01-20] MEDS: GLUCOPHAGE PO SCH (09:16)
[2019-01-20] MEDS: PERCOCET TAB 5/325 MG PO SCH ×2 (09:16→12:53)
[2019-01-20] MEDS: TOPAMAX PO SCH (09:17)
[2019-01-20] MEDS: ELIQUIS PO SCH (09:17)
[2019-01-20] MEDS: COREG TAB 6.25 MG PO SCH (09:17)
[2019-01-20] MEDS: COZAAR PO SCH (09:17)
[2019-01-20] MEDS: PROTONIX TAB 40 MG PO SCH (09:17)
[2019-01-20] MEDS: LASIX PO SCH (09:18)
[2019-01-20] MEDS: CORDARONE TAB 200 MG PO SCH (09:18)
[2019-01-20] MEDS: ZOFRAN INJ 4 MG VIAL IVP PRN (09:20)
[2019-01-20] MEDS: LR 1000 ML IV 1,000 ML IV SCH (09:23)
[2019-01-20] MEDS: PULMICORT NEB TX 0.5 MG NEB SCH (10:36)
[2019-01-20] MEDS: DUONEB 0.5 MG/3 MG NEB SCH (10:36)
[2019-01-20 13:34] VITALS: BP 154/70
== END 2019-01-20 14:20 | disposition home or self-care (01) | DRG 177 ==
LOC: ICU 12:15
PROVIDERS: ADMIT Obstetrics & Gynecology Obstetrics; ATTEND Obstetrics & Gynecology Obstetrics
DX: J96.21 Acute and chronic respiratory failure with hypoxia; J15.5 Pneumonia due to Escherichia coli; I51.7 Cardiomegaly; J44.9 Chronic obstructive pulmonary disease, unspecified
CPT/HCPCS: 36415; 36600; 71020; 71046; 80053; 82270; 82607; 82728; 82746; 82803; 83540; 84153; 84466; 85025; 87040; 87070; 87077; 87186; 87205; 94640; 94669; A4222; J1756; J1885; J2405; J2543; J3490; J7050; J7120; J7620; J7626

== ENCOUNTER 2019-08-20 15:12 | Observation (INO) ==
--- NOTE | 2019-08-20 16:04 | DR.URIAD ---
HPI Time Seen Time Seen by Provider: 08/20/19 16:04 PCP Primary Care Physician: debra coon Complaint Chief Complaint Doctors Comments: COUGH, CONGESTION, FEVER AND SOB TIMES 8 DAYS. PATIENT SAID HIS SYMPTOMS ARE GETTING WORSE. HE HAS COPD ON HOME OXYGEN AND NRB TREATMENTS. TOOK AL HIS HOME MEDS TODAY. HE IS WEAK AND NAUSEATED. NO DYSURIA. COIUGH IS PRODUCTIVE, YELLOW SPUTUM. SOME CHEST TIGHTNESS PRESENT. Chief Complaint:: PT C/O FEVER ( UNABLE TO CHECK), CCC, AND > SOB ,,BR COVID-19 Coronavirus risk:travel/contact w/high risk person: No Has patient experienced Coronavirus symptoms: Yes Coronavirus symptoms experienced: Fever, Coughing and Shortness of Breath Reviewed Nurses Notes Reviewed: Yes Source History Provided: Patient Mode of Arrival Mode of Arrival: Ambulatory Timing Onset of Chief Complaint: 08/16/19 Context Recent Treated Infections: None Quality Quality of Cough: None, Productive and Yellow Rhinorrhea: Clear Shortness of Breath: Moderate Associated Signs and Symptoms Other Signs and Symptoms: Cough, Diarrhea, Fever, Myalgias, Shortness of Breath, Sore Throat, URI, Vomitting and Wheeze PMH PMH Past Medical History: Yes Past Medical History: Angina, CHF, COPD, Diabetes, Dyslipidemia, GERD, Hypertension, Hypothyroidism and [place] Past Surgical History: Yes Surgical History: Abdominal Surgery, Angioplasty/Stents and Thyroidectomy Family History History of Family Medical Conditions: Yes Family Medical History: Diabetes Mellitus, Cancer and [place] Social History Does patient currently use any type of tobacco product: No Have you used tobacco products in the last 12 months: No Type of Tobacco Use: None Does any household member use tobacco: No Alcohol Use: None Do you use any recreational Drugs:: No Lives With: Family Lives Where: Home Travel Risk Coronavirus risk:travel/contact w/high risk person: No Has patient experienced Coronavirus symptoms: Yes Coronavirus symptoms experienced: Fever, Coughing and Shortness of Breath Infectious screening In the last 2 months have you had wt loss of >10#?: NO Have you had fever, night sweats or hemotysis?: No Have you traveled outside the country in the last 6 months?: No Isolation: Standard ROS Review of Systems Constitutional: See HPI, Fever, Weakness and Fatigue Eyes: No Symptoms Reported and See HPI ENTM: Nose Discharge, Nose Congestion and Throat Pain; negative Ear Pain Respiratoy: See HPI, Productive Cough, Short of Breath and Wheezing Cardiovascular: No Symptoms Reported, See HPI and Chest Pain (TIGHTNESS.) Gastrointestinal/Abdominal: See HPI and Vomiting; negative Abdominal Pain and Diarrhea Genitourinary: No Symptoms Reported and See HPI; negative Dysuria, Frequency and Hematuria Neurological: See HPI, Headache and Weakness Musculoskeletal: No Symptoms Reported and See HPI Integumentary: No Symptoms Reported and See HPI; negative Change in Color, Rash and Juandice Hematologic/Lymphatic: No Symptoms Reported and See HPI; negative Easy Bruising and Swollen Glands Endocrine: No Symptoms Reported and See HPI; negative Increased Thirst and Increased Urine Psychiatric: No Symptoms Reported and See HPI All Other Systems: Reviewed and Negative PE Vital Signs Vitals: Temperature 98.5 F Pulse Rate 70 Respiratory Rate 20 Blood Pressure [Right Arm] 168/76 Blood Pressure [Left Arm] 161/73 Blood Pressure 148/75 O2 Sat by Pulse Oximetry 93 General Limitations: No Limitations General Appearance: Alert and In No Apparent Distress Head Head Exam: Normal Inspection and Atraumatic Eyes Eye exam: Normal Appearance and PERRL; negative Scleral Icterus and Conjunctival Injection ENT ENT Exam: Normal Exam and Normal External Ear Exam; negative Normal Oropharynx and TM's Normal Bilaterally External Ear Exam: Normal External Inspection; negative Mastoid Tenderness TM/Canal Exam: Bilateral: Normal Nose Exam: Normal Nose Exam Mouth Exam: Normal Inspection Throat Exam: Normal Inspection; negative Tonsillar Erythema, Tonsillomegaly and Tonsillar Exudate Neck Neck Exam: Normal Inspection and Trachea Midline; negative Tenderness and Lymphadenopathy Chest Chest Inspection: Normal Inspection and Symmetric Chest Wall Rise; negative T enderness Respiratory Respiratory Exam: Normal Lung Sounds Bilat and Respiratory Distress; negative Accessory Muscle Use and Chest Wall Tenderness Respiratory Exam: Bilateral: Wheezing and Bilateral: Rhonchi and Lower: Wheezing and Lower: Rhonchi Cardiovascular Cardiovascular Exam: Regular Rate, Normal Rhythm and Normal Heart Sounds; negative Systolic Murmur and Diastolic Murmur Abdominal Exam Abdominal Exam: Normal Inspection, Normal Bowel Sounds and Soft; negative Tenderness Extremeties Extremities Exam: Normal Inspection and Normal Capillary Refill; negative Tenderness, Edema and Calf Tenderness Back Back Exam: Normal Inspection; negative Tenderness, (R) CVA Tenderness, (L) CVA Tenderness, Paraspinal Tenderness and Vertebral Tenderness Neurologic Neurological Exam: Alert, Oriented X3 and CN II-XII Intact; negative Motor Sensory Deficit Psychiatric Psychiatric Exam: Normal Affect and Normal Mood Skin Skin Exam: Warm, Dry, Intact and Normal Color MDM Differential Diagnosis Differential Diagnosis: Otitis media, Streptococcal pharyngitis, Viral pharyngit is, Pneumonia (BRONCHITIS, COPD.), Sinsusitis and URI COURSE Treatment Treatment: SEE ORDERS. ZITHROMAX 500MG QD. Consultation Consultation Comments: DISCUSSED PATIENT WITH DR. STACK. HE WILL ADMIT PATIENT. Education/Counseling Education/Counseling: Patient and Family Educated On: Diagnosis ROR Labs Reviewed Laboratory Results Reviewed?: Yes Result Diagrams: 08/20/19 17:55 08/20/19 17:55 Laboratory: WBC 6.7 X10^3/uL (3.6-10.0) 08/20/19 17:55 RBC 4.32 X10^6/uL (4.7-6.0) L 08/20/19 17:55 Hgb 12.3 g/dL (13.5-18.0) L 08/20/19 17:55 Hct 37.3 % (42.0-54.0) L 08/20/19 17:55 MCV 86.4 fL (80.0-100.0) 08/20/19 17:55 MCH 28.6 pg (27.0-34.0) 08/20/19 17:55 MCHC 33.1 g/dL (33.0-35.0) 08/20/19 17:55 RDW 16.0 % (11.6-16.5) 08/20/19 17:55 Plt Count 158 X10^3/uL (150.0-450.0) 08/20/19 17:55 MPV 8.2 fL (7.4-11.0) 08/20/19 17:55 Neut % (Auto) 74.8 % (42.0-75.0) 08/20/19 17:55 Lymph % (Auto) 13.7 % (21.0-51.0) L 08/20/19 17:55 Converse % (Auto) 8.2 % (0.0-13.0) 08/20/19 17:55 Eos % (Auto) 1.8 % (0.9-2.9) 08/20/19 17:55 Baso % (Auto) 1.5 % (0.2-1.0) H 08/20/19 17:55 Neut # (Auto) 5.0 x10^3/uL (2.2-4.8) H 08/20/19 17:55 Lymph # (Auto) 0.9 X10^3/uL (1.3-2.9) L 08/20/19 17:55 Converse # (Auto) 0.5 x10^3/uL (0.3-0.8) 08/20/19 17:55 Eos # (Auto) 0.1 x10^3/uL (0.0-0.2) 08/20/19 17:55 Baso # (Auto) 0.1 X10^3/uL (0.0-0.1) 08/20/19 17:55 Absolute Nucleated RBC 0.0 /100WBC 08/20/19 17:55 Sodium 139 mmol/L (136-145) 08/20/19 17:55 Corrected Sodium TNP 08/20/19 17:55 Potassium 4.1 mmol/L (3.5-5.1) 08/20/19 17:55 Chloride 103 mmol/L (98-107) 08/20/19 17:55 Carbon Dioxide 27.7 mmol/L (21-32) 08/20/19 17:55 BUN 15 mg/dL (7-18) 08/20/19 17:55 Creatinine 1.71 mg/dL (0.70-1.30) H 08/20/19 17:55 Est GFR (MDRD) Af Amer 51 (>60) L 08/20/19 17:55 Est GFR (MDRD) Non-Af 42 (>60) L 08/20/19 17:55 Glucose 72 mg/dL (65-99) 08/20/19 17:55 Lactic Acid 0.7 mmol/L (0.4-2.0) 08/20/19 18:03 Calcium 9.5 mg/dL (8.5-10.1) 08/20/19 17:55 Corrected Calcium TNP 08/20/19 17:55 Total Bilirubin 0.60 mg/dL (0.2-1.0) 08/20/19 17:55 AST 11 Units/L (15-37) L 08/20/19 17:55 ALT 17 Units/L (12-78) 08/20/19 17:55 Alkaline Phosphatase 79 Units/L (46-116) 08/20/19 17:55 Total Protein 7.3 g/dL (6.4-8.2) 08/20/19 17:55 Albumin 3.5 g/dL (3.4-5.0) 08/20/19 17:55 Globulin 3.8 g/dL (2.5-4.5) 08/20/19 17:55 Albumin/Globulin Ratio 0.9 Ratio (1.1-2.1) L 08/20/19 17:55 RSV Nasal Swab Negative (NEGATIVE) 08/20/19 16:20 S. pyogenes (TEM-PCR) Not detected (NOT DETECT) 08/20/19 16:20 XRAY XRAY Interpreted by: Radiologist (REPORT NOTED AND DISCUSSED WITH PATIENT.) and Self Opioid Opioid Risk Tool Family Hx of Substance Abuse: Alcohol Age (Franki box if 16-45): No History of Preadolescent Sexual Abuse: No Psychological Disease: Depression Total: 0 Total Score Risk Category: Low Risk Copyright: Farias LR predicting aberrant behaviors Diagnosis Discharge Problem: COPD exacerbation, Pulmonary congestion Pneumonia Qualifiers: Pneumonia type: due to unspecified organism Laterality: right Lung location: lower lobe of lung Qualified Code(s): J18.9 - Pneumonia, unspecified organism Instructions Forms: Excuse From Work Precautions for COVID19 Patient Portal Social Distancing
--- NOTE | 2019-08-20 17:12 | RAD ---
HISTORYFever, shortness of breath.STUDYCHEST, 1 VIEWCOMPARISONSeptember 2018.FINDINGSThe trachea is midline. The cardiac silhouette is enlarged. There is possible infiltrate versus atelectasis in the right lower lobe. There may be a small right-sided pleural effusion. The bony thorax is unremarkable.IMPRESSION1. Cardiomegaly with central pulmonary vascular congestion. No significant interstitial edema.2. Possible right lower lobe infiltrate and small effusion.Electronically signed by: ELIECER SALTER (Aug 20, 2019 17:10:58)
[2019-08-20 17:15] LABS: RSV AG DETECTION NEGATIVE (NEGATIVE)
[2019-08-20 18:13] LABS: BASOPHILS # (AUTO) 0.1 X10^3/uL (0.0-0.1); BASOPHILS % (AUTO) 1.5 % (0.2-1.0); EOSINOPHILS # (AUTO) 0.1 x10^3/uL (0.0-0.2); EOSINOPHILS % (AUTO) 1.8 % (0.9-2.9); HEMATOCRIT 37.3 % (42.0-54.0); HEMOGLOBIN 12.3 g/dL (13.5-18.0); LYMPHOCYTES # (AUTO) 0.9 X10^3/uL (1.3-2.9); LYMPHOCYTES % (AUTO) 13.7 % (21.0-51.0); MEAN CORPUSCULAR HEMOGLOBIN 28.6 pg (27.0-34.0); MEAN CORPUSCULAR HGB CONC 33.1 g/dL (33.0-35.0); MEAN CORPUSCULAR VOLUME 86.4 fL (80.0-100.0); MEAN PLATELET VOLUME 8.2 fL (7.4-11.0); MONOCYTES # (AUTO) 0.5 x10^3/uL (0.3-0.8); MONOCYTES % (AUTO) 8.2 % (0.0-13.0); NEUTROPHILS % (AUTO) 74.8 % (42.0-75.0); PLATELET COUNT 158 X10^3/uL (150.0-450.0); RED BLOOD COUNT 4.32 X10^6/uL (4.7-6.0); WHITE BLOOD COUNT 6.7 X10^3/uL (3.6-10.0)
[2019-08-20 18:23] LABS: ALANINE AMINOTRANSFERASE 17 Units/L (12-78); ALBUMIN 3.5 g/dL (3.4-5.0); ALKALINE PHOSPHATASE 79 Units/L (46-116); ASPARTATE AMINO TRANSFERASE 11 Units/L (15-37); BLOOD UREA NITROGEN 15 mg/dL (7-18); CALCIUM 9.5 mg/dL (8.5-10.1); CARBON DIOXIDE 27.7 mmol/L (21-32); CHLORIDE 103 mmol/L (98-107); CREATININE 1.71 mg/dL (0.70-1.30); SODIUM 139 mmol/L (136-145); TOTAL PROTEIN 7.3 g/dL (6.4-8.2); eGFR NON BLACK RACES 42 (>60)
[2019-08-20] MEDS ORDERED: ASCORBIC ACID INJ MULTI-DOSE VIAL IM SCH (19:45)
[2019-08-20] MEDS ORDERED: NS 250 ML IV 250 ML IV ONE (19:48)
[2019-08-20] MEDS ORDERED: ZITHROMAX INJ 500 MG VIAL IV ONE (19:48)
[2019-08-20] MEDS ORDERED: LASIX IVP ONE (19:55)
[2019-08-20] MEDS: ZITHROMAX INJ 500 MG VIAL 500 MG in NS 250 ML IV 250 ML IV SCH (19:55)
[2019-08-20] MEDS ORDERED: ROCEPHIN VIAL 1 GRAM IM ONE (19:58)
[2019-08-20] MEDS ORDERED: ZOFRAN INJ 4 MG VIAL IVP ONE (20:10)
[2019-08-20] MEDS ORDERED: ZOFRAN INJ 4 MG VIAL ONE (20:15)
[2019-08-20 20:37] LABS: ABG BASE EXCESS 0.1 mmol/L (-2.0-2.0); ABG HCO3 24.7 mmol/L (22-26)
[2019-08-20] MEDS ORDERED: VENTOLIN or PROAIR HFA ONE (20:46)
[2019-08-20] MEDS ORDERED: THIAMINE HCL INJ ONE (21:36)
[2019-08-20] MEDS ORDERED: ZINC SULFATE ONE (21:37)
[2019-08-20] MEDS ORDERED: PLAQUENIL PO ONE (21:37)
[2019-08-20] MEDS ORDERED: CORTEF ONE (21:37)
[2019-08-20 22:07] VITALS: BMI 26.6
[2019-08-20] MEDS ORDERED: ROCEPHIN VIAL 1 GRAM 1 G in NS 100 ML IV + SPIKE MINIBAG* 100 ML IV ONE (22:20)
[2019-08-20] MEDS ORDERED: NS 100 ML IV 100 ML IV PRN (22:21)
[2019-08-20] MEDS ORDERED: NS 100 ML IV + SPIKE MINIBAG* 100 ML IV ONE (22:22)
[2019-08-20] MEDS ORDERED: VITAMIN C ONE (22:22)
[2019-08-20] MEDS ORDERED: NS 100 ML IV 100 ML IV ONE (22:26)
[2019-08-20] MEDS: THIAMINE HCL INJ IM SCH (22:31)
[2019-08-20] MEDS: CORTEF PO SCH (22:31)
[2019-08-20] MEDS: ZINC SULFATE PO SCH (22:32)
[2019-08-20] MEDS: PLAQUENIL PO SCH (22:33)
[2019-08-20] MEDS: VITAMIN C PO SCH (22:35)
[2019-08-21] MEDS ORDERED: DUONEB 0.5 MG/3 MG (3 mL) NEB SCH
[2019-08-21] MEDS: VITAMIN C PO SCH ×2 (05:01→10:02)
[2019-08-21] MEDS: PLAQUENIL PO SCH (05:02)
[2019-08-21 05:27] LABS: BASOPHILS % (AUTO) 0.5 % (0.2-1.0); EOSINOPHILS # (AUTO) 0.1 x10^3/uL (0.0-0.2); HEMATOCRIT 35.7 % (42.0-54.0); HEMOGLOBIN 11.8 g/dL (13.5-18.0); LYMPHOCYTES # (AUTO) 0.9 X10^3/uL (1.3-2.9); LYMPHOCYTES % (AUTO) 14.1 % (21.0-51.0); MEAN CORPUSCULAR HEMOGLOBIN 28.7 pg (27.0-34.0); MEAN CORPUSCULAR HGB CONC 33.1 g/dL (33.0-35.0); MEAN CORPUSCULAR VOLUME 86.6 fL (80.0-100.0); MEAN PLATELET VOLUME 8.6 fL (7.4-11.0); MONOCYTES # (AUTO) 0.6 x10^3/uL (0.3-0.8); MONOCYTES % (AUTO) 9.5 % (0.0-13.0); NEUTROPHILS # (AUTO) 4.7 x10^3/uL (2.2-4.8); NEUTROPHILS % (AUTO) 74.9 % (42.0-75.0); PLATELET COUNT 154 X10^3/uL (150.0-450.0); RED BLOOD COUNT 4.13 X10^6/uL (4.7-6.0); RED CELL DISTRIBUTION WIDTH 15.8 % (11.6-16.5); WHITE BLOOD COUNT 6.3 X10^3/uL (3.6-10.0)
[2019-08-21 05:46] LABS: ALANINE AMINOTRANSFERASE 14 Units/L (12-78); ALBUMIN 3.2 g/dL (3.4-5.0); ALKALINE PHOSPHATASE 74 Units/L (46-116); ASPARTATE AMINO TRANSFERASE 12 Units/L (15-37); BLOOD UREA NITROGEN 14 mg/dL (7-18); CALCIUM 8.8 mg/dL (8.5-10.1); CARBON DIOXIDE 25.4 mmol/L (21-32); CHLORIDE 104 mmol/L (98-107); COR CA(FOR HYPOALB) 9.4 mg/dL (8.5-10.1); CREATININE 1.61 mg/dL (0.70-1.30); SODIUM 140 mmol/L (136-145); TOTAL PROTEIN 6.9 g/dL (6.4-8.2); eGFR NON BLACK RACES 45 (>60)
[2019-08-21 07:54] VITALS: BP 135/64
[2019-08-21] MEDS ORDERED: CORTEF ONE (08:43)
[2019-08-21] MEDS: CORTEF PO SCH (08:54)
[2019-08-21] MEDS ORDERED: VITAMIN A PO SCH ×2 (09:00)
[2019-08-21] MEDS ORDERED: ELIQUIS PO SCH (09:00)
[2019-08-21] MEDS ORDERED: VITAMIN D (1.25MG) PO SCH (09:00)
[2019-08-21] MEDS: THIAMINE HCL INJ IM SCH (09:00)
[2019-08-21] MEDS ORDERED: LASIX IVP SCH (09:00)
[2019-08-21] MEDS: ZINC SULFATE PO SCH (09:01)
[2019-08-21] MEDS ORDERED: ROCEPHIN VIAL 1 GRAM 1 G in NS 100 ML IV + SPIKE MINIBAG* 100 ML IV SCH (20:00)
[2019-08-22] MEDS ORDERED: VITAMIN D3 25 mcg (1,000 UNITS) PO SCH (09:00)
[2019-08-22] MEDS ORDERED: VITAMIN A PO SCH (09:00)
== END 2019-08-21 12:10 | disposition home or self-care (01) ==
LOC: MED/SURG 15:22 → ER 15:22 → MED/SURG 20:35
PROVIDERS: ADMIT Obstetrics & Gynecology Obstetrics; ATTEND Obstetrics & Gynecology Obstetrics
DX: J18.8 Other pneumonia, unspecified organism; R50.9 Fever, unspecified; B27.00 Gammaherpesviral mononucleosis without complication; R06.02 Shortness of breath; J44.1 Chronic obstructive pulmonary disease with (acute) exacerbation; Z99.81 Dependence on supplemental oxygen; J11.1 Influenza due to unidentified influenza virus with other respiratory manifestations; Z11.59 Encounter for screening for other viral diseases

== ENCOUNTER 2022-08-15 19:48 | Observation (INO) ==
--- NOTE | 2022-08-15 19:55 | DR.CP ---
HPI Time Seen Time Seen by Provider: 08/15/22 19:54 HPI Comment HPI Comment: PATIENT IS 72YR OLD MALE IN ER WITH INCREASING SOB AND 6/10 SHARP CHEST PAIN IN LEFT AND MID CHEST AREA. RECENTLY HAD STENT PLACED IN PATIENTS LEFT PAIN CORONARY ARTERY. DENIES VOMITING OR FEVER. HAVING PRODUCTIVE COUGH, ZIA SPUTUM. PATIENT MINESH OXYGEN AT HOME AND CAME TO ER WITHOUT OXYGEN. THIS HAVE CAUSE MORE SOB FOR PATIENT. PUTING HIM ON O2 IN ER HAVE HELP. HE HAS HISTORY OF DM, HTN, CAD AND COPD. Complaint Chief Complaint Doctor Comments: INCREASING SOB AND CHEST PAIN TIMES 5 DAYS. COVID-19 Coronavirus risk:travel/contact w/high risk person: No Has patient experienced Coronavirus symptoms: No Reviewed Nurses Notes Review: Yes Source History Provided: Patient and Family Member PMH PMH Past Medical History: Angina, Anxiety, Asthma, CHF, COPD, Depression, Diabetes, Dyslipidemia, GERD, Hypertension, Hypothyroidism, [place] and Renal Disease Past Surgical History: Yes Surgical History: Abdominal Surgery, Angioplasty/Stents, Bowel Resection and Thyroidectomy Family History Family Medical History: Diabetes Mellitus, [place], Coronary Artery Disease and Hypertension Social History Do you use any recreational Drugs:: No ROS Review of Systems Constitutional: Weakness and Fatigue; negative Fever Eyes: No Symptoms Reported ENTM: Nose Congestion; negative Nose Discharge or Throat Pain Respiratoy: Moist Cough, Short of Breath and Wheezing Cardiovascular: Chest Pain; negative Syncope Gastrointestinal/Abdominal: No Symptoms Reported; negative Abdominal Pain, Diarrhea, Nausea or Vomiting Genitourinary: No Symptoms Reported; negative Dysuria Neurological: Weakness and Dizziness; negative Headache Musculoskeletal: No Symptoms Reported; negative Muscle Pain Integumentary: No Symptoms Reported; negative Rash or Juandice Hematologic/Lymphatic: No Symptoms Reported; negative Easy Bruising or Swollen Glands Endocrine: No Symptoms Reported Psychiatric: No Symptoms Reported All Other Systems: Reviewed and Negative PE Vitals Vitals: Temperature 98.1 F Pulse Rate 55 Respiratory Rate 23 Blood Pressure [Right Arm] 135/64 Blood Pressure [Left Arm] 161/73 Blood Pressure 161/76 O2 Sat by Pulse Oximetry 95 General Limitations: No Limitations General Appearance: Alert Head Head Exam: Normal Inspection, Atraumatic and Normocephalic Eyes Eye exam: Normal Appearance ENT ENT Exam: Normal Exam and Normal Oropharynx Chest Chest Inspection: Normal Inspection Respiratory Respiratory Exam: Normal Lung Sounds Bilat Respiratory Exam: Bilateral: Wheezing and Bilateral: Rhonchi Cardiovascular Cardiovascular Exam: Regular Rate, Normal Rhythm and Normal Heart Sounds; ne gative Systolic Murmur or Diastolic Murmur Pulse: Normal Edema: 1 Abdominal Exam Abdominal Exam: Normal Inspection, Normal Bowel Sounds and Soft; negative Tenderness Extremities Extremities Exam: Normal Inspection and Normal Capillary Refill Back Back Exam: Normal Inspection; negative (R) CVA Tenderness or (L) CVA Tenderness Neurologic Neurological Exam: Alert and Oriented X3; negative Motor Sensory Deficit Psychiatric Psychiatric Exam: Normal Affect and Normal Mood Skin Skin Exam: Intact MDM Differential Diagnosis Differential Diagnosis: Angina, CHF, Myocardial Infarction, Pericarditis, Pneumonia and Pneumothorax COURSE Treatment Treatment: SEE ORDERS DONE WHILE PATIENT WAS IN ER. LABS, EKG AND XRAY REPORTS DISCUSSED WITH PATIENT. HE WILL BE ADMITTED TO HOSPITAL FOR FURTHER MANAGEMENT. Consultation Consultation Comments: DISCUSSED PATIENT WITH DR. MARTINEZ. HE WILL ADMIT PATIENT. Education/Counseling Education/Counseling: Patient Educated On: Diagnosis ROR Labs Reviewed Laboratory Results Reviewed?: Yes Result Diagrams: 08/17/22 05:10 08/17/22 05:10 Laboratory: WBC 6.7 X10^3/uL (3.6-10.0) 08/15/22 20:08 RBC 4.21 X10^6/uL (4.7-6.0) L 08/15/22 20:08 Hgb 11.4 g/dL (13.5-18.0) L 08/15/22 20:08 Hct 34.8 % (42.0-54.0) L 08/15/22 20:08 MCV 82.6 fL (80.0-100.0) 08/15/22 20:08 MCH 27.2 pg (27.0-34.0) 08/15/22 20:08 MCHC 32.9 g/dL (33.0-35.0) L 08/15/22 20:08 RDW 15.4 % (11.6-16.5) 08/15/22 20:08 Plt Count 180 X10^3/uL (150.0-450.0) 08/15/22 20:08 MPV 7.7 fL (7.4-11.0) 08/15/22 20:08 Neut % (Auto) 69.2 % (42.0-75.0) 08/15/22 20:08 Lymph % (Auto) 15.2 % (21.0-51.0) L 08/15/22 20:08 Mclennan % (Auto) 9.6 % (0.0-13.0) 08/15/22 20:08 Eos % (Auto) 5.3 % (0.9-2.9) H 08/15/22 20:08 Baso % (Auto) 0.7 % (0.2-1.0) 08/15/22 20:08 Neut # (Auto) 4.7 x10^3/uL (2.2-4.8) 08/15/22 20:08 Lymph # (Auto) 1.0 X10^3/uL (1.3-2.9) L 08/15/22 20:08 Mclennan # (Auto) 0.6 x10^3/uL (0.3-0.8) 08/15/22 20:08 Eos # (Auto) 0.4 x10^3/uL (0.0-0.2) H 08/15/22 20:08 Baso # (Auto) 0.0 X10^3/uL (0.0-0.1) 08/15/22 20:08 Absolute Nucleated RBC 0.0 /100WBC 08/15/22 20:08 D-Dimer 0.49 ug/ml (0.0-0.57) 08/15/22 20:08 Sample Site Lbra 08/15/22 20:13 ABG pH 7.430 (7.35-7.45) 08/15/22 20:13 ABG pCO2 31.0 mmHg (35.0-45.0) L 08/15/22 20:13 ABG pO2 67.0 mmHg (80.0-100.0) L 08/15/22 20:13 ABG HCO3 20.6 mmol/L (22-26) L 08/15/22 20:13 ABG O2 Saturation 94.0 % (90-100) 08/15/22 20:13 ABG Base Excess -2.8 mmol/L (-2.0-2.0) L 08/15/22 20:13 Marcus Test Na 08/15/22 20:13 A-a Gradient 94.0 mmHg 08/15/22 20:13 FiO2 28.0 08/15/22 20:13 Blood Gas Comments Taj abg well-mtf 08/15/22 20:13 Sodium 145 mmol/L (136-145) 08/15/22 20:08 Corrected Sodium TNP 08/15/22 20:08 Potassium 4.2 mmol/L (3.5-5.1) 08/15/22 20:08 Chloride 108 mmol/L (98-107) H 08/15/22 20:08 Carbon Dioxide 24.3 mmol/L (21-32) 08/15/22 20:08 BUN 12 mg/dL (7-18) 08/15/22 20:08 Creatinine 1.77 mg/dL (0.70-1.30) H 08/15/22 20:08 Est GFR (MDRD) Af Amer 49 (>60) L 08/15/22 20:08 Est GFR (MDRD) Non-Af 40 (>60) L 08/15/22 20:08 Glucose 87 mg/dL (65-99) 08/15/22 20:08 Calcium 8.9 mg/dL (8.5-10.1) 08/15/22 20:08 Corrected Calcium 9.5 mg/dL (8.5-10.1) 08/15/22 20:08 Total Bilirubin 0.70 mg/dL (0.2-1.0) 08/15/22 20:08 AST 12 Units/L (15-37) L 08/15/22 20:08 ALT 19 Units/L (12-78) 08/15/22 20:08 Alkaline Phosphatase 89 Units/L (46-116) 08/15/22 20:08 Creatine Kinase 49 Units/L (39-308) 08/15/22 22:13 Troponin I High Sens 47.5 ng/L (4.0-60.0) 08/15/22 22:13 Total Protein 6.5 g/dL (6.4-8.2) 08/15/22 20:08 Albumin 3.3 g/dL (3.4-5.0) L 08/15/22 20:08 Globulin 3.2 g/dL (2.5-4.5) 08/15/22 20:08 Albumin/Globulin Ratio 1.0 Ratio (1.1-2.1) L 08/15/22 20:08 XRAY XRAY Interpreted by: Radiologist (REPORT NOTED.) and Self EKG Rate: 61 Frakes: Normal Rhythm: NSR Block: RBBB Hypertrophy: None ST: Normal Opioid Opioid Risk Tool Family Hx of Substance Abuse: Alcohol Age (Franki box if 16-45): No History of Preadolescent Sexual Abuse: No Psychological Disease: Depression Total: 0 Total Score Risk Category: Low Risk Copyright: Farias predicting aberrant behaviors Discharge Plan Diagnosis Discharge Problem: Chest pain, COPD exacerbation, Pneumonia Discharge Plan Patient Disposition: ADMITTED INPATIENT Condition: Stable Orders to Discharge Patient Discharge Orders: Discharge (Routine); Ordered 08/17/22 Ordered By: JOSE D STACK
[2022-08-15] MEDS ORDERED: MORPHINE SULFATE INJ 2 MG INJ IVP ONE (20:08)
[2022-08-15] MEDS ORDERED: ZOFRAN INJ 4 MG VIAL IVP ONE ×2 (20:10→20:51)
[2022-08-15] MEDS ORDERED: NITROSTAT SL PRN ×2 (20:13→20:15)
[2022-08-15] MEDS ORDERED: SOLU-Medrol 125 MG VIAL IVP ONE ×2 (20:13→20:15)
[2022-08-15] MEDS ORDERED: DUONEB 0.5 MG/3 MG (3 mL) NEB ONE ×2 (20:14→20:22)
[2022-08-15] MEDS ORDERED: SOLU-Medrol 125 MG VIAL ONE (20:15)
[2022-08-15] MEDS ORDERED: XOPENEX 1.25 MG/3 ML NEBULE NEB ONE (20:15)
[2022-08-15] MEDS ORDERED: NITROSTAT ONE (20:15)
[2022-08-15 20:19] LABS: ABG BASE EXCESS -2.8 mmol/L (-2.0-2.0); ABG HCO3 20.6 mmol/L (22-26)
[2022-08-15 20:24] LABS: BASOPHILS % (AUTO) 0.7 % (0.2-1.0); EOSINOPHILS # (AUTO) 0.4 x10^3/uL (0.0-0.2); EOSINOPHILS % (AUTO) 5.3 % (0.9-2.9); HEMATOCRIT 34.8 % (42.0-54.0); HEMOGLOBIN 11.4 g/dL (13.5-18.0); LYMPHOCYTES % (AUTO) 15.2 % (21.0-51.0); MEAN CORPUSCULAR HEMOGLOBIN 27.2 pg (27.0-34.0); MEAN CORPUSCULAR HGB CONC 32.9 g/dL (33.0-35.0); MEAN CORPUSCULAR VOLUME 82.6 fL (80.0-100.0); MEAN PLATELET VOLUME 7.7 fL (7.4-11.0); MONOCYTES # (AUTO) 0.6 x10^3/uL (0.3-0.8); MONOCYTES % (AUTO) 9.6 % (0.0-13.0); NEUTROPHILS # (AUTO) 4.7 x10^3/uL (2.2-4.8); NEUTROPHILS % (AUTO) 69.2 % (42.0-75.0); RED BLOOD COUNT 4.21 X10^6/uL (4.7-6.0); RED CELL DISTRIBUTION WIDTH 15.4 % (11.6-16.5); WHITE BLOOD COUNT 6.7 X10^3/uL (3.6-10.0)
--- NOTE | 2022-08-15 20:28 | EKG ---
Test Reason : cp Blood Pressure : */* mmHG Vent. Rate : 61 BPM Atrial Rate : 61 BPM P-R Int : 132 ms QRS Dur : 130 ms QT Int : 492 ms P-R-T Axes : -5 19 -27 degrees QTc Int : 495 ms Normal sinus rhythm Right bundle branch block Abnormal ECG No previous ECGs available Confirmed by Martinez Chaudhry ([id number]) on 08/16/2022 2:25:27 PM Referred By: Confirmed By: Martinez Chaudhry
[2022-08-15 20:35] LABS: ALANINE AMINOTRANSFERASE 19 Units/L (12-78); ALBUMIN 3.3 g/dL (3.4-5.0); ALKALINE PHOSPHATASE 89 Units/L (46-116); ASPARTATE AMINO TRANSFERASE 12 Units/L (15-37); BLOOD UREA NITROGEN 12 mg/dL (7-18); CALCIUM 8.9 mg/dL (8.5-10.1); CARBON DIOXIDE 24.3 mmol/L (21-32); CHLORIDE 108 mmol/L (98-107); COR CA(FOR HYPOALB) 9.5 mg/dL (8.5-10.1); CREATINE KINASE 54 Units/L (39-308); CREATININE 1.77 mg/dL (0.70-1.30); SODIUM 145 mmol/L (136-145); TOTAL PROTEIN 6.5 g/dL (6.4-8.2); eGFR NON BLACK RACES 40 (>60)
[2022-08-15] MEDS ORDERED: ZOFRAN INJ 4 MG VIAL ONE (20:51)
[2022-08-15] MEDS ORDERED: CATAPRES TAB 0.2 MG PO ONE (21:18)
[2022-08-15] MEDS ORDERED: CATAPRES TAB 0.2 MG ONE (21:19)
[2022-08-15] MEDS: ASPIRIN 81 MG CHEWTAB PO SCH (21:23)
[2022-08-16] MEDS: ZOSYN VIAL 3.375 GRAMS 3.375 G in NS 100 ML IV 100 ML IV SCH ×4 (01:19→21:39)
[2022-08-16 01:45] VITALS: BMI 24.7
[2022-08-16] MEDS: PROVENTIL NEB TX 0.083% 2.5MG/ 3ML NEB SCH ×5 (05:15→21:10)
[2022-08-16] MEDS: Atrovent NEB TX 0.02% NEB SCH ×5 (05:15→21:09)
[2022-08-16 06:24] LABS: BASOPHILS % (AUTO) 0.3 % (0.2-1.0); EOSINOPHILS % (AUTO) 0.2 % (0.9-2.9); HEMATOCRIT 33.2 % (42.0-54.0); HEMOGLOBIN 11.2 g/dL (13.5-18.0); LYMPHOCYTES # (AUTO) 0.5 X10^3/uL (1.3-2.9); LYMPHOCYTES % (AUTO) 12.7 % (21.0-51.0); MEAN CORPUSCULAR HEMOGLOBIN 27.4 pg (27.0-34.0); MEAN CORPUSCULAR HGB CONC 33.7 g/dL (33.0-35.0); MEAN CORPUSCULAR VOLUME 81.2 fL (80.0-100.0); MEAN PLATELET VOLUME 8.1 fL (7.4-11.0); MONOCYTES # (AUTO) 0.1 x10^3/uL (0.3-0.8); MONOCYTES % (AUTO) 1.8 % (0.0-13.0); NEUTROPHILS # (AUTO) 3.5 x10^3/uL (2.2-4.8); RED CELL DISTRIBUTION WIDTH 15.2 % (11.6-16.5); WHITE BLOOD COUNT 4.1 X10^3/uL (3.6-10.0)
[2022-08-16 06:38] LABS: ALBUMIN 3.1 g/dL (3.4-5.0); CARBON DIOXIDE 24.1 mmol/L (21-32); COR CA(FOR HYPOALB) 9.7 mg/dL (8.5-10.1); CREATININE 1.68 mg/dL (0.70-1.30); TOTAL PROTEIN 6.3 g/dL (6.4-8.2)
--- NOTE | 2022-08-16 07:38 | RAD ---
HISTORYChest painSTUDYAP chestCOMPARISONNovlittle [facility] 2021FINDINGSHeart size is stable. Diffuse parenchymal density is again noted at the right base with little if any change since prior exam. The upper lobes are more clearly aerated. There is no definite hilar enlargement or pleural effusion.IMPRESSIONDescribed findings in the right lower lung are probably chronic peribronchial thickening and fibrosis. Considering this, there is no definite change or acute abnormality noted.Electronically signed by: DENNYS PRINGLE (Aug 16, 2022 07:36:19)
[2022-08-16] MEDS: ASPIRIN 81 MG CHEWTAB PO SCH (08:49)
[2022-08-16] MEDS: PULMICORT NEB TX 0.5 MG NEB SCH ×2 (09:24→21:09)
[2022-08-16] MEDS ORDERED: ZOFRAN INJ 4 MG VIAL IVP PRN (16:51)
[2022-08-16] MEDS ORDERED: AMBIEN PO PRN (23:15)
[2022-08-17] MEDS: Atrovent NEB TX 0.02% NEB SCH ×4 (01:17→08:57)
[2022-08-17] MEDS: PROVENTIL NEB TX 0.083% 2.5MG/ 3ML NEB SCH ×4 (01:17→08:57)
[2022-08-17] MEDS: ZOSYN VIAL 3.375 GRAMS 3.375 G in NS 100 ML IV 100 ML IV SCH (05:26)
[2022-08-17 06:13] LABS: BASOPHILS # (AUTO) 0.2 X10^3/uL (0.0-0.1); BASOPHILS % (AUTO) 2.7 % (0.2-1.0); EOSINOPHILS # (AUTO) 0.2 x10^3/uL (0.0-0.2); EOSINOPHILS % (AUTO) 3.2 % (0.9-2.9); HEMATOCRIT 30.6 % (42.0-54.0); HEMOGLOBIN 10.4 g/dL (13.5-18.0); LYMPHOCYTES % (AUTO) 15.7 % (21.0-51.0); MEAN CORPUSCULAR HEMOGLOBIN 27.7 pg (27.0-34.0); MEAN CORPUSCULAR HGB CONC 33.8 g/dL (33.0-35.0); MEAN CORPUSCULAR VOLUME 81.8 fL (80.0-100.0); MEAN PLATELET VOLUME 8.1 fL (7.4-11.0); MONOCYTES # (AUTO) 0.5 x10^3/uL (0.3-0.8); MONOCYTES % (AUTO) 7.2 % (0.0-13.0); NEUTROPHILS # (AUTO) 4.7 x10^3/uL (2.2-4.8); NEUTROPHILS % (AUTO) 71.2 % (42.0-75.0); RED BLOOD COUNT 3.74 X10^6/uL (4.7-6.0); RED CELL DISTRIBUTION WIDTH 15.5 % (11.6-16.5); WHITE BLOOD COUNT 6.7 X10^3/uL (3.6-10.0)
[2022-08-17 06:26] LABS: ALANINE AMINOTRANSFERASE 14 Units/L (12-78); ALBUMIN 2.8 g/dL (3.4-5.0); ALKALINE PHOSPHATASE 66 Units/L (46-116); ASPARTATE AMINO TRANSFERASE 10 Units/L (15-37); BLOOD UREA NITROGEN 23 mg/dL (7-18); CALCIUM 8.4 mg/dL (8.5-10.1); CARBON DIOXIDE 25.8 mmol/L (21-32); CHLORIDE 109 mmol/L (98-107); COR CA(FOR HYPOALB) 9.4 mg/dL (8.5-10.1); CREATININE 1.74 mg/dL (0.70-1.30); SODIUM 144 mmol/L (136-145); TOTAL PROTEIN 5.8 g/dL (6.4-8.2); eGFR NON BLACK RACES 41 (>60)
[2022-08-17] MEDS: ASPIRIN 81 MG CHEWTAB PO SCH (08:47)
[2022-08-17] MEDS: PULMICORT NEB TX 0.5 MG NEB SCH (08:57)
[2022-08-17 09:06] VITALS: BP 162/77
[2022-08-17] MEDS ORDERED: ELIQUIS PO SCH (09:30)
== END 2022-08-17 13:15 | disposition home or self-care (01) ==
LOC: ER 19:48 → MED/SURG 19:48
PROVIDERS: ADMIT Family Medicine; ATTEND Obstetrics & Gynecology Obstetrics
DX: I10 Essential (primary) hypertension; R97.20 Elevated prostate specific antigen [PSA]; R53.1 Weakness; R07.89 Other chest pain; I25.10 Atherosclerotic heart disease of native coronary artery without angina pectoris; E11.65 Type 2 diabetes mellitus with hyperglycemia; R94.31 Abnormal electrocardiogram [ECG] [EKG]; I25.2 Old myocardial infarction; R06.02 Shortness of breath

== ENCOUNTER 2022-09-01 21:26 | Inpatient (IN) ==
[2022-09-01] MEDS ORDERED: ZOFRAN INJ 4 MG VIAL IVP ONE ×2 (21:55→22:50)
[2022-09-01] MEDS ORDERED: MORPHINE SULFATE INJ 2 MG INJ IVP ONE (21:55)
--- NOTE | 2022-09-01 21:56 | DR.UPM ---
HPI Time Seen Time Seen by Provider: 09/01/22 21:55 PCP Primary Care Physician: Debra HPI Comment HPI Comment: 72 y/o s/p stent to lad last month with prostate bx planned for six months thereafter in now with inability to urinate as below; having a lot of suprapubic pain, n/v with last bm yesterday which was normal; no fever, chills; says he can only get a little bit of urine out at a time; last colonoscopy was last year he believs. Complaint Chief Complaint:: Patient ambulatory in the ER with complaints of being unable to urinate. States he began having trouble urinating last night. He went to see debra today and Debra stated he didnt have a kidney infection and stated it must be a prostate issue. Patient was unable to get medications picked up from the pharmacy today. states the last time he urinated was at Dr. Stack office this morning. BP in Dr. Stack office was 199/80. pt states he has also been throwing up all day. COVID-19 Coronavirus risk:travel/contact w/high risk person: No Has patient experienced Coronavirus symptoms: No Source History Provided: Patient Mode of Arrival Mode of Arrival: Ambulatory Timing Onset of Chief Complaint: 08/31/22 PMH PMH Past Medical History: Yes Past Medical History: Angina, Anxiety, Asthma, CHF, COPD, Depression, Diabetes, Dyslipidemia, GERD, Hypertension, Hypothyroidism, HI and Renal Disease Past Surgical History: No Surgical History: Thyroidectomy Family History History of Family Medical Conditions: Yes Family Medical History: Diabetes Mellitus, HI, Coronary Artery Disease and Hypertension Social History Does patient currently use any type of tobacco product: No Have you used tobacco products in the last 12 months: No Type of Tobacco Use: None Alcohol Use: None Do you use any recreational Drugs:: No Lives With: Family Lives Where: Home Travel Risk Coronavirus risk:travel/contact w/high risk person: No Has patient experienced Coronavirus symptoms: No Infectious screening Have you traveled outside the country in the last 6 months?: No Isolation: Standard ROS Review of Systems Constitutional: No Symptoms Reported Eyes: No Symptoms Reported ENTM: No Symptoms Reported Respiratoy: No Symptoms Reported Cardiovascular: No Symptoms Reported Gastrointestinal/Abdominal: See HPI and Nausea Genitourinary: See HPI Neurological: No Symptoms Reported Musculoskeletal: No Symptoms Reported Integumentary: No Symptoms Reported Hematologic/Lymphatic: No Symptoms Reported Endocrine: No Symptoms Reported Psychiatric: No Symptoms Reported PE Vital Signs Vitals: Temperature 97.7 F Pulse Rate 59 Respiratory Rate 19 Blood Pressure [Right Arm] 162/77 Blood Pressure 140/64 O2 Sat by Pulse Oximetry 99 General Limitations: No Limitations General Appearance: Alert and In No Apparent Distress Head Head Exam: Normal Inspection Eyes Eye exam: Normal Appearance ENT ENT Exam: Normal Exam Neck Neck Exam: Normal Inspection Chest Chest Inspection: Normal Inspection Respiratory Respiratory Exam: Normal Lung Sounds Bilat Respiratory Exam: Bilateral: Clear to Auscultation Cardiovascular Cardiovascular Exam: Regular Rate and Normal Rhythm Abdominal Exam Abdominal Exam: Normal Inspection, Normal Bowel Sounds and Distention Abdominal Tenderness: Suprapubic Rectal Rectal Exam: Deferred Genitourinary Exam: Male: Deferred Extremities Extremities Exam: Normal Inspection Back Back Exam: Normal Inspection Neurologic Neurological Exam: Alert and Oriented X3 Psychiatric Psychiatric Exam: Normal Affect and Normal Mood Skin Skin Exam: Warm, Dry, Intact and Normal Color COURSE Reevaluation 1st: Improved ROR Labs Reviewed Result Diagrams: 09/01/22 22:10 09/01/22 22:10 Laboratory: WBC 11.1 X10^3/uL (3.6-10.0) H 09/01/22 22:10 RBC 4.32 X10^6/uL (4.7-6.0) L 09/01/22 22:10 Hgb 11.7 g/dL (13.5-18.0) L 09/01/22 22:10 Hct 35.9 % (42.0-54.0) L 09/01/22 22:10 MCV 83.1 fL (80.0-100.0) 09/01/22 22:10 MCH 27.1 pg (27.0-34.0) 09/01/22 22:10 MCHC 32.6 g/dL (33.0-35.0) L 09/01/22 22:10 RDW 15.7 % (11.6-16.5) 09/01/22 22:10 Plt Count 214 X10^3/uL (150.0-450.0) 09/01/22 22:10 MPV 8.6 fL (7.4-11.0) 09/01/22 22:10 Neut % (Auto) 71.7 % (42.0-75.0) 09/01/22 22:10 Lymph % (Auto) 12.3 % (21.0-51.0) L 09/01/22 22:10 [place] % (Auto) 8.9 % (0.0-13.0) 09/01/22 22:10 Eos % (Auto) 6.4 % (0.9-2.9) H 09/01/22 22:10 Baso % (Auto) 0.7 % (0.2-1.0) 09/01/22 22:10 Neut # (Auto) 8.0 x10^3/uL (2.2-4.8) H 09/01/22 22:10 Lymph # (Auto) 1.4 X10^3/uL (1.3-2.9) 09/01/22 22:10 [place] # (Auto) 1.0 x10^3/uL (0.3-0.8) H 09/01/22 22:10 Eos # (Auto) 0.7 x10^3/uL (0.0-0.2) H 09/01/22 22:10 Baso # (Auto) 0.1 X10^3/uL (0.0-0.1) 09/01/22 22:10 Absolute Nucleated RBC 0.1 /100WBC 09/01/22 22:10 Sodium 143 mmol/L (136-145) 09/01/22 22:10 Corrected Sodium TNP 09/01/22 22:10 Potassium 4.1 mmol/L (3.5-5.1) 09/01/22 22:10 Chloride 108 mmol/L (98-107) H 09/01/22 22:10 Carbon Dioxide 25.0 mmol/L (21-32) 09/01/22 22:10 BUN 26 mg/dL (7-18) H 09/01/22 22:10 Creatinine 1.59 mg/dL (0.70-1.30) H 09/01/22 22:10 Est GFR (MDRD) Af Amer 55 (>60) L 09/01/22 22:10 Est GFR (MDRD) Non-Af 46 (>60) L 09/01/22 22:10 Glucose 108 mg/dL (65-99) H 09/01/22 22:10 Calcium 8.6 mg/dL (8.5-10.1) 09/01/22 22:10 Corrected Calcium TNP 09/01/22 22:10 Total Bilirubin 0.50 mg/dL (0.2-1.0) 09/01/22 22:10 AST 13 Units/L (15-37) L 09/01/22 22:10 ALT 33 Units/L (12-78) 09/01/22 22:10 Alkaline Phosphatase 71 Units/L (46-116) 09/01/22 22:10 Total Protein 6.8 g/dL (6.4-8.2) 09/01/22 22:10 Albumin 3.7 g/dL (3.4-5.0) 09/01/22 22:10 Globulin 3.1 g/dL (2.5-4.5) 09/01/22 22:10 Albumin/Globulin Ratio 1.2 Ratio (1.1-2.1) 09/01/22 22:10 Amylase 147 Units/L (25-115) H 09/01/22 22:10 Lipase 250 Units/L (73-393) 09/01/22 22:10 Specimen Type Catherized urine 09/01/22 22:30 Urine Color Pale yellow (YELLOW) 09/01/22 22:30 Urine Appearance Clear (CLEAR) 09/01/22 22: Urine pH 5.0 (5.0 - 8.0) 09/01/22 22:30 Ur Specific [place] 1.020 (1.000-1.030) 09/01/22 22:30 Urine Protein 3+ (NEGATIVE) 09/01/22 22: Urine Glucose (UA) Negative (NEGATIVE) 09/01/22 22: Urine Ketones Negative (NEGATIVE) 09/01/22 22: Urine Blood 5+ (NEGATIVE) 09/01/22 22: Urine Nitrite Negative (NEGATIVE) 09/01/22 22: Urine Bilirubin Negative (NEGATIVE) 09/01/22 22: Urine Urobilinogen Normal (NORMAL) 09/01/22 22:30 Ur Leukocyte Esterase Negative (NEGATIVE) 09/01/22 22:30 Urine RBC 30-50 /HPF (0-3) A 09/01/22 22:30 Urine WBC None seen /HPF (0-5) 09/01/22 22:30 Ur Squamous Epith Cells Rare /HPF (NEGATIVE) 09/01/22 22:30 Urine Bacteria Negative /HPF (NEGATIVE) 09/01/22 22:30 Ur Culture Indicated? No/not indicated 09/01/22 22:30 XRAY XRAY Interpreted by: Radiologist X-ray Results: ct abd/pelvis w/o contrast: 1. Postoperative changes are seen in the sigmoid colon which may be from partial bowel resection. 2. Pericolonic inflammatory changes are seen in the proximal sigmoid colon which may be associated with acute diverticulitis. The differential diagnosis should include,but is not limited to colon carcinoma. Opioid Opioid Risk Tool Family Hx of Substance Abuse: Alcohol Age (Franki box if 16-45): No History of Preadolescent Sexual Abuse: No Psychological Disease: Depression Total: 0 Total Score Risk Category: Low Risk Copyright: Farias RAMIRO predicting aberrant behaviors Discharge Plan Diagnosis Discharge Problem: Diverticulitis, Nausea & vomiting, Acute urinary retention, Acute on chronic kidney failure, Acute dehydration Discharge Plan Patient Disposition: 09 ADMITTED INPATIENT Condition: Stable Prescriptions: No Action Trelegy Ellipta 100-62.5-25 mcg blister with device 1 inh IN QDAY Qty: 30 6RF furosemide 40 mg tablet 1 tab PO BID atorvastatin 80 mg tablet 1 tab PO QDAY carvedilol 6.25 mg tablet 1 tab PO BID gabapentin 600 mg tablet 2 tab PO BID ondansetron HCl 4 mg tablet 1 tab PO Q6H PRN isosorbide mononitrate 30 mg tablet extended release 24 hr 1 tab PO QDAY clopidogrel 75 mg tablet 1 tab PO QDAY sulfamethoxazole-trimethoprim 800-160 mg tablet 1 tab PO BID oxycodone-acetaminophen 10-325 mg tablet 1 tab PO Q6H PRN tamsulosin 0.4 mg capsule 1 cap PO QDAY pantoprazole 40 mg tablet,delayed release (DR/EC) 1 tab PO BID losartan 25 mg tablet 1 tab PO QDAY montelukast 10 mg tablet 1 tab PO QDAY levothyroxine 200 mcg tablet 1 tab PO QDAY azelastine 137 mcg (0.1 %) aerosol,spray 2 spray INTRANASAL DAILY Label Comments: [NO ORIGINAL SIG] albuterol sulfate 90 mcg/actuation HFA aerosol inhaler 2 inh inhalation Q4H PRN topiramate 100 mg tablet 1 tab PO BID fluticasone propionate 50 mcg/actuation spray,suspension 2 spray INTRANASAL DAILY metformin 500 mg tablet extended release 24 hr 1 tab PO BID escitalopram oxalate 10 mg tablet 1 tab PO QDAY Multaq 400 mg tablet 1 tab PO BID roflumilast [Daliresp] 500 mcg tablet 1 tab PO QDAY Brilinta 90 mg tablet 1 tab PO BID Trelegy Ellipta 100-62.5-25 mcg blister with device 1 puff inhalation QDAY Health Concerns: Post Hospitalization: new medications and changes needed to prevent readmission or further decline. Pt educated and given instructions on all concerns. Plan of Treatment: Continue with present treatment and follow up plan. Pt is to keep follow up appointment as instructed and take medications as ordered. Follow ups/Referrals Follow ups/Referrals: JOSE D STACK [Primary Care Provider] - 3 days
[2022-09-01] MEDS ORDERED: ZOFRAN INJ 4 MG VIAL ONE ×2 (22:00→22:43)
[2022-09-01] MEDS ORDERED: MORPHINE SULFATE INJ 2 MG INJ ONE (22:00)
[2022-09-01 22:18] LABS: MEAN CORPUSCULAR VOLUME 83.1 fL (80.0-100.0); WHITE BLOOD COUNT 11.1 X10^3/uL (3.6-10.0)
[2022-09-01 22:22] LABS: BASOPHILS # (AUTO) 0.1 X10^3/uL (0.0-0.1); BASOPHILS % (AUTO) 0.7 % (0.2-1.0); EOSINOPHILS # (AUTO) 0.7 x10^3/uL (0.0-0.2); EOSINOPHILS % (AUTO) 6.4 % (0.9-2.9); HEMATOCRIT 35.9 % (42.0-54.0); HEMOGLOBIN 11.7 g/dL (13.5-18.0); LYMPHOCYTES # (AUTO) 1.4 X10^3/uL (1.3-2.9); LYMPHOCYTES % (AUTO) 12.3 % (21.0-51.0); MEAN CORPUSCULAR HEMOGLOBIN 27.1 pg (27.0-34.0); MEAN CORPUSCULAR HGB CONC 32.6 g/dL (33.0-35.0); MEAN PLATELET VOLUME 8.6 fL (7.4-11.0); MONOCYTES % (AUTO) 8.9 % (0.0-13.0); NEUTROPHILS % (AUTO) 71.7 % (42.0-75.0); PLATELET COUNT 214 X10^3/uL (150.0-450.0); RED BLOOD COUNT 4.32 X10^6/uL (4.7-6.0); RED CELL DISTRIBUTION WIDTH 15.7 % (11.6-16.5)
[2022-09-01 22:31] LABS: ALANINE AMINOTRANSFERASE 33 Units/L (12-78); ALBUMIN 3.7 g/dL (3.4-5.0); ALKALINE PHOSPHATASE 71 Units/L (46-116); ASPARTATE AMINO TRANSFERASE 13 Units/L (15-37); BLOOD UREA NITROGEN 26 mg/dL (7-18); CALCIUM 8.6 mg/dL (8.5-10.1); CHLORIDE 108 mmol/L (98-107); CREATININE 1.59 mg/dL (0.70-1.30); GLUCOSE 108 mg/dL (65-99); POTASSIUM 4.1 mmol/L (3.5-5.1); SODIUM 143 mmol/L (136-145); TOTAL PROTEIN 6.8 g/dL (6.4-8.2); eGFR NON BLACK RACES 46 (>60)
[2022-09-01 22:39] LABS: BILIRUBIN,URINE NEGATIVE (NEGATIVE); BLOOD/HEMOGLOBIN,URINE 5+ (NEGATIVE); GLUCOSE, URINE NEGATIVE (NEGATIVE); KETONES,URINE NEGATIVE (NEGATIVE); LEUKOCYTE ESTERASE ,URINE NEGATIVE (NEGATIVE); NITRITES,URINE NEGATIVE (NEGATIVE); PROTEIN,URINE 3+ (NEGATIVE); UROBILINOGEN,URINE NORMAL (NORMAL)
[2022-09-01 22:53] LABS: APPEARANCE,URINE CLEAR (CLEAR); BACTERIA,URINE NEGATIVE /HPF (NEGATIVE); COLOR,URINE PALE YELLOW (YELLOW); RBC,URINE 30-50 /HPF (0-3); SQUAMOUS EPITHELIAL CELL,UR RARE /HPF (NEGATIVE)
--- NOTE | 2022-09-01 23:00 | CT ---
STUDY: CT ABDOMEN AND PELVIS WITHOUT IV CONTRASTCOMPARISON: NoneTECHNIQUE: Axial images were obtained of the abdomen and pelvis without IV contrast. Sagittal and coronal reformatted images were provided. All images were reviewed in a variety of windows and levels.RADIATION REDUCTION TECHNIQUE: Automated exposure control, adjustment of the mA or kV according to patient size, or iterative reconstruction techniques were used.HISTORY: complaints of being unable to urinate. States he began having trouble urinating last night.FINDINGS:Please note that lack of IV contrast does limit evaluation of the soft tissues and vascular detail.The visualized lower lung zones demonstrates dependent atelectatic changes. The heart size is within normal limits. There is no evidence of a pericardial effusion.The liver, spleen, pancreas, adrenal glands, and kidneys are grossly unremarkable. Gallstones noted. The urinary bladder contains a Kirk catheter.There is no evidence of stones or signs of obstructive uropathy.The stomach, small bowel, and colon are grossly unremarkable. Postoperative changes are seen in the sigmoid colon which may be from partial bowel resection. Pericolonic inflammatory changes are seen in the proximal sigmoid colon which may be associated with acute diverticulitis best demonstrated on axial image 72. The differential diagnosis should include, but is not limited to colon carcinoma. The appendix is normal. Heavy calcified atheromatous plaque burden is noted. There are no inflammatory changes in the right lower quadrant to suggest secondary signs of acute appendicitis.There is no evidence of retroperitoneal or mesenteric lymphadenopathy.The visualized bones demonstrate degenerative changes. There are no concerning lytic or blastic lesions identified.IMPRESSION:1. Postoperative changes are seen in the sigmoid colon which may be from partial bowel resection.2. Pericolonic inflammatory changes are seen in the proximal sigmoid colon which may be associated with acute diverticulitis. The differential diagnosis should include, but is not limited to colon carcinoma.Electronically signed by: Gómez Hale (Sep 01, 2022 22:59:18)
[2022-09-01 23:18] LABS: AMYLASE 147 Units/L (25-115); LIPASE 250 Units/L (73-393)
[2022-09-01] MEDS ORDERED: CIPRO IV 400 MG PREMIX* 400 MG/200 ML IV.SOLN. IV SCH (23:45)
[2022-09-01] MEDS ORDERED: CIPRO IV 400 MG PREMIX* 400 MG/200 ML IV.SOLN. IV ONE (23:49)
[2022-09-02] MEDS ORDERED: TYLENOL 325 MG TAB PO ONE ×2 (00:03)
[2022-09-02] MEDS ORDERED: NS 1,000 ML IV 1,000 ML ONE (00:50)
[2022-09-02] MEDS: NS 1,000 ML IV 1,000 ML IV SCH ×4 (00:53→12:03)
[2022-09-02] MEDS ORDERED: NS 1,000 ML IV 1,000 ML IV SCH (03:00)
[2022-09-02 04:13] VITALS: BMI 25.0
[2022-09-02] MEDS ORDERED: PROVENTIL NEB TX 0.083% 2.5MG/ 3ML NEB PRN (04:17)
[2022-09-02] MEDS: MORPHINE SULFATE INJ 2 MG INJ IVP PRN (04:24)
[2022-09-02 05:05] LABS: BASOPHILS # (AUTO) 0.2 X10^3/uL (0.0-0.1); BASOPHILS % (AUTO) 2.1 % (0.2-1.0); EOSINOPHILS # (AUTO) 0.6 x10^3/uL (0.0-0.2); HEMATOCRIT 33.6 % (42.0-54.0); HEMOGLOBIN 11.1 g/dL (13.5-18.0); MEAN CORPUSCULAR HEMOGLOBIN 27.2 pg (27.0-34.0); MEAN CORPUSCULAR VOLUME 82.6 fL (80.0-100.0); MEAN PLATELET VOLUME 8.8 fL (7.4-11.0); MONOCYTES # (AUTO) 0.5 x10^3/uL (0.3-0.8); MONOCYTES % (AUTO) 5.8 % (0.0-13.0); NEUTROPHILS # (AUTO) 6.5 x10^3/uL (2.2-4.8); NEUTROPHILS % (AUTO) 74.1 % (42.0-75.0); PLATELET COUNT 195 X10^3/uL (150.0-450.0); RED BLOOD COUNT 4.07 X10^6/uL (4.7-6.0); RED CELL DISTRIBUTION WIDTH 15.3 % (11.6-16.5); WHITE BLOOD COUNT 8.7 X10^3/uL (3.6-10.0)
[2022-09-02 05:18] LABS: ALANINE AMINOTRANSFERASE 30 Units/L (12-78); ALBUMIN 3.4 g/dL (3.4-5.0); ALKALINE PHOSPHATASE 65 Units/L (46-116); ASPARTATE AMINO TRANSFERASE 13 Units/L (15-37); BLOOD UREA NITROGEN 26 mg/dL (7-18); CALCIUM 8.2 mg/dL (8.5-10.1); CARBON DIOXIDE 26.2 mmol/L (21-32); CHLORIDE 107 mmol/L (98-107); GLUCOSE 101 mg/dL (65-99); POTASSIUM 3.9 mmol/L (3.5-5.1); SODIUM 143 mmol/L (136-145); TOTAL PROTEIN 6.3 g/dL (6.4-8.2); eGFR NON BLACK RACES 45 (>60)
[2022-09-02] MEDS: PROVENTIL NEB TX 0.083% 2.5MG/ 3ML NEB SCH ×3 (05:33→20:15)
[2022-09-02] MEDS ORDERED: PULMICORT NEB TX 0.5 MG NEB ONE (07:50)
[2022-09-02] MEDS: CIPRO IV 400 MG PREMIX* 400 MG/200 ML IV.SOLN. IV SCH ×2 (08:17→20:28)
[2022-09-02] MEDS: PULMICORT NEB TX 0.5 MG NEB SCH ×2 (08:48→20:15)
[2022-09-02] MEDS: LOVENOX INJ 40 MG SYR SC SCH (09:13)
[2022-09-02] MEDS: ZOFRAN INJ 4 MG VIAL IVP PRN (09:13)
[2022-09-02] MEDS ORDERED: PATIENT'S HOME MEDICATION (Fluticasone-Umeclidin-Vilanter [Trelegy Ellipta] 100-62.5-25 mc IN SCH (09:30)
[2022-09-02] MEDS ORDERED: GLUCOPHAGE ONE ×2 (09:46→19:59)
[2022-09-02] MEDS ORDERED: LEXAPRO ONE (09:49)
[2022-09-02] MEDS: SYNTHROID 100 mcg TAB PO SCH (09:59)
[2022-09-02] MEDS: PROTONIX TAB 40 MG PO SCH ×2 (09:59→20:27)
[2022-09-02] MEDS: IMDUR PO SCH (09:59)
[2022-09-02] MEDS: LEXAPRO PO SCH (09:59)
[2022-09-02] MEDS: DALIRESP PO SCH (09:59)
[2022-09-02] MEDS: LIPITOR TAB 80 MG PO SCH (10:00)
[2022-09-02] MEDS: MULTAQ PO SCH ×2 (10:00→20:27)
[2022-09-02] MEDS: GLUCOPHAGE PO SCH ×2 (10:00→20:28)
[2022-09-02] MEDS: COZAAR PO SCH (10:00)
[2022-09-02] MEDS: SINGULAIR TAB 10 MG PO SCH (10:00)
[2022-09-02] MEDS: TOPAMAX TAB 100 MG PO SCH ×2 (10:00→20:27)
[2022-09-02] MEDS: NEURONTIN CAP 400 MG PO SCH ×2 (10:00→20:28)
[2022-09-02] MEDS: COREG TAB 6.25 MG PO SCH ×2 (10:00→20:27)
[2022-09-02] MEDS: PLAVIX PO SCH (10:00)
[2022-09-02] MEDS: LASIX PO SCH ×2 (10:00→20:28)
[2022-09-02] MEDS: FLOMAX PO SCH (10:01)
[2022-09-02] MEDS: FLAGYL IV PREMIX 500 MG BAG 500 MG/100 ML BAG IV SCH ×2 (14:03→23:01)
[2022-09-02] MEDS: PERCOCET TAB 5/325 MG PO PRN (20:27)
[2022-09-03] MEDS: NS 1,000 ML IV 1,000 ML IV SCH ×2 (04:55→14:28)
[2022-09-03] MEDS: FLAGYL IV PREMIX 500 MG BAG 500 MG/100 ML BAG IV SCH ×3 (05:22→21:28)
[2022-09-03] MEDS: PROVENTIL NEB TX 0.083% 2.5MG/ 3ML NEB SCH ×3 (06:05→20:42)
[2022-09-03 06:09] LABS: BASOPHILS % (AUTO) 0.5 % (0.2-1.0); EOSINOPHILS # (AUTO) 0.6 x10^3/uL (0.0-0.2); EOSINOPHILS % (AUTO) 9.6 % (0.9-2.9); HEMATOCRIT 30.5 % (42.0-54.0); HEMOGLOBIN 10.1 g/dL (13.5-18.0); LYMPHOCYTES # (AUTO) 1.7 X10^3/uL (1.3-2.9); MEAN CORPUSCULAR HEMOGLOBIN 27.5 pg (27.0-34.0); MEAN CORPUSCULAR HGB CONC 33.1 g/dL (33.0-35.0); MEAN CORPUSCULAR VOLUME 83.2 fL (80.0-100.0); MEAN PLATELET VOLUME 8.7 fL (7.4-11.0); MONOCYTES # (AUTO) 0.6 x10^3/uL (0.3-0.8); NEUTROPHILS # (AUTO) 2.9 x10^3/uL (2.2-4.8); NEUTROPHILS % (AUTO) 49.9 % (42.0-75.0); PLATELET COUNT 148 X10^3/uL (150.0-450.0); RED BLOOD COUNT 3.67 X10^6/uL (4.7-6.0); RED CELL DISTRIBUTION WIDTH 15.1 % (11.6-16.5); WHITE BLOOD COUNT 5.8 X10^3/uL (3.6-10.0)
[2022-09-03 06:23] LABS: ALANINE AMINOTRANSFERASE 21 Units/L (12-78); ALBUMIN 2.9 g/dL (3.4-5.0); ALKALINE PHOSPHATASE 56 Units/L (46-116); ASPARTATE AMINO TRANSFERASE 11 Units/L (15-37); BLOOD UREA NITROGEN 26 mg/dL (7-18); CALCIUM 7.8 mg/dL (8.5-10.1); CARBON DIOXIDE 26.6 mmol/L (21-32); CHLORIDE 108 mmol/L (98-107); COR CA(FOR HYPOALB) 8.7 mg/dL (8.5-10.1); CREATININE 2.02 mg/dL (0.70-1.30); GLUCOSE 76 mg/dL (65-99); SODIUM 141 mmol/L (136-145); TOTAL PROTEIN 5.4 g/dL (6.4-8.2); eGFR NON BLACK RACES 35 (>60)
[2022-09-03] MEDS ORDERED: GLUCOPHAGE ONE ×2 (08:03→21:16)
[2022-09-03] MEDS ORDERED: LEXAPRO ONE (08:03)
[2022-09-03] MEDS: CIPRO IV 400 MG PREMIX* 400 MG/200 ML IV.SOLN. IV SCH ×2 (08:22→21:28)
[2022-09-03] MEDS: PLAVIX PO SCH (08:22)
[2022-09-03] MEDS: LIPITOR TAB 80 MG PO SCH (08:22)
[2022-09-03] MEDS: MULTAQ PO SCH ×2 (08:23→21:27)
[2022-09-03] MEDS: COREG TAB 6.25 MG PO SCH ×2 (08:23→21:32)
[2022-09-03] MEDS: COZAAR PO SCH (08:23)
[2022-09-03] MEDS: GLUCOPHAGE PO SCH ×2 (08:23→21:27)
[2022-09-03] MEDS: IMDUR PO SCH (08:23)
[2022-09-03] MEDS: DALIRESP PO SCH (08:24)
[2022-09-03] MEDS: TOPAMAX TAB 100 MG PO SCH ×2 (08:24→21:26)
[2022-09-03] MEDS: SYNTHROID 100 mcg TAB PO SCH (08:24)
[2022-09-03] MEDS: SINGULAIR TAB 10 MG PO SCH (08:24)
[2022-09-03] MEDS: NEURONTIN CAP 400 MG PO SCH ×2 (08:24→21:27)
[2022-09-03] MEDS: LASIX PO SCH (08:24)
[2022-09-03] MEDS: PROTONIX TAB 40 MG PO SCH ×2 (08:24→21:25)
[2022-09-03] MEDS: LEXAPRO PO SCH (08:24)
[2022-09-03] MEDS: FLOMAX PO SCH (08:24)
[2022-09-03] MEDS: LOVENOX INJ 40 MG SYR SC SCH (08:25)
[2022-09-03] MEDS: PULMICORT NEB TX 0.5 MG NEB SCH ×2 (08:39→20:42)
[2022-09-03] MEDS ORDERED: CORTEF ONE ×2 (09:26→21:17)
[2022-09-03] MEDS: CORTEF PO SCH ×2 (09:40→21:26)
[2022-09-03] MEDS: ZOFRAN INJ 4 MG VIAL IVP PRN (19:36)
[2022-09-03] MEDS: MORPHINE SULFATE INJ 2 MG INJ IVP PRN (19:36)
[2022-09-04] MEDS: FLAGYL IV PREMIX 500 MG BAG 500 MG/100 ML BAG IV SCH ×3 (05:07→21:04)
[2022-09-04] MEDS: NS 1,000 ML IV 1,000 ML IV SCH ×2 (05:07→15:56)
[2022-09-04 06:06] LABS: BASOPHILS % (AUTO) 0.6 % (0.2-1.0); EOSINOPHILS # (AUTO) 0.5 x10^3/uL (0.0-0.2); EOSINOPHILS % (AUTO) 7.6 % (0.9-2.9); HEMOGLOBIN 9.9 g/dL (13.5-18.0); LYMPHOCYTES # (AUTO) 1.6 X10^3/uL (1.3-2.9); LYMPHOCYTES % (AUTO) 27.3 % (21.0-51.0); MEAN CORPUSCULAR HEMOGLOBIN 27.5 pg (27.0-34.0); MEAN CORPUSCULAR HGB CONC 33.1 g/dL (33.0-35.0); MEAN CORPUSCULAR VOLUME 83.1 fL (80.0-100.0); MONOCYTES # (AUTO) 0.6 x10^3/uL (0.3-0.8); MONOCYTES % (AUTO) 9.5 % (0.0-13.0); NEUTROPHILS # (AUTO) 3.3 x10^3/uL (2.2-4.8); PLATELET COUNT 151 X10^3/uL (150.0-450.0); RED BLOOD COUNT 3.61 X10^6/uL (4.7-6.0)
[2022-09-04 06:18] LABS: ALANINE AMINOTRANSFERASE 19 Units/L (12-78); ALBUMIN 2.8 g/dL (3.4-5.0); ALKALINE PHOSPHATASE 61 Units/L (46-116); ASPARTATE AMINO TRANSFERASE 9 Units/L (15-37); BLOOD UREA NITROGEN 29 mg/dL (7-18); CALCIUM 7.7 mg/dL (8.5-10.1); CARBON DIOXIDE 29.6 mmol/L (21-32); CHLORIDE 109 mmol/L (98-107); COR CA(FOR HYPOALB) 8.7 mg/dL (8.5-10.1); CREATININE 2.51 mg/dL (0.70-1.30); GLUCOSE 103 mg/dL (65-99); POTASSIUM 4.7 mmol/L (3.5-5.1); SODIUM 143 mmol/L (136-145); TOTAL PROTEIN 5.3 g/dL (6.4-8.2); eGFR NON BLACK RACES 27 (>60)
[2022-09-04] MEDS: PROVENTIL NEB TX 0.083% 2.5MG/ 3ML NEB SCH ×3 (06:19→20:12)
[2022-09-04] MEDS ORDERED: LEXAPRO ONE (08:20)
[2022-09-04] MEDS ORDERED: CORTEF ONE ×2 (08:21→20:26)
[2022-09-04] MEDS: PULMICORT NEB TX 0.5 MG NEB SCH ×2 (08:44→20:12)
[2022-09-04] MEDS: DALIRESP PO SCH (08:52)
[2022-09-04] MEDS: CIPRO IV 400 MG PREMIX* 400 MG/200 ML IV.SOLN. IV SCH ×2 (08:52→21:04)
[2022-09-04] MEDS: MULTAQ PO SCH ×2 (08:52→21:03)
[2022-09-04] MEDS: LINZESS PO SCH (08:52)
[2022-09-04] MEDS: LEXAPRO PO SCH (08:52)
[2022-09-04] MEDS: NEURONTIN CAP 300 MG PO SCH ×2 (08:52→21:04)
[2022-09-04] MEDS: PLAVIX PO SCH (08:52)
[2022-09-04] MEDS: COZAAR PO SCH (08:53)
[2022-09-04] MEDS: TOPAMAX TAB 100 MG PO SCH ×2 (08:53→21:03)
[2022-09-04] MEDS: PROTONIX TAB 40 MG PO SCH ×2 (08:53→21:04)
[2022-09-04] MEDS: COREG TAB 6.25 MG PO SCH ×2 (08:53→21:05)
[2022-09-04] MEDS: LIPITOR TAB 80 MG PO SCH (08:53)
[2022-09-04] MEDS: SYNTHROID 100 mcg TAB PO SCH (08:54)
[2022-09-04] MEDS: IMDUR PO SCH (08:54)
[2022-09-04] MEDS: LOVENOX INJ 40 MG SYR SC SCH (08:54)
[2022-09-04] MEDS: SINGULAIR TAB 10 MG PO SCH (08:54)
[2022-09-04] MEDS: FLOMAX PO SCH (08:54)
[2022-09-04] MEDS: CORTEF PO SCH ×2 (08:54→21:03)
[2022-09-04] MEDS ORDERED: LASIX PO SCH (09:00)
[2022-09-04] MEDS ORDERED: NS 1,000 ML IV 500 ML IV ONE (09:20)
[2022-09-04] MEDS: PERCOCET TAB 5/325 MG PO PRN (13:08)
[2022-09-05] MEDS: NS 1,000 ML IV 1,000 ML IV SCH ×4 (02:42→21:26)
[2022-09-05] MEDS: PROVENTIL NEB TX 0.083% 2.5MG/ 3ML NEB SCH ×3 (05:38→21:26)
[2022-09-05] MEDS: FLAGYL IV PREMIX 500 MG BAG 500 MG/100 ML BAG IV SCH ×3 (06:16→21:28)
[2022-09-05 06:19] LABS: BASOPHILS % (AUTO) 0.5 % (0.2-1.0); EOSINOPHILS # (AUTO) 0.4 x10^3/uL (0.0-0.2); EOSINOPHILS % (AUTO) 8.3 % (0.9-2.9); HEMATOCRIT 29.1 % (42.0-54.0); HEMOGLOBIN 9.6 g/dL (13.5-18.0); LYMPHOCYTES # (AUTO) 1.2 X10^3/uL (1.3-2.9); LYMPHOCYTES % (AUTO) 23.4 % (21.0-51.0); MEAN CORPUSCULAR HEMOGLOBIN 27.6 pg (27.0-34.0); MEAN CORPUSCULAR HGB CONC 32.8 g/dL (33.0-35.0); MEAN PLATELET VOLUME 8.9 fL (7.4-11.0); MONOCYTES # (AUTO) 0.4 x10^3/uL (0.3-0.8); MONOCYTES % (AUTO) 7.9 % (0.0-13.0); NEUTROPHILS % (AUTO) 59.9 % (42.0-75.0); PLATELET COUNT 136 X10^3/uL (150.0-450.0); RED BLOOD COUNT 3.47 X10^6/uL (4.7-6.0); RED CELL DISTRIBUTION WIDTH 15.4 % (11.6-16.5)
[2022-09-05 06:40] LABS: ALANINE AMINOTRANSFERASE 23 Units/L (12-78); ALBUMIN 2.9 g/dL (3.4-5.0); ALKALINE PHOSPHATASE 62 Units/L (46-116); ASPARTATE AMINO TRANSFERASE 18 Units/L (15-37); BLOOD UREA NITROGEN 23 mg/dL (7-18); CALCIUM 7.7 mg/dL (8.5-10.1); CARBON DIOXIDE 23.6 mmol/L (21-32); CHLORIDE 111 mmol/L (98-107); COR CA(FOR HYPOALB) 8.6 mg/dL (8.5-10.1); CREATININE 2.14 mg/dL (0.70-1.30); GLUCOSE 110 mg/dL (65-99); POTASSIUM 4.2 mmol/L (3.5-5.1); SODIUM 143 mmol/L (136-145); TOTAL PROTEIN 5.5 g/dL (6.4-8.2); eGFR NON BLACK RACES 32 (>60)
[2022-09-05] MEDS: PULMICORT NEB TX 0.5 MG NEB SCH ×2 (08:14→21:27)
[2022-09-05] MEDS ORDERED: LEXAPRO ONE (09:12)
[2022-09-05] MEDS ORDERED: CORTEF ONE ×2 (09:13→20:28)
[2022-09-05] MEDS: CIPRO IV 400 MG PREMIX* 400 MG/200 ML IV.SOLN. IV SCH ×2 (09:19→21:22)
[2022-09-05] MEDS: SYNTHROID 100 mcg TAB PO SCH (09:19)
[2022-09-05] MEDS: CORTEF PO SCH ×2 (09:19→21:23)
[2022-09-05] MEDS: NEURONTIN CAP 300 MG PO SCH ×2 (09:19→21:24)
[2022-09-05] MEDS: SINGULAIR TAB 10 MG PO SCH (09:19)
[2022-09-05] MEDS: COZAAR PO SCH (09:19)
[2022-09-05] MEDS: LOVENOX INJ 40 MG SYR SC SCH (09:19)
[2022-09-05] MEDS: MULTAQ PO SCH ×2 (09:19→21:24)
[2022-09-05] MEDS: TOPAMAX TAB 100 MG PO SCH ×2 (09:20→21:24)
[2022-09-05] MEDS: PROTONIX TAB 40 MG PO SCH ×2 (09:20→21:24)
[2022-09-05] MEDS: FLOMAX PO SCH (09:20)
[2022-09-05] MEDS: IMDUR PO SCH (09:20)
[2022-09-05] MEDS: LEXAPRO PO SCH (09:20)
[2022-09-05] MEDS: DALIRESP PO SCH (09:20)
[2022-09-05] MEDS: PLAVIX PO SCH (09:20)
[2022-09-05] MEDS: LINZESS PO SCH (09:20)
[2022-09-05] MEDS: LIPITOR TAB 80 MG PO SCH (09:20)
[2022-09-05] MEDS: COREG TAB 6.25 MG PO SCH ×2 (09:20→21:23)
[2022-09-05] MEDS: MORPHINE SULFATE INJ 2 MG INJ IVP PRN (09:35)
[2022-09-06] MEDS: FLAGYL IV PREMIX 500 MG BAG 500 MG/100 ML BAG IV SCH ×3 (05:38→21:17)
[2022-09-06 06:17] LABS: BASOPHILS % (AUTO) 0.7 % (0.2-1.0); EOSINOPHILS # (AUTO) 0.4 x10^3/uL (0.0-0.2); EOSINOPHILS % (AUTO) 8.8 % (0.9-2.9); HEMATOCRIT 28.2 % (42.0-54.0); HEMOGLOBIN 9.2 g/dL (13.5-18.0); LYMPHOCYTES # (AUTO) 1.1 X10^3/uL (1.3-2.9); LYMPHOCYTES % (AUTO) 25.1 % (21.0-51.0); MEAN CORPUSCULAR HEMOGLOBIN 27.7 pg (27.0-34.0); MEAN CORPUSCULAR HGB CONC 32.7 g/dL (33.0-35.0); MEAN CORPUSCULAR VOLUME 84.7 fL (80.0-100.0); MEAN PLATELET VOLUME 8.7 fL (7.4-11.0); MONOCYTES # (AUTO) 0.3 x10^3/uL (0.3-0.8); MONOCYTES % (AUTO) 7.7 % (0.0-13.0); NEUTROPHILS # (AUTO) 2.5 x10^3/uL (2.2-4.8); NEUTROPHILS % (AUTO) 57.7 % (42.0-75.0); PLATELET COUNT 120 X10^3/uL (150.0-450.0); RED BLOOD COUNT 3.33 X10^6/uL (4.7-6.0); RED CELL DISTRIBUTION WIDTH 15.6 % (11.6-16.5); WHITE BLOOD COUNT 4.4 X10^3/uL (3.6-10.0)
[2022-09-06] MEDS: PROVENTIL NEB TX 0.083% 2.5MG/ 3ML NEB SCH ×3 (06:17→21:00)
[2022-09-06 06:34] LABS: ALANINE AMINOTRANSFERASE 29 Units/L (12-78); ALBUMIN 2.8 g/dL (3.4-5.0); ALKALINE PHOSPHATASE 54 Units/L (46-116); ASPARTATE AMINO TRANSFERASE 25 Units/L (15-37); BLOOD UREA NITROGEN 14 mg/dL (7-18); CALCIUM 7.7 mg/dL (8.5-10.1); CARBON DIOXIDE 19.2 mmol/L (21-32); COR CA(FOR HYPOALB) 8.7 mg/dL (8.5-10.1); CREATININE 1.89 mg/dL (0.70-1.30); GLUCOSE 88 mg/dL (65-99); POTASSIUM 4.1 mmol/L (3.5-5.1); SODIUM 144 mmol/L (136-145); TOTAL PROTEIN 5.3 g/dL (6.4-8.2); eGFR NON BLACK RACES 37 (>60)
[2022-09-06 06:37] LABS: CHLORIDE 115 mmol/L (98-107)
[2022-09-06] MEDS ORDERED: LEXAPRO ONE (08:16)
[2022-09-06] MEDS ORDERED: CORTEF ONE ×2 (08:19→20:32)
[2022-09-06] MEDS: PULMICORT NEB TX 0.5 MG NEB SCH ×2 (08:20→21:00)
[2022-09-06] MEDS: NS 1,000 ML IV 1,000 ML IV SCH ×2 (09:48→21:18)
[2022-09-06] MEDS: ZOFRAN INJ 4 MG VIAL IVP PRN (09:49)
[2022-09-06] MEDS: LINZESS PO SCH (09:52)
[2022-09-06] MEDS: SYNTHROID 100 mcg TAB PO SCH (09:52)
[2022-09-06] MEDS: DALIRESP PO SCH (09:52)
[2022-09-06] MEDS: PROTONIX TAB 40 MG PO SCH ×2 (09:53→21:17)
[2022-09-06] MEDS: SINGULAIR TAB 10 MG PO SCH (09:53)
[2022-09-06] MEDS: TOPAMAX TAB 100 MG PO SCH ×2 (09:53→21:17)
[2022-09-06] MEDS: NEURONTIN CAP 300 MG PO SCH ×2 (09:53→21:17)
[2022-09-06] MEDS: LIPITOR TAB 80 MG PO SCH (09:53)
[2022-09-06] MEDS: LEXAPRO PO SCH (09:54)
[2022-09-06] MEDS: IMDUR PO SCH (09:54)
[2022-09-06] MEDS: LOVENOX INJ 40 MG SYR SC SCH (09:54)
[2022-09-06] MEDS: CORTEF PO SCH ×2 (09:58→21:16)
[2022-09-06] MEDS: FLOMAX PO SCH (09:59)
[2022-09-06] MEDS: PLAVIX PO SCH (10:00)
[2022-09-06] MEDS: PERCOCET TAB 5/325 MG PO PRN (10:00)
[2022-09-06] MEDS: MULTAQ PO SCH ×2 (10:00→21:17)
[2022-09-06] MEDS: CIPRO IV 400 MG PREMIX* 400 MG/200 ML IV.SOLN. IV SCH ×2 (10:07→21:13)
[2022-09-06] MEDS: COREG TAB 6.25 MG PO SCH ×2 (10:50→21:17)
[2022-09-06] MEDS: COZAAR PO SCH (10:55)
[2022-09-06] MEDS ORDERED: MAALOX or MYLANTA PO PRN (14:18)
[2022-09-06] MEDS: MORPHINE SULFATE INJ 2 MG INJ IVP PRN (14:46)
[2022-09-07] MEDS: PROVENTIL NEB TX 0.083% 2.5MG/ 3ML NEB SCH (05:45)
[2022-09-07] MEDS: FLAGYL IV PREMIX 500 MG BAG 500 MG/100 ML BAG IV SCH (05:46)
[2022-09-07] MEDS: NS 1,000 ML IV 1,000 ML IV SCH (05:53)
[2022-09-07 06:24] LABS: BASOPHILS % (AUTO) 0.7 % (0.2-1.0); EOSINOPHILS # (AUTO) 0.3 x10^3/uL (0.0-0.2); EOSINOPHILS % (AUTO) 7.6 % (0.9-2.9); HEMATOCRIT 27.3 % (42.0-54.0); LYMPHOCYTES # (AUTO) 0.9 X10^3/uL (1.3-2.9); LYMPHOCYTES % (AUTO) 20.8 % (21.0-51.0); MEAN CORPUSCULAR VOLUME 84.8 fL (80.0-100.0); MONOCYTES # (AUTO) 0.3 x10^3/uL (0.3-0.8); MONOCYTES % (AUTO) 7.1 % (0.0-13.0); NEUTROPHILS # (AUTO) 2.8 x10^3/uL (2.2-4.8); NEUTROPHILS % (AUTO) 63.8 % (42.0-75.0); PLATELET COUNT 112 X10^3/uL (150.0-450.0); RED BLOOD COUNT 3.22 X10^6/uL (4.7-6.0); RED CELL DISTRIBUTION WIDTH 15.7 % (11.6-16.5); WHITE BLOOD COUNT 4.4 X10^3/uL (3.6-10.0)
[2022-09-07 06:41] LABS: ALANINE AMINOTRANSFERASE 31 Units/L (12-78); ALBUMIN 2.8 g/dL (3.4-5.0); ALKALINE PHOSPHATASE 48 Units/L (46-116); ASPARTATE AMINO TRANSFERASE 25 Units/L (15-37); BLOOD UREA NITROGEN 9 mg/dL (7-18); CALCIUM 7.6 mg/dL (8.5-10.1); CARBON DIOXIDE 19.7 mmol/L (21-32); COR CA(FOR HYPOALB) 8.6 mg/dL (8.5-10.1); CREATININE 1.75 mg/dL (0.70-1.30); GLUCOSE 86 mg/dL (65-99); POTASSIUM 3.8 mmol/L (3.5-5.1); SODIUM 145 mmol/L (136-145); TOTAL PROTEIN 5.2 g/dL (6.4-8.2); eGFR NON BLACK RACES 41 (>60)
[2022-09-07 06:52] LABS: CHLORIDE 115 mmol/L (98-107)
[2022-09-07 07:48] VITALS: BP 118/57
[2022-09-07] MEDS ORDERED: LEXAPRO ONE (08:07)
[2022-09-07] MEDS ORDERED: CORTEF ONE (08:08)
[2022-09-07] MEDS: PULMICORT NEB TX 0.5 MG NEB SCH (08:24)
[2022-09-07] MEDS: MULTAQ PO SCH (08:35)
[2022-09-07] MEDS: LEXAPRO PO SCH (08:35)
[2022-09-07] MEDS: PROTONIX TAB 40 MG PO SCH (08:35)
[2022-09-07] MEDS: LOVENOX INJ 40 MG SYR SC SCH (08:35)
[2022-09-07] MEDS: NEURONTIN CAP 300 MG PO SCH (08:35)
[2022-09-07] MEDS: PLAVIX PO SCH (08:35)
[2022-09-07] MEDS: IMDUR PO SCH (08:35)
[2022-09-07] MEDS: COZAAR PO SCH (08:35)
[2022-09-07] MEDS: LINZESS PO SCH (08:35)
[2022-09-07] MEDS: PERCOCET TAB 5/325 MG PO PRN (08:36)
[2022-09-07] MEDS: DALIRESP PO SCH (08:36)
[2022-09-07] MEDS: CORTEF PO SCH (08:36)
[2022-09-07] MEDS: CIPRO IV 400 MG PREMIX* 400 MG/200 ML IV.SOLN. IV SCH (08:36)
[2022-09-07] MEDS: LIPITOR TAB 80 MG PO SCH (08:36)
[2022-09-07] MEDS: COREG TAB 6.25 MG PO SCH (08:36)
[2022-09-07] MEDS: FLOMAX PO SCH (08:36)
[2022-09-07] MEDS: SINGULAIR TAB 10 MG PO SCH (08:36)
[2022-09-07] MEDS: SYNTHROID 100 mcg TAB PO SCH (08:36)
[2022-09-07] MEDS: TOPAMAX TAB 100 MG PO SCH (08:41)
[2022-09-07] MEDS: ZOFRAN INJ 4 MG VIAL IVP PRN (08:51)
[2022-09-07] MEDS ORDERED: LASIX PO ONE (09:34)
[2022-09-07] MEDS: MORPHINE SULFATE INJ 2 MG INJ IVP PRN (09:48)
== END 2022-09-07 11:40 | disposition home or self-care (01) | DRG 392 ==
LOC: ER 21:26 → MED/SURG 09-02 02:50
PROVIDERS: ADMIT Family Medicine; ATTEND Obstetrics & Gynecology Obstetrics
DX: E86.0 Dehydration; K57.32 Diverticulitis of large intestine without perforation or abscess without bleeding; N18.9 Chronic kidney disease, unspecified; K21.9 Gastro-esophageal reflux disease without esophagitis; I12.9 Hypertensive chronic kidney disease with stage 1 through stage 4 chronic kidney disease, or unspecified chronic kidney disease; E11.65 Type 2 diabetes mellitus with hyperglycemia; R33.8 Other retention of urine; E03.8 Other specified hypothyroidism; N41.0 Acute prostatitis

== ENCOUNTER 2022-11-12 14:46 | Inpatient (IN) ==
--- NOTE | 2022-11-12 14:57 | DR.SOBA ---
HPI Time Seen Time Seen by Provider: 11/12/22 14:56 Complaints Chief Complaint Doctors Comments: 72 y/o male presents for evaluation. Feeling poorly x 3-4 days. Having cough, shortness of breath, diffuse abdominal pain. Has been cold, w/chills, despite hot temps outside. No known fever. Thinks he has had some nausea, vomiting. Moving bowels ok. No urinary difficulty. Reviewed Nurses Notes Reviewed: Yes Mode of Arrival Mode of Arrival: Wheelchair PMH PMH Past Medical History: Angina, Anxiety, Asthma, CHF, COPD, Depression, Diabetes, Dyslipidemia, GERD, Hypertension, Hypothyroidism, MA and Renal Disease Past Surgical History: Yes Surgical History: Angioplasty/Stents, Bowel Resection and Thyroidectomy Family History Family Medical History: Diabetes Mellitus, MA, Coronary Artery Disease and Hypertension Social History Do you use any recreational Drugs:: No ROS Review of Systems Constitutional: Chills and Weakness Eyes: No Symptoms Reported ENTM: No Symptoms Reported Respiratoy: Moist Cough and Short of Breath Cardiovascular: No Symptoms Reported Gastrointestinal/Abdominal: Abdominal Pain, Nausea and Vomiting Genitourinary: No Symptoms Reported Neurological: Weakness Musculoskeletal: No Symptoms Reported Integumentary: No Symptoms Reported Hematologic/Lymphatic: No Symptoms Reported All Other Systems: Reviewed and Negative PE Vital Signs Vitals: Vital Signs Temperature 98.7 F Pulse Rate 59 Pulse Rate 62 Pulse Rate 59 Pulse Rate 60 Pulse Rate 60 Pulse Rate 73 Pulse Rate 60 Pulse Rate 55 Pulse Rate 58 Pulse Rate 57 Pulse Rate 57 Pulse Rate 57 Pulse Rate 58 Pulse Rate 57 Pulse Rate 58 Pulse Rate 60 Pulse Rate 68 Pulse Rate 73 Pulse Rate 61 Pulse Rate 64 Pulse Rate 57 Pulse Rate 56 Pulse Rate 58 Respiratory Rate 21 Respiratory Rate 23 Respiratory Rate 25 Respiratory Rate 25 Respiratory Rate 24 Respiratory Rate 32 Respiratory Rate 24 Respiratory Rate 25 Respiratory Rate 25 Respiratory Rate 18 Respiratory Rate 25 Respiratory Rate 31 Respiratory Rate 27 Respiratory Rate 27 Respiratory Rate 27 Respiratory Rate 30 Respiratory Rate 33 Respiratory Rate 34 Respiratory Rate 34 Respiratory Rate 23 Respiratory Rate 18 Respiratory Rate 24 Respiratory Rate 23 Blood Pressure 149/65 Blood Pressure 144/65 Blood Pressure 135/60 Blood Pressure 155/70 Blood Pressure 161/70 Blood Pressure 142/64 Blood Pressure 157/70 Blood Pressure 208/81 Blood Pressure 185/78 Blood Pressure 170/71 O2 Sat by Pulse Oximetry 97 O2 Sat by Pulse Oximetry 95 O2 Sat by Pulse Oximetry 94 O2 Sat by Pulse Oximetry 94 O2 Sat by Pulse Oximetry 94 O2 Sat by Pulse Oximetry 94 O2 Sat by Pulse Oximetry 95 O2 Sat by Pulse Oximetry 94 O2 Sat by Pulse Oximetry 94 O2 Sat by Pulse Oximetry 97 O2 Sat by Pulse Oximetry 97 O2 Sat by Pulse Oximetry 97 O2 Sat by Pulse Oximetry 97 O2 Sat by Pulse Oximetry 99 O2 Sat by Pulse Oximetry 99 O2 Sat by Pulse Oximetry 99 O2 Sat by Pulse Oximetry 95 O2 Sat by Pulse Oximetry 95 O2 Sat by Pulse Oximetry 94 O2 Sat by Pulse Oximetry 99 O2 Sat by Pulse Oximetry 99 O2 Sat by Pulse Oximetry 97 General General Appearance: Alert and Other (appears weak) Eyes Eye exam: PERRL and EOMI ENT ENT Exam: Mucous Membranes Moist Neck Neck Exam: Normal Inspection and Full ROM Respiratory Respiratory Exam: Other (+ R basilar rales, rhonchi. ) Cardiovascular Cardiovascular Exam: Regular Rate, Normal Rhythm and Normal Heart Sounds Abdominal Exam Abdominal Exam: Normal Bowel Sounds, Soft and Tenderness (diffuse, all quadrants, no guarding or rebound. ) Extremities Extremities Exam: Edema (1-2+ bilateral lower exts) Neurologic Neurological Exam: Alert, Oriented X3 and CN II-XII Intact; negative Motor Sensory Deficit Skin Skin Exam: Warm and Dry COURSE Treatment Treatment: 72 y/o male, ill x 3-4 days. + short of breath, cough. + abdominal pain. W/u initiated. CXR - + cardiomegaly, + right sided increased markings, concerning for pneumonia. + degree of pulmonary vascular congestion. Pt given IV rocephin. BNP elevated at 1,350. Initial troponin negative. Pt doing better on O2, looks better after fluids. Discussed with Dr Masterson for possible admission for pneumonia/CHF. He would like repeat troponin to r/o underlying cardiac ischemia. Repeat troponin after few hours acceptable. Repeat troponin lower, will admit for exacerbation COPD, possible pneumonia. ROR Labs Reviewed Laboratory Results Reviewed?: Yes Result Diagrams: 11/17/22 05:04 11/17/22 05:04 Laboratory: 11/12/22 15:58 Blood Blood Culture - Preliminary 11/12/22 15:40 Blood Blood Culture - Preliminary WBC 5.7 X10^3/uL (3.6-10.0) 11/15/22 05:17 RBC 3.53 X10^6/uL (4.7-6.0) L 11/15/22 05:17 Hgb 9.4 g/dL (13.5-18.0) L 11/15/22 05:17 Hct 28.8 % (42.0-54.0) L 11/15/22 05:17 MCV 81.6 fL (80.0-100.0) 11/15/22 05:17 MCH 26.6 pg (27.0-34.0) L 11/15/22 05:17 MCHC 32.6 g/dL (33.0-35.0) L 11/15/22 05:17 RDW 15.2 % (11.6-16.5) 11/15/22 05:17 Plt Count 119 X10^3/uL (150.0-450.0) L 11/15/22 05:17 MPV 9.1 fL (7.4-11.0) 11/15/22 05:17 Neut % (Auto) 65.1 % (42.0-75.0) 11/15/22 05:17 Lymph % (Auto) 22.3 % (21.0-51.0) 11/15/22 05:17 [place] % (Auto) 8.9 % (0.0-13.0) 11/15/22 05:17 Eos % (Auto) 3.2 % (0.9-2.9) H 11/15/22 05:17 Baso % (Auto) 0.5 % (0.2-1.0) 11/15/22 05:17 Neut # (Auto) 3.7 x10^3/uL (2.2-4.8) 11/15/22 05:17 Lymph # (Auto) 1.3 X10^3/uL (1.3-2.9) 11/15/22 05:17 [place] # (Auto) 0.5 x10^3/uL (0.3-0.8) 11/15/22 05:17 Eos # (Auto) 0.2 x10^3/uL (0.0-0.2) 11/15/22 05:17 Baso # (Auto) 0.0 X10^3/uL (0.0-0.1) 11/15/22 05:17 Absolute Nucleated RBC 0.0 /100WBC 11/15/22 05:17 Sample Site Lbra 11/12/22 15:20 ABG pH 7.480 (7.35-7.45) H 11/12/22 15:20 ABG pCO2 34.0 mmHg (35.0-45.0) L 11/12/22 15:20 ABG pO2 60.0 mmHg (80.0-100.0) L 11/12/22 15:20 ABG HCO3 25.3 mmol/L (22-26) 11/12/22 15:20 ABG O2 Saturation 92.0 % (90-100) 11/12/22 15:20 ABG Base Excess 2.1 mmol/L (-2.0-2.0) H 11/12/22 15:20 Marcus Test N/a 11/12/22 15:20 A-a Gradient 47.0 mmHg 11/12/22 15:20 FiO2 21.0 11/12/22 15:20 Blood Gas Comments Pt remi well elj 11/12/22 15:20 Sodium 141 mmol/L (136-145) 11/15/22 05:17 Corrected Sodium 141 mmol/L (136-145) 11/15/22 05:17 Potassium 4.3 mmol/L (3.5-5.1) 11/15/22 05:17 Chloride 104 mmol/L (98-107) 11/15/22 05:17 Carbon Dioxide 29.8 mmol/L (21-32) 11/15/22 05:17 BUN 26 mg/dL (7-18) H 11/15/22 05:17 Creatinine 2.56 mg/dL (0.70-1.30) H 11/15/22 05:17 Est GFR (MDRD) Af Amer 32 (>60) L 11/15/22 05:17 Est GFR (MDRD) Non-Af 26 (>60) L 11/15/22 05:17 Glucose 116 mg/dL (65-99) H 11/15/22 05:17 POC Glucose (mg/dL) 118 mg/dL (65-99) H 11/15/22 05:12 Lactic Acid 1.7 mmol/L (0.4-2.0) 11/12/22 15:40 Calcium 7.6 mg/dL (8.5-10.1) L 11/15/22 05:17 Corrected Calcium 8.5 mg/dL (8.5-10.1) 11/15/22 05:17 Total Bilirubin 0.20 mg/dL (0.2-1.0) 11/15/22 05:17 AST 10 Units/L (15-37) L 11/15/22 05:17 ALT 15 Units/L (12-78) 11/15/22 05:17 Alkaline Phosphatase 52 Units/L (46-116) 11/15/22 05:17 Troponin I High Sens 50.4 ng/L (4.0-60.0) 11/12/22 19:15 B-Natriuretic Peptide 184 pg/mL (0-79) H 11/15/22 05:17 Total Protein 5.5 g/dL (6.4-8.2) L 11/15/22 05:17 Albumin 2.9 g/dL (3.4-5.0) L 11/15/22 05:17 Globulin 2.6 g/dL (2.5-4.5) 11/15/22 05:17 Albumin/Globulin Ratio 1.1 Ratio (1.1-2.1) 11/15/22 05:17 [id number] Cancelled 11/13/22 12:14 Specimen Type Random urine 11/12/22 16:03 Urine Color Straw (YELLOW) 11/12/22 16:03 Urine Appearance Clear (CLEAR) 11/12/22 16:03 Urine pH 6.5 (5.0 - 8.0) 11/12/22 16:03 Ur Specific [place] 1.010 (1.000-1.030) 11/12/22 16:03 Urine Protein Negative (NEGATIVE) 11/12/22 16:03 Urine Glucose (UA) Negative (NEGATIVE) 11/12/22 16:03 Urine Ketones Negative (NEGATIVE) 11/12/22 16:03 Urine Blood Negative (NEGATIVE) 11/12/22 16:03 Urine Nitrite Negative (NEGATIVE) 11/12/22 16:03 Urine Bilirubin Negative (NEGATIVE) 11/12/22 16:03 Urine Urobilinogen Normal (NORMAL) 11/12/22 16:03 Ur Leukocyte Esterase Negative (NEGATIVE) 11/12/22 16:03 Resp Viral Panel (PCR) See scanned report 11/12/22 22:40 Labs acceptable, except for elevated BNP - 1,350. XRAY X-ray Results: HISTORY DYSPNEA STUDY CHEST, 1 VIEW COMPARISON Chest x-ray 09/11/2022 FINDINGS The heart is normal in size. The pulmonary vascular is within normal limits. There are mild atherosclerotic calcifications aortic arch. There are ill-defined opacities and consolidations in the right middle lobe suggestive of pneumonia. No pneumothorax. No significant pleural effusion. No acute osseous abnormality. IMPRESSION Ill-defined opacities and consolidations in the right middle lobe, which may re present atelectasis and/or pneumonia. Consider CT chest for detailed evaluation of the lung parenchyma.. Electronically signed by: Zach Leslie (Nov 12, 2022 15:29:46) EKG Rate: 58 [place]: Normal Rhythm: SB ST: Nonsp Opioid Opioid Risk Tool Family Hx of Substance Abuse: Alcohol Age (Franki box if 16-45): No History of Preadolescent Sexual Abuse: No Psychological Disease: Depression Total: 0 Total Score Risk Category: Low Risk Copyright: Jarrett RUBIO predicting aberrant behaviors Discharge Plan Diagnosis Discharge Problem: CHF (congestive heart failure), Pneumonia Discharge Plan Patient Disposition: ADMITTED INPATIENT Condition: Stable
[2022-11-12 15:29] LABS: ABG BASE EXCESS 2.1 mmol/L (-2.0-2.0); ABG HCO3 25.3 mmol/L (22-26)
--- NOTE | 2022-11-12 15:30 | RAD ---
HISTORYDYSPNEASTUDYCHEST, 1 VIEWCOMPARISONChest x-ray 09/11/2022FINDINGSThe heart is normal in size. The pulmonary vascular is within normal limits. There are mild atherosclerotic calcifications aortic arch. There are ill-defined opacities and consolidations in the right middle lobe suggestive of pneumonia. No pneumothorax. No significant pleural effusion. No acute osseous abnormality.IMPRESSIONIll-defined opacities and consolidations in the right middle lobe, which may represent atelectasis and/or pneumonia. Consider CT chest for detailed evaluation of the lung parenchyma..Electronically signed by: Zach Leslie (Nov 12, 2022 15:29:46)
--- NOTE | 2022-11-12 15:53 | EKG ---
Test Reason : dyspnea Blood Pressure : */* mmHG Vent. Rate : 58 BPM Atrial Rate : 58 BPM P-R Int : 134 ms QRS Dur : 100 ms QT Int : 494 ms P-R-T Axes : 36 9 51 degrees QTc Int : 484 ms Sinus bradycardia Prolonged QT Abnormal ECG When compared with ECG of 01-OCT-2022 12:01, T wave inversion no longer evident in Inferior leads Confirmed by Martinez Chaudhry ([id number]) on 11/13/2022 8:52:22 PM Referred By: Confirmed By: Martinez Chaudhry
[2022-11-12] MEDS ORDERED: NS 500 ML IV 500 ML IV ONE ×2 (16:06→16:07)
[2022-11-12] MEDS ORDERED: ROCEPHIN VIAL 1 GRAM IV ONE (16:06)
[2022-11-12] MEDS ORDERED: ROCEPHIN VIAL 1 GRAM ONE (16:07)
[2022-11-12 16:16] LABS: BASOPHILS % (AUTO) 0.5 % (0.2-1.0); EOSINOPHILS # (AUTO) 0.1 x10^3/uL (0.0-0.2); EOSINOPHILS % (AUTO) 1.7 % (0.9-2.9); HEMATOCRIT 34.3 % (42.0-54.0); HEMOGLOBIN 11.2 g/dL (13.5-18.0); LYMPHOCYTES # (AUTO) 0.9 X10^3/uL (1.3-2.9); LYMPHOCYTES % (AUTO) 12.7 % (21.0-51.0); MEAN CORPUSCULAR HEMOGLOBIN 26.5 pg (27.0-34.0); MEAN CORPUSCULAR HGB CONC 32.5 g/dL (33.0-35.0); MEAN CORPUSCULAR VOLUME 81.3 fL (80.0-100.0); MONOCYTES # (AUTO) 0.5 x10^3/uL (0.3-0.8); MONOCYTES % (AUTO) 7.6 % (0.0-13.0); NEUTROPHILS # (AUTO) 5.3 x10^3/uL (2.2-4.8); NEUTROPHILS % (AUTO) 77.5 % (42.0-75.0); PLATELET COUNT 138 X10^3/uL (150.0-450.0); RED BLOOD COUNT 4.22 X10^6/uL (4.7-6.0); RED CELL DISTRIBUTION WIDTH 15.3 % (11.6-16.5); WHITE BLOOD COUNT 6.8 X10^3/uL (3.6-10.0)
[2022-11-12 16:17] LABS: BILIRUBIN,URINE NEGATIVE (NEGATIVE); BLOOD/HEMOGLOBIN,URINE NEGATIVE (NEGATIVE); GLUCOSE, URINE NEGATIVE (NEGATIVE); KETONES,URINE NEGATIVE (NEGATIVE); LEUKOCYTE ESTERASE ,URINE NEGATIVE (NEGATIVE); NITRITES,URINE NEGATIVE (NEGATIVE); PH,URINE 6.5 (5.0 - 8.0); PROTEIN,URINE NEGATIVE (NEGATIVE); UROBILINOGEN,URINE NORMAL (NORMAL)
[2022-11-12 16:29] LABS: APPEARANCE,URINE CLEAR (CLEAR); COLOR,URINE STRAW (YELLOW)
[2022-11-12 16:32] LABS: LACTIC ACID 1.7 mmol/L (0.4-2.0)
[2022-11-12] MEDS ORDERED: ZOFRAN INJ 4 MG VIAL IVP ONE (16:44)
[2022-11-12] MEDS ORDERED: MORPHINE SULFATE INJ 4 MG IVP ONE (16:44)
[2022-11-12] MEDS ORDERED: ZOFRAN INJ 4 MG VIAL ONE (16:45)
[2022-11-12] MEDS ORDERED: MORPHINE SULFATE INJ 4 MG ONE (16:45)
[2022-11-12 16:53] LABS: ALANINE AMINOTRANSFERASE 19 Units/L (12-78); ALBUMIN 3.8 g/dL (3.4-5.0); ALKALINE PHOSPHATASE 67 Units/L (46-116); ASPARTATE AMINO TRANSFERASE 10 Units/L (15-37); BLOOD UREA NITROGEN 19 mg/dL (7-18); CARBON DIOXIDE 29.7 mmol/L (21-32); CHLORIDE 106 mmol/L (98-107); CREATININE 1.75 mg/dL (0.70-1.30); GLUCOSE 82 mg/dL (65-99); POTASSIUM 3.7 mmol/L (3.5-5.1); SODIUM 144 mmol/L (136-145); TOTAL PROTEIN 6.7 g/dL (6.4-8.2); eGFR NON BLACK RACES 41 (>60)
[2022-11-12] MEDS ORDERED: VENTOLIN or PROAIR HFA IN PRN (22:04)
[2022-11-12] MEDS ORDERED: NEURONTIN TAB 600 MG PO SCH ×2 (22:04→22:30)
[2022-11-12] MEDS ORDERED: SALINE 3% 15 ML NEB TX ONE (22:14)
[2022-11-12] MEDS ORDERED: DUONEB 0.5 MG/3 MG (3 mL) NEB ONE (22:14)
[2022-11-12] MEDS ORDERED: SALINE 3% 15 ML NEB TX NEB ONE (22:15)
[2022-11-12] MEDS: DUONEB 0.5 MG/3 MG (3 mL) NEB SCH (22:19)
[2022-11-12] MEDS ORDERED: CORTEF ONE (22:37)
[2022-11-12] MEDS: SOLU-Medrol 40 MG VIAL IVP SCH (22:38)
[2022-11-12] MEDS: TOPAMAX TAB 100 MG PO SCH (22:39)
[2022-11-12] MEDS: ZOFRAN TAB 4 MG PO PRN (22:39)
[2022-11-12] MEDS: PERCOCET TAB 5/325 MG PO PRN (22:39)
[2022-11-12] MEDS: MULTAQ PO SCH (22:40)
[2022-11-12] MEDS: PROTONIX TAB 40 MG PO SCH (22:40)
[2022-11-12] MEDS: COREG TAB 6.25 MG PO SCH (22:40)
--- NOTE | 2022-11-12 23:23 | RAD ---
HISTORYABDOMINAL PAINSTUDYACUTE ABDOMEN SERIESCOMPARISONNone availableTECHNIQUEAP supine and upright abdominal radiographs with chest radiography, 3 images.FINDINGSGas and stool in non distended colon.Gas in multiple loops of mild to moderately distended small bowel.No gross free air.No abnormal calcifications.No acute osseous abnormality.Lungs are clear of focal airspace disease.Mild cardiomegaly.Mild diffuse increased interstitial markings.No pneumothorax.No pleural effusion.Skin folds overlying the lateral aspect of both lungs.IMPRESSION1. Findings could represent acute cardiogenic edema and/or chronic changes. No focal infiltrate.2. Gas in multiple loops of mild to moderately distended small bowel. Findings could represent a nonspecific enteritis, ileus or early mechanical obstruction.Electronically signed by: William Dorsey (Nov 12, 2022 23:17:18)
[2022-11-13 05:46] LABS: BASOPHILS % (AUTO) 0.3 % (0.2-1.0); EOSINOPHILS % (AUTO) 0.2 % (0.9-2.9); HEMATOCRIT 31.2 % (42.0-54.0); HEMOGLOBIN 10.4 g/dL (13.5-18.0); LYMPHOCYTES # (AUTO) 0.5 X10^3/uL (1.3-2.9); LYMPHOCYTES % (AUTO) 9.8 % (21.0-51.0); MEAN CORPUSCULAR HEMOGLOBIN 26.7 pg (27.0-34.0); MEAN CORPUSCULAR HGB CONC 33.1 g/dL (33.0-35.0); MEAN CORPUSCULAR VOLUME 80.5 fL (80.0-100.0); MEAN PLATELET VOLUME 9.4 fL (7.4-11.0); MONOCYTES # (AUTO) 0.1 x10^3/uL (0.3-0.8); MONOCYTES % (AUTO) 2.6 % (0.0-13.0); NEUTROPHILS # (AUTO) 4.4 x10^3/uL (2.2-4.8); NEUTROPHILS % (AUTO) 87.1 % (42.0-75.0); PLATELET COUNT 123 X10^3/uL (150.0-450.0); RED BLOOD COUNT 3.88 X10^6/uL (4.7-6.0); RED CELL DISTRIBUTION WIDTH 15.3 % (11.6-16.5); WHITE BLOOD COUNT 5.1 X10^3/uL (3.6-10.0)
[2022-11-13 06:03] LABS: ALBUMIN 3.2 g/dL (3.4-5.0); CALCIUM 8.5 mg/dL (8.5-10.1); CARBON DIOXIDE 27.7 mmol/L (21-32); COR CA(FOR HYPOALB) 9.1 mg/dL (8.5-10.1); CREATININE 1.93 mg/dL (0.70-1.30); POTASSIUM 4.4 mmol/L (3.5-5.1); TOTAL PROTEIN 6.1 g/dL (6.4-8.2)
[2022-11-13] MEDS: SOLU-Medrol 40 MG VIAL IVP SCH (06:28)
[2022-11-13] MEDS: PULMICORT NEB TX 0.5 MG NEB SCH ×2 (08:10→20:25)
[2022-11-13] MEDS: DUONEB 0.5 MG/3 MG (3 mL) NEB SCH ×4 (08:10→20:25)
[2022-11-13] MEDS ORDERED: LEXAPRO ONE (08:36)
[2022-11-13] MEDS: LIPITOR TAB 80 MG PO SCH (08:44)
[2022-11-13] MEDS: PROTONIX TAB 40 MG PO SCH ×2 (08:44→20:17)
[2022-11-13] MEDS: SINGULAIR TAB 10 MG PO SCH (08:44)
[2022-11-13] MEDS: MULTAQ PO SCH ×2 (08:44→20:17)
[2022-11-13] MEDS: FLOMAX PO SCH (08:44)
[2022-11-13] MEDS: NEURONTIN CAP 400 MG PO SCH ×2 (08:44→20:17)
[2022-11-13] MEDS: DALIRESP PO SCH (08:45)
[2022-11-13] MEDS: COREG TAB 6.25 MG PO SCH ×2 (08:45→20:18)
[2022-11-13] MEDS: TOPAMAX TAB 100 MG PO SCH ×2 (08:46→20:17)
[2022-11-13] MEDS: PLAVIX PO SCH (08:46)
[2022-11-13] MEDS: LEXAPRO PO SCH (08:46)
[2022-11-13] MEDS: IMDUR PO SCH (08:46)
[2022-11-13] MEDS ORDERED: COZAAR PO SCH (09:00)
[2022-11-13] MEDS ORDERED: LINZESS PO SCH (09:00)
[2022-11-13] MEDS ORDERED: PATIENT'S HOME MEDICATION (Fluticasone-Umeclidin-Vilanter [Trelegy Ellipta] 100-62.5-25 mc IN SCH (09:00)
[2022-11-13] MEDS ORDERED: LASIX IVP SCH (09:00)
[2022-11-13] MEDS: PERCOCET TAB 5/325 MG PO PRN ×3 (09:01→20:23)
[2022-11-13] MEDS ORDERED: ASTELIN NASAL SPRAY ENOSTRIL ONE (09:20)
[2022-11-13] MEDS: FLONASE NASAL SPRAY ENOSTRIL SCH (09:22)
[2022-11-13] MEDS: ASTELIN NASAL SPRAY ENOSTRIL SCH (09:22)
[2022-11-13] MEDS: SYNTHROID 100 mcg TAB PO SCH (09:30)
[2022-11-13] MEDS: ENTRESTO 24/26 MG TABLET PO SCH ×2 (09:30→20:17)
[2022-11-13] MEDS: CORTEF PO SCH ×3 (09:30→13:40)
[2022-11-13] MEDS: ROCEPHIN VIAL 1 GRAM 1 G in NS 100 ML IV 100 ML IV SCH (09:31)
[2022-11-13] MEDS: FARXIGA PO SCH (09:31)
[2022-11-13] MEDS: LASIX IVP SCH (09:31)
[2022-11-13] MEDS ORDERED: PATIENT'S HOME MEDICATION PO SCH (11:00)
[2022-11-13] MEDS ORDERED: CORTEF ONE (13:33)
[2022-11-13] MEDS: LOVENOX INJ 40 MG SYR SC SCH (13:44)
[2022-11-13] MEDS: ZOFRAN TAB 4 MG PO PRN (13:55)
[2022-11-13] MEDS: COLACE CAP 100 MG PO SCH (22:12)
[2022-11-14] MEDS ORDERED: OMNIPAQUE 350 mg/mL 100 mL BTL 100 ML ONE (04:08)
[2022-11-14] MEDS ORDERED: OMNIPAQUE 350 mg/mL 50 mL BTL 50 ML ONE (04:08)
[2022-11-14] MEDS: SYNTHROID 100 mcg TAB PO SCH (06:00)
[2022-11-14] MEDS: CORTEF PO SCH ×2 (06:01→12:22)
[2022-11-14 06:31] LABS: BASOPHILS % (AUTO) 0.5 % (0.2-1.0); EOSINOPHILS # (AUTO) 0.1 x10^3/uL (0.0-0.2); EOSINOPHILS % (AUTO) 1.8 % (0.9-2.9); HEMATOCRIT 28.4 % (42.0-54.0); HEMOGLOBIN 9.3 g/dL (13.5-18.0); LYMPHOCYTES # (AUTO) 1.1 X10^3/uL (1.3-2.9); LYMPHOCYTES % (AUTO) 22.6 % (21.0-51.0); MEAN CORPUSCULAR HEMOGLOBIN 26.8 pg (27.0-34.0); MEAN CORPUSCULAR HGB CONC 32.9 g/dL (33.0-35.0); MEAN CORPUSCULAR VOLUME 81.3 fL (80.0-100.0); MONOCYTES # (AUTO) 0.5 x10^3/uL (0.3-0.8); MONOCYTES % (AUTO) 9.6 % (0.0-13.0); NEUTROPHILS # (AUTO) 3.3 x10^3/uL (2.2-4.8); NEUTROPHILS % (AUTO) 65.5 % (42.0-75.0); PLATELET COUNT 118 X10^3/uL (150.0-450.0); RED BLOOD COUNT 3.49 X10^6/uL (4.7-6.0); RED CELL DISTRIBUTION WIDTH 15.4 % (11.6-16.5)
[2022-11-14 06:43] LABS: ALBUMIN 3.1 g/dL (3.4-5.0); CALCIUM 7.9 mg/dL (8.5-10.1); CARBON DIOXIDE 28.7 mmol/L (21-32); COR CA(FOR HYPOALB) 8.6 mg/dL (8.5-10.1); CREATININE 2.42 mg/dL (0.70-1.30); POTASSIUM 3.8 mmol/L (3.5-5.1); TOTAL PROTEIN 5.8 g/dL (6.4-8.2)
[2022-11-14] MEDS ORDERED: LEXAPRO ONE (07:43)
[2022-11-14] MEDS: PULMICORT NEB TX 0.5 MG NEB SCH ×2 (08:30→20:35)
[2022-11-14] MEDS: DUONEB 0.5 MG/3 MG (3 mL) NEB SCH ×4 (08:30→20:35)
[2022-11-14] MEDS: ROCEPHIN VIAL 1 GRAM 1 G in NS 100 ML IV 100 ML IV SCH (08:39)
[2022-11-14] MEDS: LOVENOX INJ 40 MG SYR SC SCH (08:39)
[2022-11-14] MEDS: DALIRESP PO SCH (08:40)
[2022-11-14] MEDS: IMDUR PO SCH (08:40)
[2022-11-14] MEDS: FLOMAX PO SCH (08:40)
[2022-11-14] MEDS: LEXAPRO PO SCH (08:40)
[2022-11-14] MEDS: MULTAQ PO SCH ×2 (08:40→20:59)
[2022-11-14] MEDS: PLAVIX PO SCH (08:40)
[2022-11-14] MEDS: LIPITOR TAB 80 MG PO SCH (08:41)
[2022-11-14] MEDS: FARXIGA PO SCH (08:41)
[2022-11-14] MEDS: COREG TAB 6.25 MG PO SCH ×2 (08:41→20:58)
[2022-11-14] MEDS: SINGULAIR TAB 10 MG PO SCH (08:41)
[2022-11-14] MEDS: NEURONTIN CAP 400 MG PO SCH ×2 (08:42→21:00)
[2022-11-14] MEDS: PROTONIX TAB 40 MG PO SCH ×2 (08:42→21:00)
[2022-11-14] MEDS: TOPAMAX TAB 100 MG PO SCH ×2 (08:42→21:00)
[2022-11-14] MEDS: ENTRESTO 24/26 MG TABLET PO SCH ×2 (08:42→21:00)
[2022-11-14] MEDS: PERCOCET TAB 5/325 MG PO PRN (08:42)
[2022-11-14] MEDS: LASIX IVP SCH (08:43)
--- NOTE | 2022-11-14 08:52 | RAD ---
HISTORYCHF VS. PNEUMONIA HX: CHF, ANGINA, [place], HTN, COPD, HIATAL HERNIA, DM SX: STENTS, COLON, HERNIASTUDYChest two viewsCOMPARISONChest one view from 11/12/2022.FINDINGSSupport devices: None.Heart/mediastinum: Stable.Lungs: Previously seen bibasilar and bilateral perihilar opacities have improved. No significant pleural effusion. No pneumothorax.Additional findings: None.IMPRESSIONImproved aeration of the lungs with residual nonspecific opacities possibly representing atelectasis or pneumonia.Electronically signed by: Tulio Francis (Nov 14, 2022 08:51:23)
[2022-11-14] MEDS: FLONASE NASAL SPRAY ENOSTRIL SCH (08:53)
[2022-11-14] MEDS: ASTELIN NASAL SPRAY ENOSTRIL SCH (08:53)
[2022-11-14] MEDS: LINZESS PO SCH (10:45)
[2022-11-14] MEDS ORDERED: NS 1/2 1,000 ML IV 1,000 ML IV ONE (12:01)
[2022-11-14] MEDS ORDERED: CORTEF ONE (12:01)
[2022-11-14] MEDS: NS 1/2 1,000 ML IV 1,000 ML IV SCH (12:21)
--- NOTE | 2022-11-14 17:55 | PCM.PROG ---
Progress Note Progress Note for Day of Date of Exam: 11/14/22 Subjective Subjective: This is a pleasant 72-year-old white male patient of Dr. Masterson. He was admitted a few days ago for CHF exacerbation. He has a history of diabetes mellitus type 2, chronic kidney disease, congestive heart failure, coronary artery disease and peripheral arterial disease. He reports no new problems this morning in he is wanting to go home. Yesterday I spoke with the radiologist who told me that MRAs of the extremities are not good test to see the extent of the patient's peripheral arterial disease and he recommended a CTA with runoff looking at his lower extremities. Called radiology and they reported that his glomerular filtration rate was high enough to do it. They did do it this morning however we do not have the report back at this time. Regarding his breathing is improved overall since admission we will continue his current treatment at this time. Patient's BUN and creatinine have gone up some since yesterday. I will go ahead and increase his IV fluids today but only at 75 cc an hour. Repeat a.m. labs including a CMP to recheck his kidney function. Past Medical Family Social History Allergies: Allergies No Known Drug Allergies Allergy (Verified 08/20/19 15:31) Review of Systems ROS: No change since H&P Vital Signs and I&O's Vital Signs: Vital Signs Temperature 97.7 F Temperature 97.9 F Pulse Rate [Apical] 56 Pulse Rate [Apical] 50 Respiratory Rate 18 Respiratory Rate 18 Blood Pressure [Right Arm] 92/50 Blood Pressure [Right Arm] 87/50 Blood Pressure [Right Arm] 97/55 O2 Sat by Pulse Oximetry 96 O2 Sat by Pulse Oximetry 96 Intake and Output: Intake & Output 11/12/22 11/13/22 11/14/22 11/15/22 11:59 11:59 11:59 11:59 Intake Total 156 / 156 1952 / 1951 1158 / 1158 Output Total 100 / 100 300 / 300 Balance 1652 / 165 1158 / 1158 Physical Exam Oriented: Normal Eyes: Normal Respiratory: Diminished Cardiovascular: Normal Tenderness: Normal Skin: Normal Psychiatric: Normal Mood Description: Calm Affect: Normal Speech Pattern: Clear and Appropriate Laboratory and Diagnostics Result Diagrams: 11/14/22 05:56 11/14/22 05:56 Labs: 11/12/22 15:58 Blood Blood Culture - Preliminary 11/12/22 15:40 Blood Blood Culture - Preliminary Laboratory WBC 5.0 X10^3/uL (3.6-10.0) 11/14/22 05:56 RBC 3.49 X10^6/uL (4.7-6.0) L 11/14/22 05:56 Hgb 9.3 g/dL (13.5-18.0) L 11/14/22 05:56 Hct 28.4 % (42.0-54.0) L 11/14/22 05:56 MCV 81.3 fL (80.0-100.0) 11/14/22 05:56 MCH 26.8 pg (27.0-34.0) L 11/14/22 05:56 MCHC 32.9 g/dL (33.0-35.0) L 11/14/22 05:56 RDW 15.4 % (11.6-16.5) 11/14/22 05:56 Plt Count 118 X10^3/uL (150.0-450.0) L 11/14/22 05:56 MPV 9.0 fL (7.4-11.0) 11/14/22 05:56 Neut % (Auto) 65.5 % (42.0-75.0) 11/14/22 05:56 Lymph % (Auto) 22.6 % (21.0-51.0) 11/14/22 05:56 [place] % (Auto) 9.6 % (0.0-13.0) 11/14/22 05:56 Eos % (Auto) 1.8 % (0.9-2.9) 11/14/22 05:56 Baso % (Auto) 0.5 % (0.2-1.0) 11/14/22 05:56 Neut # (Auto) 3.3 x10^3/uL (2.2-4.8) 11/14/22 05:56 Lymph # (Auto) 1.1 X10^3/uL (1.3-2.9) L 11/14/22 05:56 [place] # (Auto) 0.5 x10^3/uL (0.3-0.8) 11/14/22 05:56 Eos # (Auto) 0.1 x10^3/uL (0.0-0.2) 11/14/22 05:56 Baso # (Auto) 0.0 X10^3/uL (0.0-0.1) 11/14/22 05:56 Absolute Nucleated RBC 0.0 /100WBC 11/14/22 05:56 Sample Site Lbra 11/12/22 15:20 ABG pH 7.480 (7.35-7.45) H 11/12/22 15:20 ABG pCO2 34.0 mmHg (35.0-45.0) L 11/12/22 15:20 ABG pO2 60.0 mmHg (80.0-100.0) L 11/12/22 15:20 ABG HCO3 25.3 mmol/L (22-26) 11/12/22 15:20 ABG O2 Saturation 92.0 % (90-100) 11/12/22 15:20 ABG Base Excess 2.1 mmol/L (-2.0-2.0) H 11/12/22 15:20 Marcus Test N/a 11/12/22 15:20 A-a Gradient 47.0 mmHg 11/12/22 15:20 FiO2 21.0 11/12/22 15:20 Blood Gas Comments Pt remi well elj 11/12/22 15:20 Sodium 141 mmol/L (136-145) 11/14/22 05:56 Corrected Sodium 142 mmol/L (136-145) 11/14/22 05:56 Potassium 3.8 mmol/L (3.5-5.1) 11/14/22 05:56 Chloride 103 mmol/L (98-107) 11/14/22 05:56 Carbon Dioxide 28.7 mmol/L (21-32) 11/14/22 05:56 BUN 28 mg/dL (7-18) H 11/14/22 05:56 Creatinine 2.42 mg/dL (0.70-1.30) H 11/14/22 05:56 Est GFR (MDRD) Af Amer 34 (>60) L 11/14/22 05:56 Est GFR (MDRD) Non-Af 28 (>60) L 11/14/22 05:56 Glucose 121 mg/dL (65-99) H 11/14/22 05:56 POC Glucose (mg/dL) 116 mg/dL (65-99) H 11/14/22 16:43 Lactic Acid 1.7 mmol/L (0.4-2.0) 11/12/22 15:40 Calcium 7.9 mg/dL (8.5-10.1) L 11/14/22 05:56 Corrected Calcium 8.6 mg/dL (8.5-10.1) 11/14/22 05:56 Total Bilirubin 0.30 mg/dL (0.2-1.0) 11/14/22 05:56 AST 8 Units/L (15-37) L 11/14/22 05:56 ALT 13 Units/L (12-78) 11/14/22 05:56 Alkaline Phosphatase 51 Units/L (46-116) 11/14/22 05:56 Troponin I High Sens 50.4 ng/L (4.0-60.0) 11/12/22 19:15 B-Natriuretic Peptide 1350 pg/mL (0-79) H* 11/12/22 15:40 Total Protein 5.8 g/dL (6.4-8.2) L 11/14/22 05:56 Albumin 3.1 g/dL (3.4-5.0) L 11/14/22 05:56 Globulin 2.7 g/dL (2.5-4.5) 11/14/22 05:56 Albumin/Globulin Ratio 1.1 Ratio (1.1-2.1) 11/14/22 05:56 Osclj-0-[id number] Cancelled 11/13/22 12:14 Specimen Type Random urine 11/12/22 16:03 Urine Color Straw (YELLOW) 11/12/22 16:03 Urine Appearance Clear (CLEAR) 11/12/22 16:03 Urine pH 6.5 (5.0 - 8.0) 11/12/22 16:03 Ur Specific [place] 1.010 (1.000-1.030) 11/12/22 16:03 Urine Protein Negative (NEGATIVE) 11/12/22 16:03 Urine Glucose (UA) Negative (NEGATIVE) 11/12/22 16:03 Urine Ketones Negative (NEGATIVE) 11/12/22 16:03 Urine Blood Negative (NEGATIVE) 11/12/22 16:03 Urine Nitrite Negative (NEGATIVE) 11/12/22 16:03 Urine Bilirubin Negative (NEGATIVE) 11/12/22 16:03 Urine Urobilinogen Normal (NORMAL) 11/12/22 16:03 Ur Leukocyte Esterase Negative (NEGATIVE) 11/12/22 16:03 Radiology Reviewed: Yes Plan (1) CHF exacerbation: Status: Acute Plan: Diurese patient with IV Lasix. Monitor daily BMPs and chest x-rays. (2) Peripheral arterial disease: Status: Acute Narrative Support Text: Radiologist recommended against MRI of the extremities see reported that it would not be a good study and probably would not give any significant results. He is instead recommended CT angiogram. Plan: Follow-up with CT angiogram when up report is available. (3) Chronic kidney disease (CKD): Status: Acute Qualifiers: Chronic kidney disease stage: stage 3 (moderate) Qualified Code(s): N18.3 - Chronic kidney disease, stage 3 (moderate) Plan: We will give the patient slow IV hydration as his BUN and creatinine has elevated since yesterday. (4) COPD, severe: Status: Acute (5) Hypertension: Status: Chronic Qualifiers: Hypertension type: essential hypertension Qualified Code(s): I10 - Essential (primary) hypertension (6) GERD (gastroesophageal reflux disease): Status: Chronic Qualifiers: Esophagitis presence: esophagitis presence not specified Qualified Code(s): K21.9 - Gastro-esophageal reflux disease without esophagitis (7) Hyperlipidemia: Status: Chronic Qualifiers: Hyperlipidemia type: mixed hyperlipidemia Qualified Code(s): E78.2 - Mixed hyperlipidemia (8) Chronic atrial fibrillation: Status: Acute (9) Hypothyroid: Status: Chronic Qualifiers: Hypothyroidism type: acquired Qualified Code(s): E03.9 - Hypothyroidism, unspecified (10) CAD (coronary artery disease): Status: Chronic
[2022-11-14] MEDS ORDERED: PULMICORT NEB TX 0.5 MG NEB ONE (19:15)
--- NOTE | 2022-11-14 20:37 | CT ---
HISTORYCLAUDICATION IN LOWER EXTREMITIESSTUDYCTA AORTA WITH RUNOFFCOMPARISONTECHNIQUESpiral CT imaging was performed through the abdomen, pelvis, and bilateral lower extremities both before and after the intravenous administration of iodinated contrast. Axial, coronal, sagittal, and 3D images were generated. Dose reduction techniques including Automated Exposure Control (AEC) and adjustment of mA and kV were utilized.FINDINGSABDOMEN/PELVIS: The heart size is enlarged. There is atherosclerosis in the RCA and PDA there is mild basilar atelectasis. There is no pleural effusion. There is bronchial wall thickening. The liver is normal. There are multiple calcified gallstones and bladder wall thickening. The pancreas, spleen, adrenal glands are normal. The kidneys are normal in size and enhancement without stone or hydronephrosis. The stomach is normal. There is a midline ventral supraumbilical hernia which contains small bowel but does not cause any definite small-bowel obstruction. There is midline ventral diastasis of the rectus muscles which allows prolapse of the bowel and the bladder dome above the pubic bone. There is also a fat containing right inguinal hernia. The appendix is normal. There is diverticulosis in the sigmoid colon. There is some focal inflammation in the area of the sigmoid which may be diverticulitis. The urinary bladder is distended. The prostate gland measures 5.7 cm in diameter.ANGIO ABDOMEN: There is atherosclerosis in the abdominal aorta but no aneurysm or dissection. There is atherosclerosis at the origin of the celiac trunk SMA but no flow limiting stenosis. There is disease at the origin of the renal artery but no flow limiting stenosis. There appears to be high-grade stenosis at the origin of the NIKKY with poststenotic dilationRIGHT LEG: There is atherosclerosis in the right common, external iliac, and internal iliac but no flow limiting stenosis. There is soft plaque in the common femoral causing approximately 50 percent stenosis. There is mild plaque in the SFA and popliteal artery. There is calcification at the origin of the anterior tibial artery and there is calcification in the tibioperoneal trunk but no flow limiting stenosis. There is 3 vessel runoff to the foot.LEFT LEG: There is atherosclerosis in the common iliac, internal iliac, and external iliac but no flow limiting stenosis. There is mild plaque in the common femoral and in the superficial femoral and in the popliteal artery but no flow limiting stenosis. There is plaque in the tibioperoneal trunk and in the proximal anterior tibial and posterior tibial artery but no flow limiting stenosis. There is 3 vessel runoff to the foot.IMPRESSION1. Midline ventral supraumbilical hernia and suprapubic hernia.2. Fat containing right inguinal hernia.3. Diverticulosis of the sigmoid colon with questionable mild sigmoid diverticulitis.4. Prostate hypertrophy.5. Systemic atherosclerosis with a flow limiting stenosis at the origin of the NIKKY. No flow limiting stenosis seen in the lower extremities.Electronically signed by: Kyle Sales (Nov 14, 2022 20:36:20)
[2022-11-14] MEDS: COLACE CAP 100 MG PO SCH (20:59)
[2022-11-15] MEDS ORDERED: NS 1/2 1,000 ML IV 1,000 ML IV ONE ×2 (01:21→20:13)
[2022-11-15] MEDS: NS 1/2 1,000 ML IV 1,000 ML IV SCH ×3 (02:00→20:19)
[2022-11-15] MEDS ORDERED: CORTEF ONE ×2 (04:49→13:09)
[2022-11-15] MEDS: SYNTHROID 100 mcg TAB PO SCH (05:31)
[2022-11-15 06:12] LABS: BASOPHILS % (AUTO) 0.5 % (0.2-1.0); EOSINOPHILS # (AUTO) 0.2 x10^3/uL (0.0-0.2); EOSINOPHILS % (AUTO) 3.2 % (0.9-2.9); HEMATOCRIT 28.8 % (42.0-54.0); HEMOGLOBIN 9.4 g/dL (13.5-18.0); LYMPHOCYTES # (AUTO) 1.3 X10^3/uL (1.3-2.9); LYMPHOCYTES % (AUTO) 22.3 % (21.0-51.0); MEAN CORPUSCULAR HEMOGLOBIN 26.6 pg (27.0-34.0); MEAN CORPUSCULAR HGB CONC 32.6 g/dL (33.0-35.0); MEAN CORPUSCULAR VOLUME 81.6 fL (80.0-100.0); MEAN PLATELET VOLUME 9.1 fL (7.4-11.0); MONOCYTES # (AUTO) 0.5 x10^3/uL (0.3-0.8); MONOCYTES % (AUTO) 8.9 % (0.0-13.0); NEUTROPHILS # (AUTO) 3.7 x10^3/uL (2.2-4.8); NEUTROPHILS % (AUTO) 65.1 % (42.0-75.0); PLATELET COUNT 119 X10^3/uL (150.0-450.0); RED BLOOD COUNT 3.53 X10^6/uL (4.7-6.0); RED CELL DISTRIBUTION WIDTH 15.2 % (11.6-16.5); WHITE BLOOD COUNT 5.7 X10^3/uL (3.6-10.0)
[2022-11-15 06:29] LABS: ALBUMIN 2.9 g/dL (3.4-5.0); CALCIUM 7.6 mg/dL (8.5-10.1); CARBON DIOXIDE 29.8 mmol/L (21-32); COR CA(FOR HYPOALB) 8.5 mg/dL (8.5-10.1); CREATININE 2.56 mg/dL (0.70-1.30); POTASSIUM 4.3 mmol/L (3.5-5.1); TOTAL PROTEIN 5.5 g/dL (6.4-8.2)
[2022-11-15] MEDS: CORTEF PO SCH ×2 (06:39→13:11)
[2022-11-15] MEDS: PULMICORT NEB TX 0.5 MG NEB SCH ×2 (08:12→21:05)
[2022-11-15] MEDS: DUONEB 0.5 MG/3 MG (3 mL) NEB SCH ×4 (08:12→21:05)
[2022-11-15] MEDS ORDERED: LEXAPRO ONE (08:55)
[2022-11-15] MEDS ORDERED: LOVENOX INJ 30 MG SYR SC SCH (09:00)
[2022-11-15] MEDS: ROCEPHIN VIAL 1 GRAM 1 G in NS 100 ML IV 100 ML IV SCH (09:21)
[2022-11-15] MEDS: NEURONTIN CAP 400 MG PO SCH ×2 (09:22→20:17)
[2022-11-15] MEDS: MULTAQ PO SCH ×2 (09:22→20:18)
[2022-11-15] MEDS: DALIRESP PO SCH (09:22)
[2022-11-15] MEDS: PROTONIX TAB 40 MG PO SCH ×2 (09:22→20:17)
[2022-11-15] MEDS: PLAVIX PO SCH (09:22)
[2022-11-15] MEDS: FARXIGA PO SCH (09:22)
[2022-11-15] MEDS: LIPITOR TAB 80 MG PO SCH (09:22)
[2022-11-15] MEDS: FLOMAX PO SCH (09:22)
[2022-11-15] MEDS: ENTRESTO 24/26 MG TABLET PO SCH ×2 (09:22→20:17)
[2022-11-15] MEDS: LINZESS PO SCH (09:22)
[2022-11-15] MEDS: FLONASE NASAL SPRAY ENOSTRIL SCH (09:23)
[2022-11-15] MEDS: ZOFRAN TAB 4 MG PO PRN (09:23)
[2022-11-15] MEDS: LASIX IVP SCH (09:23)
[2022-11-15] MEDS: ASTELIN NASAL SPRAY ENOSTRIL SCH (09:23)
[2022-11-15] MEDS: LEXAPRO PO SCH (09:23)
[2022-11-15] MEDS: SINGULAIR TAB 10 MG PO SCH (09:23)
[2022-11-15] MEDS: IMDUR PO SCH (09:53)
[2022-11-15] MEDS: COREG TAB 6.25 MG PO SCH ×2 (09:53→21:00)
[2022-11-15] MEDS: TOPAMAX TAB 100 MG PO SCH ×2 (09:53→20:17)
[2022-11-15] MEDS: PERCOCET TAB 5/325 MG PO PRN ×2 (10:27→21:34)
--- NOTE | 2022-11-15 11:52 | RAD ---
CHEST, 1 VIEWHISTORY: CHF, COPDStudy: Single view of the chest.Comparison:11/14/2022Findings:Cardiomegaly. No change in the appearance of bilateral insterstitial and airspace opacities. Osseous structures demonstrate no acute abnormality.IMPRESSION:1. No change from prior.Electronically signed by: LOW BONILLA (Nov 15, 2022 11:50:46)
[2022-11-15] MEDS: MUCOMYST 20% 200 MG/ML NEB SCH ×2 (12:00→21:05)
[2022-11-15] MEDS: MUCINEX DM PO SCH ×2 (13:11→20:18)
--- NOTE | 2022-11-15 18:40 | PCM.PROG ---
Progress Note Progress Note for Day of Date of Exam: 11/15/22 Subjective Subjective: This is a pleasant 72-year-old white male patient of Dr. Masterson. He was admitted a few days ago for CHF exacerbation. He has a history of diabetes mellitus type 2, chronic kidney disease, congestive heart failure, coronary artery disease and peripheral arterial disease. Patient reports he feels worse today than he did yesterday. He has become more hypoxic and respiratory reports that he has increased chest congestion and recommended starting Mucomyst as well as guaifenesin. I also see that his creatinine has gone up some more since yesterday. However his BNP is 194 compared to 3 days ago in which it was 1350. He is receiving Lasix 40 mg IV daily. Past Medical Family Social History Allergies: Allergies No Known Drug Allergies Allergy (Verified 08/20/19 15:31) Review of Systems ROS: No change since H&P Vital Signs and I&O's Vital Signs: Vital Signs Temperature 98.4 F Temperature 97.4 F Pulse Rate [Apical] 64 Pulse Rate [Apical] 62 Respiratory Rate 20 Respiratory Rate 18 Blood Pressure [Right Arm] 95/53 Blood Pressure [Right Arm] 103/51 O2 Sat by Pulse Oximetry 98 O2 Sat by Pulse Oximetry 92 Intake and Output: Intake & Output 11/13/22 11/14/22 11/15/22 11/16/22 11:59 11:59 11:59 11:59 Intake Total 156 / 156 1951 / 1951 2636 / 2636 Output Total 100 / 100 300 / 300 Balance 56 / 56 1652 / 1651 Physical Exam Oriented: Normal Eyes: Normal Respiratory: Right, Left, Generalized, Diminished and Rhonchi Cardiovascular: Normal Tenderness: Normal Skin: Normal Psychiatric: Normal Mood Description: Calm Affect: Normal Speech Pattern: Clear and Appropriate Laboratory and Diagnostics Result Diagrams: 11/15/22 05:17 11/15/22 05:17 Labs: 11/12/22 15:58 Blood Blood Culture - Preliminary 11/12/22 15:40 Blood Blood Culture - Preliminary Laboratory WBC 5.7 X10^3/uL (3.6-10.0) 11/15/22 05:17 RBC 3.53 X10^6/uL (4.7-6.0) L 11/15/22 05:17 Hgb 9.4 g/dL (13.5-18.0) L 11/15/22 05:17 Hct 28.8 % (42.0-54.0) L 11/15/22 05:17 MCV 81.6 fL (80.0-100.0) 11/15/22 05:17 MCH 26.6 pg (27.0-34.0) L 11/15/22 05:17 MCHC 32.6 g/dL (33.0-35.0) L 11/15/22 05:17 RDW 15.2 % (11.6-16.5) 11/15/22 05:17 Plt Count 119 X10^3/uL (150.0-450.0) L 11/15/22 05:17 MPV 9.1 fL (7.4-11.0) 11/15/22 05:17 Neut % (Auto) 65.1 % (42.0-75.0) 11/15/22 05:17 Lymph % (Auto) 22.3 % (21.0-51.0) 11/15/22 05:17 [place] % (Auto) 8.9 % (0.0-13.0) 11/15/22 05:17 Eos % (Auto) 3.2 % (0.9-2.9) H 11/15/22 05:17 Baso % (Auto) 0.5 % (0.2-1.0) 11/15/22 05:17 Neut # (Auto) 3.7 x10^3/uL (2.2-4.8) 11/15/22 05:17 Lymph # (Auto) 1.3 X10^3/uL (1.3-2.9) 11/15/22 05:17 [place] # (Auto) 0.5 x10^3/uL (0.3-0.8) 11/15/22 05:17 Eos # (Auto) 0.2 x10^3/uL (0.0-0.2) 11/15/22 05:17 Baso # (Auto) 0.0 X10^3/uL (0.0-0.1) 11/15/22 05:17 Absolute Nucleated RBC 0.0 /100WBC 11/15/22 05:17 Sample Site Lbra 11/12/22 15:20 ABG pH 7.480 (7.35-7.45) H 11/12/22 15:20 ABG pCO2 34.0 mmHg (35.0-45.0) L 11/12/22 15:20 ABG pO2 60.0 mmHg (80.0-100.0) L 11/12/22 15:20 ABG HCO3 25.3 mmol/L (22-26) 11/12/22 15:20 ABG O2 Saturation 92.0 % (90-100) 11/12/22 15:20 ABG Base Excess 2.1 mmol/L (-2.0-2.0) H 11/12/22 15:20 Marcus Test N/a 11/12/22 15:20 A-a Gradient 47.0 mmHg 11/12/22 15:20 FiO2 21.0 11/12/22 15:20 Blood Gas Comments Pt remi well elj 11/12/22 15:20 Sodium 141 mmol/L (136-145) 11/15/22 05:17 Corrected Sodium 141 mmol/L (136-145) 11/15/22 05:17 Potassium 4.3 mmol/L (3.5-5.1) 11/15/22 05:17 Chloride 104 mmol/L (98-107) 11/15/22 05:17 Carbon Dioxide 29.8 mmol/L (21-32) 11/15/22 05:17 BUN 26 mg/dL (7-18) H 11/15/22 05:17 Creatinine 2.56 mg/dL (0.70-1.30) H 11/15/22 05:17 Est GFR (MDRD) Af Amer 32 (>60) L 11/15/22 05:17 Est GFR (MDRD) Non-Af 26 (>60) L 11/15/22 05:17 Glucose 116 mg/dL (65-99) H 11/15/22 05:17 POC Glucose (mg/dL) 115 mg/dL (65-99) H 11/15/22 16:25 Lactic Acid 1.7 mmol/L (0.4-2.0) 11/12/22 15:40 Calcium 7.6 mg/dL (8.5-10.1) L 11/15/22 05:17 Corrected Calcium 8.5 mg/dL (8.5-10.1) 11/15/22 05:17 Total Bilirubin 0.20 mg/dL (0.2-1.0) 11/15/22 05:17 AST 10 Units/L (15-37) L 11/15/22 05:17 ALT 15 Units/L (12-78) 11/15/22 05:17 Alkaline Phosphatase 52 Units/L (46-116) 11/15/22 05:17 Troponin I High Sens 50.4 ng/L (4.0-60.0) 11/12/22 19:15 B-Natriuretic Peptide 184 pg/mL (0-79) H 11/15/22 05:17 Total Protein 5.5 g/dL (6.4-8.2) L 11/15/22 05:17 Albumin 2.9 g/dL (3.4-5.0) L 11/15/22 05:17 Globulin 2.6 g/dL (2.5-4.5) 11/15/22 05:17 Albumin/Globulin Ratio 1.1 Ratio (1.1-2.1) 11/15/22 05:17 [id number] Cancelled 11/13/22 12:14 Specimen Type Random urine 11/12/22 16:03 Urine Color Straw (YELLOW) 11/12/22 16:03 Urine Appearance Clear (CLEAR) 11/12/22 16:03 Urine pH 6.5 (5.0 - 8.0) 11/12/22 16:03 Ur Specific [place] 1.010 (1.000-1.030) 11/12/22 16:03 Urine Protein Negative (NEGATIVE) 11/12/22 16:03 Urine Glucose (UA) Negative (NEGATIVE) 11/12/22 16:03 Urine Ketones Negative (NEGATIVE) 11/12/22 16:03 Urine Blood Negative (NEGATIVE) 11/12/22 16:03 Urine Nitrite Negative (NEGATIVE) 11/12/22 16:03 Urine Bilirubin Negative (NEGATIVE) 11/12/22 16:03 Urine Urobilinogen Normal (NORMAL) 11/12/22 16:03 Ur Leukocyte Esterase Negative (NEGATIVE) 11/12/22 16:03 Radiology Reviewed: Yes Plan (1) CHF exacerbation: Status: Acute Narrative Support Text: Patient CHF exacerbation is much improved overall. Plan: I will stop the patient's IV Lasix at this time. I will change him back to 40 mg p.o. every morning. (2) Peripheral arterial disease: Status: Acute Narrative Support Text: Patient has no significant peripheral arterial disease in the lower extremities. However he does have a high-grade stenotic area in the inferior mesenteric artery with post stenosis dilatation. (3) Chronic kidney disease (CKD): Status: Acute Qualifiers: Chronic kidney disease stage: stage 3 (moderate) Qualified Code(s): N18.3 - Chronic kidney disease, stage 3 (moderate) Plan: We will give the patient slow IV hydration as his BUN and creatinine has elevated since yesterday. I am discontinuing the patient's IV Lasix and will change him to Lasix 40 mg p.o. daily. (4) COPD, severe: Status: Acute Plan: Add Mucomyst nebs along with guaifenesin. Continue IV Rocephin and DuoNebs. (5) Hypertension: Status: Chronic Qualifiers: Hypertension type: essential hypertension Qualified Code(s): I10 - Essential (primary) hypertension (6) GERD (gastroesophageal reflux disease): Status: Chronic Qualifiers: Esophagitis presence: esophagitis presence not specified Qualified Code(s): K21.9 - Gastro-esophageal reflux disease without esophagitis (7) Hyperlipidemia: Status: Chronic Qualifiers: Hyperlipidemia type: mixed hyperlipidemia Qualified Code(s): E78.2 - Mixed hyperlipidemia (8) Chronic atrial fibrillation: Status: Acute (9) Hypothyroid: Status: Chronic Qualifiers: Hypothyroidism type: acquired Qualified Code(s): E03.9 - Hypothyroidism, unspecified (10) CAD (coronary artery disease): Status: Chronic
[2022-11-15] MEDS: COLACE CAP 100 MG PO SCH (20:18)
[2022-11-16] MEDS: NS 1/2 1,000 ML IV 1,000 ML IV SCH ×4 (03:03→17:10)
[2022-11-16] MEDS ORDERED: CORTEF ONE ×2 (05:01→12:53)
[2022-11-16] MEDS: SYNTHROID 100 mcg TAB PO SCH (05:50)
[2022-11-16 06:05] LABS: BASOPHILS % (AUTO) 0.5 % (0.2-1.0); EOSINOPHILS # (AUTO) 0.2 x10^3/uL (0.0-0.2); EOSINOPHILS % (AUTO) 3.8 % (0.9-2.9); HEMATOCRIT 27.5 % (42.0-54.0); HEMOGLOBIN 8.9 g/dL (13.5-18.0); LYMPHOCYTES # (AUTO) 1.3 X10^3/uL (1.3-2.9); LYMPHOCYTES % (AUTO) 29.8 % (21.0-51.0); MEAN CORPUSCULAR HEMOGLOBIN 26.5 pg (27.0-34.0); MEAN CORPUSCULAR HGB CONC 32.4 g/dL (33.0-35.0); MEAN CORPUSCULAR VOLUME 81.9 fL (80.0-100.0); MEAN PLATELET VOLUME 8.9 fL (7.4-11.0); MONOCYTES # (AUTO) 0.5 x10^3/uL (0.3-0.8); MONOCYTES % (AUTO) 11.2 % (0.0-13.0); NEUTROPHILS # (AUTO) 2.4 x10^3/uL (2.2-4.8); NEUTROPHILS % (AUTO) 54.7 % (42.0-75.0); PLATELET COUNT 112 X10^3/uL (150.0-450.0); RED BLOOD COUNT 3.35 X10^6/uL (4.7-6.0); RED CELL DISTRIBUTION WIDTH 15.7 % (11.6-16.5); WHITE BLOOD COUNT 4.3 X10^3/uL (3.6-10.0)
[2022-11-16 06:22] LABS: ALANINE AMINOTRANSFERASE 14 Units/L (12-78); ALBUMIN 2.7 g/dL (3.4-5.0); ALKALINE PHOSPHATASE 47 Units/L (46-116); ASPARTATE AMINO TRANSFERASE 9 Units/L (15-37); BLOOD UREA NITROGEN 24 mg/dL (7-18); CALCIUM 7.8 mg/dL (8.5-10.1); CARBON DIOXIDE 26.9 mmol/L (21-32); CHLORIDE 106 mmol/L (98-107); COR CA(FOR HYPOALB) 8.8 mg/dL (8.5-10.1); CREATININE 2.62 mg/dL (0.70-1.30); GLUCOSE 101 mg/dL (65-99); MAGNESIUM 1.9 mg/dL (2.0-2.9); POTASSIUM 4.4 mmol/L (3.5-5.1); SODIUM 141 mmol/L (136-145); TOTAL PROTEIN 5.4 g/dL (6.4-8.2); eGFR NON BLACK RACES 26 (>60)
[2022-11-16] MEDS: CORTEF PO SCH ×2 (06:49→13:05)
[2022-11-16] MEDS ORDERED: CONSULT PHARMACY - POTASSIUM & MAGNESIUM XX SCH (07:00)
[2022-11-16] MEDS ORDERED: LEXAPRO ONE (08:11)
[2022-11-16] MEDS: LIPITOR TAB 80 MG PO SCH (08:43)
[2022-11-16] MEDS: ROCEPHIN VIAL 1 GRAM 1 G in NS 100 ML IV 100 ML IV SCH (08:43)
[2022-11-16] MEDS: FARXIGA PO SCH (08:43)
[2022-11-16] MEDS: ENTRESTO 24/26 MG TABLET PO SCH ×2 (08:43→20:35)
[2022-11-16] MEDS: PROTONIX TAB 40 MG PO SCH ×2 (08:43→20:34)
[2022-11-16] MEDS: PLAVIX PO SCH (08:43)
[2022-11-16] MEDS: DALIRESP PO SCH (08:43)
[2022-11-16] MEDS: NEURONTIN CAP 400 MG PO SCH ×2 (08:43→20:35)
[2022-11-16] MEDS: IMDUR PO SCH (08:44)
[2022-11-16] MEDS: ASTELIN NASAL SPRAY ENOSTRIL SCH (08:44)
[2022-11-16] MEDS: MULTAQ PO SCH ×2 (08:44→20:19)
[2022-11-16] MEDS: FLOMAX PO SCH (08:44)
[2022-11-16] MEDS: COREG TAB 6.25 MG PO SCH ×2 (08:44→20:33)
[2022-11-16] MEDS: SINGULAIR TAB 10 MG PO SCH (08:44)
[2022-11-16] MEDS: LEXAPRO PO SCH (08:44)
[2022-11-16] MEDS: FLONASE NASAL SPRAY ENOSTRIL SCH (08:44)
[2022-11-16] MEDS: MUCINEX DM PO SCH ×2 (08:44→20:20)
[2022-11-16] MEDS: TOPAMAX TAB 100 MG PO SCH ×2 (08:44→20:34)
[2022-11-16] MEDS: PERCOCET TAB 5/325 MG PO PRN ×2 (08:53→20:22)
[2022-11-16] MEDS: LINZESS PO SCH (08:54)
[2022-11-16] MEDS: DUONEB 0.5 MG/3 MG (3 mL) NEB SCH ×4 (08:58→21:20)
[2022-11-16] MEDS: PULMICORT NEB TX 0.5 MG NEB SCH ×2 (08:58→21:20)
[2022-11-16] MEDS: MUCOMYST 20% 200 MG/ML NEB SCH ×2 (08:59→21:20)
[2022-11-16] MEDS: MAGNESIUM SULFATE 1 GRAM/100 mL PREMIX 1 G/100 ML BAG IV SCH ×2 (09:20→10:40)
[2022-11-16] MEDS ORDERED: NS 1/2 1,000 ML IV 1,000 ML IV ONE ×2 (13:39→23:07)
[2022-11-16] MEDS: COLACE CAP 100 MG PO SCH (20:33)
[2022-11-17] MEDS: NS 1/2 1,000 ML IV 1,000 ML IV SCH ×3 (01:14→23:06)
[2022-11-17] MEDS ORDERED: CORTEF ONE ×2 (03:54→12:03)
[2022-11-17 05:34] LABS: BASOPHILS % (AUTO) 0.7 % (0.2-1.0); EOSINOPHILS # (AUTO) 0.2 x10^3/uL (0.0-0.2); HEMATOCRIT 26.7 % (42.0-54.0); HEMOGLOBIN 8.7 g/dL (13.5-18.0); LYMPHOCYTES # (AUTO) 1.2 X10^3/uL (1.3-2.9); LYMPHOCYTES % (AUTO) 30.6 % (21.0-51.0); MEAN CORPUSCULAR HEMOGLOBIN 26.6 pg (27.0-34.0); MEAN CORPUSCULAR HGB CONC 32.6 g/dL (33.0-35.0); MEAN CORPUSCULAR VOLUME 81.6 fL (80.0-100.0); MEAN PLATELET VOLUME 8.9 fL (7.4-11.0); MONOCYTES # (AUTO) 0.4 x10^3/uL (0.3-0.8); MONOCYTES % (AUTO) 9.5 % (0.0-13.0); NEUTROPHILS # (AUTO) 2.1 x10^3/uL (2.2-4.8); NEUTROPHILS % (AUTO) 54.2 % (42.0-75.0); PLATELET COUNT 123 X10^3/uL (150.0-450.0); RED BLOOD COUNT 3.28 X10^6/uL (4.7-6.0); RED CELL DISTRIBUTION WIDTH 15.6 % (11.6-16.5); WHITE BLOOD COUNT 3.9 X10^3/uL (3.6-10.0)
[2022-11-17] MEDS: SYNTHROID 100 mcg TAB PO SCH (05:35)
[2022-11-17 05:54] LABS: ALANINE AMINOTRANSFERASE 17 Units/L (12-78); ALBUMIN 2.9 g/dL (3.4-5.0); ALKALINE PHOSPHATASE 57 Units/L (46-116); ASPARTATE AMINO TRANSFERASE 12 Units/L (15-37); BLOOD UREA NITROGEN 24 mg/dL (7-18); CALCIUM 8.2 mg/dL (8.5-10.1); CARBON DIOXIDE 27.7 mmol/L (21-32); CHLORIDE 109 mmol/L (98-107); COR CA(FOR HYPOALB) 9.1 mg/dL (8.5-10.1); CREATININE 2.58 mg/dL (0.70-1.30); GLUCOSE 109 mg/dL (65-99); POTASSIUM 4.9 mmol/L (3.5-5.1); SODIUM 143 mmol/L (136-145); TOTAL PROTEIN 5.5 g/dL (6.4-8.2); eGFR NON BLACK RACES 26 (>60)
[2022-11-17] MEDS: CORTEF PO SCH ×2 (06:51→12:05)
--- NOTE | 2022-11-17 08:17 | RAD ---
HISTORYPNEUMONIASTUDYCHEST, 1 [id number]/09/2023.TECHNIQUEPA or AP view of the chestFINDINGSCardiac and mediastinal contours are within normal limits. No significant change in bilateral airspace and interstitial opacities. Blunted costophrenic sulci. No pneumothorax.IMPRESSIONNo significant change compared to prior radiograph. Bilateral pneumonia. Recommend follow up imaging to document resolution after appropriate treatment.Blunted costophrenic sulci can be seen with small pleural effusions or pleuro-parynchemal scarring.Electronically signed by: Vernon Perry (Nov 17, 2022 08:15:39)
[2022-11-17] MEDS ORDERED: LEXAPRO ONE (08:30)
[2022-11-17] MEDS: SINGULAIR TAB 10 MG PO SCH (08:37)
[2022-11-17] MEDS: NEURONTIN CAP 400 MG PO SCH ×2 (08:37→21:07)
[2022-11-17] MEDS: MUCINEX DM PO SCH ×2 (08:37→21:08)
[2022-11-17] MEDS: TOPAMAX TAB 100 MG PO SCH ×2 (08:37→21:07)
[2022-11-17] MEDS: PROTONIX TAB 40 MG PO SCH ×2 (08:37→21:07)
[2022-11-17] MEDS: COREG TAB 6.25 MG PO SCH ×2 (08:38→21:08)
[2022-11-17] MEDS: LIPITOR TAB 80 MG PO SCH (08:38)
[2022-11-17] MEDS: MULTAQ PO SCH ×2 (08:38→21:07)
[2022-11-17] MEDS: DALIRESP PO SCH (08:38)
[2022-11-17] MEDS: PLAVIX PO SCH (08:38)
[2022-11-17] MEDS: FARXIGA PO SCH (08:38)
[2022-11-17] MEDS: FLOMAX PO SCH (08:39)
[2022-11-17] MEDS: LEXAPRO PO SCH (08:39)
[2022-11-17] MEDS: IMDUR PO SCH (08:39)
[2022-11-17] MEDS: ENTRESTO 24/26 MG TABLET PO SCH ×2 (08:39→21:07)
[2022-11-17] MEDS: ROCEPHIN VIAL 1 GRAM 1 G in NS 100 ML IV 100 ML IV SCH (08:39)
[2022-11-17] MEDS: FLONASE NASAL SPRAY ENOSTRIL SCH (08:40)
[2022-11-17] MEDS: ASTELIN NASAL SPRAY ENOSTRIL SCH (08:40)
[2022-11-17] MEDS: PERCOCET TAB 5/325 MG PO PRN ×2 (08:56→21:08)
[2022-11-17] MEDS: LINZESS PO SCH (08:57)
[2022-11-17] MEDS: MUCOMYST 20% 200 MG/ML NEB SCH ×2 (09:15→20:32)
[2022-11-17] MEDS: PULMICORT NEB TX 0.5 MG NEB SCH ×2 (09:15→20:33)
[2022-11-17] MEDS: DUONEB 0.5 MG/3 MG (3 mL) NEB SCH ×4 (09:15→20:32)
[2022-11-17] MEDS ORDERED: NS 1/2 1,000 ML IV 1,000 ML IV ONE ×2 (10:15→23:05)
--- NOTE | 2022-11-17 15:25 | PCM.PROG ---
Progress Note Progress Note for Day of Date of Exam: 11/16/22 Subjective Subjective: This is a pleasant 72-year-old white male patient of Dr. Masterson. He was admitted a few days ago for CHF exacerbation. He has a history of diabetes mellitus type 2, chronic kidney disease, congestive heart failure, coronary artery disease and peripheral arterial disease. Today he reports he feels better than he did the previous day. We had started him on Mucomyst and Mucinex. Seems to be helping the congestion break up in his chest. See that his hemoglobin has dropped slightly again. But his vital signs remained stable. Past Medical Family Social History Allergies: Allergies No Known Drug Allergies Allergy (Verified 08/20/19 15:31) Review of Systems ROS: No change since H&P Vital Signs and I&O's Vital Signs: Vital Signs Temperature 98.2 F Temperature 97.9 F Pulse Rate [Apical] 56 Pulse Rate [Apical] 61 Pulse Rate 98 Pulse Rate 60 Respiratory Rate 20 Respiratory Rate 20 Respiratory Rate 20 Respiratory Rate 20 Blood Pressure [Right Arm] 113/59 Blood Pressure [Right Arm] 117/55 O2 Sat by Pulse Oximetry 95 O2 Sat by Pulse Oximetry 95 O2 Sat by Pulse Oximetry 95 O2 Sat by Pulse Oximetry 95 Intake and Output: Intake & Output 11/15/22 11/16/22 11/17/22 11/18/22 11:59 11:59 11:59 11:59 Intake Total 2637 / 2637 2967 / 2967 3327 / 3327 600 / 600 Balance 2637 / 2637 2967 / 2967 3327 / 3327 600 / 600 Physical Exam Oriented: Normal Eyes: Normal Respiratory: Right, Left, Generalized, Diminished and Rhonchi Cardiovascular: Normal Tenderness: Normal Skin: Normal Psychiatric: Normal Mood Description: Calm Affect: Normal Speech Pattern: Clear and Appropriate Laboratory and Diagnostics Result Diagrams: 11/17/22 05:04 11/17/22 05:04 Labs: 11/12/22 15:58 Blood Blood Culture - Preliminary 11/12/22 15:40 Blood Blood Culture - Preliminary Laboratory WBC 3.9 X10^3/uL (3.6-10.0) 11/17/22 05:04 RBC 3.28 X10^6/uL (4.7-6.0) L 11/17/22 05:04 Hgb 8.7 g/dL (13.5-18.0) L 11/17/22 05:04 Hct 26.7 % (42.0-54.0) L 11/17/22 05:04 MCV 81.6 fL (80.0-100.0) 11/17/22 05:04 MCH 26.6 pg (27.0-34.0) L 11/17/22 05:04 MCHC 32.6 g/dL (33.0-35.0) L 11/17/22 05:04 RDW 15.6 % (11.6-16.5) 11/17/22 05:04 Plt Count 123 X10^3/uL (150.0-450.0) L 11/17/22 05:04 MPV 8.9 fL (7.4-11.0) 11/17/22 05:04 Neut % (Auto) 54.2 % (42.0-75.0) 11/17/22 05:04 Lymph % (Auto) 30.6 % (21.0-51.0) 11/17/22 05:04 [place] % (Auto) 9.5 % (0.0-13.0) 11/17/22 05:04 Eos % (Auto) 5.0 % (0.9-2.9) H 11/17/22 05:04 Baso % (Auto) 0.7 % (0.2-1.0) 11/17/22 05:04 Neut # (Auto) 2.1 x10^3/uL (2.2-4.8) L 11/17/22 05:04 Lymph # (Auto) 1.2 X10^3/uL (1.3-2.9) L 11/17/22 05:04 [place] # (Auto) 0.4 x10^3/uL (0.3-0.8) 11/17/22 05:04 Eos # (Auto) 0.2 x10^3/uL (0.0-0.2) 11/17/22 05:04 Baso # (Auto) 0.0 X10^3/uL (0.0-0.1) 11/17/22 05:04 Absolute Nucleated RBC 0.0 /100WBC 11/17/22 05:04 Sample Site Lbra 11/12/22 15:20 ABG pH 7.480 (7.35-7.45) H 11/12/22 15:20 ABG pCO2 34.0 mmHg (35.0-45.0) L 11/12/22 15:20 ABG pO2 60.0 mmHg (80.0-100.0) L 11/12/22 15:20 ABG HCO3 25.3 mmol/L (22-26) 11/12/22 15:20 ABG O2 Saturation 92.0 % (90-100) 11/12/22 15:20 ABG Base Excess 2.1 mmol/L (-2.0-2.0) H 11/12/22 15:20 Marcus Test N/a 11/12/22 15:20 A-a Gradient 47.0 mmHg 11/12/22 15:20 FiO2 21.0 11/12/22 15:20 Blood Gas Comments Pt remi well elj 11/12/22 15:20 Sodium 143 mmol/L (136-145) 11/17/22 05:04 Corrected Sodium TNP 11/17/22 05:04 Potassium 4.9 mmol/L (3.5-5.1) 11/17/22 05:04 Chloride 109 mmol/L (98-107) H 11/17/22 05:04 Carbon Dioxide 27.7 mmol/L (21-32) 11/17/22 05:04 BUN 24 mg/dL (7-18) H 11/17/22 05:04 Creatinine 2.58 mg/dL (0.70-1.30) H 11/17/22 05:04 Est GFR (MDRD) Af Amer 32 (>60) L 11/17/22 05:04 Est GFR (MDRD) Non-Af 26 (>60) L 11/17/22 05:04 Glucose 109 mg/dL (65-99) H 11/17/22 05:04 POC Glucose (mg/dL) 91 mg/dL (65-99) 11/17/22 11:14 Lactic Acid 1.7 mmol/L (0.4-2.0) 11/12/22 15:40 Calcium 8.2 mg/dL (8.5-10.1) L 11/17/22 05:04 Corrected Calcium 9.1 mg/dL (8.5-10.1) 11/17/22 05:04 Magnesium 1.9 mg/dL (2.0-2.9) L 11/16/22 05:19 Total Bilirubin 0.20 mg/dL (0.2-1.0) 11/17/22 05:04 AST 12 Units/L (15-37) L 11/17/22 05:04 ALT 17 Units/L (12-78) 11/17/22 05:04 Alkaline Phosphatase 57 Units/L (46-116) 11/17/22 05:04 Troponin I High Sens 50.4 ng/L (4.0-60.0) 11/12/22 19:15 B-Natriuretic Peptide 766 pg/mL (0-79) H* 11/17/22 05:04 Total Protein 5.5 g/dL (6.4-8.2) L 11/17/22 05:04 Albumin 2.9 g/dL (3.4-5.0) L 11/17/22 05:04 Globulin 2.6 g/dL (2.5-4.5) 11/17/22 05:04 Albumin/Globulin Ratio 1.1 Ratio (1.1-2.1) 11/17/22 05:04 [id number] Cancelled 11/13/22 12:14 Specimen Type Random urine 11/12/22 16:03 Urine Color Straw (YELLOW) 11/12/22 16:03 Urine Appearance Clear (CLEAR) 11/12/22 16:03 Urine pH 6.5 (5.0 - 8.0) 11/12/22 16:03 Ur Specific [place] 1.010 (1.000-1.030) 11/12/22 16:03 Urine Protein Negative (NEGATIVE) 11/12/22 16:03 Urine Glucose (UA) Negative (NEGATIVE) 11/12/22 16:03 Urine Ketones Negative (NEGATIVE) 11/12/22 16:03 Urine Blood Negative (NEGATIVE) 11/12/22 16:03 Urine Nitrite Negative (NEGATIVE) 11/12/22 16:03 Urine Bilirubin Negative (NEGATIVE) 11/12/22 16:03 Urine Urobilinogen Normal (NORMAL) 11/12/22 16:03 Ur Leukocyte Esterase Negative (NEGATIVE) 11/12/22 16:03 Resp Viral Panel (PCR) See scanned report 11/12/22 22:40 Plan (1) CHF exacerbation: Status: Acute Plan: I will stop the patient's IV Lasix at this time. I will change him back to 40 mg p.o. every morning. (2) Peripheral arterial disease: Status: Acute Plan: Follow-up with CT angiogram when up report is available. (3) Chronic kidney disease (CKD): Status: Acute Qualifiers: Chronic kidney disease stage: stage 3 (moderate) Qualified Code(s): N18.3 - Chronic kidney disease, stage 3 (moderate) Plan: We will give the patient slow IV hydration as his BUN and creatinine has elevated since yesterday. I am discontinuing the patient's IV Lasix and will change him to Lasix 40 mg p.o. daily. (4) COPD, severe: Status: Acute Plan: Add Mucomyst nebs along with guaifenesin. Continue IV Rocephin and DuoNebs. (5) Hypertension: Status: Chronic Qualifiers: Hypertension type: essential hypertension Qualified Code(s): I10 - Essential (primary) hypertension (6) GERD (gastroesophageal reflux disease): Status: Chronic Qualifiers: Esophagitis presence: esophagitis presence not specified Qualified Code(s): K21.9 - Gastro-esophageal reflux disease without esophagitis (7) Hyperlipidemia: Status: Chronic Qualifiers: Hyperlipidemia type: mixed hyperlipidemia Qualified Code(s): E78.2 - Mixed hyperlipidemia (8) Chronic atrial fibrillation: Status: Acute (9) Hypothyroid: Status: Chronic Qualifiers: Hypothyroidism type: acquired Qualified Code(s): E03.9 - Hypothyroidism, unspecified (10) CAD (coronary artery disease): Status: Chronic
--- NOTE | 2022-11-17 15:28 | PCM.PROG ---
Progress Note Progress Note for Day of Date of Exam: 11/17/22 Subjective Subjective: Patient reports he is feeling worse again this morning and feels more congested in his chest. Auscultation revealed he has diffuse rhonchi anteriorly and posteriorly. His hemoglobin dropped from 8.9-8.7 this morning. However his creatinine has finally gone down a small amount since yesterday. No significant change in his condition since yesterday. Past Medical Family Social History Allergies: Allergies No Known Drug Allergies Allergy (Verified 08/20/19 15:31) Review of Systems ROS: No change since H&P Vital Signs and I&O's Vital Signs: Vital Signs Temperature 98.2 F Temperature 97.9 F Pulse Rate [Apical] 56 Pulse Rate [Apical] 61 Pulse Rate 98 Pulse Rate 60 Respiratory Rate 20 Respiratory Rate 20 Respiratory Rate 20 Respiratory Rate 20 Blood Pressure [Right Arm] 113/59 Blood Pressure [Right Arm] 117/55 O2 Sat by Pulse Oximetry 95 O2 Sat by Pulse Oximetry 95 O2 Sat by Pulse Oximetry 95 O2 Sat by Pulse Oximetry 95 Intake and Output: Intake & Output 11/15/22 11/16/22 11/17/22 11/18/22 11:59 11:59 11:59 11:59 Intake Total 2637 / 2637 2967 / 2967 3327 / 3327 600 / 600 Balance 2637 / 2637 2967 / 2967 3327 / 3327 600 / 600 Physical Exam Oriented: Normal Eyes: Normal Respiratory: Right, Left, Generalized, Diminished and Rhonchi Cardiovascular: Normal Tenderness: Normal Skin: Normal Psychiatric: Normal Mood Description: Calm Affect: Normal Speech Pattern: Clear and Appropriate Laboratory and Diagnostics Result Diagrams: 11/17/22 05:04 11/17/22 05:04 Labs: 11/12/22 15:58 Blood Blood Culture - Preliminary 11/12/22 15:40 Blood Blood Culture - Preliminary Laboratory WBC 3.9 X10^3/uL (3.6-10.0) 11/17/22 05:04 RBC 3.28 X10^6/uL (4.7-6.0) L 11/17/22 05:04 Hgb 8.7 g/dL (13.5-18.0) L 11/17/22 05:04 Hct 26.7 % (42.0-54.0) L 11/17/22 05:04 MCV 81.6 fL (80.0-100.0) 11/17/22 05:04 MCH 26.6 pg (27.0-34.0) L 11/17/22 05:04 MCHC 32.6 g/dL (33.0-35.0) L 11/17/22 05:04 RDW 15.6 % (11.6-16.5) 11/17/22 05:04 Plt Count 123 X10^3/uL (150.0-450.0) L 11/17/22 05:04 MPV 8.9 fL (7.4-11.0) 11/17/22 05:04 Neut % (Auto) 54.2 % (42.0-75.0) 11/17/22 05:04 Lymph % (Auto) 30.6 % (21.0-51.0) 11/17/22 05:04 [place] % (Auto) 9.5 % (0.0-13.0) 11/17/22 05:04 Eos % (Auto) 5.0 % (0.9-2.9) H 11/17/22 05:04 Baso % (Auto) 0.7 % (0.2-1.0) 11/17/22 05:04 Neut # (Auto) 2.1 x10^3/uL (2.2-4.8) L 11/17/22 05:04 Lymph # (Auto) 1.2 X10^3/uL (1.3-2.9) L 11/17/22 05:04 [place] # (Auto) 0.4 x10^3/uL (0.3-0.8) 11/17/22 05:04 Eos # (Auto) 0.2 x10^3/uL (0.0-0.2) 11/17/22 05:04 Baso # (Auto) 0.0 X10^3/uL (0.0-0.1) 11/17/22 05:04 Absolute Nucleated RBC 0.0 /100WBC 11/17/22 05:04 Sample Site Lbra 11/12/22 15:20 ABG pH 7.480 (7.35-7.45) H 11/12/22 15:20 ABG pCO2 34.0 mmHg (35.0-45.0) L 11/12/22 15:20 ABG pO2 60.0 mmHg (80.0-100.0) L 11/12/22 15:20 ABG HCO3 25.3 mmol/L (22-26) 11/12/22 15:20 ABG O2 Saturation 92.0 % (90-100) 11/12/22 15:20 ABG Base Excess 2.1 mmol/L (-2.0-2.0) H 11/12/22 15:20 Marcus Test N/a 11/12/22 15:20 A-a Gradient 47.0 mmHg 11/12/22 15:20 FiO2 21.0 11/12/22 15:20 Blood Gas Comments Pt remi well elj 11/12/22 15:20 Sodium 143 mmol/L (136-145) 11/17/22 05:04 Corrected Sodium TNP 11/17/22 05:04 Potassium 4.9 mmol/L (3.5-5.1) 11/17/22 05:04 Chloride 109 mmol/L (98-107) H 11/17/22 05:04 Carbon Dioxide 27.7 mmol/L (21-32) 11/17/22 05:04 BUN 24 mg/dL (7-18) H 11/17/22 05:04 Creatinine 2.58 mg/dL (0.70-1.30) H 11/17/22 05:04 Est GFR (MDRD) Af Amer 32 (>60) L 11/17/22 05:04 Est GFR (MDRD) Non-Af 26 (>60) L 11/17/22 05:04 Glucose 109 mg/dL (65-99) H 11/17/22 05:04 POC Glucose (mg/dL) 91 mg/dL (65-99) 11/17/22 11:14 Lactic Acid 1.7 mmol/L (0.4-2.0) 11/12/22 15:40 Calcium 8.2 mg/dL (8.5-10.1) L 11/17/22 05:04 Corrected Calcium 9.1 mg/dL (8.5-10.1) 11/17/22 05:04 Magnesium 1.9 mg/dL (2.0-2.9) L 11/16/22 05:19 Total Bilirubin 0.20 mg/dL (0.2-1.0) 11/17/22 05:04 AST 12 Units/L (15-37) L 11/17/22 05:04 ALT 17 Units/L (12-78) 11/17/22 05:04 Alkaline Phosphatase 57 Units/L (46-116) 11/17/22 05:04 Troponin I High Sens 50.4 ng/L (4.0-60.0) 11/12/22 19:15 B-Natriuretic Peptide 766 pg/mL (0-79) H* 11/17/22 05:04 Total Protein 5.5 g/dL (6.4-8.2) L 11/17/22 05:04 Albumin 2.9 g/dL (3.4-5.0) L 11/17/22 05:04 Globulin 2.6 g/dL (2.5-4.5) 11/17/22 05:04 Albumin/Globulin Ratio 1.1 Ratio (1.1-2.1) 11/17/22 05:04 [id number] Cancelled 11/13/22 12:14 Specimen Type Random urine 11/12/22 16:03 Urine Color Straw (YELLOW) 11/12/22 16:03 Urine Appearance Clear (CLEAR) 11/12/22 16:03 Urine pH 6.5 (5.0 - 8.0) 11/12/22 16:03 Ur Specific [place] 1.010 (1.000-1.030) 11/12/22 16:03 Urine Protein Negative (NEGATIVE) 11/12/22 16:03 Urine Glucose (UA) Negative (NEGATIVE) 11/12/22 16:03 Urine Ketones Negative (NEGATIVE) 11/12/22 16:03 Urine Blood Negative (NEGATIVE) 11/12/22 16:03 Urine Nitrite Negative (NEGATIVE) 11/12/22 16:03 Urine Bilirubin Negative (NEGATIVE) 11/12/22 16:03 Urine Urobilinogen Normal (NORMAL) 11/12/22 16:03 Ur Leukocyte Esterase Negative (NEGATIVE) 11/12/22 16:03 Resp Viral Panel (PCR) See scanned report 11/12/22 22:40 Plan (1) CHF exacerbation: Status: Acute Plan: I will stop the patient's IV Lasix at this time. I will change him back to 40 mg p.o. every morning. (2) Peripheral arterial disease: Status: Acute Plan: Follow-up with CT angiogram when up report is available. (3) Chronic kidney disease (CKD): Status: Acute Qualifiers: Chronic kidney disease stage: stage 3 (moderate) Qualified Code(s): N18.3 - Chronic kidney disease, stage 3 (moderate) Plan: We will give the patient slow IV hydration as his BUN and creatinine has elevated since yesterday. I am discontinuing the patient's IV Lasix and will change him to Lasix 40 mg p.o. daily. (4) COPD, severe: Status: Acute Plan: Add Mucomyst nebs along with guaifenesin. Continue IV Rocephin and DuoNebs. I will add levofloxacin 500 mg IV daily. (5) Hypertension: Status: Chronic Qualifiers: Hypertension type: essential hypertension Qualified Code(s): I10 - Essential (primary) hypertension (6) GERD (gastroesophageal reflux disease): Status: Chronic Qualifiers: Esophagitis presence: esophagitis presence not specified Qualified Code(s): K21.9 - Gastro-esophageal reflux disease without esophagitis (7) Hyperlipidemia: Status: Chronic Qualifiers: Hyperlipidemia type: mixed hyperlipidemia Qualified Code(s): E78.2 - Mixed hyperlipidemia (8) Chronic atrial fibrillation: Status: Acute (9) Hypothyroid: Status: Chronic Qualifiers: Hypothyroidism type: acquired Qualified Code(s): E03.9 - Hypothyroidism, unspecified (10) CAD (coronary artery disease): Status: Chronic (11) Anemia: Status: Acute Plan: I will start the patient on Protonix 40 mg IV daily for GI protection and decrease in hemoglobin.
[2022-11-17] MEDS: LEVAQUIN PREMIX IV 500 MG 500 MG/100 ML BAG IV SCH (16:18)
[2022-11-17] MEDS: COLACE CAP 100 MG PO SCH (21:08)
[2022-11-17] MEDS: MAG-OX TAB PO SCH (21:08)
[2022-11-18] MEDS ORDERED: CORTEF ONE ×2 (04:57→11:19)
[2022-11-18 05:16] LABS: BASOPHILS % (AUTO) 0.4 % (0.2-1.0); EOSINOPHILS # (AUTO) 0.2 x10^3/uL (0.0-0.2); EOSINOPHILS % (AUTO) 4.6 % (0.9-2.9); HEMATOCRIT 27.2 % (42.0-54.0); HEMOGLOBIN 8.8 g/dL (13.5-18.0); LYMPHOCYTES % (AUTO) 20.9 % (21.0-51.0); MEAN CORPUSCULAR HEMOGLOBIN 26.7 pg (27.0-34.0); MEAN CORPUSCULAR HGB CONC 32.5 g/dL (33.0-35.0); MEAN CORPUSCULAR VOLUME 82.2 fL (80.0-100.0); MEAN PLATELET VOLUME 8.9 fL (7.4-11.0); MONOCYTES # (AUTO) 0.4 x10^3/uL (0.3-0.8); MONOCYTES % (AUTO) 8.5 % (0.0-13.0); NEUTROPHILS % (AUTO) 65.6 % (42.0-75.0); PLATELET COUNT 127 X10^3/uL (150.0-450.0); RED BLOOD COUNT 3.31 X10^6/uL (4.7-6.0); RED CELL DISTRIBUTION WIDTH 15.7 % (11.6-16.5); WHITE BLOOD COUNT 4.6 X10^3/uL (3.6-10.0)
[2022-11-18 05:29] LABS: ALANINE AMINOTRANSFERASE 21 Units/L (12-78); ALBUMIN 2.9 g/dL (3.4-5.0); ALKALINE PHOSPHATASE 60 Units/L (46-116); ASPARTATE AMINO TRANSFERASE 17 Units/L (15-37); BLOOD UREA NITROGEN 23 mg/dL (7-18); CALCIUM 8.2 mg/dL (8.5-10.1); CARBON DIOXIDE 23.9 mmol/L (21-32); CHLORIDE 110 mmol/L (98-107); COR CA(FOR HYPOALB) 9.1 mg/dL (8.5-10.1); CREATININE 2.25 mg/dL (0.70-1.30); GLUCOSE 89 mg/dL (65-99); MAGNESIUM 2.2 mg/dL (2.0-2.9); POTASSIUM 4.4 mmol/L (3.5-5.1); SODIUM 143 mmol/L (136-145); TOTAL PROTEIN 5.5 g/dL (6.4-8.2); eGFR NON BLACK RACES 31 (>60)
[2022-11-18] MEDS: SYNTHROID 100 mcg TAB PO SCH (05:30)
[2022-11-18] MEDS: CORTEF PO SCH ×2 (06:05→12:16)
[2022-11-18] MEDS ORDERED: LEXAPRO ONE (08:09)
[2022-11-18] MEDS: FARXIGA PO SCH (08:28)
[2022-11-18] MEDS: DALIRESP PO SCH (08:28)
[2022-11-18] MEDS: SINGULAIR TAB 10 MG PO SCH (08:28)
[2022-11-18] MEDS: MULTAQ PO SCH ×2 (08:29→21:05)
[2022-11-18] MEDS: LIPITOR TAB 80 MG PO SCH (08:29)
[2022-11-18] MEDS: FLOMAX PO SCH (08:29)
[2022-11-18] MEDS: MUCINEX DM PO SCH ×2 (08:29→21:08)
[2022-11-18] MEDS: IMDUR PO SCH (08:29)
[2022-11-18] MEDS: PROTONIX TAB 40 MG PO SCH ×2 (08:29→21:08)
[2022-11-18] MEDS: ENTRESTO 24/26 MG TABLET PO SCH ×2 (08:29→21:06)
[2022-11-18] MEDS: TOPAMAX TAB 100 MG PO SCH ×2 (08:29→21:08)
[2022-11-18] MEDS: COREG TAB 6.25 MG PO SCH ×2 (08:30→21:04)
[2022-11-18] MEDS: PLAVIX PO SCH (08:30)
[2022-11-18] MEDS: ROCEPHIN VIAL 1 GRAM 1 G in NS 100 ML IV 100 ML IV SCH (08:30)
[2022-11-18] MEDS: NEURONTIN CAP 400 MG PO SCH ×2 (08:30→21:07)
[2022-11-18] MEDS: LEXAPRO PO SCH (08:30)
[2022-11-18] MEDS ORDERED: LASIX IVP ONE (08:30)
[2022-11-18] MEDS: ASTELIN NASAL SPRAY ENOSTRIL SCH (08:31)
[2022-11-18] MEDS: FLONASE NASAL SPRAY ENOSTRIL SCH (08:31)
[2022-11-18] MEDS: PERCOCET TAB 5/325 MG PO PRN (08:54)
[2022-11-18] MEDS: ZOFRAN TAB 4 MG PO PRN (08:55)
[2022-11-18] MEDS: PULMICORT NEB TX 0.5 MG NEB SCH ×2 (09:00→21:43)
[2022-11-18] MEDS: DUONEB 0.5 MG/3 MG (3 mL) NEB SCH ×4 (09:00→21:43)
[2022-11-18] MEDS: LEVAQUIN PREMIX IV 500 MG 500 MG/100 ML BAG IV SCH (09:47)
[2022-11-18] MEDS: LINZESS PO SCH (09:47)
[2022-11-18] MEDS: NS 1/2 1,000 ML IV 1,000 ML IV SCH ×2 (12:24→17:45)
[2022-11-18] MEDS ORDERED: NS 1/2 1,000 ML IV 1,000 ML IV ONE (17:42)
[2022-11-18] MEDS: COLACE CAP 100 MG PO SCH (21:04)
[2022-11-18] MEDS: MAG-OX TAB PO SCH (21:06)
--- NOTE | 2022-11-18 21:35 | PCM.PROG ---
Progress Note Progress Note for Day of Date of Exam: 11/18/22 Subjective Subjective: Patient reports he is feeling a little bit better this morning. He still feels congested in his chest and he has diffuse anterior posterior rhonchi on exam this morning. Chest x-ray yesterday is still showing bilateral pneumonia and blunting of the costophrenic angles bilaterally. His BNP is elevated this morning at 1000 but we have been holding his Lasix over the last few days. We held because his BUN and creatinine which still trending up but fortunately his BUN and creatinine have trended down over the last 2 days. We will go ahead and give him 40 mg of Lasix IV x1 this morning. We have been using the smart vest on him daily for respiratory therapy to help break up the congestion he is having in his lungs and he is also been receiving Mucomyst nebs as well as p.o. Mucinex. He is currently receiving IV Rocephin and Levaquin for his respiratory infection. He remains satting in the low to mid 90s on 2 L nasal cannula. Past Medical Family Social History Allergies: Allergies No Known Drug Allergies Allergy (Verified 08/20/19 15:31) Review of Systems ROS: No change since H&P Vital Signs and I&O's Vital Signs: Vital Signs Temperature 98.0 F Temperature 98 F Pulse Rate [Apical] 63 Pulse Rate [Apical] 56 Respiratory Rate 20 Respiratory Rate 20 Blood Pressure [Right Arm] 96/55 Blood Pressure [Right Arm] 97/53 O2 Sat by Pulse Oximetry 93 O2 Sat by Pulse Oximetry 93 Intake and Output: Intake & Output 11/16/22 11/17/22 11/18/22 11/19/22 11:59 11:59 11:59 11:59 Intake Total 2967 / 2967 3327 / 3327 2661 / 2661 924 / 924 Balance 2967 / 2967 3327 / 3327 2661 / 2661 924 / 924 Physical Exam Oriented: Normal Eyes: Normal Respiratory: Right, Left, Generalized, Diminished and Rhonchi Cardiovascular: Normal Tenderness: Normal Skin: Normal Psychiatric: Normal Mood Description: Calm Affect: Normal Speech Pattern: Clear and Appropriate Laboratory and Diagnostics Result Diagrams: 11/18/22 04:50 11/18/22 04:50 Labs: 11/12/22 15:58 Blood Blood Culture - Final 11/12/22 15:40 Blood Blood Culture - Final Laboratory WBC 4.6 X10^3/uL (3.6-10.0) 11/18/22 04:50 RBC 3.31 X10^6/uL (4.7-6.0) L 11/18/22 04:50 Hgb 8.8 g/dL (13.5-18.0) L 11/18/22 04:50 Hct 27.2 % (42.0-54.0) L 11/18/22 04:50 MCV 82.2 fL (80.0-100.0) 11/18/22 04:50 MCH 26.7 pg (27.0-34.0) L 11/18/22 04:50 MCHC 32.5 g/dL (33.0-35.0) L 11/18/22 04:50 RDW 15.7 % (11.6-16.5) 11/18/22 04:50 Plt Count 127 X10^3/uL (150.0-450.0) L 11/18/22 04:50 MPV 8.9 fL (7.4-11.0) 11/18/22 04:50 Neut % (Auto) 65.6 % (42.0-75.0) 11/18/22 04:50 Lymph % (Auto) 20.9 % (21.0-51.0) L 11/18/22 04:50 [place] % (Auto) 8.5 % (0.0-13.0) 11/18/22 04:50 Eos % (Auto) 4.6 % (0.9-2.9) H 11/18/22 04:50 Baso % (Auto) 0.4 % (0.2-1.0) 11/18/22 04:50 Neut # (Auto) 3.0 x10^3/uL (2.2-4.8) 11/18/22 04:50 Lymph # (Auto) 1.0 X10^3/uL (1.3-2.9) L 11/18/22 04:50 [place] # (Auto) 0.4 x10^3/uL (0.3-0.8) 11/18/22 04:50 Eos # (Auto) 0.2 x10^3/uL (0.0-0.2) 11/18/22 04:50 Baso # (Auto) 0.0 X10^3/uL (0.0-0.1) 11/18/22 04:50 Absolute Nucleated RBC 0.3 /100WBC 11/18/22 04:50 Sample Site Lbra 11/12/22 15:20 ABG pH 7.480 (7.35-7.45) H 11/12/22 15:20 ABG pCO2 34.0 mmHg (35.0-45.0) L 11/12/22 15:20 ABG pO2 60.0 mmHg (80.0-100.0) L 11/12/22 15:20 ABG HCO3 25.3 mmol/L (22-26) 11/12/22 15:20 ABG O2 Saturation 92.0 % (90-100) 11/12/22 15:20 ABG Base Excess 2.1 mmol/L (-2.0-2.0) H 11/12/22 15:20 Marcus Test N/a 11/12/22 15:20 A-a Gradient 47.0 mmHg 11/12/22 15:20 FiO2 21.0 11/12/22 15:20 Blood Gas Comments Pt remi well elj 11/12/22 15:20 Sodium 143 mmol/L (136-145) 11/18/22 04:50 Corrected Sodium TNP 11/18/22 04:50 Potassium 4.4 mmol/L (3.5-5.1) 11/18/22 04:50 Chloride 110 mmol/L (98-107) H 11/18/22 04:50 Carbon Dioxide 23.9 mmol/L (21-32) 11/18/22 04:50 BUN 23 mg/dL (7-18) H 11/18/22 04:50 Creatinine 2.25 mg/dL (0.70-1.30) H 11/18/22 04:50 Est GFR (MDRD) Af Amer 37 (>60) L 11/18/22 04:50 Est GFR (MDRD) Non-Af 31 (>60) L 11/18/22 04:50 Glucose 89 mg/dL (65-99) 11/18/22 04:50 POC Glucose (mg/dL) 94 mg/dL (65-99) 11/18/22 17:21 Lactic Acid 1.7 mmol/L (0.4-2.0) 11/12/22 15:40 Calcium 8.2 mg/dL (8.5-10.1) L 11/18/22 04:50 Corrected Calcium 9.1 mg/dL (8.5-10.1) 11/18/22 04:50 Magnesium 2.2 mg/dL (2.0-2.9) 11/18/22 04:50 Total Bilirubin 0.20 mg/dL (0.2-1.0) 11/18/22 04:50 AST 17 Units/L (15-37) 11/18/22 04:50 ALT 21 Units/L (12-78) 11/18/22 04:50 Alkaline Phosphatase 60 Units/L (46-116) 11/18/22 04:50 Troponin I High Sens 50.4 ng/L (4.0-60.0) 11/12/22 19:15 B-Natriuretic Peptide 1000 pg/mL (0-79) H* 11/18/22 04:50 Total Protein 5.5 g/dL (6.4-8.2) L 11/18/22 04:50 Albumin 2.9 g/dL (3.4-5.0) L 11/18/22 04:50 Globulin 2.6 g/dL (2.5-4.5) 11/18/22 04:50 Albumin/Globulin Ratio 1.1 Ratio (1.1-2.1) 11/18/22 04:50 [id number] Cancelled 11/13/22 12:14 Specimen Type Random urine 11/12/22 16:03 Urine Color Straw (YELLOW) 11/12/22 16:03 Urine Appearance Clear (CLEAR) 11/12/22 16:03 Urine pH 6.5 (5.0 - 8.0) 11/12/22 16:03 Ur Specific [place] 1.010 (1.000-1.030) 11/12/22 16:03 Urine Protein Negative (NEGATIVE) 11/12/22 16:03 Urine Glucose (UA) Negative (NEGATIVE) 11/12/22 16:03 Urine Ketones Negative (NEGATIVE) 11/12/22 16:03 Urine Blood Negative (NEGATIVE) 11/12/22 16:03 Urine Nitrite Negative (NEGATIVE) 11/12/22 16:03 Urine Bilirubin Negative (NEGATIVE) 11/12/22 16:03 Urine Urobilinogen Normal (NORMAL) 11/12/22 16:03 Ur Leukocyte Esterase Negative (NEGATIVE) 11/12/22 16:03 Resp Viral Panel (PCR) See scanned report 11/12/22 22:40 Radiology Reviewed: Yes Plan (1) CHF exacerbation: Status: Acute Plan: Elevated BNP this morning at 1000. Patient will receive Lasix 40 mg IV x1 today. Recheck BNP tomorrow morning. I will also repeat a chest x-ray on the patient tomorrow as well. (2) Peripheral arterial disease: Status: Acute Narrative Support Text: CT scan showed no significant peripheral arterial disease in his lower extremities. (3) Chronic kidney disease (CKD): Status: Acute Qualifiers: Chronic kidney disease stage: stage 3 (moderate) Qualified Code(s): N18.3 - Chronic kidney disease, stage 3 (moderate) Narrative Support Text: Creatinine levels continue to trend down. Plan: Continue IV hydration with one half normal saline at 75 cc an hour. I am going to give him 1 dose of Lasix 40 mg IV x1 this morning since his BNP is become elevated at 1000. (4) COPD, severe: Status: Acute Plan: Added Mucomyst nebs along with guaifenesin. Continue IV Rocephin, IV levofloxacin and DuoNebs. (5) Hypertension: Status: Chronic Qualifiers: Hypertension type: essential hypertension Qualified Code(s): I10 - Essential (primary) hypertension Plan: Monitor daily blood pressures. (6) GERD (gastroesophageal reflux disease): Status: Chronic Qualifiers: Esophagitis presence: esophagitis presence not specified Qualified Code(s): K21.9 - Gastro-esophageal reflux disease without esophagitis Plan: Protonix IV. (7) Hyperlipidemia: Status: Chronic Qualifiers: Hyperlipidemia type: mixed hyperlipidemia Qualified Code(s): E78.2 - Mixed hyperlipidemia (8) Chronic atrial fibrillation: Status: Acute (9) Hypothyroid: Status: Chronic Qualifiers: Hypothyroidism type: acquired Qualified Code(s): E03.9 - Hypothyroidism, unspecified (10) CAD (coronary artery disease): Status: Chronic (11) Anemia: Status: Acute Plan: I will start the patient on Protonix 40 mg IV daily for GI protection and decrease in hemoglobin.
[2022-11-19] MEDS ORDERED: NS 1/2 1,000 ML IV 1,000 ML IV ONE ×2 (04:12→20:57)
[2022-11-19] MEDS ORDERED: CORTEF ONE ×2 (05:05→12:51)
[2022-11-19] MEDS: NS 1/2 1,000 ML IV 1,000 ML IV SCH ×3 (05:39→21:07)
[2022-11-19] MEDS: SYNTHROID 100 mcg TAB PO SCH (05:41)
[2022-11-19 06:00] LABS: BASOPHILS % (AUTO) 0.7 % (0.2-1.0); EOSINOPHILS # (AUTO) 0.2 x10^3/uL (0.0-0.2); EOSINOPHILS % (AUTO) 4.6 % (0.9-2.9); HEMATOCRIT 27.6 % (42.0-54.0); HEMOGLOBIN 8.9 g/dL (13.5-18.0); LYMPHOCYTES # (AUTO) 1.1 X10^3/uL (1.3-2.9); LYMPHOCYTES % (AUTO) 23.2 % (21.0-51.0); MEAN CORPUSCULAR HEMOGLOBIN 26.6 pg (27.0-34.0); MEAN CORPUSCULAR HGB CONC 32.4 g/dL (33.0-35.0); MEAN CORPUSCULAR VOLUME 82.1 fL (80.0-100.0); MEAN PLATELET VOLUME 9.1 fL (7.4-11.0); MONOCYTES # (AUTO) 0.4 x10^3/uL (0.3-0.8); MONOCYTES % (AUTO) 9.6 % (0.0-13.0); NEUTROPHILS # (AUTO) 2.9 x10^3/uL (2.2-4.8); NEUTROPHILS % (AUTO) 61.9 % (42.0-75.0); PLATELET COUNT 135 X10^3/uL (150.0-450.0); RED BLOOD COUNT 3.36 X10^6/uL (4.7-6.0); RED CELL DISTRIBUTION WIDTH 15.9 % (11.6-16.5); WHITE BLOOD COUNT 4.7 X10^3/uL (3.6-10.0)
[2022-11-19] MEDS: CORTEF PO SCH ×2 (06:00→12:51)
[2022-11-19 06:29] LABS: ALANINE AMINOTRANSFERASE 19 Units/L (12-78); ALBUMIN 2.8 g/dL (3.4-5.0); ALKALINE PHOSPHATASE 60 Units/L (46-116); ASPARTATE AMINO TRANSFERASE 11 Units/L (15-37); BLOOD UREA NITROGEN 22 mg/dL (7-18); CALCIUM 8.3 mg/dL (8.5-10.1); CARBON DIOXIDE 23.2 mmol/L (21-32); CHLORIDE 110 mmol/L (98-107); COR CA(FOR HYPOALB) 9.3 mg/dL (8.5-10.1); GLUCOSE 92 mg/dL (65-99); POTASSIUM 4.2 mmol/L (3.5-5.1); SODIUM 144 mmol/L (136-145); TOTAL PROTEIN 5.5 g/dL (6.4-8.2); eGFR NON BLACK RACES 28 (>60)
--- NOTE | 2022-11-19 07:38 | RAD ---
HISTORYCHF, PNEUMONIASTUDYCHEST, 1 [id number].TECHNIQUEPA or AP view of the chestFINDINGSCardiac and mediastinal contours are within normal limits. Background of COPD. Similar appearing basilar predominant airspace and interstitial opacities. Blunted bilateral costophrenic sulci. No pneumothorax.IMPRESSIONNo significant change compared to prior radiograph.Electronically signed by: Vernon Perry (Nov 19, 2022 07:36:17)
[2022-11-19] MEDS: DUONEB 0.5 MG/3 MG (3 mL) NEB SCH ×4 (08:30→21:55)
[2022-11-19] MEDS: PULMICORT NEB TX 0.5 MG NEB SCH ×2 (08:30→21:55)
[2022-11-19] MEDS ORDERED: LEXAPRO ONE (08:32)
[2022-11-19] MEDS: LEXAPRO PO SCH (08:40)
[2022-11-19] MEDS: FARXIGA PO SCH (08:40)
[2022-11-19] MEDS: TOPAMAX TAB 100 MG PO SCH ×2 (08:40→21:05)
[2022-11-19] MEDS: SINGULAIR TAB 10 MG PO SCH (08:41)
[2022-11-19] MEDS: FLONASE NASAL SPRAY ENOSTRIL SCH (08:41)
[2022-11-19] MEDS: PLAVIX PO SCH (08:41)
[2022-11-19] MEDS: IMDUR PO SCH (08:41)
[2022-11-19] MEDS: ASTELIN NASAL SPRAY ENOSTRIL SCH (08:41)
[2022-11-19] MEDS: NEURONTIN CAP 400 MG PO SCH ×2 (08:42→21:05)
[2022-11-19] MEDS: MUCINEX DM PO SCH ×2 (08:42→21:06)
[2022-11-19] MEDS: MULTAQ PO SCH ×2 (08:43→21:05)
[2022-11-19] MEDS: DALIRESP PO SCH (08:43)
[2022-11-19] MEDS: PROTONIX TAB 40 MG PO SCH ×2 (08:43→21:05)
[2022-11-19] MEDS: ROCEPHIN VIAL 1 GRAM 1 G in NS 100 ML IV 100 ML IV SCH (08:43)
[2022-11-19] MEDS: FLOMAX PO SCH (08:43)
[2022-11-19] MEDS: LIPITOR TAB 80 MG PO SCH (08:43)
[2022-11-19] MEDS: COREG TAB 6.25 MG PO SCH ×2 (08:43→21:05)
[2022-11-19] MEDS: ENTRESTO 24/26 MG TABLET PO SCH ×2 (08:43→21:05)
[2022-11-19] MEDS: MEGACE PO SCH ×2 (09:07→21:05)
[2022-11-19] MEDS: LINZESS PO SCH (09:48)
[2022-11-19] MEDS: LEVAQUIN PREMIX IV 750 MG 750 MG/150 ML BAG IV SCH (09:49)
[2022-11-19 15:41] LABS: A1A-PHEN M1M1; ALPHA-1-ANTITRYPSIN 172 mg/dL (90-200)
[2022-11-19] MEDS: COLACE CAP 100 MG PO SCH (21:05)
[2022-11-19] MEDS: MAG-OX TAB PO SCH (21:06)
[2022-11-19] MEDS ORDERED: SOLU-Medrol 125 MG VIAL IVP ONE (21:32)
--- NOTE | 2022-11-19 21:32 | PCM.PROG ---
Progress Note Progress Note for Day of Date of Exam: 11/19/22 Subjective Subjective: Patient reports he is feeling much better this morning. He has much less rhonchi on auscultation of his lung bilaterally anteriorly and posteriorly as well. He feels like he is getting more air and has no new problems this morning. He is BNP is down from 1000 to just a little above 600 however his creatinine went up just a little bit however I suspect the patient normally runs between 400-600 at his baseline BNP levels. I will go ahead and add some IV Solu-Medrol this evening to see if it will help the patient improve his oxygen saturation and have his lungs clear more. The patient is a diabetic so we will keep a close eye on his blood sugars. Past Medical Family Social History Allergies: Allergies No Known Drug Allergies Allergy (Verified 08/20/19 15:31) Review of Systems ROS: No change since H&P Vital Signs and I&O's Vital Signs: Vital Signs Temperature 98.4 F Pulse Rate [Apical] 56 Respiratory Rate 20 Blood Pressure [Right Arm] 109/58 O2 Sat by Pulse Oximetry 95 Intake and Output: Intake & Output 11/17/22 11/18/22 11/19/22 11/20/22 11:59 11:59 11:59 11:59 Intake Total 3327 / 3327 2661 / 2661 2056 / 142 Balance 3327 / 3327 2661 / 2661 2056 142 Physical Exam Oriented: Normal Eyes: Normal Respiratory: Right, Left, Generalized, Diminished and Rhonchi Cardiovascular: Normal Tenderness: Normal Skin: Normal Psychiatric: Normal Mood Description: Calm Affect: Normal Speech Pattern: Clear and Appropriate Laboratory and Diagnostics Result Diagrams: 11/19/22 05:17 11/19/22 05:17 Labs: 11/12/22 15:58 Blood Blood Culture - Final 11/12/22 15:40 Blood Blood Culture - Final Laboratory WBC 4.7 X10^3/uL (3.6-10.0) 11/19/22 05:17 RBC 3.36 X10^6/uL (4.7-6.0) L 11/19/22 05:17 Hgb 8.9 g/dL (13.5-18.0) L 11/19/22 05:17 Hct 27.6 % (42.0-54.0) L 11/19/22 05:17 MCV 82.1 fL (80.0-100.0) 11/19/22 05:17 MCH 26.6 pg (27.0-34.0) L 11/19/22 05:17 MCHC 32.4 g/dL (33.0-35.0) L 11/19/22 05:17 RDW 15.9 % (11.6-16.5) 11/19/22 05:17 Plt Count 135 X10^3/uL (150.0-450.0) L 11/19/22 05:17 MPV 9.1 fL (7.4-11.0) 11/19/22 05:17 Neut % (Auto) 61.9 % (42.0-75.0) 11/19/22 05:17 Lymph % (Auto) 23.2 % (21.0-51.0) 11/19/22 05:17 [place] % (Auto) 9.6 % (0.0-13.0) 11/19/22 05:17 Eos % (Auto) 4.6 % (0.9-2.9) H 11/19/22 05:17 Baso % (Auto) 0.7 % (0.2-1.0) 11/19/22 05:17 Neut # (Auto) 2.9 x10^3/uL (2.2-4.8) 11/19/22 05:17 Lymph # (Auto) 1.1 X10^3/uL (1.3-2.9) L 11/19/22 05:17 [place] # (Auto) 0.4 x10^3/uL (0.3-0.8) 11/19/22 05:17 Eos # (Auto) 0.2 x10^3/uL (0.0-0.2) 11/19/22 05:17 Baso # (Auto) 0.0 X10^3/uL (0.0-0.1) 11/19/22 05:17 Absolute Nucleated RBC 0.0 /100WBC 11/19/22 05:17 Sample Site Lbra 11/12/22 15:20 ABG pH 7.480 (7.35-7.45) H 11/12/22 15:20 ABG pCO2 34.0 mmHg (35.0-45.0) L 11/12/22 15:20 ABG pO2 60.0 mmHg (80.0-100.0) L 11/12/22 15:20 ABG HCO3 25.3 mmol/L (22-26) 11/12/22 15:20 ABG O2 Saturation 92.0 % (90-100) 11/12/22 15:20 ABG Base Excess 2.1 mmol/L (-2.0-2.0) H 11/12/22 15:20 Marcus Test N/a 11/12/22 15:20 A-a Gradient 47.0 mmHg 11/12/22 15:20 FiO2 21.0 11/12/22 15:20 Blood Gas Comments Pt remi well elj 11/12/22 15:20 Sodium 144 mmol/L (136-145) 11/19/22 05:17 Corrected Sodium TNP 11/19/22 05:17 Potassium 4.2 mmol/L (3.5-5.1) 11/19/22 05:17 Chloride 110 mmol/L (98-107) H 11/19/22 05:17 Carbon Dioxide 23.2 mmol/L (21-32) 11/19/22 05:17 BUN 22 mg/dL (7-18) H 11/19/22 05:17 Creatinine 2.40 mg/dL (0.70-1.30) H 11/19/22 05:17 Est GFR (MDRD) Af Amer 34 (>60) L 11/19/22 05:17 Est GFR (MDRD) Non-Af 28 (>60) L 11/19/22 05:17 Glucose 92 mg/dL (65-99) 11/19/22 05:17 POC Glucose (mg/dL) 102 mg/dL (65-99) H 11/19/22 20:03 Lactic Acid 1.7 mmol/L (0.4-2.0) 11/12/22 15:40 Calcium 8.3 mg/dL (8.5-10.1) L 11/19/22 05:17 Corrected Calcium 9.3 mg/dL (8.5-10.1) 11/19/22 05:17 Magnesium 2.0 mg/dL (2.0-2.9) 11/19/22 05:17 Total Bilirubin 0.30 mg/dL (0.2-1.0) 11/19/22 05:17 AST 11 Units/L (15-37) L 11/19/22 05:17 ALT 19 Units/L (12-78) 11/19/22 05:17 Alkaline Phosphatase 60 Units/L (46-116) 11/19/22 05:17 Troponin I High Sens 50.4 ng/L (4.0-60.0) 11/12/22 19:15 B-Natriuretic Peptide 651 pg/mL (0-79) H* 11/19/22 05:17 Total Protein 5.5 g/dL (6.4-8.2) L 11/19/22 05:17 Albumin 2.8 g/dL (3.4-5.0) L 11/19/22 05:17 Globulin 2.7 g/dL (2.5-4.5) 11/19/22 05:17 Albumin/Globulin Ratio 1.0 Ratio (1.1-2.1) L 11/19/22 05:17 Syrtz-1-Evlkfzowalo 172 mg/dL (90-200) 11/13/22 12:14 Gftzs-6-Mitnszvjhzh Cancelled 11/13/22 12:14 Alpha-1-AT Phenotype M1m1 11/13/22 12:14 Specimen Type Random urine 11/12/22 16:03 Urine Color Straw (YELLOW) 11/12/22 16:03 Urine Appearance Clear (CLEAR) 11/12/22 16:03 Urine pH 6.5 (5.0 - 8.0) 11/12/22 16:03 Ur Specific [place] 1.010 (1.000-1.030) 11/12/22 16:03 Urine Protein Negative (NEGATIVE) 11/12/22 16:03 Urine Glucose (UA) Negative (NEGATIVE) 11/12/22 16:03 Urine Ketones Negative (NEGATIVE) 11/12/22 16:03 Urine Blood Negative (NEGATIVE) 11/12/22 16:03 Urine Nitrite Negative (NEGATIVE) 11/12/22 16:03 Urine Bilirubin Negative (NEGATIVE) 11/12/22 16:03 Urine Urobilinogen Normal (NORMAL) 11/12/22 16:03 Ur Leukocyte Esterase Negative (NEGATIVE) 11/12/22 16:03 Resp Viral Panel (PCR) See scanned report 11/12/22 22:40 Radiology Reviewed: Yes Plan (1) CHF exacerbation: Status: Acute Plan: Repeat BMP tomorrow morning and continue IV Lasix 40 mg IV once daily. (2) Peripheral arterial disease: Status: Acute Plan: Follow-up with CT angiogram when up report is available. (3) Chronic kidney disease (CKD): Status: Acute Qualifiers: Chronic kidney disease stage: stage 3 (moderate) Qualified Code(s): N18.3 - Chronic kidney disease, stage 3 (moderate) Plan: Continue IV hydration with one half normal saline at 75 cc an hour. I am going to give him 1 dose of Lasix 40 mg IV x1 this morning since his BNP is become elevated at 1000. (4) COPD, severe: Status: Acute Plan: Added Mucomyst nebs along with guaifenesin. Continue IV Rocephin, IV levofloxacin and DuoNebs. I will add IV Solu-Medrol 125 mg IV this evening and change it to 60 mg IV twice daily thereafter. (5) Hypertension: Status: Chronic Qualifiers: Hypertension type: essential hypertension Qualified Code(s): I10 - Essential (primary) hypertension Plan: Monitor daily blood pressures. (6) GERD (gastroesophageal reflux disease): Status: Chronic Qualifiers: Esophagitis presence: esophagitis presence not specified Qualified Code(s): K21.9 - Gastro-esophageal reflux disease without esophagitis Plan: Protonix IV. (7) Hyperlipidemia: Status: Chronic Qualifiers: Hyperlipidemia type: mixed hyperlipidemia Qualified Code(s): E78.2 - Mixed hyperlipidemia (8) Chronic atrial fibrillation: Status: Acute (9) Hypothyroid: Status: Chronic Qualifiers: Hypothyroidism type: acquired Qualified Code(s): E03.9 - Hypothyroidism, unspecified (10) CAD (coronary artery disease): Status: Chronic (11) Anemia: Status: Acute Narrative Support Text: Hemoglobin has slowly been trending back upwards the last few days. Plan: I will start the patient on Protonix 40 mg IV daily for GI prote ction and decrease in hemoglobin.
[2022-11-19] MEDS: PERCOCET TAB 5/325 MG PO PRN (22:48)
[2022-11-20] MEDS: NS 1/2 1,000 ML IV 1,000 ML IV SCH ×2 (02:05→10:34)
[2022-11-20] MEDS ORDERED: CORTEF ONE ×2 (04:50→12:56)
[2022-11-20] MEDS: SYNTHROID 100 mcg TAB PO SCH (05:33)
[2022-11-20 06:30] LABS: BASOPHILS % (AUTO) 0.2 % (0.2-1.0); EOSINOPHILS % (AUTO) 0.8 % (0.9-2.9); HEMOGLOBIN 9.4 g/dL (13.5-18.0); LYMPHOCYTES # (AUTO) 0.4 X10^3/uL (1.3-2.9); LYMPHOCYTES % (AUTO) 9.7 % (21.0-51.0); MEAN CORPUSCULAR HEMOGLOBIN 26.5 pg (27.0-34.0); MEAN CORPUSCULAR HGB CONC 32.3 g/dL (33.0-35.0); MEAN PLATELET VOLUME 8.9 fL (7.4-11.0); MONOCYTES # (AUTO) 0.1 x10^3/uL (0.3-0.8); MONOCYTES % (AUTO) 1.5 % (0.0-13.0); NEUTROPHILS % (AUTO) 87.8 % (42.0-75.0); PLATELET COUNT 148 X10^3/uL (150.0-450.0); RED BLOOD COUNT 3.54 X10^6/uL (4.7-6.0); RED CELL DISTRIBUTION WIDTH 15.8 % (11.6-16.5); WHITE BLOOD COUNT 4.6 X10^3/uL (3.6-10.0)
[2022-11-20 06:51] LABS: ALBUMIN 2.9 g/dL (3.4-5.0); CALCIUM 8.6 mg/dL (8.5-10.1); CARBON DIOXIDE 21.1 mmol/L (21-32); COR CA(FOR HYPOALB) 9.5 mg/dL (8.5-10.1); CREATININE 2.25 mg/dL (0.70-1.30); MAGNESIUM 1.9 mg/dL (2.0-2.9); POTASSIUM 4.5 mmol/L (3.5-5.1)
[2022-11-20] MEDS ORDERED: CONSULT PHARMACY - POTASSIUM & MAGNESIUM XX SCH (08:00)
[2022-11-20] MEDS: PULMICORT NEB TX 0.5 MG NEB SCH ×2 (09:19→21:28)
[2022-11-20] MEDS: DUONEB 0.5 MG/3 MG (3 mL) NEB SCH ×4 (09:19→21:28)
[2022-11-20] MEDS ORDERED: LEXAPRO ONE (09:23)
[2022-11-20] MEDS: LEXAPRO PO SCH (09:32)
[2022-11-20] MEDS: MULTAQ PO SCH ×2 (09:32→20:50)
[2022-11-20] MEDS: MEGACE PO SCH ×2 (09:32→20:50)
[2022-11-20] MEDS: PROTONIX TAB 40 MG PO SCH ×2 (09:33→20:51)
[2022-11-20] MEDS: TOPAMAX TAB 100 MG PO SCH ×2 (09:33→20:50)
[2022-11-20] MEDS: MUCINEX DM PO SCH ×2 (09:33→20:50)
[2022-11-20] MEDS: COREG TAB 6.25 MG PO SCH ×2 (09:33→20:51)
[2022-11-20] MEDS: SINGULAIR TAB 10 MG PO SCH (09:33)
[2022-11-20] MEDS: PERCOCET TAB 5/325 MG PO PRN (09:34)
[2022-11-20] MEDS: FARXIGA PO SCH (09:34)
[2022-11-20] MEDS: ENTRESTO 24/26 MG TABLET PO SCH ×2 (09:35→20:51)
[2022-11-20] MEDS: FLOMAX PO SCH (09:35)
[2022-11-20] MEDS: ZOFRAN TAB 4 MG PO PRN (09:35)
[2022-11-20] MEDS: NEURONTIN CAP 400 MG PO SCH ×2 (09:35→20:51)
[2022-11-20] MEDS: PLAVIX PO SCH (09:35)
[2022-11-20] MEDS: LINZESS PO SCH (09:35)
[2022-11-20] MEDS: DALIRESP PO SCH (09:36)
[2022-11-20] MEDS: LIPITOR TAB 80 MG PO SCH (09:36)
[2022-11-20] MEDS: IMDUR PO SCH (09:36)
[2022-11-20] MEDS ORDERED: NS 1/2 1,000 ML IV 1,000 ML IV ONE (09:51)
[2022-11-20] MEDS: ASTELIN NASAL SPRAY ENOSTRIL SCH (10:00)
[2022-11-20] MEDS: FLONASE NASAL SPRAY ENOSTRIL SCH (10:00)
[2022-11-20] MEDS: CORTEF PO SCH ×2 (10:00→13:14)
[2022-11-20] MEDS: ROCEPHIN VIAL 1 GRAM 1 G in NS 100 ML IV 100 ML IV SCH (10:01)
[2022-11-20] MEDS: MAG-OX TAB PO SCH ×2 (10:01→20:50)
[2022-11-20 10:11] VITALS: BMI 25.9
[2022-11-20] MEDS: LASIX IVP SCH (10:33)
--- NOTE | 2022-11-20 22:41 | PCM.PROG ---
Progress Note Progress Note for Day of Date of Exam: 11/20/22 Subjective Subjective: Patient reports he is feeling a bit worse this morning. He feels more fatigued and he reports coughing more and reports having increased congestion in his chest. We did not give him any Lasix yesterday so this is probably the culprit for his symptoms. I will go ahead and restart his Lasix 40 mg p.o. daily with potassium chloride 10 mEq daily. If he is feeling better in the morning and his labs continue to improve I will plan on discharging him home. X-ray yesterday showed he had some blunting of the costophrenic angles bilaterally and some interstitial opacities bilaterally as well. He currently is receiving IV Rocephin and Levaquin. Blood cultures x2 are negative and we have no sputum culture that was done. Overall he is improving clinically and looks better overall. Past Medical Family Social History Allergies: Allergies No Known Drug Allergies Allergy (Verified 08/20/19 15:31) Review of Systems ROS: No change since H&P Vital Signs and I&O's Vital Signs: Vital Signs Temperature 98.3 F Temperature 98.3 F Pulse Rate [Apical] 62 Pulse Rate [Apical] 67 Respiratory Rate 20 Respiratory Rate 20 Blood Pressure [Right Arm] 93/61 Blood Pressure [Right Arm] 123/57 O2 Sat by Pulse Oximetry 98 O2 Sat by Pulse Oximetry 97 Intake and Output: Intake & Output 11/18/22 11/19/22 11/20/22 11/21/22 11:59 11:59 11:59 11:59 Intake Total 2661 / 2661 2056 3096 / 3096 1587 / 1587 Balance 2661 / 2661 2056 3096 / 3096 1587 / 1587 Physical Exam Oriented: Normal Eyes: Normal Respiratory: Right, Left, Generalized, Diminished and Rhonchi Cardiovascular: Normal Auscultation: Bowel Sounds: Normal Palpation: Normal Tenderness: Normal Skin: Normal Psychiatric: Normal Mood Description: Calm Affect: Normal Speech Pattern: Clear and Appropriate Laboratory and Diagnostics Result Diagrams: 11/20/22 05:39 11/20/22 05:39 Labs: 11/12/22 15:58 Blood Blood Culture - Final 11/12/22 15:40 Blood Blood Culture - Final Laboratory WBC 4.6 X10^3/uL (3.6-10.0) 11/20/22 05:39 RBC 3.54 X10^6/uL (4.7-6.0) L 11/20/22 05:39 Hgb 9.4 g/dL (13.5-18.0) L 11/20/22 05:39 Hct 29.0 % (42.0-54.0) L 11/20/22 05:39 MCV 82.0 fL (80.0-100.0) 11/20/22 05:39 MCH 26.5 pg (27.0-34.0) L 11/20/22 05:39 MCHC 32.3 g/dL (33.0-35.0) L 11/20/22 05:39 RDW 15.8 % (11.6-16.5) 11/20/22 05:39 Plt Count 148 X10^3/uL (150.0-450.0) L 11/20/22 05:39 MPV 8.9 fL (7.4-11.0) 11/20/22 05:39 Neut % (Auto) 87.8 % (42.0-75.0) H 11/20/22 05:39 Lymph % (Auto) 9.7 % (21.0-51.0) L 11/20/22 05:39 [place] % (Auto) 1.5 % (0.0-13.0) 11/20/22 05:39 Eos % (Auto) 0.8 % (0.9-2.9) L 11/20/22 05:39 Baso % (Auto) 0.2 % (0.2-1.0) 11/20/22 05:39 Neut # (Auto) 4.0 x10^3/uL (2.2-4.8) 11/20/22 05:39 Lymph # (Auto) 0.4 X10^3/uL (1.3-2.9) L 11/20/22 05:39 [place] # (Auto) 0.1 x10^3/uL (0.3-0.8) L 11/20/22 05:39 Eos # (Auto) 0.0 x10^3/uL (0.0-0.2) 11/20/22 05:39 Baso # (Auto) 0.0 X10^3/uL (0.0-0.1) 11/20/22 05:39 Absolute Nucleated RBC 0.0 /100WBC 11/20/22 05:39 Sample Site Lbra 11/12/22 15:20 ABG pH 7.480 (7.35-7.45) H 11/12/22 15:20 ABG pCO2 34.0 mmHg (35.0-45.0) L 11/12/22 15:20 ABG pO2 60.0 mmHg (80.0-100.0) L 11/12/22 15:20 ABG HCO3 25.3 mmol/L (22-26) 11/12/22 15:20 ABG O2 Saturation 92.0 % (90-100) 11/12/22 15:20 ABG Base Excess 2.1 mmol/L (-2.0-2.0) H 11/12/22 15:20 Marcus Test N/a 11/12/22 15:20 A-a Gradient 47.0 mmHg 11/12/22 15:20 FiO2 21.0 11/12/22 15:20 Blood Gas Comments Pt remi well elj 11/12/22 15:20 Sodium 143 mmol/L (136-145) 11/20/22 05:39 Corrected Sodium 144 mmol/L (136-145) 11/20/22 05:39 Potassium 4.5 mmol/L (3.5-5.1) 11/20/22 05:39 Chloride 109 mmol/L (98-107) H 11/20/22 05:39 Carbon Dioxide 21.1 mmol/L (21-32) 11/20/22 05:39 BUN 24 mg/dL (7-18) H 11/20/22 05:39 Creatinine 2.25 mg/dL (0.70-1.30) H 11/20/22 05:39 Est GFR (MDRD) Af Amer 37 (>60) L 11/20/22 05:39 Est GFR (MDRD) Non-Af 31 (>60) L 11/20/22 05:39 Glucose 132 mg/dL (65-99) H 11/20/22 05:39 POC Glucose (mg/dL) 136 mg/dL (65-99) H 11/20/22 20:46 Lactic Acid 1.7 mmol/L (0.4-2.0) 11/12/22 15:40 Calcium 8.6 mg/dL (8.5-10.1) 11/20/22 05:39 Corrected Calcium 9.5 mg/dL (8.5-10.1) 11/20/22 05:39 Magnesium 1.9 mg/dL (2.0-2.9) L 11/20/22 05:39 Total Bilirubin 0.30 mg/dL (0.2-1.0) 11/20/22 05:39 AST 8 Units/L (15-37) L 11/20/22 05:39 ALT 16 Units/L (12-78) 11/20/22 05:39 Alkaline Phosphatase 58 Units/L (46-116) 11/20/22 05:39 Troponin I High Sens 50.4 ng/L (4.0-60.0) 11/12/22 19:15 B-Natriuretic Peptide 959 pg/mL (0-79) H* 11/20/22 05:39 Total Protein 6.0 g/dL (6.4-8.2) L 11/20/22 05:39 Albumin 2.9 g/dL (3.4-5.0) L 11/20/22 05:39 Globulin 3.1 g/dL (2.5-4.5) 11/20/22 05:39 Albumin/Globulin Ratio 0.9 Ratio (1.1-2.1) L 11/20/22 05:39 Gssnc-5-Lyucvuhudiy 172 mg/dL (90-200) 11/13/22 12:14 Tvnun-5-Ntfkyiyyrwa Cancelled 11/13/22 12:14 Alpha-1-AT Phenotype M1m1 11/13/22 12:14 Specimen Type Random urine 11/12/22 16:03 Urine Color Straw (YELLOW) 11/12/22 16:03 Urine Appearance Clear (CLEAR) 11/12/22 16:03 Urine pH 6.5 (5.0 - 8.0) 11/12/22 16:03 Ur Specific [place] 1.010 (1.000-1.030) 11/12/22 16:03 Urine Protein Negative (NEGATIVE) 11/12/22 16:03 Urine Glucose (UA) Negative (NEGATIVE) 11/12/22 16:03 Urine Ketones Negative (NEGATIVE) 11/12/22 16:03 Urine Blood Negative (NEGATIVE) 11/12/22 16:03 Urine Nitrite Negative (NEGATIVE) 11/12/22 16:03 Urine Bilirubin Negative (NEGATIVE) 11/12/22 16:03 Urine Urobilinogen Normal (NORMAL) 11/12/22 16:03 Ur Leukocyte Esterase Negative (NEGATIVE) 11/12/22 16:03 Resp Viral Panel (PCR) See scanned report 11/12/22 22:40 Radiology Reviewed: Yes Plan (1) CHF exacerbation: Status: Acute Plan: Start Lasix 40 mg p.o. every morning with 10 mEq potassium chloride. Check BNP's daily. (2) Peripheral arterial disease: Status: Acute Plan: Follow-up with CT angiogram when up report is available. (3) Chronic kidney disease (CKD): Status: Acute Qualifiers: Chronic kidney disease stage: stage 3 (moderate) Qualified Code(s): N18.3 - Chronic kidney disease, stage 3 (moderate) Plan: Continue IV fluid at 75 cc's an hour. (4) COPD, severe: Status: Acute Plan: Added Mucomyst nebs along with guaifenesin. Continue IV Rocephin, IV levofloxacin and DuoNebs. I will add IV Solu-Medrol 125 mg IV this evening and change it to 60 mg IV twice daily thereafter. (5) Hypertension: Status: Chronic Qualifiers: Hypertension type: essential hypertension Qualified Code(s): I10 - Essential (primary) hypertension Plan: Monitor daily blood pressures. (6) GERD (gastroesophageal reflux disease): Status: Chronic Qualifiers: Esophagitis presence: esophagitis presence not specified Qualified Code(s): K21.9 - Gastro-esophageal reflux disease without esophagitis Plan: Protonix IV. (7) Hyperlipidemia: Status: Chronic Qualifiers: Hyperlipidemia type: mixed hyperlipidemia Qualified Code(s): E78.2 - Mixed hyperlipidemia (8) Chronic atrial fibrillation: Status: Acute Plan: Continue under our general own and enoxaparin daily. (9) Hypothyroid: Status: Chronic Qualifiers: Hypothyroidism type: acquired Qualified Code(s): E03.9 - Hypothyroidism, unspecified Plan: Continue levothyroxine daily. (10) CAD (coronary artery disease): Status: Chronic (11) Anemia: Status: Acute Narrative Support Text: Patient's hemoglobin is increased daily now for the last 3 days. Plan: I will start the patient on Protonix 40 mg IV daily for GI protection and decrease in hemoglobin.
[2022-11-21] MEDS ORDERED: NS 1/2 1,000 ML IV 1,000 ML IV ONE ×2 (01:15→19:17)
[2022-11-21] MEDS: NS 1/2 1,000 ML IV 1,000 ML IV SCH ×4 (01:18→19:20)
[2022-11-21] MEDS: COLACE CAP 100 MG PO SCH ×2 (01:41→20:05)
[2022-11-21] MEDS ORDERED: CORTEF ONE ×2 (05:00→14:25)
[2022-11-21] MEDS: CORTEF PO SCH ×2 (06:03→14:44)
[2022-11-21] MEDS: SYNTHROID 100 mcg TAB PO SCH (06:20)
[2022-11-21 06:46] LABS: BASOPHILS % (AUTO) 0.4 % (0.2-1.0); EOSINOPHILS # (AUTO) 0.2 x10^3/uL (0.0-0.2); EOSINOPHILS % (AUTO) 3.4 % (0.9-2.9); HEMATOCRIT 27.2 % (42.0-54.0); HEMOGLOBIN 8.9 g/dL (13.5-18.0); LYMPHOCYTES # (AUTO) 1.1 X10^3/uL (1.3-2.9); LYMPHOCYTES % (AUTO) 24.3 % (21.0-51.0); MEAN CORPUSCULAR HEMOGLOBIN 26.5 pg (27.0-34.0); MEAN CORPUSCULAR HGB CONC 32.8 g/dL (33.0-35.0); MEAN CORPUSCULAR VOLUME 80.8 fL (80.0-100.0); MEAN PLATELET VOLUME 8.7 fL (7.4-11.0); MONOCYTES # (AUTO) 0.4 x10^3/uL (0.3-0.8); NEUTROPHILS % (AUTO) 62.9 % (42.0-75.0); PLATELET COUNT 148 X10^3/uL (150.0-450.0); RED BLOOD COUNT 3.37 X10^6/uL (4.7-6.0); RED CELL DISTRIBUTION WIDTH 15.8 % (11.6-16.5); WHITE BLOOD COUNT 4.7 X10^3/uL (3.6-10.0)
[2022-11-21 06:58] LABS: ALBUMIN 2.9 g/dL (3.4-5.0); CALCIUM 8.5 mg/dL (8.5-10.1); CARBON DIOXIDE 21.5 mmol/L (21-32); COR CA(FOR HYPOALB) 9.4 mg/dL (8.5-10.1); CREATININE 2.27 mg/dL (0.70-1.30); POTASSIUM 3.7 mmol/L (3.5-5.1); TOTAL PROTEIN 5.7 g/dL (6.4-8.2)
[2022-11-21] MEDS ORDERED: CONSULT PHARMACY - POTASSIUM & MAGNESIUM XX SCH (08:00)
[2022-11-21] MEDS ORDERED: K-DUR TAB 20 MEQ PO SCH (09:00)
[2022-11-21] MEDS: DUONEB 0.5 MG/3 MG (3 mL) NEB SCH ×4 (09:20→21:35)
[2022-11-21] MEDS: PULMICORT NEB TX 0.5 MG NEB SCH ×2 (09:20→21:35)
[2022-11-21] MEDS ORDERED: LEXAPRO ONE ×2 (09:29→10:44)
[2022-11-21] MEDS: MAGNESIUM SULFATE 1 GRAM/100 mL PREMIX 1 G/100 ML BAG IV SCH ×2 (09:40→10:47)
[2022-11-21] MEDS: LEVAQUIN PREMIX IV 750 MG 750 MG/150 ML BAG IV SCH (09:40)
[2022-11-21] MEDS: ROCEPHIN VIAL 1 GRAM 1 G in NS 100 ML IV 100 ML IV SCH (09:41)
[2022-11-21] MEDS: ASTELIN NASAL SPRAY ENOSTRIL SCH (09:43)
[2022-11-21] MEDS: COREG TAB 6.25 MG PO SCH ×2 (09:45→20:04)
[2022-11-21] MEDS: MAG-OX TAB PO SCH ×2 (09:45→20:05)
[2022-11-21] MEDS: ZOFRAN TAB 4 MG PO PRN (09:45)
[2022-11-21] MEDS: ENTRESTO 24/26 MG TABLET PO SCH ×2 (09:45→20:03)
[2022-11-21] MEDS: PROTONIX TAB 40 MG PO SCH ×2 (09:45→20:04)
[2022-11-21] MEDS: DALIRESP PO SCH (09:46)
[2022-11-21] MEDS: LEXAPRO PO SCH (09:46)
[2022-11-21] MEDS: FARXIGA PO SCH (09:46)
[2022-11-21] MEDS: MULTAQ PO SCH ×2 (09:46→20:04)
[2022-11-21] MEDS: LASIX IVP SCH (09:47)
[2022-11-21] MEDS: TOPAMAX TAB 100 MG PO SCH ×2 (09:47→20:04)
[2022-11-21] MEDS: LINZESS PO SCH (09:47)
[2022-11-21] MEDS: NEURONTIN CAP 400 MG PO SCH ×2 (09:47→20:04)
[2022-11-21] MEDS: MUCINEX DM PO SCH ×2 (09:47→20:04)
[2022-11-21] MEDS: IMDUR PO SCH (09:47)
[2022-11-21] MEDS: MEGACE PO SCH ×2 (09:47→20:04)
[2022-11-21] MEDS: SINGULAIR TAB 10 MG PO SCH (09:47)
[2022-11-21] MEDS: FLONASE NASAL SPRAY ENOSTRIL SCH (09:48)
[2022-11-21] MEDS: PLAVIX PO SCH (09:48)
[2022-11-21] MEDS: FLOMAX PO SCH (09:48)
[2022-11-21] MEDS: LIPITOR TAB 80 MG PO SCH (10:46)
[2022-11-21] MEDS: PERCOCET TAB 5/325 MG PO PRN (10:49)
--- NOTE | 2022-11-21 14:09 | RAD ---
HISTORYCHF pneumoniaSTUDYPortable AP chestCOMPARISONJuly 2022FINDINGSHeart size is unchanged. Similar extent and distribution of bilateral infiltrates. There is no evidence for improvement or progression, or new abnormality.IMPRESSIONNo change since recent similar.Electronically signed by: DENNYS PRINGLE (Nov 21, 2022 14:05:13)
[2022-11-22] MEDS ORDERED: CORTEF ONE ×3 (04:56→14:21)
[2022-11-22] MEDS: SYNTHROID 100 mcg TAB PO SCH (06:00)
[2022-11-22] MEDS: CORTEF PO SCH ×2 (06:01→13:38)
[2022-11-22] MEDS: NS 1/2 1,000 ML IV 1,000 ML IV SCH ×2 (06:04→21:28)
[2022-11-22 06:09] LABS: BASOPHILS % (AUTO) 0.4 % (0.2-1.0); EOSINOPHILS # (AUTO) 0.2 x10^3/uL (0.0-0.2); EOSINOPHILS % (AUTO) 4.3 % (0.9-2.9); HEMOGLOBIN 9.2 g/dL (13.5-18.0); LYMPHOCYTES # (AUTO) 1.3 X10^3/uL (1.3-2.9); LYMPHOCYTES % (AUTO) 24.7 % (21.0-51.0); MEAN CORPUSCULAR HEMOGLOBIN 26.7 pg (27.0-34.0); MEAN CORPUSCULAR HGB CONC 32.7 g/dL (33.0-35.0); MEAN CORPUSCULAR VOLUME 81.4 fL (80.0-100.0); MEAN PLATELET VOLUME 8.7 fL (7.4-11.0); MONOCYTES # (AUTO) 0.4 x10^3/uL (0.3-0.8); MONOCYTES % (AUTO) 8.1 % (0.0-13.0); NEUTROPHILS # (AUTO) 3.3 x10^3/uL (2.2-4.8); NEUTROPHILS % (AUTO) 62.5 % (42.0-75.0); PLATELET COUNT 166 X10^3/uL (150.0-450.0); RED BLOOD COUNT 3.44 X10^6/uL (4.7-6.0); RED CELL DISTRIBUTION WIDTH 15.8 % (11.6-16.5); WHITE BLOOD COUNT 5.2 X10^3/uL (3.6-10.0)
[2022-11-22 06:25] LABS: ALANINE AMINOTRANSFERASE 17 Units/L (12-78); ALKALINE PHOSPHATASE 57 Units/L (46-116); ASPARTATE AMINO TRANSFERASE 11 Units/L (15-37); BLOOD UREA NITROGEN 26 mg/dL (7-18); CALCIUM 8.5 mg/dL (8.5-10.1); CARBON DIOXIDE 24.3 mmol/L (21-32); CHLORIDE 110 mmol/L (98-107); COR CA(FOR HYPOALB) 9.3 mg/dL (8.5-10.1); CREATININE 2.25 mg/dL (0.70-1.30); GLUCOSE 96 mg/dL (65-99); MAGNESIUM 2.2 mg/dL (2.0-2.9); SODIUM 145 mmol/L (136-145); TOTAL PROTEIN 5.7 g/dL (6.4-8.2); eGFR NON BLACK RACES 31 (>60)
[2022-11-22] MEDS ORDERED: LEXAPRO ONE (08:23)
[2022-11-22] MEDS: FARXIGA PO SCH (08:59)
[2022-11-22] MEDS: DALIRESP PO SCH (08:59)
[2022-11-22] MEDS: COREG TAB 6.25 MG PO SCH ×2 (08:59→20:34)
[2022-11-22] MEDS: ENTRESTO 24/26 MG TABLET PO SCH ×2 (08:59→21:28)
[2022-11-22] MEDS: ASTELIN NASAL SPRAY ENOSTRIL SCH (08:59)
[2022-11-22] MEDS: FLONASE NASAL SPRAY ENOSTRIL SCH (09:00)
[2022-11-22] MEDS: LINZESS PO SCH (09:00)
[2022-11-22] MEDS: LASIX IVP SCH (09:00)
[2022-11-22] MEDS: LEXAPRO PO SCH (09:00)
[2022-11-22] MEDS: IMDUR PO SCH (09:00)
[2022-11-22] MEDS: FLOMAX PO SCH (09:00)
[2022-11-22] MEDS: LIPITOR TAB 80 MG PO SCH (09:01)
[2022-11-22] MEDS: MEGACE PO SCH ×2 (09:02→21:28)
[2022-11-22] MEDS: PLAVIX PO SCH (09:02)
[2022-11-22] MEDS: MUCINEX DM PO SCH ×2 (09:02→20:34)
[2022-11-22] MEDS: PROTONIX TAB 40 MG PO SCH ×2 (09:02→20:34)
[2022-11-22] MEDS: MULTAQ PO SCH ×2 (09:02→21:28)
[2022-11-22] MEDS: NEURONTIN CAP 400 MG PO SCH ×2 (09:02→20:36)
[2022-11-22] MEDS: MAG-OX TAB PO SCH ×2 (09:02→21:29)
[2022-11-22] MEDS: TOPAMAX TAB 100 MG PO SCH ×2 (09:03→20:34)
[2022-11-22] MEDS: ROCEPHIN VIAL 1 GRAM 1 G in NS 100 ML IV 100 ML IV SCH (09:03)
[2022-11-22] MEDS: SINGULAIR TAB 10 MG PO SCH (09:03)
[2022-11-22] MEDS: PULMICORT NEB TX 0.5 MG NEB SCH ×2 (09:07→20:08)
[2022-11-22] MEDS: DUONEB 0.5 MG/3 MG (3 mL) NEB SCH ×5 (09:07→20:08)
--- NOTE | 2022-11-22 10:21 | PCM.PROG ---
Progress Note Progress Note for Day of Date of Exam: 11/21/22 Subjective Subjective: Pt is a 72 year old male admitted for CHF exacerbation. This morning he reports feeling a little better and breathing improved. No acute events overnight. Labs/imaging: Wbc 4.7, Hgb 8.9, Plt 148, Na 144, K 3.7, Creatinine 2.27, Glucose 120, Blood culture negative x 2. He is currently receiving IV Lasix 40mg daily with potassium chloride 10 mEq daily and antibiotics IV Rocephin and Levaquin. Pt continuing to improve, will continue with current treatment plan. Continue to monitor and follow up labs/imaging. Past Medical Family Social History Allergies: Allergies No Known Drug Allergies Allergy (Verified 08/20/19 15:31) Review of Systems ROS changes noted: see HPI Vital Signs and I&O's Vital Signs: Vital Signs Temperature 97.7 F Temperature 98.4 F Pulse Rate [Apical] 62 Pulse Rate [Apical] 62 Pulse Rate 62 Respiratory Rate 18 Respiratory Rate 20 Blood Pressure [Left Arm] 110/52 Blood Pressure [Left Arm] 113/55 O2 Sat by Pulse Oximetry 98 O2 Sat by Pulse Oximetry 97 O2 Sat by Pulse Oximetry 96 Intake and Output: Intake & Output 11/19/22 11/20/22 11/21/22 11/22/22 23:59 23:59 23:59 23:59 Intake Total 2666 / 2666 3142 / 3142 3938 / 4338 994 / 994 Balance 2666 / 2666 3142 / 3142 3938 / 4338 994 / 994 Physical Exam Oriented: Normal Eyes: Normal Respiratory: Right, Left, Generalized, Diminished and Rhonchi Cardiovascular: Normal Auscultation: Bowel Sounds: Normal Tenderness: Normal Skin: Normal Psychiatric: Normal Mood Description: Calm Affect: Normal Speech Pattern: Clear and Appropriate Laboratory and Diagnostics Result Diagrams: 11/22/22 05:14 11/22/22 05:14 Labs: 11/12/22 15:58 Blood Blood Culture - Final 11/12/22 15:40 Blood Blood Culture - Final Laboratory WBC 5.2 X10^3/uL (3.6-10.0) 11/22/22 05:14 RBC 3.44 X10^6/uL (4.7-6.0) L 11/22/22 05:14 Hgb 9.2 g/dL (13.5-18.0) L 11/22/22 05:14 Hct 28.0 % (42.0-54.0) L 11/22/22 05:14 MCV 81.4 fL (80.0-100.0) 11/22/22 05:14 MCH 26.7 pg (27.0-34.0) L 11/22/22 05:14 MCHC 32.7 g/dL (33.0-35.0) L 11/22/22 05:14 RDW 15.8 % (11.6-16.5) 11/22/22 05:14 Plt Count 166 X10^3/uL (150.0-450.0) 11/22/22 05:14 MPV 8.7 fL (7.4-11.0) 11/22/22 05:14 Neut % (Auto) 62.5 % (42.0-75.0) 11/22/22 05:14 Lymph % (Auto) 24.7 % (21.0-51.0) 11/22/22 05:14 [place] % (Auto) 8.1 % (0.0-13.0) 11/22/22 05:14 Eos % (Auto) 4.3 % (0.9-2.9) H 11/22/22 05:14 Baso % (Auto) 0.4 % (0.2-1.0) 11/22/22 05:14 Neut # (Auto) 3.3 x10^3/uL (2.2-4.8) 11/22/22 05:14 Lymph # (Auto) 1.3 X10^3/uL (1.3-2.9) 11/22/22 05:14 [place] # (Auto) 0.4 x10^3/uL (0.3-0.8) 11/22/22 05:14 Eos # (Auto) 0.2 x10^3/uL (0.0-0.2) 11/22/22 05:14 Baso # (Auto) 0.0 X10^3/uL (0.0-0.1) 11/22/22 05:14 Absolute Nucleated RBC 0.0 /100WBC 11/22/22 05:14 Sample Site Lbra 11/12/22 15:20 ABG pH 7.480 (7.35-7.45) H 11/12/22 15:20 ABG pCO2 34.0 mmHg (35.0-45.0) L 11/12/22 15:20 ABG pO2 60.0 mmHg (80.0-100.0) L 11/12/22 15:20 ABG HCO3 25.3 mmol/L (22-26) 11/12/22 15:20 ABG O2 Saturation 92.0 % (90-100) 11/12/22 15:20 ABG Base Excess 2.1 mmol/L (-2.0-2.0) H 11/12/22 15:20 Marcus Test N/a 11/12/22 15:20 A-a Gradient 47.0 mmHg 11/12/22 15:20 FiO2 21.0 11/12/22 15:20 Blood Gas Comments Pt remi well elj 11/12/22 15:20 Sodium 145 mmol/L (136-145) 11/22/22 05:14 Corrected Sodium TNP 11/22/22 05:14 Potassium 4.0 mmol/L (3.5-5.1) 11/22/22 05:14 Chloride 110 mmol/L (98-107) H 11/22/22 05:14 Carbon Dioxide 24.3 mmol/L (21-32) 11/22/22 05:14 BUN 26 mg/dL (7-18) H 11/22/22 05:14 Creatinine 2.25 mg/dL (0.70-1.30) H 11/22/22 05:14 Est GFR (MDRD) Af Amer 37 (>60) L 11/22/22 05:14 Est GFR (MDRD) Non-Af 31 (>60) L 11/22/22 05:14 Glucose 96 mg/dL (65-99) 11/22/22 05:14 POC Glucose (mg/dL) 126 mg/dL (65-99) H 11/21/22 06:00 Lactic Acid 1.7 mmol/L (0.4-2.0) 11/12/22 15:40 Calcium 8.5 mg/dL (8.5-10.1) 11/22/22 05:14 Corrected Calcium 9.3 mg/dL (8.5-10.1) 11/22/22 05:14 Magnesium 2.2 mg/dL (2.0-2.9) 11/22/22 05:14 Total Bilirubin 0.20 mg/dL (0.2-1.0) 11/22/22 05:14 AST 11 Units/L (15-37) L 11/22/22 05:14 ALT 17 Units/L (12-78) 11/22/22 05:14 Alkaline Phosphatase 57 Units/L (46-116) 11/22/22 05:14 Troponin I High Sens 50.4 ng/L (4.0-60.0) 11/12/22 19:15 B-Natriuretic Peptide 368 pg/mL (0-79) H 11/22/22 05:14 Total Protein 5.7 g/dL (6.4-8.2) L 11/22/22 05:14 Albumin 3.0 g/dL (3.4-5.0) L 11/22/22 05:14 Globulin 2.7 g/dL (2.5-4.5) 11/22/22 05:14 Albumin/Globulin Ratio 1.1 Ratio (1.1-2.1) 11/22/22 05:14 Telsu-9-Smhoqjgxuxx 172 mg/dL (90-200) 11/13/22 12:14 Ecxjn-5-Ftyydmvrqwa Cancelled 11/13/22 12:14 Alpha-1-AT Phenotype M1m1 11/13/22 12:14 Specimen Type Random urine 11/12/22 16:03 Urine Color Straw (YELLOW) 11/12/22 16:03 Urine Appearance Clear (CLEAR) 11/12/22 16:03 Urine pH 6.5 (5.0 - 8.0) 11/12/22 16:03 Ur Specific [place] 1.010 (1.000-1.030) 11/12/22 16:03 Urine Protein Negative (NEGATIVE) 11/12/22 16:03 Urine Glucose (UA) Negative (NEGATIVE) 11/12/22 16:03 Urine Ketones Negative (NEGATIVE) 11/12/22 16:03 Urine Blood Negative (NEGATIVE) 11/12/22 16:03 Urine Nitrite Negative (NEGATIVE) 11/12/22 16:03 Urine Bilirubin Negative (NEGATIVE) 11/12/22 16:03 Urine Urobilinogen Normal (NORMAL) 11/12/22 16:03 Ur Leukocyte Esterase Negative (NEGATIVE) 11/12/22 16:03 Resp Viral Panel (PCR) See scanned report 11/12/22 22:40 Plan (1) CHF exacerbation: Status: Acute Plan: Continue IV Lasix 40 mg every morning with 10 mEq potassium chloride. Check BNP's daily. (2) Peripheral arterial disease: Status: Acute Plan: Follow-up with CT angiogram when up report is available. (3) Chronic kidney disease (CKD): Status: Acute Qualifiers: Chronic kidney disease stage: stage 3 (moderate) Qualified Code(s): N18.3 - Chronic kidney disease, stage 3 (moderate) Plan: Continue IV fluid at 75 cc's an hour. (4) COPD, severe: Status: Acute Plan: Added Mucomyst nebs along with guaifenesin. Continue IV Rocephin, IV levofloxacin and DuoNebs. I will add IV Solu-Medrol 125 mg IV this evening and change it to 60 mg IV twice daily thereafter. (5) Hypertension: Status: Chronic Qualifiers: Hypertension type: essential hypertension Qualified Code(s): I10 - Essential (primary) hypertension Plan: Monitor daily blood pressures. (6) GERD (gastroesophageal reflux disease): Status: Chronic Qualifiers: Esophagitis presence: esophagitis presence not specified Qualified Code(s): K21.9 - Gastro-esophageal reflux disease without esophagitis Plan: Protonix IV. (7) Hyperlipidemia: Status: Chronic Qualifiers: Hyperlipidemia type: mixed hyperlipidemia Qualified Code(s): E78.2 - Mixed hyperlipidemia (8) Chronic atrial fibrillation: Status: Acute Plan: Continue under our general own and enoxaparin daily. (9) Hypothyroid: Status: Chronic Qualifiers: Hypothyroidism type: acquired Qualified Code(s): E03.9 - Hypothyroidism, unspecified Plan: Continue levothyroxine daily. (10) CAD (coronary artery disease): Status: Chronic (11) Anemia: Status: Acute Plan: I will start the patient on Protonix 40 mg IV daily for GI protec tion and decrease in hemoglobin.
[2022-11-22] MEDS ORDERED: NS 1/2 1,000 ML IV 1,000 ML IV ONE (14:24)
[2022-11-22] MEDS: PERCOCET TAB 5/325 MG PO PRN (20:35)
[2022-11-22] MEDS: COLACE CAP 100 MG PO SCH (20:36)
[2022-11-23] MEDS ORDERED: NS 1/2 1,000 ML IV 1,000 ML IV ONE (04:07)
[2022-11-23 04:13] VITALS: RESP 18
[2022-11-23] MEDS ORDERED: CORTEF ONE (05:15)
[2022-11-23] MEDS: SYNTHROID 100 mcg TAB PO SCH (05:39)
[2022-11-23] MEDS: NS 1/2 1,000 ML IV 1,000 ML IV SCH (05:40)
[2022-11-23] MEDS: CORTEF PO SCH (06:03)
[2022-11-23 06:30] LABS: BASOPHILS % (AUTO) 0.4 % (0.2-1.0); EOSINOPHILS # (AUTO) 0.3 x10^3/uL (0.0-0.2); EOSINOPHILS % (AUTO) 5.1 % (0.9-2.9); HEMATOCRIT 28.9 % (42.0-54.0); HEMOGLOBIN 9.3 g/dL (13.5-18.0); LYMPHOCYTES # (AUTO) 1.4 X10^3/uL (1.3-2.9); LYMPHOCYTES % (AUTO) 27.3 % (21.0-51.0); MEAN CORPUSCULAR HEMOGLOBIN 26.1 pg (27.0-34.0); MEAN CORPUSCULAR HGB CONC 32.3 g/dL (33.0-35.0); MEAN CORPUSCULAR VOLUME 80.9 fL (80.0-100.0); MEAN PLATELET VOLUME 8.5 fL (7.4-11.0); MONOCYTES # (AUTO) 0.5 x10^3/uL (0.3-0.8); MONOCYTES % (AUTO) 9.4 % (0.0-13.0); NEUTROPHILS # (AUTO) 2.9 x10^3/uL (2.2-4.8); NEUTROPHILS % (AUTO) 57.8 % (42.0-75.0); PLATELET COUNT 161 X10^3/uL (150.0-450.0); RED BLOOD COUNT 3.58 X10^6/uL (4.7-6.0); WHITE BLOOD COUNT 5.1 X10^3/uL (3.6-10.0)
[2022-11-23 06:52] LABS: ALANINE AMINOTRANSFERASE 17 Units/L (12-78); ALKALINE PHOSPHATASE 56 Units/L (46-116); ASPARTATE AMINO TRANSFERASE 13 Units/L (15-37); BLOOD UREA NITROGEN 26 mg/dL (7-18); CALCIUM 8.6 mg/dL (8.5-10.1); CARBON DIOXIDE 21.6 mmol/L (21-32); CHLORIDE 108 mmol/L (98-107); COR CA(FOR HYPOALB) 9.4 mg/dL (8.5-10.1); CREATININE 2.16 mg/dL (0.70-1.30); GLUCOSE 97 mg/dL (65-99); POTASSIUM 3.6 mmol/L (3.5-5.1); SODIUM 144 mmol/L (136-145); TOTAL PROTEIN 5.8 g/dL (6.4-8.2); eGFR NON BLACK RACES 32 (>60)
--- NOTE | 2022-11-23 07:29 | PCM.PROG ---
Progress Note Progress Note for Day of Date of Exam: 11/22/22 Subjective Subjective: Pt is a 72 year old male admitted for CHF exacerbation. He is in bed this morning and reports feeling better. No acute events overnight. Labs/imaging: Wbc 5.2, Hgb 9.2, Plt 166, Na 145, K 4, Creatinine 2.25, Glucose 96, Blood culture negative x 2. He is currently receiving IV Lasix 40mg daily with potassium chloride 10 mEq daily and antibiotics IV Rocephin and Levaquin. Pt does continue to improve, will continue with current treatment plan. Continue to monitor and follow up labs/imaging. Past Medical Family Social History Allergies: Allergies No Known Drug Allergies Allergy (Verified 08/20/19 15:31) Review of Systems ROS changes noted: see HPI Vital Signs and I&O's Vital Signs: Vital Signs Temperature 98.1 F Temperature 97.9 F Pulse Rate [Apical] 56 Pulse Rate [Apical] 64 Respiratory Rate 18 Respiratory Rate 20 Blood Pressure [Left Arm] 132/67 Blood Pressure [Right Arm] 117/63 O2 Sat by Pulse Oximetry 99 O2 Sat by Pulse Oximetry 93 Intake and Output: Intake & Output 11/20/22 11/21/22 11/22/22 11/23/22 23:59 23:59 23:59 23:59 Intake Total 3142 / 3142 3938 / 4338 2456 / 2456 969 / 969 Balance 3142 / 3142 3938 / 4338 2456 / 2456 969 / 969 Physical Exam Oriented: Normal Eyes: Normal Respiratory: Right, Left, Generalized, Diminished and Rhonchi Cardiovascular: Normal Auscultation: Bowel Sounds: Normal Tenderness: Normal Skin: Normal Psychiatric: Normal Mood Description: Calm Affect: Normal Speech Pattern: Clear and Appropriate Laboratory and Diagnostics Result Diagrams: 11/23/22 05:20 11/23/22 05:20 Labs: 11/12/22 15:58 Blood Blood Culture - Final 11/12/22 15:40 Blood Blood Culture - Final Laboratory WBC 5.1 X10^3/uL (3.6-10.0) 11/23/22 05:20 RBC 3.58 X10^6/uL (4.7-6.0) L 11/23/22 05:20 Hgb 9.3 g/dL (13.5-18.0) L 11/23/22 05:20 Hct 28.9 % (42.0-54.0) L 11/23/22 05:20 MCV 80.9 fL (80.0-100.0) 11/23/22 05:20 MCH 26.1 pg (27.0-34.0) L 11/23/22 05:20 MCHC 32.3 g/dL (33.0-35.0) L 11/23/22 05:20 RDW 16.0 % (11.6-16.5) 11/23/22 05:20 Plt Count 161 X10^3/uL (150.0-450.0) 11/23/22 05:20 MPV 8.5 fL (7.4-11.0) 11/23/22 05:20 Neut % (Auto) 57.8 % (42.0-75.0) 11/23/22 05:20 Lymph % (Auto) 27.3 % (21.0-51.0) 11/23/22 05:20 [place] % (Auto) 9.4 % (0.0-13.0) 11/23/22 05:20 Eos % (Auto) 5.1 % (0.9-2.9) H 11/23/22 05:20 Baso % (Auto) 0.4 % (0.2-1.0) 11/23/22 05:20 Neut # (Auto) 2.9 x10^3/uL (2.2-4.8) 11/23/22 05:20 Lymph # (Auto) 1.4 X10^3/uL (1.3-2.9) 11/23/22 05:20 [place] # (Auto) 0.5 x10^3/uL (0.3-0.8) 11/23/22 05:20 Eos # (Auto) 0.3 x10^3/uL (0.0-0.2) H 11/23/22 05:20 Baso # (Auto) 0.0 X10^3/uL (0.0-0.1) 11/23/22 05:20 Absolute Nucleated RBC 0.0 /100WBC 11/23/22 05:20 Sample Site Lbra 11/12/22 15:20 ABG pH 7.480 (7.35-7.45) H 11/12/22 15:20 ABG pCO2 34.0 mmHg (35.0-45.0) L 11/12/22 15:20 ABG pO2 60.0 mmHg (80.0-100.0) L 11/12/22 15:20 ABG HCO3 25.3 mmol/L (22-26) 11/12/22 15:20 ABG O2 Saturation 92.0 % (90-100) 11/12/22 15:20 ABG Base Excess 2.1 mmol/L (-2.0-2.0) H 11/12/22 15:20 Marcus Test N/a 11/12/22 15:20 A-a Gradient 47.0 mmHg 11/12/22 15:20 FiO2 21.0 11/12/22 15:20 Blood Gas Comments Pt remi well elj 11/12/22 15:20 Sodium 144 mmol/L (136-145) 11/23/22 05:20 Corrected Sodium TNP 11/23/22 05:20 Potassium 3.6 mmol/L (3.5-5.1) 11/23/22 05:20 Chloride 108 mmol/L (98-107) H 11/23/22 05:20 Carbon Dioxide 21.6 mmol/L (21-32) 11/23/22 05:20 BUN 26 mg/dL (7-18) H 11/23/22 05:20 Creatinine 2.16 mg/dL (0.70-1.30) H 11/23/22 05:20 Est GFR (MDRD) Af Amer 39 (>60) L 11/23/22 05:20 Est GFR (MDRD) Non-Af 32 (>60) L 11/23/22 05:20 Glucose 97 mg/dL (65-99) 11/23/22 05:20 POC Glucose (mg/dL) 103 mg/dL (65-99) H 11/23/22 05:18 Lactic Acid 1.7 mmol/L (0.4-2.0) 11/12/22 15:40 Calcium 8.6 mg/dL (8.5-10.1) 11/23/22 05:20 Corrected Calcium 9.4 mg/dL (8.5-10.1) 11/23/22 05:20 Magnesium 2.2 mg/dL (2.0-2.9) 11/22/22 05:14 Total Bilirubin 0.20 mg/dL (0.2-1.0) 11/23/22 05:20 AST 13 Units/L (15-37) L 11/23/22 05:20 ALT 17 Units/L (12-78) 11/23/22 05:20 Alkaline Phosphatase 56 Units/L (46-116) 11/23/22 05:20 Troponin I High Sens 50.4 ng/L (4.0-60.0) 11/12/22 19:15 B-Natriuretic Peptide 246 pg/mL (0-79) H 11/23/22 05:20 Total Protein 5.8 g/dL (6.4-8.2) L 11/23/22 05:20 Albumin 3.0 g/dL (3.4-5.0) L 11/23/22 05:20 Globulin 2.8 g/dL (2.5-4.5) 11/23/22 05:20 Albumin/Globulin Ratio 1.1 Ratio (1.1-2.1) 11/23/22 05:20 Dmrnn-2-Orvnxyzpzbw 172 mg/dL (90-200) 11/13/22 12:14 Xfkfa-9-Iaakqbufpyp Cancelled 11/13/22 12:14 Alpha-1-AT Phenotype M1m1 11/13/22 12:14 Specimen Type Random urine 11/12/22 16:03 Urine Color Straw (YELLOW) 11/12/22 16:03 Urine Appearance Clear (CLEAR) 11/12/22 16:03 Urine pH 6.5 (5.0 - 8.0) 11/12/22 16:03 Ur Specific [place] 1.010 (1.000-1.030) 11/12/22 16:03 Urine Protein Negative (NEGATIVE) 11/12/22 16:03 Urine Glucose (UA) Negative (NEGATIVE) 11/12/22 16:03 Urine Ketones Negative (NEGATIVE) 11/12/22 16:03 Urine Blood Negative (NEGATIVE) 11/12/22 16:03 Urine Nitrite Negative (NEGATIVE) 11/12/22 16:03 Urine Bilirubin Negative (NEGATIVE) 11/12/22 16:03 Urine Urobilinogen Normal (NORMAL) 11/12/22 16:03 Ur Leukocyte Esterase Negative (NEGATIVE) 11/12/22 16:03 Resp Viral Panel (PCR) See scanned report 11/12/22 22:40 Plan (1) CHF exacerbation: Status: Acute Plan: Continue IV Lasix 40 mg every morning with 10 mEq potassium chloride. Check BNP's daily. (2) Peripheral arterial disease: Status: Acute Plan: Follow-up with CT angiogram when up report is available. (3) Chronic kidney disease (CKD): Status: Acute Qualifiers: Chronic kidney disease stage: stage 3 (moderate) Qualified Code(s): N18.3 - Chronic kidney disease, stage 3 (moderate) Plan: Continue IV fluid at 75 cc's an hour. (4) COPD, severe: Status: Acute Plan: Added Mucomyst nebs along with guaifenesin. Continue IV Rocephin, IV levofloxacin and DuoNebs. I will add IV Solu-Medrol 125 mg IV this evening and change it to 60 mg IV twice daily thereafter. (5) Hypertension: Status: Chronic Qualifiers: Hypertension type: essential hypertension Qualified Code(s): I10 - Essential (primary) hypertension Plan: Monitor daily blood pressures. (6) GERD (gastroesophageal reflux disease): Status: Chronic Qualifiers: Esophagitis presence: esophagitis presence not specified Qualified Code(s): K21.9 - Gastro-esophageal reflux disease without esophagitis Plan: Protonix IV. (7) Hyperlipidemia: Status: Chronic Qualifiers: Hyperlipidemia type: mixed hyperlipidemia Qualified Code(s): E78.2 - Mixed hyperlipidemia (8) Chronic atrial fibrillation: Status: Acute Plan: Continue under our general own and enoxaparin daily. (9) Hypothyroid: Status: Chronic Qualifiers: Hypothyroidism type: acquired Qualified Code(s): E03.9 - Hypothyroidism, unspecified Plan: Continue levothyroxine daily. (10) CAD (coronary artery disease): Status: Chronic (11) Anemia: Status: Acute Plan: I will start the patient on Protonix 40 mg IV daily for GI protection and decrease in hemoglobin.
[2022-11-23] MEDS ORDERED: K-DUR TAB 20 MEQ PO SCH (08:00)
[2022-11-23] MEDS ORDERED: CONSULT PHARMACY - POTASSIUM & MAGNESIUM XX SCH ×2 (08:00→09:00)
[2022-11-23] MEDS ORDERED: LEXAPRO ONE (08:09)
[2022-11-23] MEDS: ENTRESTO 24/26 MG TABLET PO SCH (08:41)
[2022-11-23] MEDS: FLOMAX PO SCH (08:42)
[2022-11-23] MEDS: FARXIGA PO SCH (08:42)
[2022-11-23] MEDS: PLAVIX PO SCH (08:42)
[2022-11-23] MEDS: LEXAPRO PO SCH (08:42)
[2022-11-23] MEDS: TOPAMAX TAB 100 MG PO SCH (08:42)
[2022-11-23] MEDS: DALIRESP PO SCH (08:42)
[2022-11-23] MEDS: NEURONTIN CAP 400 MG PO SCH (08:42)
[2022-11-23] MEDS: PROTONIX TAB 40 MG PO SCH (08:42)
[2022-11-23] MEDS: MAG-OX TAB PO SCH (08:43)
[2022-11-23] MEDS: MUCINEX DM PO SCH (08:43)
[2022-11-23] MEDS: MULTAQ PO SCH (08:43)
[2022-11-23] MEDS: SINGULAIR TAB 10 MG PO SCH (08:43)
[2022-11-23] MEDS: LIPITOR TAB 80 MG PO SCH (08:43)
[2022-11-23] MEDS: IMDUR PO SCH (08:43)
[2022-11-23] MEDS: MEGACE PO SCH (08:43)
[2022-11-23] MEDS: COREG TAB 6.25 MG PO SCH (08:44)
[2022-11-23] MEDS: ROCEPHIN VIAL 1 GRAM 1 G in NS 100 ML IV 100 ML IV SCH (08:44)
[2022-11-23] MEDS: LINZESS PO SCH (08:54)
[2022-11-23] MEDS: ASTELIN NASAL SPRAY ENOSTRIL SCH (08:54)
[2022-11-23] MEDS: FLONASE NASAL SPRAY ENOSTRIL SCH (08:54)
[2022-11-23 08:56] VITALS: BP 122/60; PULSE 61; TEMP 97.3; O2SAT 93
[2022-11-23] MEDS ORDERED: K-DUR TAB 20 MEQ PO NR (09:00)
[2022-11-23] MEDS ORDERED: LASIX PO SCH (09:00)
[2022-11-23] MEDS ORDERED: NS 1/2 1,000 ML IV 1,000 ML IV SCH (09:00)
[2022-11-23] MEDS: LEVAQUIN PREMIX IV 750 MG 750 MG/150 ML BAG IV SCH (09:14)
--- NOTE | 2022-11-23 22:04 | RAD ---
HISTORYCHF, pneumonia, COPD.STUDYCHEST, 1 VIEWCOMPARISONChest one view from 11/21/2022.FINDINGSSupport devices: None.Heart/mediastinum: Stable.Lungs: Previously seen bilateral pulmonary opacities have improved. No significant pleural effusion. No pneumothorax.Additional findings: None.IMPRESSIONImproved aeration of the lungs. No new acute findings.Electronically signed by: Tulio Francis (Nov 23, 2022 22:02:32)
== END 2022-11-23 10:20 | disposition home or self-care (01) | DRG 291 ==
LOC: MED/SURG 14:46 → ER 14:46 → MED/SURG 21:09
PROVIDERS: ADMIT Obstetrics & Gynecology Obstetrics; ATTEND Obstetrics & Gynecology Obstetrics
DX: N18.30 Chronic kidney disease, stage 3 unspecified; I25.10 Atherosclerotic heart disease of native coronary artery without angina pectoris; I73.89 Other specified peripheral vascular diseases; E11.65 Type 2 diabetes mellitus with hyperglycemia; I48.20 Chronic atrial fibrillation, unspecified; K21.9 Gastro-esophageal reflux disease without esophagitis; J18.8 Other pneumonia, unspecified organism; R06.02 Shortness of breath; E78.2 Mixed hyperlipidemia; K59.09 Other constipation; R26.89 Other abnormalities of gait and mobility; D64.89 Other specified anemias; R10.84 Generalized abdominal pain; E03.8 Other specified hypothyroidism; I13.0 Hypertensive heart and chronic kidney disease with heart failure and stage 1 through stage 4 chronic kidney disease, or unspecified chronic kidney disease; J44.9 Chronic obstructive pulmonary disease, unspecified

== ENCOUNTER 2022-12-20 21:50 | Inpatient (IN) ==
--- NOTE | 2022-12-20 22:00 | DR.N/VMALE ---
HPI Time Seen Time Seen by Provider: 12/20/22 22:06 Complaints Chief Complaint Doctors Comments: 72 y/o male presents for evaluation. Hospitalized last month for CHF. Has been ill since d/c, at least 4 weeks. Having fequent nausea, with vomiting. States unable to keep anything down. + generalized weakness. + diffuse abdominal pain. Hving decreased BM's, urination. Denies fever, chills, URI symptoms, cough, dyspnea. Reviewed Nurses Notes Reviewed: Yes Source History Provided: Patient Mode of Arrival Mode of Arrival: Ambulatory PMH PMH Past Medical History: Anxiety, Asthma, CHF, COPD, Coronary Artery Disease, Depression, Diabetes, Dyslipidemia, GERD, Hypertension, Hypothyroidism, MT and Renal Disease Past Surgical History: Yes Surgical History: Angioplasty/Stents and Thyroidectomy Family History Family Medical History: Diabetes Mellitus, Cancer, MT, Coronary Artery Disease and Hypertension Social History Does patient currently use any type of tobacco product: Yes Type of Tobacco Use: Cigarettes Alcohol Use: None Do you use any recreational Drugs:: No ROS Review of Systems Constitutional: Malaise, Weakness and Loss of Appetite Eyes: No Symptoms Reported ENTM: No Symptoms Reported Respiratoy: No Symptoms Reported Cardiovascular: No Symptoms Reported Gastrointestinal/Abdominal: See HPI Genitourinary: No Symptoms Reported Neurological: Weakness Musculoskeletal: No Symptoms Reported Integumentary: No Symptoms Reported Hematologic/Lymphatic: No Symptoms Reported All Other Systems: Reviewed and Negative PE Vital Signs Vitals: Vital Signs Temperature 97.8 F Pulse Rate 62 Pulse Rate 62 Pulse Rate 65 Pulse Rate 64 Pulse Rate 75 Respiratory Rate 18 Blood Pressure 139/65 Blood Pressure 149/70 O2 Sat by Pulse Oximetry 96 O2 Sat by Pulse Oximetry 97 O2 Sat by Pulse Oximetry 97 O2 Sat by Pulse Oximetry 96 O2 Sat by Pulse Oximetry 97 General General Appearance: Alert and In No Apparent Distress Eyes Eye exam: PERRL and EOMI ENT ENT Exam: Mucous Membranes Moist Neck Neck Exam: Normal Inspection Respiratory Respiratory Exam: Normal Lung Sounds Bilat; negative Accessory Muscle Use or Respiratory Distress Cardiovascular Cardiovascular Exam: Regular Rate, Normal Rhythm and Normal Heart Sounds Abdominal Exam Abdominal Exam: Normal Bowel Sounds, Soft and Tenderness (all quadants, no guarding or rebound. ) Extremities Extremities Exam: Normal Inspection; negative Edema Neurologic Neurological Exam: Alert, Oriented X3 and CN II-XII Intact; negative Motor Sensory Deficit Skin Skin Exam: Warm and Dry COURSE Treatment Treatment: 72 y/o male with several weeks of N/V, abdominal pain and worsening weakness. W/u initiated. Pt given IV fluids, IV protonix/zofran. 2300 - + has acute renal injury/dehydration. Discussed with his provider, Dr Masterson, accepts the admission. [facility]OR Labs Reviewed 12/20/22 22:20 12/20/22 22:20 Laboratory: WBC 6.1 X10^3/uL (3.6-10.0) 12/20/22 22:20 RBC 4.31 X10^6/uL (4.7-6.0) L 12/20/22 22:20 Hgb 11.3 g/dL (13.5-18.0) L 12/20/22 22:20 Hct 34.5 % (42.0-54.0) L 12/20/22 22:20 MCV 80.0 fL (80.0-100.0) 12/20/22 22:20 MCH 26.1 pg (27.0-34.0) L 12/20/22 22:20 MCHC 32.6 g/dL (33.0-35.0) L 12/20/22 22:20 RDW 16.9 % (11.6-16.5) H 12/20/22 22:20 Plt Count 142 X10^3/uL (150.0-450.0) L 12/20/22 22:20 MPV 9.0 fL (7.4-11.0) 12/20/22 22:20 Neut % (Auto) 69.5 % (42.0-75.0) 12/20/22 22:20 Lymph % (Auto) 18.6 % (21.0-51.0) L 12/20/22 22:20 [place] % (Auto) 8.0 % (0.0-13.0) 12/20/22 22:20 Eos % (Auto) 3.3 % (0.9-2.9) H 12/20/22 22:20 Baso % (Auto) 0.6 % (0.2-1.0) 12/20/22 22:20 Neut # (Auto) 4.2 x10^3/uL (2.2-4.8) 12/20/22 22:20 Lymph # (Auto) 1.1 X10^3/uL (1.3-2.9) L 12/20/22 22:20 [place] # (Auto) 0.5 x10^3/uL (0.3-0.8) 12/20/22 22:20 Eos # (Auto) 0.2 x10^3/uL (0.0-0.2) 12/20/22 22:20 Baso # (Auto) 0.0 X10^3/uL (0.0-0.1) 12/20/22 22:20 Absolute Nucleated RBC 0.1 /100WBC 12/20/22 22:20 Sodium 139 mmol/L (136-145) 12/20/22 22:20 Corrected Sodium TNP 12/20/22 22:20 Potassium 4.0 mmol/L (3.5-5.1) 12/20/22 22:20 Chloride 102 mmol/L (98-107) 12/20/22 22:20 Carbon Dioxide 15.6 mmol/L (21-32) L 12/20/22 22:20 BUN 67 mg/dL (7-18) H 12/20/22 22:20 Creatinine 4.83 mg/dL (0.70-1.30) H 12/20/22 22:20 Est GFR (MDRD) Af Amer 15 (>60) L 12/20/22 22:20 Est GFR (MDRD) Non-Af 13 (>60) L 12/20/22 22:20 Glucose 77 mg/dL (65-99) 12/20/22 22:20 Calcium 9.0 mg/dL (8.5-10.1) 12/20/22 22:20 Corrected Calcium TNP 12/20/22 22:20 Total Bilirubin 0.50 mg/dL (0.2-1.0) 12/20/22 22:20 AST 8 Units/L (15-37) L 12/20/22 22:20 ALT 11 Units/L (12-78) L 12/20/22 22:20 Alkaline Phosphatase 66 Units/L (46-116) 12/20/22 22:20 Troponin I High Sens 63.9 ng/L (4.0-60.0) H* 12/20/22 22:20 Total Protein 6.8 g/dL (6.4-8.2) 12/20/22 22:20 Albumin 3.7 g/dL (3.4-5.0) 12/20/22 22:20 Globulin 3.1 g/dL (2.5-4.5) 12/20/22 22:20 Albumin/Globulin Ratio 1.2 Ratio (1.1-2.1) 12/20/22 22:20 Lipase 297 Units/L (73-393) 12/20/22 22:20 SARS-CoV-2 (PCR) Negative (NEGATIVE) 12/20/22 22:19 Influenza Type A (PCR) Negative (NEGATIVE) 12/20/22 22:19 Influenza Type B (PCR) Negative (NEGATIVE) 12/20/22 22:19 RSV (PCR) Negative (NEGATIVE) 12/20/22 22:19 XRAY XRAY Interpreted by: Self X-ray Results: Rotated, no acute abnormalities. Opioid Opioid Risk Tool Family Hx of Substance Abuse: Alcohol Age (Franki box if 16-45): No History of Preadolescent Sexual Abuse: No Psychological Disease: Depression Total: 0 Total Score Risk Category: Low Risk Copyright: Jarrett RUBIO predicting aberrant behaviors Discharge Plan Diagnosis Discharge Problem: Acute nontraumatic kidney injury Discharge Plan Patient Disposition: ADMITTED INPATIENT Condition: Stable Orders to Discharge Patient Discharge Orders: Transfer (Routine); Ordered 12/20/22 Ordered By: Zenon Mitchell
[2022-12-20] MEDS ORDERED: ZOFRAN INJ 4 MG VIAL IVP ONE (22:09)
[2022-12-20] MEDS ORDERED: PROTONIX INJ 40 MG VIAL IVP ONE (22:09)
[2022-12-20] MEDS ORDERED: NS 1,000 ML IV 1,000 ML IV ONE (22:09)
[2022-12-20] MEDS ORDERED: ZOFRAN INJ 4 MG VIAL ONE (22:11)
[2022-12-20] MEDS ORDERED: NS 1,000 ML IV 1,000 ML ONE (22:11)
[2022-12-20] MEDS ORDERED: PROTONIX INJ 40 MG VIAL ONE (22:11)
[2022-12-20 22:38] LABS: BASOPHILS % (AUTO) 0.6 % (0.2-1.0); EOSINOPHILS # (AUTO) 0.2 x10^3/uL (0.0-0.2); EOSINOPHILS % (AUTO) 3.3 % (0.9-2.9); HEMATOCRIT 34.5 % (42.0-54.0); HEMOGLOBIN 11.3 g/dL (13.5-18.0); LYMPHOCYTES # (AUTO) 1.1 X10^3/uL (1.3-2.9); LYMPHOCYTES % (AUTO) 18.6 % (21.0-51.0); MEAN CORPUSCULAR HEMOGLOBIN 26.1 pg (27.0-34.0); MEAN CORPUSCULAR HGB CONC 32.6 g/dL (33.0-35.0); MONOCYTES # (AUTO) 0.5 x10^3/uL (0.3-0.8); NEUTROPHILS # (AUTO) 4.2 x10^3/uL (2.2-4.8); NEUTROPHILS % (AUTO) 69.5 % (42.0-75.0); PLATELET COUNT 142 X10^3/uL (150.0-450.0); RED BLOOD COUNT 4.31 X10^6/uL (4.7-6.0); RED CELL DISTRIBUTION WIDTH 16.9 % (11.6-16.5); WHITE BLOOD COUNT 6.1 X10^3/uL (3.6-10.0)
[2022-12-20 22:58] LABS: ALANINE AMINOTRANSFERASE 11 Units/L (12-78); ALBUMIN 3.7 g/dL (3.4-5.0); ALKALINE PHOSPHATASE 66 Units/L (46-116); ASPARTATE AMINO TRANSFERASE 8 Units/L (15-37); BLOOD UREA NITROGEN 67 mg/dL (7-18); CARBON DIOXIDE 15.6 mmol/L (21-32); CHLORIDE 102 mmol/L (98-107); CREATININE 4.83 mg/dL (0.70-1.30); GLUCOSE 77 mg/dL (65-99); LIPASE 297 Units/L (73-393); SODIUM 139 mmol/L (136-145); TOTAL PROTEIN 6.8 g/dL (6.4-8.2); eGFR NON BLACK RACES 13 (>60)
[2022-12-21] MEDS ORDERED: CONSULT PHARMACY - POTASSIUM & MAGNESIUM XX SCH (00:13)
[2022-12-21] MEDS ORDERED: PATIENT'S HOME MEDICATION (Oxycodone-Acetaminophen 10-325 mg tablet) PO PRN ×2 (00:13→02:03)
[2022-12-21] MEDS ORDERED: VENTOLIN or PROAIR HFA IN PRN (00:13)
[2022-12-21] MEDS ORDERED: AMBIEN PO PRN (00:13)
[2022-12-21 01:05] LABS: BILIRUBIN,URINE NEGATIVE (NEGATIVE); BLOOD/HEMOGLOBIN,URINE 1+ (NEGATIVE); GLUCOSE, URINE NEGATIVE (NEGATIVE); KETONES,URINE 3+ (NEGATIVE); LEUKOCYTE ESTERASE ,URINE NEGATIVE (NEGATIVE); NITRITES,URINE NEGATIVE (NEGATIVE); PROTEIN,URINE 1+ (NEGATIVE); UROBILINOGEN,URINE NORMAL (NORMAL)
[2022-12-21 01:08] LABS: APPEARANCE,URINE CLEAR (CLEAR); BACTERIA,URINE NEGATIVE /HPF (NEGATIVE); COLOR,URINE YELLOW (YELLOW); RBC,URINE 0-2 /HPF (0-3); SQUAMOUS EPITHELIAL CELL,UR RARE /HPF (NEGATIVE)
[2022-12-21] MEDS ORDERED: NORCO 10/325 TAB PO PRN (02:01)
[2022-12-21] MEDS: D5 NS 1,000 ML IV 1,000 ML IV SCH ×4 (02:08→23:10)
[2022-12-21] MEDS: ZOFRAN INJ 4 MG VIAL IVP PRN ×4 (02:40→23:15)
[2022-12-21] MEDS: MORPHINE SULFATE INJ 2 MG INJ IVP PRN ×3 (02:41→15:43)
[2022-12-21] MEDS ORDERED: MILK OF MAGNESIA PO PRN (03:20)
[2022-12-21] MEDS ORDERED: COLACE CAP 100 MG PO PRN (03:20)
[2022-12-21] MEDS: SYNTHROID 100 mcg TAB PO SCH (05:46)
[2022-12-21] MEDS: PROVENTIL NEB TX 0.083% 2.5MG/ 3ML NEB SCH ×4 (06:08→20:52)
[2022-12-21 06:11] LABS: BASOPHILS % (AUTO) 0.5 % (0.2-1.0); EOSINOPHILS # (AUTO) 0.2 x10^3/uL (0.0-0.2); EOSINOPHILS % (AUTO) 3.8 % (0.9-2.9); LYMPHOCYTES # (AUTO) 1.1 X10^3/uL (1.3-2.9); LYMPHOCYTES % (AUTO) 24.9 % (21.0-51.0); MEAN CORPUSCULAR HEMOGLOBIN 26.4 pg (27.0-34.0); MEAN CORPUSCULAR HGB CONC 33.3 g/dL (33.0-35.0); MEAN CORPUSCULAR VOLUME 79.4 fL (80.0-100.0); MEAN PLATELET VOLUME 8.9 fL (7.4-11.0); MONOCYTES # (AUTO) 0.3 x10^3/uL (0.3-0.8); MONOCYTES % (AUTO) 7.5 % (0.0-13.0); NEUTROPHILS # (AUTO) 2.7 x10^3/uL (2.2-4.8); NEUTROPHILS % (AUTO) 63.3 % (42.0-75.0); PLATELET COUNT 118 X10^3/uL (150.0-450.0); RED BLOOD COUNT 3.78 X10^6/uL (4.7-6.0); RED CELL DISTRIBUTION WIDTH 16.2 % (11.6-16.5); WHITE BLOOD COUNT 4.3 X10^3/uL (3.6-10.0)
[2022-12-21 06:19] LABS: CALCIUM 8.4 mg/dL (8.5-10.1); CARBON DIOXIDE 22.6 mmol/L (21-32); COR CA(FOR HYPOALB) 9.2 mg/dL (8.5-10.1); CREATININE 4.08 mg/dL (0.70-1.30); POTASSIUM 3.7 mmol/L (3.5-5.1); TOTAL PROTEIN 5.8 g/dL (6.4-8.2)
--- NOTE | 2022-12-21 08:26 | RAD ---
HISTORYNausea, vomitingSTUDYChest AP portableCOMPARISONNoneFINDINGSHeart size is normal. Maura are normal. Aorta is calcified. Lungs are well inflated. No acute alveolar infiltrates or pleural effusions are identified. Benign calcified granulomas are present in the left lower lobe. Bony thorax is unremarkable.IMPRESSIONNo acute infiltratesElectronically signed by: MARINO ROSSI (Dec 21, 2022 08:25:24)
[2022-12-21] MEDS ORDERED: PATIENT'S HOME MEDICATION (Fluticasone-Umeclidin-Vilanter [Trelegy Ellipta] 100-62.5-25 mc IN SCH (09:00)
[2022-12-21] MEDS ORDERED: COZAAR PO SCH (09:00)
[2022-12-21] MEDS ORDERED: GLUCOPHAGE XR 24-HR PO SCH (09:00)
[2022-12-21] MEDS ORDERED: PLAVIX PO SCH (09:00)
[2022-12-21] MEDS ORDERED: PATIENT'S HOME MEDICATION (Levothyroxine 200 mcg tablet) PO SCH (09:00)
[2022-12-21] MEDS ORDERED: NS 1,000 ML IV 1,000 ML IV ONE (09:43)
[2022-12-21] MEDS ORDERED: ASTELIN NASAL SPRAY ENOSTRIL ONE (09:53)
[2022-12-21] MEDS: LIPITOR TAB 80 MG PO SCH (10:05)
[2022-12-21] MEDS: LEXAPRO PO SCH (10:05)
[2022-12-21] MEDS: SINGULAIR TAB 10 MG PO SCH (10:05)
[2022-12-21] MEDS: FLOMAX PO SCH (10:05)
[2022-12-21] MEDS: IMDUR PO SCH (10:05)
[2022-12-21] MEDS: DALIRESP PO SCH (10:05)
[2022-12-21] MEDS: FLONASE NASAL SPRAY ENOSTRIL SCH (10:08)
[2022-12-21] MEDS: COREG TAB 6.25 MG PO SCH ×2 (10:09→20:21)
[2022-12-21] MEDS: MULTAQ PO SCH ×2 (10:09→20:23)
[2022-12-21] MEDS: ENTRESTO 24/26 MG TABLET PO SCH ×2 (10:09→20:22)
[2022-12-21] MEDS: ASTELIN NASAL SPRAY ENOSTRIL SCH (10:09)
[2022-12-21] MEDS: PROTONIX TAB 40 MG PO SCH ×2 (10:10→20:23)
[2022-12-21] MEDS: TOPAMAX TAB 100 MG PO SCH ×2 (10:10→20:22)
[2022-12-21] MEDS: BRILINTA PO SCH ×2 (10:10→20:24)
[2022-12-21] MEDS: NEURONTIN CAP 300 MG PO SCH (10:10)
[2022-12-21] MEDS ORDERED: LEXAPRO ONE (10:16)
[2022-12-21] MEDS: NITRODUR PATCH 0.2 MG/HR TD SCH (10:25)
[2022-12-21] MEDS ORDERED: NS 250 ML IV 250 ML IV ONE (11:05)
[2022-12-21 13:51] VITALS: BMI 21.2
--- NOTE | 2022-12-21 15:30 | RAD ---
HISTORYABD PAINSTUDYACUTE ABDOMEN SERIESCOMPARISONNoneFINDINGSGas is present in nondilated bowel. No bowel obstruction or free air. There is not an abnormally large amount of stool in the colon. No significant abnormal calcification is seen. The patient had calcified gallstones on the CT from 11/14/2022 but I do not see these on the radiograph today.The bones are unremarkable.Apparent opacity in the right lung base is probably due to a cardiac fat pad and the small eventration seen on a CT 11/14/2022. Left lung clear. Heart size magnified.There are surgical clips in the right neck. Vascular calcifications are present compatible with atherosclerosis.Surgical clips are seen in the left lower abdomen.IMPRESSION1. No acute findingElectronically signed by: Jose Coleman (Dec 21, 2022 15:29:13)
[2022-12-21] MEDS ORDERED: LINZESS PO STA (17:41)
[2022-12-21] MEDS ORDERED: LINZESS PO ONE (17:51)
[2022-12-21] MEDS: PERCOCET TAB 5/325 MG PO PRN (19:20)
[2022-12-21] MEDS: COLACE CAP 100 MG PO SCH (20:21)
[2022-12-22] MEDS: SYNTHROID 100 mcg TAB PO SCH (05:30)
[2022-12-22] MEDS: PROVENTIL NEB TX 0.083% 2.5MG/ 3ML NEB SCH ×3 (06:05→20:30)
[2022-12-22 06:36] LABS: BASOPHILS % (AUTO) 0.5 % (0.2-1.0); EOSINOPHILS # (AUTO) 0.1 x10^3/uL (0.0-0.2); EOSINOPHILS % (AUTO) 3.3 % (0.9-2.9); HEMATOCRIT 27.6 % (42.0-54.0); HEMOGLOBIN 9.1 g/dL (13.5-18.0); LYMPHOCYTES % (AUTO) 28.2 % (21.0-51.0); MEAN CORPUSCULAR HEMOGLOBIN 26.5 pg (27.0-34.0); MEAN CORPUSCULAR HGB CONC 33.1 g/dL (33.0-35.0); MEAN CORPUSCULAR VOLUME 79.9 fL (80.0-100.0); MEAN PLATELET VOLUME 9.2 fL (7.4-11.0); MONOCYTES # (AUTO) 0.3 x10^3/uL (0.3-0.8); MONOCYTES % (AUTO) 8.2 % (0.0-13.0); NEUTROPHILS % (AUTO) 59.8 % (42.0-75.0); PLATELET COUNT 89 X10^3/uL (150.0-450.0); RED BLOOD COUNT 3.45 X10^6/uL (4.7-6.0); RED CELL DISTRIBUTION WIDTH 16.6 % (11.6-16.5); WHITE BLOOD COUNT 3.4 X10^3/uL (3.6-10.0)
[2022-12-22 06:38] LABS: ALBUMIN 2.5 g/dL (3.4-5.0); CALCIUM 7.8 mg/dL (8.5-10.1); CARBON DIOXIDE 19.9 mmol/L (21-32); CREATININE 3.03 mg/dL (0.70-1.30); MAGNESIUM 1.2 mg/dL (2.0-2.9); POTASSIUM 3.4 mmol/L (3.5-5.1)
[2022-12-22] MEDS ORDERED: CONSULT PHARMACY - POTASSIUM & MAGNESIUM XX SCH (07:00)
[2022-12-22] MEDS: ZOFRAN INJ 4 MG VIAL IVP PRN ×2 (08:00→18:20)
[2022-12-22] MEDS: K-RIDER 10 MEQ/NS 100 ML 10 MEQ/100 ML BAG IV SCH ×2 (09:00→10:00)
[2022-12-22] MEDS ORDERED: NS 1,000 ML IV 1,000 ML IV ONE (09:27)
[2022-12-22] MEDS ORDERED: LEXAPRO ONE (09:33)
[2022-12-22] MEDS: MULTAQ PO SCH ×2 (10:00→21:52)
[2022-12-22] MEDS: TOPAMAX TAB 100 MG PO SCH ×2 (10:00→21:55)
[2022-12-22] MEDS: PROTONIX TAB 40 MG PO SCH ×2 (10:00→21:54)
[2022-12-22] MEDS: LEXAPRO PO SCH (10:00)
[2022-12-22] MEDS: SINGULAIR TAB 10 MG PO SCH (10:00)
[2022-12-22] MEDS: BRILINTA PO SCH ×2 (10:00→21:54)
[2022-12-22] MEDS: NEURONTIN CAP 300 MG PO SCH (10:00)
[2022-12-22] MEDS: IMDUR PO SCH (10:00)
[2022-12-22] MEDS: MAGNESIUM SULFATE 1 GRAM/100 mL PREMIX 1 G/100 ML BAG IV SCH ×3 (10:00→12:00)
[2022-12-22] MEDS: FLOMAX PO SCH (10:00)
[2022-12-22] MEDS: LIPITOR TAB 80 MG PO SCH (10:00)
[2022-12-22] MEDS: ENTRESTO 24/26 MG TABLET PO SCH ×2 (10:00→21:54)
[2022-12-22] MEDS: DALIRESP PO SCH (10:00)
[2022-12-22] MEDS: ASTELIN NASAL SPRAY ENOSTRIL SCH (10:10)
[2022-12-22] MEDS: D5 NS 1,000 ML IV 1,000 ML IV SCH ×3 (10:15→21:58)
[2022-12-22] MEDS: LINZESS PO SCH ×2 (10:16→11:00)
[2022-12-22] MEDS: COREG TAB 6.25 MG PO SCH ×2 (10:16→21:54)
[2022-12-22] MEDS: FLONASE NASAL SPRAY ENOSTRIL SCH (10:43)
[2022-12-22] MEDS ORDERED: NS 250 ML IV 0 ML IV ONE (12:17)
[2022-12-22] MEDS: NITRODUR PATCH 0.2 MG/HR TD SCH (15:17)
[2022-12-22] MEDS ORDERED: K-RIDER 10 MEQ/NS 100 ML 10 MEQ/100 ML BAG IV ONE (15:22)
[2022-12-22] MEDS: MORPHINE SULFATE INJ 2 MG INJ IVP PRN (15:24)
[2022-12-22] MEDS ORDERED: MAGNESIUM SULFATE 1 GRAM/100 mL PREMIX 1 G/100 ML BAG IV ONE (16:33)
[2022-12-22] MEDS: COLACE CAP 100 MG PO SCH (21:52)
[2022-12-22] MEDS: PERCOCET TAB 5/325 MG PO PRN (21:55)
[2022-12-23] MEDS: D5 NS 1,000 ML IV 1,000 ML IV SCH ×2 (01:42→05:47)
[2022-12-23] MEDS: SYNTHROID 100 mcg TAB PO SCH (05:46)
[2022-12-23] MEDS: PROVENTIL NEB TX 0.083% 2.5MG/ 3ML NEB SCH ×3 (06:13→21:00)
[2022-12-23 06:23] LABS: BASOPHILS % (AUTO) 0.3 % (0.2-1.0); EOSINOPHILS # (AUTO) 0.1 x10^3/uL (0.0-0.2); EOSINOPHILS % (AUTO) 3.2 % (0.9-2.9); HEMATOCRIT 28.2 % (42.0-54.0); HEMOGLOBIN 9.2 g/dL (13.5-18.0); LYMPHOCYTES # (AUTO) 1.1 X10^3/uL (1.3-2.9); LYMPHOCYTES % (AUTO) 29.6 % (21.0-51.0); MEAN CORPUSCULAR HEMOGLOBIN 26.1 pg (27.0-34.0); MEAN CORPUSCULAR HGB CONC 32.7 g/dL (33.0-35.0); MONOCYTES # (AUTO) 0.3 x10^3/uL (0.3-0.8); MONOCYTES % (AUTO) 8.5 % (0.0-13.0); NEUTROPHILS # (AUTO) 2.1 x10^3/uL (2.2-4.8); NEUTROPHILS % (AUTO) 58.4 % (42.0-75.0); PLATELET COUNT 85 X10^3/uL (150.0-450.0); RED BLOOD COUNT 3.52 X10^6/uL (4.7-6.0); RED CELL DISTRIBUTION WIDTH 16.6 % (11.6-16.5); WHITE BLOOD COUNT 3.6 X10^3/uL (3.6-10.0)
[2022-12-23 06:38] LABS: ALBUMIN 2.4 g/dL (3.4-5.0); CALCIUM 7.8 mg/dL (8.5-10.1); CARBON DIOXIDE 18.4 mmol/L (21-32); COR CA(FOR HYPOALB) 9.1 mg/dL (8.5-10.1); CREATININE 2.63 mg/dL (0.70-1.30); MAGNESIUM 1.8 mg/dL (2.0-2.9); POTASSIUM 3.7 mmol/L (3.5-5.1); TOTAL PROTEIN 4.8 g/dL (6.4-8.2)
[2022-12-23] MEDS ORDERED: CONSULT PHARMACY - POTASSIUM & MAGNESIUM XX SCH (07:00)
[2022-12-23] MEDS ORDERED: MICRO K EXTEN CAP 10 MEQ PO SCH (09:00)
[2022-12-23] MEDS: TOPAMAX TAB 100 MG PO SCH ×2 (09:10→20:57)
[2022-12-23] MEDS: PROTONIX TAB 40 MG PO SCH ×2 (09:11→20:57)
[2022-12-23] MEDS: NEURONTIN CAP 300 MG PO SCH (09:11)
[2022-12-23] MEDS: MULTAQ PO SCH ×2 (09:11→20:57)
[2022-12-23] MEDS: BRILINTA PO SCH ×2 (09:11→20:58)
[2022-12-23] MEDS: LINZESS PO SCH (09:11)
[2022-12-23] MEDS: COREG TAB 6.25 MG PO SCH ×2 (09:11→20:59)
[2022-12-23] MEDS: ENTRESTO 24/26 MG TABLET PO SCH ×2 (09:11→20:58)
[2022-12-23] MEDS: NS 1,000 ML IV 1,000 ML IV SCH ×3 (09:12→21:07)
[2022-12-23] MEDS: ASTELIN NASAL SPRAY ENOSTRIL SCH (09:12)
[2022-12-23] MEDS: FLONASE NASAL SPRAY ENOSTRIL SCH (09:12)
[2022-12-23] MEDS: MAG-OX TAB PO SCH ×2 (09:12→10:55)
[2022-12-23] MEDS ORDERED: LEXAPRO ONE (09:15)
[2022-12-23] MEDS: IMDUR PO SCH (09:16)
[2022-12-23] MEDS: LEXAPRO PO SCH (09:16)
[2022-12-23] MEDS: DALIRESP PO SCH (09:16)
[2022-12-23] MEDS: LIPITOR TAB 80 MG PO SCH (09:16)
[2022-12-23] MEDS: SINGULAIR TAB 10 MG PO SCH (09:16)
[2022-12-23] MEDS: FLOMAX PO SCH (09:17)
[2022-12-23] MEDS: NITRODUR PATCH 0.2 MG/HR TD SCH (09:17)
[2022-12-23] MEDS: ZOFRAN INJ 4 MG VIAL IVP PRN ×2 (14:55→21:07)
[2022-12-23] MEDS: MORPHINE SULFATE INJ 2 MG INJ IVP PRN ×2 (14:56→22:27)
[2022-12-23] MEDS: COLACE CAP 100 MG PO SCH (20:59)
[2022-12-23] MEDS: PERCOCET TAB 5/325 MG PO PRN (21:00)
[2022-12-24] MEDS: NS 1,000 ML IV 1,000 ML IV SCH ×3 (00:28→09:09)
[2022-12-24] MEDS: MORPHINE SULFATE INJ 2 MG INJ IVP PRN ×2 (03:34→09:44)
[2022-12-24 04:35] VITALS: TEMP 98.1; O2SAT 98
[2022-12-24] MEDS: PROVENTIL NEB TX 0.083% 2.5MG/ 3ML NEB SCH (06:03)
[2022-12-24] MEDS: SYNTHROID 100 mcg TAB PO SCH (06:06)
[2022-12-24 06:11] LABS: BASOPHILS % (AUTO) 0.8 % (0.2-1.0); EOSINOPHILS # (AUTO) 0.1 x10^3/uL (0.0-0.2); EOSINOPHILS % (AUTO) 3.5 % (0.9-2.9); HEMATOCRIT 26.6 % (42.0-54.0); HEMOGLOBIN 8.6 g/dL (13.5-18.0); LYMPHOCYTES # (AUTO) 1.2 X10^3/uL (1.3-2.9); LYMPHOCYTES % (AUTO) 35.9 % (21.0-51.0); MEAN CORPUSCULAR HEMOGLOBIN 26.3 pg (27.0-34.0); MEAN CORPUSCULAR HGB CONC 32.6 g/dL (33.0-35.0); MEAN CORPUSCULAR VOLUME 80.6 fL (80.0-100.0); MEAN PLATELET VOLUME 9.3 fL (7.4-11.0); MONOCYTES # (AUTO) 0.2 x10^3/uL (0.3-0.8); MONOCYTES % (AUTO) 7.2 % (0.0-13.0); NEUTROPHILS # (AUTO) 1.8 x10^3/uL (2.2-4.8); NEUTROPHILS % (AUTO) 52.6 % (42.0-75.0); PLATELET COUNT 80 X10^3/uL (150.0-450.0); RED BLOOD COUNT 3.29 X10^6/uL (4.7-6.0); RED CELL DISTRIBUTION WIDTH 17.1 % (11.6-16.5); WHITE BLOOD COUNT 3.4 X10^3/uL (3.6-10.0)
[2022-12-24 06:25] LABS: ALANINE AMINOTRANSFERASE 9 Units/L (12-78); ALBUMIN 2.3 g/dL (3.4-5.0); ALKALINE PHOSPHATASE 55 Units/L (46-116); ASPARTATE AMINO TRANSFERASE 8 Units/L (15-37); BLOOD UREA NITROGEN 26 mg/dL (7-18); CALCIUM 7.8 mg/dL (8.5-10.1); CARBON DIOXIDE 19.6 mmol/L (21-32); COR CA(FOR HYPOALB) 9.2 mg/dL (8.5-10.1); CREATININE 2.47 mg/dL (0.70-1.30); GLUCOSE 85 mg/dL (65-99); MAGNESIUM 1.6 mg/dL (2.0-2.9); SODIUM 145 mmol/L (136-145); TOTAL PROTEIN 4.6 g/dL (6.4-8.2); eGFR NON BLACK RACES 27 (>60)
[2022-12-24 06:32] LABS: CHLORIDE 117 mmol/L (98-107)
[2022-12-24] MEDS ORDERED: CONSULT PHARMACY - POTASSIUM & MAGNESIUM XX SCH (08:00)
[2022-12-24 08:21] VITALS: BP 81/46; PULSE 60
[2022-12-24] MEDS ORDERED: LEXAPRO ONE (08:41)
[2022-12-24] MEDS ORDERED: LINZESS PO SCH (09:00)
[2022-12-24] MEDS: COREG TAB 6.25 MG PO SCH (09:10)
[2022-12-24] MEDS: TOPAMAX TAB 100 MG PO SCH (09:23)
[2022-12-24] MEDS: SINGULAIR TAB 10 MG PO SCH (09:23)
[2022-12-24] MEDS: BRILINTA PO SCH (09:23)
[2022-12-24] MEDS: LEXAPRO PO SCH (09:23)
[2022-12-24] MEDS: MAG-OX TAB PO SCH ×2 (09:23→09:59)
[2022-12-24] MEDS: DALIRESP PO SCH (09:23)
[2022-12-24] MEDS: PROTONIX TAB 40 MG PO SCH (09:23)
[2022-12-24] MEDS: LIPITOR TAB 80 MG PO SCH (09:23)
[2022-12-24] MEDS: ENTRESTO 24/26 MG TABLET PO SCH (09:23)
[2022-12-24] MEDS: FLOMAX PO SCH (09:24)
[2022-12-24] MEDS: NEURONTIN CAP 300 MG PO SCH (09:24)
[2022-12-24] MEDS: MULTAQ PO SCH (09:24)
[2022-12-24] MEDS: FLONASE NASAL SPRAY ENOSTRIL SCH (09:24)
[2022-12-24] MEDS: ASTELIN NASAL SPRAY ENOSTRIL SCH (09:24)
[2022-12-24] MEDS: IMDUR PO SCH (09:24)
[2022-12-24] MEDS: NITRODUR PATCH 0.2 MG/HR TD SCH (09:35)
[2022-12-24] MEDS: ZOFRAN INJ 4 MG VIAL IVP PRN (09:44)
[2022-12-24 11:52] VITALS: RESP 18
== END 2022-12-24 12:20 | disposition home or self-care (01) | DRG 684 ==
LOC: ER 21:54 → MED/SURG 23:52
PROVIDERS: ADMIT Obstetrics & Gynecology Obstetrics; ATTEND Obstetrics & Gynecology Obstetrics
DX: I25.10 Atherosclerotic heart disease of native coronary artery without angina pectoris; K59.03 Drug induced constipation; K21.9 Gastro-esophageal reflux disease without esophagitis; I10 Essential (primary) hypertension; E11.65 Type 2 diabetes mellitus with hyperglycemia; N17.8 Other acute kidney failure; Z20.822 Contact with and (suspected) exposure to COVID-19; R11.2 Nausea with vomiting, unspecified; K44.9 Diaphragmatic hernia without obstruction or gangrene; T40.2X5A Adverse effect of other opioids, initial encounter; R53.1 Weakness; R10.84 Generalized abdominal pain; R77.8 Other specified abnormalities of plasma proteins; E78.2 Mixed hyperlipidemia; J44.9 Chronic obstructive pulmonary disease, unspecified; E03.8 Other specified hypothyroidism; E86.0 Dehydration

== ENCOUNTER 2023-07-17 16:50 | Inpatient (IN) ==
--- NOTE | 2023-07-17 17:23 | EKG ---
Test Reason : chest pain Blood Pressure : */* mmHG Vent. Rate : 64 BPM Atrial Rate : 64 BPM P-R Int : 152 ms QRS Dur : 80 ms QT Int : 480 ms P-R-T Axes : 95 -23 38 degrees QTc Int : 495 ms Normal sinus rhythm Low voltage QRS Prolonged QT Abnormal ECG When compared with ECG of 03-JUN-2023 05:47, Sinus rhythm has replaced Atrial fibrillation Vent. rate has decreased BY 37 BPM Nonspecific T wave abnormality no longer evident in Anterolateral leads Confirmed by Abad Suarez MD ([id number]) on 07/18/2023 8:22:49 AM Referred By: Confirmed By: Abad Suarez MD
[2023-07-17 17:26] LABS: BASOPHILS # (AUTO) 0.1 X10^3/uL (0.0-0.1); BASOPHILS % (AUTO) 0.8 % (0.2-1.0); EOSINOPHILS # (AUTO) 0.2 x10^3/uL (0.0-0.2); EOSINOPHILS % (AUTO) 2.5 % (0.9-2.9); HEMATOCRIT 27.8 % (42.0-54.0); LYMPHOCYTES # (AUTO) 2.2 X10^3/uL (1.3-2.9); LYMPHOCYTES % (AUTO) 25.5 % (21.0-51.0); MEAN CORPUSCULAR HEMOGLOBIN 28.5 pg (27.0-34.0); MEAN CORPUSCULAR HGB CONC 32.4 g/dL (33.0-35.0); MEAN PLATELET VOLUME 9.3 fL (7.4-11.0); MONOCYTES # (AUTO) 0.7 x10^3/uL (0.3-0.8); MONOCYTES % (AUTO) 8.1 % (0.0-13.0); NEUTROPHILS # (AUTO) 5.5 x10^3/uL (2.2-4.8); NEUTROPHILS % (AUTO) 63.1 % (42.0-75.0); PLATELET COUNT 173 X10^3/uL (150.0-450.0); RED BLOOD COUNT 3.16 X10^6/uL (4.7-6.0); RED CELL DISTRIBUTION WIDTH 18.8 % (11.6-16.5); WHITE BLOOD COUNT 8.7 X10^3/uL (3.6-10.0)
[2023-07-17 17:30] LABS: INR 1.27 (0.8-1.3)
[2023-07-17 17:55] LABS: ALANINE AMINOTRANSFERASE 14 Units/L (12-78); ALBUMIN 2.2 g/dL (3.4-5.0); ALKALINE PHOSPHATASE 112 Units/L (46-116); ASPARTATE AMINO TRANSFERASE 25 Units/L (15-37); BLOOD UREA NITROGEN 35 mg/dL (7-18); CARBON DIOXIDE 24.5 mmol/L (21-32); CHLORIDE 107 mmol/L (98-107); CREATINE KINASE 312 Units/L (39-308); CREATININE 2.42 mg/dL (0.70-1.30); GLUCOSE 75 mg/dL (65-99); POTASSIUM 4.1 mmol/L (3.5-5.1); SODIUM 145 mmol/L (136-145); TOTAL PROTEIN 5.7 g/dL (6.4-8.2); eGFR NON BLACK RACES 28 (>60)
[2023-07-17 18:25] LABS: CALCIUM 4.8 mg/dL (8.5-10.1); COR CA(FOR HYPOALB) 6.2 mg/dL (8.5-10.1)
--- NOTE | 2023-07-17 18:31 | RAD ---
EXAM: CHEST, 1 VIEW HISTORY: chest pain; sob Unavailable COMPARISON: May 2023 FINDINGS: The trachea is midline. The cardiac silhouette is markedly enlarged but stable. The lungs demonstrat es right lower lobe airspace disease most compatible with pneumonia. There also is some elevation of the left hemidiaphragm.. The bony thorax is unremarkable. IMPRESSION: Right lower lobe airspace disease most likely due to pneumonia THIS IS AN ELECTRONICALLY VERIFIED FINAL REPORT 07/17/2023 6:28 PM - Electronically signed by Juventino Mueller MD
--- NOTE | 2023-07-17 19:14 | DR.UPM ---
HPI Time Seen Time Seen by Provider: 07/17/23 19:12 PCP Primary Care Physician: Dr. Stack HPI Comment HPI Comment: Pt was seen here yesterday in ER .Zazueta cathter was changed and patient was placed on antibiotics,returns today indicating that his Zazueta c atheter is hurting him and wants it to be removed and that he has not had any urine in the zazueta bag He also has experienced chest pressure, present for several days intermittent.uses oxygen at home 2l witout any problem .has not experienced any change sin shortness of breath .no orhopnea PND or swelling over the legs but has some swelling over his feet Complaint Chief Complaint Doctors Comments: chest pressure ,needs zazueta catheter removed Chief Complaint:: Pt states that he had a catheter placed last night due to urinary retention. Pt states that since 10am today he hasn't had any urine draining in his bag. Pt c/o constant pressure like pain in his bladder and substernal nonradiating chest pain described as pressure since last night. COVID-19 Coronavirus risk:travel/contact w/high risk person: No Has patient experienced Coronavirus symptoms: No Reviewed Nurses Notes Reviewed: Yes Source History Provided: Patient Mode of Arrival Mode of Arrival: Wheelchair Timing Onset of Chief Complaint: 07/16/23 Duration Duration: Intermittent Duration: Days Context Onset: Spontaneous Severity Pain: Mild and Moderate PMH PMH Past Medical History: Yes Past Medical History: Anemia, Anxiety, CHF, COPD, Coronary Artery Disease, CVA, Depression, Diabetes, Dyslipidemia, GERD, Hypertension, Hypothyroidism, [place] and Renal Disease Past Surgical History: Yes Surgical History: Angioplasty/Stents and Thyroidectomy Family History History of Family Medical Conditions: Yes Family Medical History: Diabetes Mellitus, Cancer, [place], Coronary Artery Disease and Hypertension Social History Does patient currently use any type of tobacco product: No Have you used tobacco products in the last 12 months: No Type of Tobacco Use: None Does any household member use tobacco: No Alcohol Use: None Do you use any recreational Drugs:: No Lives With: Family Lives Where: Home Travel Risk Coronavirus risk:travel/contact w/high risk person: No Has patient experienced Coronavirus symptoms: No Infectious screening In the last 2 months have you had wt loss of >10#?: NO Have you had fever, night sweats or hemotysis?: No Have you traveled outside the country in the last 6 months?: No Isolation: Standard ROS Review of Systems Constitutional: Malaise Eyes: No Symptoms Reported ENTM: No Symptoms Reported Respiratoy: No Symptoms Reported Cardiovascular: Chest Pain and Edema Gastrointestinal/Abdominal: No Symptoms Reported Genitourinary: See HPI Neurological: No Symptoms Reported Musculoskeletal: Back Pain and Joint Pain PE Vital Signs Vitals: Vital Signs Temperature 98.0 F Pulse Rate 66 Pulse Rate 65 Pulse Rate 66 Pulse Rate 67 Pulse Rate 73 Pulse Rate 73 Pulse Rate 91 Pulse Rate 62 Pulse Rate 64 Pulse Rate 62 Pulse Rate 62 Pulse Rate 72 Pulse Rate 69 Pulse Rate 69 Pulse Rate 74 Pulse Rate 108 Pulse Rate 69 Respiratory Rate 18 Respiratory Rate 16 Respiratory Rate 20 Respiratory Rate 16 Respiratory Rate 19 Respiratory Rate 18 Respiratory Rate 19 Respiratory Rate 16 Respiratory Rate 32 Respiratory Rate 21 Respiratory Rate 16 Respiratory Rate 23 Respiratory Rate 19 Respiratory Rate 20 Respiratory Rate 19 Respiratory Rate 30 Blood Pressure 117/64 Blood Pressure 115/63 Blood Pressure 130/67 Blood Pressure 107/59 Blood Pressure 126/69 Blood Pressure 103/71 Blood Pressure 132/104 O2 Sat by Pulse Oximetry 98 O2 Sat by Pulse Oximetry 99 O2 Sat by Pulse Oximetry 97 O2 Sat by Pulse Oximetry 100 O2 Sat by Pulse Oximetry 99 O2 Sat by Pulse Oximetry 98 O2 Sat by Pulse Oximetry 97 O2 Sat by Pulse Oximetry 99 O2 Sat by Pulse Oximetry 94 O2 Sat by Pulse Oximetry 99 O2 Sat by Pulse Oximetry 96 O2 Sat by Pulse Oximetry 96 O2 Sat by Pulse Oximetry 96 General Limitations: No Limitations General Appearance: Alert Head Head Exam: Normal Inspection and Atraumatic Eyes Eye exam: Normal Appearance and PERRL ENT ENT Exam: Mucous Membranes Moist Neck Neck Exam: Normal Inspection and Full ROM Chest Chest Inspection: Normal Inspection, Symmetric Chest Wall Rise and Tenderness Respiratory Respiratory Exam: Normal Lung Sounds Bilat Respiratory Exam: Bilateral: Clear to Auscultation Cardiovascular Cardiovascular Exam: +S1 and +S2 Abdominal Exam Abdominal Exam: Normal Bowel Sounds and Soft Extremities Extremities Exam: Normal Inspection Neurologic Neurological Exam: Alert Other Exam Other Exam: minimal soreness over the suprapubic area without distended bladder pos swelling over feet without tenderness or swelling over the lower ext bilaterally MDM Additional Information Obtained Urinary Findings: suprapubic pain ,CHEST PAIN COURSE Treatment Treatment: Zazueta cathter irrigated but patient wants to ahve it removed.it was removed .Labs ,cxr EKG Reevaluation 1st: Improved ROR Labs Reviewed 07/17/23 17:15 07/17/23 17:15 Laboratory: WBC 8.7 X10^3/uL (3.6-10.0) 07/17/23 17:15 RBC 3.16 X10^6/uL (4.7-6.0) L 07/17/23 17:15 Hgb 9.0 g/dL (13.5-18.0) L 07/17/23 17:15 Hct 27.8 % (42.0-54.0) L 07/17/23 17:15 MCV 88.0 fL (80.0-100.0) 07/17/23 17:15 MCH 28.5 pg (27.0-34.0) 07/17/23 17:15 MCHC 32.4 g/dL (33.0-35.0) L 07/17/23 17:15 RDW 18.8 % (11.6-16.5) H 07/17/23 17:15 Plt Count 173 X10^3/uL (150.0-450.0) 07/17/23 17:15 MPV 9.3 fL (7.4-11.0) 07/17/23 17:15 Neut % (Auto) 63.1 % (42.0-75.0) 07/17/23 17:15 Lymph % (Auto) 25.5 % (21.0-51.0) 07/17/23 17:15 [place] % (Auto) 8.1 % (0.0-13.0) 07/17/23 17:15 Eos % (Auto) 2.5 % (0.9-2.9) 07/17/23 17:15 Baso % (Auto) 0.8 % (0.2-1.0) 07/17/23 17:15 Neut # (Auto) 5.5 x10^3/uL (2.2-4.8) H 07/17/23 17:15 Lymph # (Auto) 2.2 X10^3/uL (1.3-2.9) 07/17/23 17:15 [place] # (Auto) 0.7 x10^3/uL (0.3-0.8) 07/17/23 17:15 Eos # (Auto) 0.2 x10^3/uL (0.0-0.2) 07/17/23 17:15 Baso # (Auto) 0.1 X10^3/uL (0.0-0.1) 07/17/23 17:15 Absolute Nucleated RBC 0.0 /100WBC 07/17/23 17:15 PT 15.7 SECONDS (11.8-14.3) 07/17/23 17:15 INR Target Range - 07/17/23 17:15 INR 1.27 (0.8-1.3) 07/17/23 17:15 APTT 38.6 SECONDS (22.9-36.5) H 07/17/23 17:15 PTT Comment - 07/17/23 17:15 D-Dimer 2.44 ug/ml (0.0-0.57) H 07/17/23 17:15 Sodium 145 mmol/L (136-145) 07/17/23 17:15 Corrected Sodium TNP 07/17/23 17:15 Potassium 4.1 mmol/L (3.5-5.1) 07/17/23 17:15 Chloride 107 mmol/L (98-107) 07/17/23 17:15 Carbon Dioxide 24.5 mmol/L (21-32) 07/17/23 17:15 BUN 35 mg/dL (7-18) H 07/17/23 17:15 Creatinine 2.42 mg/dL (0.70-1.30) H 07/17/23 17:15 Est GFR (MDRD) Af Amer 34 (>60) L 07/17/23 17:15 Est GFR (MDRD) Non-Af 28 (>60) L 07/17/23 17:15 Glucose 75 mg/dL (65-99) 07/17/23 17:15 Calcium 4.8 mg/dL (8.5-10.1) L* 07/17/23 17:15 Corrected Calcium 6.2 mg/dL (8.5-10.1) L 07/17/23 17:15 Total Bilirubin 0.20 mg/dL (0.2-1.0) 07/17/23 17:15 AST 25 Units/L (15-37) 07/17/23 17:15 ALT 14 Units/L (12-78) 07/17/23 17:15 Alkaline Phosphatase 112 Units/L (46-116) 07/17/23 17:15 Creatine Kinase 312 Units/L (39-308) H 07/17/23 17:15 Troponin I High Sens 92.6 ng/L (4.0-60.0) H* 07/17/23 17:15 B-Natriuretic Peptide 201 pg/mL (0-79) H 07/17/23 17:15 Total Protein 5.7 g/dL (6.4-8.2) L 07/17/23 17:15 Albumin 2.2 g/dL (3.4-5.0) L 07/17/23 17:15 Globulin 3.5 g/dL (2.5-4.5) 07/17/23 17:15 Albumin/Globulin Ratio 0.6 Ratio (1.1-2.1) L 07/17/23 17:15 Opioid Opioid Risk Tool Family Hx of Substance Abuse: Alcohol Age (Franki box if 16-45): No History of Preadolescent Sexual Abuse: No Psychological Disease: Depression Total: 0 Total Score Risk Category: Low Risk Copyright: Jarrett RUBIO predicting aberrant behaviors Discharge Plan Diagnosis Discharge Problem: Community acquired bacterial pneumonia, Anemia, D-dimer, elevated, Elevated troponin, Chronic renal failure (CRF), stage 4 (severe), CHF (congestive heart failure), Chest pain Discharge Plan Patient Disposition: ADMITTED INPATIENT Condition: Stable Prescriptions: No Action atorvastatin 80 mg tablet 80 mg PO QDAY carvedilol 6.25 mg tablet 6.25 mg PO BID gabapentin 600 mg tablet 1,200 mg PO BID isosorbide mononitrate 30 mg tablet extended release 24 hr 30 mg PO QDAY tamsulosin 0.4 mg capsule 0.4 mg PO QDAY pantoprazole 40 mg tablet,delayed release (DR/EC) 40 mg PO BID levothyroxine 200 mcg tablet 200 mcg PO QDAY azelastine 137 mcg (0.1 %) aerosol,spray 2 spray INTRANASAL DAILY Patient Comments: [NO ORIGINAL SIG] albuterol sulfate 90 mcg/actuation HFA aerosol inhaler 2 inh inhalation Q4H PRN topiramate 100 mg tablet 150 mg PO BID fluticasone propionate 50 mcg/actuation spray,suspension 2 spray INTRANASAL DAILY metformin 500 mg tablet extended release 24 hr 500 mg PO BID Multaq 400 mg tablet 400 mg PO BID roflumilast [Daliresp] 500 mcg tablet 500 mcg PO QDAY nitroglycerin 0.2 mg/hr patch 24 hour 1 patch transdermal QDAY Brilinta 90 mg tablet 90 mg PO BID Linzess 145 mcg Capsule 72 mcg PO QAM Qty: 30 0RF Rx Instructions: 1 daily to prevent constipation oxycodone-acetaminophen 10-325 mg tablet 1 tab PO Q6H MDD 4 PRNQty: 120 0RF Trelegy Ellipta 100-62.5-25 mcg blister with device 1 ea inhalation QDAY prednisone 20 mg tablet 40 mg PO QDAY Qty: 8 0RF furosemide 40 mg tablet 40 mg PO DAILY Rx Instructions: 1-2 po every morning to maintain "dry weight" levofloxacin 500 mg tablet 500 mg PO Q24H MDD 1 Qty: 7 0RF Entresto 24-26 mg Tablet 1 tab PO BID Qty: 60 4RF Farxiga 10 mg tablet 10 mg PO QAM Qty: 30 4RF cephalexin 500 mg capsule 500 mg PO Q6H Qty: 40 0RF Health Concerns: Post Hospitalization: new medications and changes needed to prevent readmission or further decline. Pt educated and given instructions on all concerns. Plan of Treatment: Continue with present treatment and follow up plan. Pt is to keep follow up appointment as instructed and take medications as ordered. Orders to Discharge Patient Discharge Orders: Transfer (Routine); Ordered 07/17/23 Ordered By: Hakan Sheldon Follow ups/Referrals Follow ups/Referrals: JOSE D STACK [Primary Care Provider] - 3 days Instructions Stand Alone Forms: Post Hospital Follow Up Care ADDITIONAL NOTES Additional Notes Additional Notes: labs CXR reviewed with apteint .Has elevated troponins,dd ashley GFR 28 hgb 9 .unable to perform cTA chest .Pt deos not wish to go to [place] or [place] would liek to stay here .Pt is full code .Spoke with Dr Mitchell agreed to have patient admitted here for fluid,pneumoia treatment ,posible UTI
[2023-07-17] MEDS: MULTAQ PO SCH (21:03)
[2023-07-17] MEDS: NS 1,000 ML IV 1,000 ML IV SCH (21:03)
[2023-07-17] MEDS: ENTRESTO 24/26 MG TABLET PO SCH (21:03)
[2023-07-17] MEDS: BRILINTA PO SCH (21:04)
[2023-07-17] MEDS: COREG TAB 6.25 MG PO SCH (21:04)
[2023-07-17 22:17] VITALS: BMI 20.2
[2023-07-17] MEDS: RESTORIL CAP 15 MG PO PRN (22:35)
--- NOTE | 2023-07-18 01:30 | EKG ---
Test Reason : chest pain Blood Pressure : */* mmHG Vent. Rate : 70 BPM Atrial Rate : 70 BPM P-R Int : 144 ms QRS Dur : 102 ms QT Int : 468 ms P-R-T Axes : 66 -10 72 degrees QTc Int : 505 ms Normal sinus rhythm Low voltage QRS Prolonged QT Abnormal ECG When compared with ECG of 17-JUL-2023 17:20, (Unconfirmed) No significant change was found Confirmed by Abad Suarez MD ([id number]) on 07/18/2023 8:21:10 AM Referred By: Confirmed By: Abad Suarez MD
[2023-07-18] MEDS ORDERED: NovoLIN R (or HumuLIN R) SC PRN (03:27)
[2023-07-18 06:20] LABS: BILIRUBIN,URINE NEGATIVE (NEGATIVE); BLOOD/HEMOGLOBIN,URINE 2+ (NEGATIVE); GLUCOSE, URINE 1+ (NEGATIVE); KETONES,URINE NEGATIVE (NEGATIVE); LEUKOCYTE ESTERASE ,URINE 1+ (NEGATIVE); NITRITES,URINE NEGATIVE (NEGATIVE); PROTEIN,URINE 1+ (NEGATIVE); UROBILINOGEN,URINE NORMAL (NORMAL)
[2023-07-18 06:31] LABS: APPEARANCE,URINE CLEAR (CLEAR); COLOR,URINE YELLOW (YELLOW)
[2023-07-18 06:35] LABS: BACTERIA,URINE NEGATIVE /HPF (NEGATIVE); SQUAMOUS EPITHELIAL CELL,UR RARE /HPF (NEGATIVE); YEAST,URINE RARE /HPF (NEGATIVE)
[2023-07-18 06:43] LABS: BASOPHILS % (AUTO) 0.5 % (0.2-1.0); EOSINOPHILS # (AUTO) 0.3 x10^3/uL (0.0-0.2); EOSINOPHILS % (AUTO) 3.8 % (0.9-2.9); HEMATOCRIT 27.3 % (42.0-54.0); HEMOGLOBIN 8.9 g/dL (13.5-18.0); LYMPHOCYTES # (AUTO) 2.2 X10^3/uL (1.3-2.9); LYMPHOCYTES % (AUTO) 31.4 % (21.0-51.0); MEAN CORPUSCULAR HEMOGLOBIN 28.7 pg (27.0-34.0); MEAN CORPUSCULAR HGB CONC 32.6 g/dL (33.0-35.0); MEAN CORPUSCULAR VOLUME 87.8 fL (80.0-100.0); MEAN PLATELET VOLUME 8.9 fL (7.4-11.0); MONOCYTES # (AUTO) 0.5 x10^3/uL (0.3-0.8); MONOCYTES % (AUTO) 6.9 % (0.0-13.0); NEUTROPHILS # (AUTO) 3.9 x10^3/uL (2.2-4.8); NEUTROPHILS % (AUTO) 57.4 % (42.0-75.0); PLATELET COUNT 171 X10^3/uL (150.0-450.0); WHITE BLOOD COUNT 6.9 X10^3/uL (3.6-10.0)
[2023-07-18 06:54] LABS: ALANINE AMINOTRANSFERASE 12 Units/L (12-78); ALBUMIN 1.8 g/dL (3.4-5.0); ALKALINE PHOSPHATASE 96 Units/L (46-116); ASPARTATE AMINO TRANSFERASE 20 Units/L (15-37); BLOOD UREA NITROGEN 32 mg/dL (7-18); CARBON DIOXIDE 25.6 mmol/L (21-32); CHLORIDE 108 mmol/L (98-107); COR CA(FOR HYPOALB) 6.8 mg/dL (8.5-10.1); CREATININE 2.43 mg/dL (0.70-1.30); GLUCOSE 96 mg/dL (65-99); POTASSIUM 3.3 mmol/L (3.5-5.1); SODIUM 147 mmol/L (136-145); eGFR NON BLACK RACES 28 (>60)
[2023-07-18 07:02] LABS: CALCIUM < 5.0 mg/dL (8.5-10.1)
[2023-07-18] MEDS: LEVAQUIN PREMIX IV 250 MG 250 MG/50 ML BAG IV SCH (08:29)
[2023-07-18] MEDS: DALIRESP PO SCH (08:30)
[2023-07-18] MEDS: SYNTHROID 100 mcg TAB PO SCH (08:30)
[2023-07-18] MEDS: IMDUR PO SCH (08:30)
[2023-07-18] MEDS: LASIX PO SCH (08:31)
[2023-07-18] MEDS: LIPITOR TAB 80 MG PO SCH (08:33)
[2023-07-18] MEDS: FLOMAX PO SCH (08:33)
[2023-07-18] MEDS: PULMICORT NEB TX 0.5 MG NEB SCH (08:45)
[2023-07-18] MEDS: DUONEB 0.5 MG/3 MG (3 mL) NEB SCH (08:45)
[2023-07-18] MEDS ORDERED: PATIENT'S HOME MEDICATION (Levothyroxine 200 mcg tablet) PO SCH (09:00)
[2023-07-18] MEDS ORDERED: CONSULT PHARMACY - POTASSIUM & MAGNESIUM XX SCH ×3 (09:00→21:00)
--- NOTE | 2023-07-18 10:27 | DR.H&P ---
H&P History & Physical for Day of: H&P Date: 07/18/23 Chief Complaint Chief Complaint: Chest pain, feeling down Allergies Allergies Allergy/AdvReac Type Severity Reaction Status Date / Time No Known Drug Allergies Allergy Verified 07/16/23 21:20 History of Present Illness History of Present Illness: 73 y/o male admitted last pm - has been having generalized weakness, chest pain, cough, dyspnea at times. Seen in the ER day prior with dysfunctional Kirk. Was changed. Pt returned last pm wanting it out, having decreased urine output. W/u revealed abnormal CXR, c/w R:: pneumonia. Also with lab abnormalities - low calcium , elevated d-dimer, elevated troponin. Pt started on low dose IV levaquin for pneumonia. Past Medical History Past Medical History: Anemia, Anxiety, CHF, COPD, Coronary Artery Disease, CVA, Depression, Diabetes, Dyslipidemia, GERD, Hypertension, Hypothyroidism, [place] and Renal Disease Additional Medical History: [place] X 2, UNKNOWN NUMBER OF STENTS, UMBILICAL HERNIA, CYSTITIS, BPH, Past Surgical History Surgical History: Unknown Additional Surgical History: COLON RESECTION Family History Family Medical History: Diabetes Mellitus, Cancer, [place], Coronary Artery Disease and Hypertension Social History Does patient currently use any type of tobacco product: No Have you used tobacco products in the last 12 months: No Type of Tobacco Use: None Does any household member use tobacco: No Alcohol Use: None Drug Use: None Medications Home Medications: Home Medications Medication Instructions Recorded Confirmed Type albuterol sulfate 90 mcg/actuation 2 inh inhalation Q4H PRN 09/01/22 06/03/23 History aerosol inhaler atorvastatin 80 mg tablet 80 mg PO QDAY 09/01/22 06/03/23 History azelastine 137 mcg (0.1 %) nasal 2 spray intranasal DAILY 09/01/22 06/03/23 History spray aerosol carvedilol 6.25 mg tablet 6.25 mg PO BID 09/01/22 06/03/23 History dronedarone 400 mg tablet (Multaq) 400 mg PO BID 09/01/22 06/03/23 History fluticasone propionate 50 2 spray intranasal DAILY 09/01/22 06/03/23 History mcg/actuation nasal spray,suspension gabapentin 600 mg tablet 1,200 mg PO BID 09/01/22 06/03/23 History isosorbide mononitrate 30 mg 30 mg PO QDAY 09/01/22 06/03/23 History tablet,extended release 24 hr levothyroxine 200 mcg tablet 200 mcg PO QDAY 09/01/22 06/03/23 History metformin 500 mg tablet,extended 500 mg PO BID 09/01/22 06/03/23 History release 24 hr pantoprazole 40 mg tablet,delayed 40 mg PO BID 09/01/22 06/03/23 History release roflumilast 500 mcg tablet 500 mcg PO QDAY 09/01/22 06/03/23 History (Daliresp) tamsulosin 0.4 mg capsule 0.4 mg PO QDAY 09/01/22 06/03/23 History topiramate 100 mg tablet 150 mg PO BID 09/01/22 06/03/23 History nitroglycerin 0.2 mg/hr 1 patch transdermal QDAY 12/20/22 06/03/23 History transdermal 24 hour patch ticagrelor 90 mg tablet (Brilinta) 90 mg PO BID 12/20/22 06/03/23 History fluticasone fur. 100 mcg-umeclid 1 ea inhalation QDAY 03/25/23 06/03/23 History 62.5 mcg-vilant 25 mcg inhalat.powder (Trelegy Ellipta) furosemide 40 mg tablet 40 mg PO DAILY 06/03/23 06/03/23 History Labs 07/18/23 06:38 07/18/23 06:38 Labs: Laboratory WBC 6.9 X10^3/uL (3.6-10.0) 07/18/23 06:38 RBC 3.10 X10^6/uL (4.7-6.0) L 07/18/23 06:38 Hgb 8.9 g/dL (13.5-18.0) L 07/18/23 06:38 Hct 27.3 % (42.0-54.0) L 07/18/23 06:38 MCV 87.8 fL (80.0-100.0) 07/18/23 06:38 MCH 28.7 pg (27.0-34.0) 07/18/23 06:38 MCHC 32.6 g/dL (33.0-35.0) L 07/18/23 06:38 RDW 19.0 % (11.6-16.5) H 07/18/23 06:38 Plt Count 171 X10^3/uL (150.0-450.0) 07/18/23 06:38 MPV 8.9 fL (7.4-11.0) 07/18/23 06:38 Neut % (Auto) 57.4 % (42.0-75.0) 07/18/23 06:38 Lymph % (Auto) 31.4 % (21.0-51.0) 07/18/23 06:38 [place] % (Auto) 6.9 % (0.0-13.0) 07/18/23 06:38 Eos % (Auto) 3.8 % (0.9-2.9) H 07/18/23 06:38 Baso % (Auto) 0.5 % (0.2-1.0) 07/18/23 06:38 Neut # (Auto) 3.9 x10^3/uL (2.2-4.8) 07/18/23 06:38 Lymph # (Auto) 2.2 X10^3/uL (1.3-2.9) 07/18/23 06:38 [place] # (Auto) 0.5 x10^3/uL (0.3-0.8) 07/18/23 06:38 Eos # (Auto) 0.3 x10^3/uL (0.0-0.2) H 07/18/23 06:38 Baso # (Auto) 0.0 X10^3/uL (0.0-0.1) 07/18/23 06:38 Absolute Nucleated RBC 0.1 /100WBC 07/18/23 06:38 PT 15.7 SECONDS (11.8-14.3) 07/17/23 17:15 INR Target Range - 07/17/23 17:15 INR 1.27 (0.8-1.3) 07/17/23 17:15 APTT 38.6 SECONDS (22.9-36.5) H 07/17/23 17:15 PTT Comment - 07/17/23 17:15 D-Dimer 2.44 ug/ml (0.0-0.57) H 07/17/23 17:15 Sodium 147 mmol/L (136-145) H 07/18/23 06:38 Corrected Sodium TNP 07/18/23 06:38 Potassium 3.3 mmol/L (3.5-5.1) L 07/18/23 06:38 Chloride 108 mmol/L (98-107) H 07/18/23 06:38 Carbon Dioxide 25.6 mmol/L (21-32) 07/18/23 06:38 BUN 32 mg/dL (7-18) H 07/18/23 06:38 Creatinine 2.43 mg/dL (0.70-1.30) H 07/18/23 06:38 Est GFR (MDRD) Af Amer 34 (>60) L 07/18/23 06:38 Est GFR (MDRD) Non-Af 28 (>60) L 07/18/23 06:38 Glucose 96 mg/dL (65-99) 07/18/23 06:38 POC Glucose (mg/dL) 118 mg/dL (65-99) H 07/18/23 05:14 Calcium < 5.0 mg/dL (8.5-10.1) L* 07/18/23 06:38 Corrected Calcium 6.8 mg/dL (8.5-10.1) L 07/18/23 06:38 Total Bilirubin 0.20 mg/dL (0.2-1.0) 07/18/23 06:38 AST 20 Units/L (15-37) 07/18/23 06:38 ALT 12 Units/L (12-78) 07/18/23 06:38 Alkaline Phosphatase 96 Units/L (46-116) 07/18/23 06:38 Creatine Kinase 301 Units/L (39-308) 07/17/23 20:36 Troponin I High Sens 89.1 ng/L (4.0-60.0) H* 07/17/23 20:36 B-Natriuretic Peptide 201 pg/mL (0-79) H 07/17/23 17:15 Total Protein 5.0 g/dL (6.4-8.2) L 07/18/23 06:38 Albumin 1.8 g/dL (3.4-5.0) L 07/18/23 06:38 Globulin 3.2 g/dL (2.5-4.5) 07/18/23 06:38 Albumin/Globulin Ratio 0.6 Ratio (1.1-2.1) L 07/18/23 06:38 Specimen Type Catherized urine 07/18/23 05:55 Urine Color Yellow (YELLOW) 07/18/23 05:55 Urine Appearance Clear (CLEAR) 07/18/23 05:55 Urine pH 5.0 (5.0 - 8.0) 07/18/23 05:55 Ur Specific [place] 1.010 (1.000-1.030) 07/18/23 05:55 Urine Protein 1+ (NEGATIVE) 07/18/23 05:55 Urine Glucose (UA) 1+ (NEGATIVE) 07/18/23 05:55 Urine Ketones Negative (NEGATIVE) 07/18/23 05:55 Urine Blood 2+ (NEGATIVE) 07/18/23 05:55 Urine Nitrite Negative (NEGATIVE) 07/18/23 05:55 Urine Bilirubin Negative (NEGATIVE) 07/18/23 05:55 Urine Urobilinogen Normal (NORMAL) 07/18/23 05:55 Ur Leukocyte Esterase 1+ (NEGATIVE) 07/18/23 05:55 Urine RBC 3-5 /HPF (0-3) A 07/18/23 05:55 Urine WBC 3-5 /HPF (0-5) 07/18/23 05:55 Ur Squamous Epith Cells Rare /HPF (NEGATIVE) 07/18/23 05:55 Urine Bacteria Negative /HPF (NEGATIVE) 07/18/23 05:55 Urine Yeast Rare /HPF (NEGATIVE) 07/18/23 05:55 Ur Culture Indicated? No/not indicated 07/18/23 05:55 Review of Systems Constitutional: Chills, Weakness and Malaise Eyes: No Symptoms Reported ENT: No Symptoms Reported Respiratory: Cough and Shortness of Breath Cardiovascular: Chest Pain Gastrointestinal: No Symptoms Reported Genitourinary: No Symptoms Reported Musculoskeletal: No Symptoms Reported Skin: No Symptoms Reported Neurological: Weakness Physical Exam Vital Signs: Vital Signs Temperature 97.4 F Temperature 98.2 F Pulse Rate [Apical] 75 Pulse Rate [Apical] 68 Pulse Rate 65 Respiratory Rate 18 Respiratory Rate 22 Blood Pressure [Left Arm] 112/60 Blood Pressure [Left Arm] 93/56 O2 Sat by Pulse Oximetry 99 O2 Sat by Pulse Oximetry 99 O2 Sat by Pulse Oximetry 99 Oriented: Normal Eyes: Normal Nose: Normal Throat: Normal Respiratory: Clear Throughout Cardiovascular: Normal : Normal Auscultation: Bowel Sounds: Normal Tenderness: Normal Skin: Normal Musculoskeletal: Normal Psychiatric: Normal Affect: Normal Assessment/Plan (1) Right lower lobe pneumonia: Narrative Support Text: Doing better on O2, getting IV antibiotic. Repeat CXR in am Status: Acute (2) Anemia: Narrative Support Text: Observe Status: Acute (3) Chronic renal disease: Narrative Support Text: Given low doswe IV fluids. Status: Acute (4) Hypocalcemia: Narrative Support Text: Will add TUMS, tid. Status: Acute
[2023-07-18] MEDS: MORPHINE SULFATE INJ 2 MG INJ IVP PRN (10:43)
[2023-07-18] MEDS: TUMS PO SCH (11:57)
[2023-07-18] MEDS: ZOFRAN INJ 4 MG VIAL IVP PRN (12:57)
[2023-07-18] MEDS ORDERED: PERCOCET TAB 5/325 MG PO PRN (14:16)
[2023-07-18] MEDS: PHENERGAN INJ 25 MG IM PRN (16:16)
[2023-07-18] MEDS: PATIENT'S HOME MEDICATION (Fluticasone-Umeclidin-Vilanter [Trelegy Ellipta] 100-62.5-25 mc IN SCH (16:22)
[2023-07-18] MEDS: NS 1,000 ML IV 1,000 ML IV SCH (17:30)
[2023-07-18] MEDS: K-DUR TAB 20 MEQ PO SCH (20:50)
[2023-07-18] MEDS ORDERED: MAGNESIUM SULFATE 1 GRAM/100 mL PREMIX 1 G/100 ML BAG IV SCH (23:00)
[2023-07-18] MEDS: MAGNESIUM SULFATE 1 GRAM/100 mL PREMIX 1 G/100 ML BAG IV SCH (23:07)
--- NOTE | 2023-07-19 00:39 | EKG ---
Test Reason : chest pain Blood Pressure : */* mmHG Vent. Rate : 70 BPM Atrial Rate : 70 BPM P-R Int : 150 ms QRS Dur : 90 ms QT Int : 464 ms P-R-T Axes : 66 -15 35 degrees QTc Int : 501 ms Normal sinus rhythm Low voltage QRS Prolonged QT Abnormal ECG When compared with ECG of 18-JUL-2023 01:18, No significant change was found Confirmed by Abad Suarez MD ([id number]) on 07/19/2023 7:31:20 AM Referred By: Confirmed By: Abad Suarez MD
[2023-07-19 06:17] LABS: BASOPHILS % (AUTO) 0.5 % (0.2-1.0); EOSINOPHILS # (AUTO) 0.2 x10^3/uL (0.0-0.2); EOSINOPHILS % (AUTO) 2.8 % (0.9-2.9); HEMOGLOBIN 8.8 g/dL (13.5-18.0); LYMPHOCYTES # (AUTO) 1.5 X10^3/uL (1.3-2.9); LYMPHOCYTES % (AUTO) 17.5 % (21.0-51.0); MEAN CORPUSCULAR HEMOGLOBIN 28.9 pg (27.0-34.0); MEAN CORPUSCULAR HGB CONC 32.7 g/dL (33.0-35.0); MEAN CORPUSCULAR VOLUME 88.3 fL (80.0-100.0); MEAN PLATELET VOLUME 9.2 fL (7.4-11.0); MONOCYTES # (AUTO) 0.5 x10^3/uL (0.3-0.8); MONOCYTES % (AUTO) 6.2 % (0.0-13.0); NEUTROPHILS # (AUTO) 6.1 x10^3/uL (2.2-4.8); PLATELET COUNT 151 X10^3/uL (150.0-450.0); RED BLOOD COUNT 3.06 X10^6/uL (4.7-6.0); RED CELL DISTRIBUTION WIDTH 19.1 % (11.6-16.5); WHITE BLOOD COUNT 8.4 X10^3/uL (3.6-10.0)
[2023-07-19 06:31] LABS: ALANINE AMINOTRANSFERASE 10 Units/L (12-78); ALBUMIN 1.7 g/dL (3.4-5.0); ALKALINE PHOSPHATASE 107 Units/L (46-116); ASPARTATE AMINO TRANSFERASE 20 Units/L (15-37); BLOOD UREA NITROGEN 34 mg/dL (7-18); CARBON DIOXIDE 23.9 mmol/L (21-32); CHLORIDE 107 mmol/L (98-107); COR CA(FOR HYPOALB) 6.8 mg/dL (8.5-10.1); COR NA(FOR HYPERGLY) 144 mmol/L (136-145); CREATININE 2.73 mg/dL (0.70-1.30); GLUCOSE 130 mg/dL (65-99); POTASSIUM 3.3 mmol/L (3.5-5.1); SODIUM 143 mmol/L (136-145); eGFR NON BLACK RACES 24 (>60)
[2023-07-19 06:33] LABS: CALCIUM < 5.0 mg/dL (8.5-10.1)
[2023-07-19] MEDS ORDERED: CONSULT PHARMACY - POTASSIUM & MAGNESIUM XX SCH (08:00)
[2023-07-19] MEDS: PLAVIX PO SCH (09:07)
--- NOTE | 2023-07-19 09:19 | DR.CONSULT ---
CONSULT Consultation for Day of: Date: 07/19/23 Chief Complaint Chief Complaint: cp/sob Allergies Allergies Allergy/AdvReac Type Severity Reaction Status Date / Time No Known Drug Allergies Allergy Verified 07/16/23 21:20 History of Present Illness History of Present Illness: 73 yo male- known cad s/p stents to rca/lad- last stent 07/30- recent nuc stress 06/02: mixed inf/lat defect- echo 06/02: ef 55% mild to mod mr, pa 80s- states in hosp in [facility] for over month- states coded and had cpr- constant cp/sob- admiited for pna- calcium low and causing spasms - ekg: no acute changes- constant cp with very tender chest wall-trops elevated dating back to 12/30 ( 60-140) on multiple occasions to include this hosp stay Past Medical History Past Medical History: Anemia, Anxiety, CHF, COPD, Coronary Artery Disease, CVA, Depression, Diabetes, Dyslipidemia, GERD, Hypertension, Hypothyroidism, [place] and Renal Disease Additional Medical History: [place] X 2, UNKNOWN NUMBER OF STENTS, UMBILICAL HERNIA, CYSTITIS, BPH, Past Surgical History Surgical History: Unknown Additional Surgical History: COLON RESECTION Family History Family Medical History: Diabetes Mellitus, Cancer, [place], Coronary Artery Disease and Hypertension Social History Does patient currently use any type of tobacco product: No Have you used tobacco products in the last 12 months: No Type of Tobacco Use: None Does any household member use tobacco: No Alcohol Use: None Drug Use: None Medications Home Medications: No Known Drug Allergies Allergy (Verified 07/16/23 21:20) CONTINUE taking the following medications escitalopram oxalate 10 mg tablet 10 mg PO QDAY 07/18/23 [History] famotidine 20 mg tablet (Pepcid) 20 mg PO QDAY 07/18/23 [History] finasteride 5 mg tablet (Proscar) 5 mg PO DAILYHS 07/18/23 [History] linaclotide 145 mcg capsule (Linzess) 145 mcg PO QAM 07/18/23 [History] montelukast 10 mg tablet 10 mg PO QHS 07/18/23 [History] topiramate 100 mg tablet 150 mg PO QHS 07/18/23 [History] Physical Exam Vital Signs: Vital Signs Temperature 97.7 F Temperature 97.7 F Pulse Rate [Apical] 78 Pulse Rate [Apical] 71 Pulse Rate 78 Respiratory Rate 24 Respiratory Rate 18 Blood Pressure [Left Arm] 102/63 Blood Pressure [Left Arm] 107/67 O2 Sat by Pulse Oximetry 97 O2 Sat by Pulse Oximetry 97 O2 Sat by Pulse Oximetry 94 alert ox3 no jvd clear lungs very tender chest wall pain soft yury/hsm no edema other labs to note: hct 27, calcium < 5.0, k 3.3 cr 2.7, alb 1.7 cxr: RLL pna ekg: nsr Plan (1) Right lower lobe pneumonia: Status: Acute (2) Anemia: Status: Acute (3) Chronic renal disease: Status: Acute (4) Hypocalcemia: Status: Acute Plan: symptomatic and needs treatment (5) CAD (coronary artery disease): Status: Chronic Plan: keep on standard meds- let primary cardio consider cath in future when doing better (6) Pulmonary hypertension: Status: Acute (7) Elevated troponin: Status: Acute Narrative Support Text: chronic elevation since 12/30 (8) Low serum albumin: Status: Acute (9) Chest wall pain: Status: Acute
[2023-07-19] MEDS: K-DUR TAB 20 MEQ PO ONE (09:50)
[2023-07-19] MEDS: TYLENOL 325 MG TAB PO PRN (10:48)
--- NOTE | 2023-07-20 00:20 | EKG ---
Test Reason : chest pain Blood Pressure : */* mmHG Vent. Rate : 87 BPM Atrial Rate : 87 BPM P-R Int : 138 ms QRS Dur : 82 ms QT Int : 410 ms P-R-T Axes : 111 -21 1 degrees QTc Int : 493 ms Normal sinus rhythm Low voltage QRS Borderline ECG When compared with ECG of 19-JUL-2023 00:27, No significant change was found Confirmed by Abad Suarez MD ([id number]) on 07/20/2023 9:31:26 AM Referred By: Confirmed By: Abad Suarez MD
[2023-07-20 06:07] LABS: BASOPHILS % (AUTO) 0.2 % (0.2-1.0); EOSINOPHILS # (AUTO) 0.3 x10^3/uL (0.0-0.2); EOSINOPHILS % (AUTO) 2.9 % (0.9-2.9); HEMATOCRIT 29.4 % (42.0-54.0); HEMOGLOBIN 9.4 g/dL (13.5-18.0); LYMPHOCYTES % (AUTO) 11.2 % (21.0-51.0); MEAN CORPUSCULAR HEMOGLOBIN 28.4 pg (27.0-34.0); MEAN CORPUSCULAR VOLUME 88.7 fL (80.0-100.0); MEAN PLATELET VOLUME 9.3 fL (7.4-11.0); MONOCYTES # (AUTO) 0.7 x10^3/uL (0.3-0.8); MONOCYTES % (AUTO) 7.5 % (0.0-13.0); NEUTROPHILS # (AUTO) 6.9 x10^3/uL (2.2-4.8); NEUTROPHILS % (AUTO) 78.2 % (42.0-75.0); PLATELET COUNT 176 X10^3/uL (150.0-450.0); RED BLOOD COUNT 3.31 X10^6/uL (4.7-6.0); RED CELL DISTRIBUTION WIDTH 18.8 % (11.6-16.5); WHITE BLOOD COUNT 8.8 X10^3/uL (3.6-10.0)
[2023-07-20 06:19] LABS: ALANINE AMINOTRANSFERASE 14 Units/L (12-78); ALBUMIN 1.9 g/dL (3.4-5.0); ALKALINE PHOSPHATASE 107 Units/L (46-116); ASPARTATE AMINO TRANSFERASE 21 Units/L (15-37); BLOOD UREA NITROGEN 32 mg/dL (7-18); CARBON DIOXIDE 24.1 mmol/L (21-32); CHLORIDE 109 mmol/L (98-107); COR CA(FOR HYPOALB) 7.1 mg/dL (8.5-10.1); CREATININE 2.18 mg/dL (0.70-1.30); GLUCOSE 87 mg/dL (65-99); POTASSIUM 4.1 mmol/L (3.5-5.1); SODIUM 147 mmol/L (136-145); TOTAL PROTEIN 5.5 g/dL (6.4-8.2); eGFR NON BLACK RACES 32 (>60)
[2023-07-20 06:27] LABS: CALCIUM 5.4 mg/dL (8.5-10.1)
[2023-07-20] MEDS ORDERED: CONSULT PHARMACY - POTASSIUM & MAGNESIUM XX SCH (08:00)
[2023-07-20] MEDS ORDERED: MAGNESIUM SULFATE 1 GRAM/100 mL PREMIX 1 G/100 ML BAG IV SCH (09:29)
[2023-07-20] MEDS: NS 1,000 ML IV 1,000 ML with MAGNESIUM SULFATE 50% INJ VIAL 2 G IV SCH (10:41)
--- NOTE | 2023-07-20 12:13 | NOTE.SOAP ---
Soap Note Note for Day of Date of Exam: 07/20/23 Subjective Data Subjective Data: feels better today- no spasms of legs- breathing ok- constant cp reproducible on exam Objective Data Objective Data: bp 130 p 90s tele: sinus labs hct 29/ ca 5.4 /cr down to 2.18 from 2.73, alb 1.9 cxr on admission: rll pna rrr mild edema lungs sound ok Assessment Assessment: cad/pna/pulm htn/chest wall pain/low calcium/renal insufficiency- improving Plan Plan: cont plavix/statin/bb- if bp goes up- push bb or add entresto??
[2023-07-20 12:23] LABS: BILIRUBIN,URINE NEGATIVE (NEGATIVE); BLOOD/HEMOGLOBIN,URINE 2+ (NEGATIVE); GLUCOSE, URINE 2+ (NEGATIVE); KETONES,URINE NEGATIVE (NEGATIVE); LEUKOCYTE ESTERASE ,URINE 1+ (NEGATIVE); NITRITES,URINE NEGATIVE (NEGATIVE); PROTEIN,URINE 2+ (NEGATIVE); UROBILINOGEN,URINE NORMAL (NORMAL)
[2023-07-20 12:37] LABS: APPEARANCE,URINE HAZY (CLEAR); BACTERIA,URINE NEGATIVE /HPF (NEGATIVE); COLOR,URINE STRAW (YELLOW); SQUAMOUS EPITHELIAL CELL,UR NEGATIVE /HPF (NEGATIVE); YEAST,URINE NUMEROUS /HPF (NEGATIVE)
[2023-07-21 06:13] LABS: EOSINOPHILS # (AUTO) 0.2 x10^3/uL (0.0-0.2); HEMOGLOBIN 8.9 g/dL (13.5-18.0); LYMPHOCYTES # (AUTO) 1.2 X10^3/uL (1.3-2.9); LYMPHOCYTES % (AUTO) 17.4 % (21.0-51.0); MONOCYTES # (AUTO) 0.4 x10^3/uL (0.3-0.8); MONOCYTES % (AUTO) 5.8 % (0.0-13.0)
[2023-07-21 06:18] LABS: BASOPHILS % (AUTO) 0.5 % (0.2-1.0); EOSINOPHILS % (AUTO) 2.5 % (0.9-2.9); HEMATOCRIT 27.8 % (42.0-54.0); MEAN CORPUSCULAR HEMOGLOBIN 28.3 pg (27.0-34.0); MEAN CORPUSCULAR HGB CONC 32.1 g/dL (33.0-35.0); MEAN CORPUSCULAR VOLUME 88.2 fL (80.0-100.0); MEAN PLATELET VOLUME 9.3 fL (7.4-11.0); NEUTROPHILS # (AUTO) 5.3 x10^3/uL (2.2-4.8); NEUTROPHILS % (AUTO) 73.8 % (42.0-75.0); PLATELET COUNT 168 X10^3/uL (150.0-450.0); RED BLOOD COUNT 3.15 X10^6/uL (4.7-6.0); RED CELL DISTRIBUTION WIDTH 18.9 % (11.6-16.5); WHITE BLOOD COUNT 7.1 X10^3/uL (3.6-10.0)
[2023-07-21 06:19] LABS: ALBUMIN 1.7 g/dL (3.4-5.0); CARBON DIOXIDE 22.9 mmol/L (21-32); COR CA(FOR HYPOALB) 7.7 mg/dL (8.5-10.1); CREATININE 1.98 mg/dL (0.70-1.30); POTASSIUM 4.4 mmol/L (3.5-5.1); TOTAL PROTEIN 5.2 g/dL (6.4-8.2)
[2023-07-21 06:29] LABS: CALCIUM 5.9 mg/dL (8.5-10.1)
[2023-07-21 15:25] VITALS: BP 147/76; PULSE 80; RESP 22; TEMP 98; O2SAT 97
== END 2023-07-21 12:20 | disposition home health service (06) | DRG 178 ==
LOC: ER 16:50 → MED/SURG 16:50
PROVIDERS: ADMIT Obstetrics & Gynecology Obstetrics; ATTEND Obstetrics & Gynecology Obstetrics
DX: Z99.81 Dependence on supplemental oxygen; Z16.12 Extended spectrum beta lactamase (ESBL) resistance; N13.8 Other obstructive and reflux uropathy; F41.8 Other specified anxiety disorders; E11.65 Type 2 diabetes mellitus with hyperglycemia; K21.9 Gastro-esophageal reflux disease without esophagitis; L89.152 Pressure ulcer of sacral region, stage 2; J15.0 Pneumonia due to Klebsiella pneumoniae; R53.1 Weakness; E87.5 Hyperkalemia; E78.5 Hyperlipidemia, unspecified; D64.89 Other specified anemias; R94.31 Abnormal electrocardiogram [ECG] [EKG]; R79.1 Abnormal coagulation profile; R77.8 Other specified abnormalities of plasma proteins; I12.9 Hypertensive chronic kidney disease with stage 1 through stage 4 chronic kidney disease, or unspecified chronic kidney disease; I25.10 Atherosclerotic heart disease of native coronary artery without angina pectoris; J44.9 Chronic obstructive pulmonary disease, unspecified; Z86.73 Personal history of transient ischemic attack (TIA), and cerebral infarction without residual deficits; N40.0 Benign prostatic hyperplasia without lower urinary tract symptoms; E83.51 Hypocalcemia; R07.89 Other chest pain; N18.4 Chronic kidney disease, stage 4 (severe); E03.8 Other specified hypothyroidism; R06.02 Shortness of breath

== ENCOUNTER 2023-08-05 14:11 | Inpatient (IN) ==
--- NOTE | 2023-08-05 14:43 | DR.SOBA ---
HPI Time Seen Time Seen by Provider: 08/05/23 14:42 Complaints Chief Complaint Doctors Comments: 73-year-old male presents for evaluation, brought in via EMS. Patient with history of COPD, having increasing shortness of breath for past few days, worsened today prior to arrival. Has been coughing, little bit worse than usual, productive of some phlegm. Denies fevers or chills. Tells me he has had some nausea, vomiting, diarrhea. Was treated for pneumonia few weeks ago. He is on O2 at home. Reviewed Nurses Notes Reviewed: Yes Source History Provided: Patient Mode of Arrival Mode of Arrival: EMS PMH PMH Past Medical History: Anemia, Anxiety, CHF, COPD, Coronary Artery Disease, CVA, Depression, Diabetes, Dyslipidemia, GERD, Hypertension, Hypothyroidism, CT and Renal Disease Past Surgical History: Yes Surgical History: Angioplasty/Stents and Bowel Resection Family History Family Medical History: Diabetes Mellitus, Cancer, CT, Coronary Artery Disease and Hypertension Social History Does patient currently use any type of tobacco product: Yes Do you use any recreational Drugs:: No ROS Review of Systems Constitutional: Weakness Eyes: No Symptoms Reported ENTM: No Symptoms Reported Respiratoy: Productive Cough Cardiovascular: No Symptoms Reported Gastrointestinal/Abdominal: Diarrhea, Nausea and Vomiting Genitourinary: No Symptoms Reported Neurological: Weakness Musculoskeletal: No Symptoms Reported Integumentary: No Symptoms Reported Hematologic/Lymphatic: No Symptoms Reported All Other Systems: Reviewed and Negative PE Vital Signs Vitals: Vital Signs Temperature 97.9 F Pulse Rate [Left Radial] 63 Pulse Rate 61 Respiratory Rate 17 Respiratory Rate 22 Blood Pressure 121/57 O2 Sat by Pulse Oximetry 95 O2 Sat by Pulse Oximetry 98 General General Appearance: Alert and In No Apparent Distress Head Head Exam: Normal Inspection, Atraumatic and Normocephalic Eyes Eye exam: PERRL, EOMI and Other (Has degree of chemosis of both eyes) ENT ENT Exam: Normal Oropharynx and Mucous Membranes Moist Neck Neck Exam: Normal Inspection and Full ROM; negative Tenderness Respiratory Respiratory Exam: Other (decreased breath sounds left base); negative Accessory Muscle Use or Respiratory Distress Cardiovascular Cardiovascular Exam: Regular Rate, Normal Rhythm and Normal Heart Sounds Abdominal Exam Abdominal Exam: Normal Bowel Sounds and Soft; negative Tenderness Extremities Extremities Exam: Normal Inspection; negative Edema Back Back Exam: negative Tenderness Neurologic Neurological Exam: Alert, Oriented X3 and CN II-XII Intact; negative Motor Sensory Deficit Skin Skin Exam: Warm and Dry COURSE Treatment Treatment: 73-year-old male presents for evaluation, had pneumonia few weeks ago, now having increasing shortness of breath. Workup initiated. Patient oxygenating well on 4 L nasal cannula, is on home O2. Chest x-ray shows large pleural effusion to be present, same side as his previous pneumonia. Discussed with his attending, Dr. Masterson. Patient is stable, he will do pleurocentesis in the a.m.. 1814 -patient, more hypoxic, pulse ox dropping in the 80s. Given a breathing treatment, placed on BiPAP. ABG obtained prior to the BiPAP, shows CO2 retention and low O2. Will consult with Dr. Shaw, to see about thorocentesis, in view of his decompensation. 1926 -some fluid drained by Dr. Mendez, but not as much as expected (380 ml). Repeat chest x-ray shows marked improvement of the pleural effusion, no obvious pneumothorax. Does have some emphysematous changes, some consolidation of the right lower lobe. ROR Labs Reviewed Laboratory Results Reviewed?: Yes 08/05/23 15:02 08/05/23 15:02 Laboratory: WBC 7.6 X10^3/uL (3.6-10.0) 08/05/23 15:02 RBC 3.20 X10^6/uL (4.7-6.0) L 08/05/23 15:02 Hgb 9.1 g/dL (13.5-18.0) L 08/05/23 15:02 Hct 28.3 % (42.0-54.0) L 08/05/23 15:02 MCV 88.3 fL (80.0-100.0) 08/05/23 15:02 MCH 28.4 pg (27.0-34.0) 08/05/23 15:02 MCHC 32.2 g/dL (33.0-35.0) L 08/05/23 15:02 RDW 17.3 % (11.6-16.5) H 08/05/23 15:02 Plt Count 115 X10^3/uL (150.0-450.0) L 08/05/23 15:02 MPV 10.1 fL (7.4-11.0) 08/05/23 15:02 Neut % (Auto) 71.7 % (42.0-75.0) 08/05/23 15:02 Lymph % (Auto) 18.5 % (21.0-51.0) L 08/05/23 15:02 Swain % (Auto) 5.8 % (0.0-13.0) 08/05/23 15:02 Eos % (Auto) 3.1 % (0.9-2.9) H 08/05/23 15:02 Baso % (Auto) 0.9 % (0.2-1.0) 08/05/23 15:02 Neut # (Auto) 5.4 x10^3/uL (2.2-4.8) H 08/05/23 15:02 Lymph # (Auto) 1.4 X10^3/uL (1.3-2.9) 08/05/23 15:02 Swain # (Auto) 0.4 x10^3/uL (0.3-0.8) 08/05/23 15:02 Eos # (Auto) 0.2 x10^3/uL (0.0-0.2) 08/05/23 15:02 Baso # (Auto) 0.1 X10^3/uL (0.0-0.1) 08/05/23 15:02 Absolute Nucleated RBC 0.0 /100WBC 08/05/23 15:02 Sodium 143 mmol/L (136-145) 08/05/23 15:02 Corrected Sodium 143 mmol/L (136-145) 08/05/23 15:02 Potassium 4.6 mmol/L (3.5-5.1) 08/05/23 15:02 Chloride 106 mmol/L (98-107) 08/05/23 15:02 Carbon Dioxide 36.1 mmol/L (21-32) H 08/05/23 15:02 BUN 32 mg/dL (7-18) H 08/05/23 15:02 Creatinine 1.61 mg/dL (0.70-1.30) H 08/05/23 15:02 Est GFR (MDRD) Af Amer 54 (>60) L 08/05/23 15:02 Est GFR (MDRD) Non-Af 45 (>60) L 08/05/23 15:02 Glucose 113 mg/dL (65-99) H 08/05/23 15:02 Calcium 8.8 mg/dL (8.5-10.1) 08/05/23 15:02 Corrected Calcium 10.3 mg/dL (8.5-10.1) H 08/05/23 15:02 Magnesium 1.4 mg/dL (2.0-2.9) L 08/05/23 15:02 Total Bilirubin 0.20 mg/dL (0.2-1.0) 08/05/23 15:02 AST 17 Units/L (15-37) 08/05/23 15:02 ALT 12 Units/L (12-78) 08/05/23 15:02 Alkaline Phosphatase 88 Units/L (46-116) 08/05/23 15:02 Creatine Kinase 48 Units/L (39-308) 08/05/23 15:02 Troponin I High Sens 30.7 ng/L (4.0-60.0) 08/05/23 15:02 B-Natriuretic Peptide 204 pg/mL (0-79) H 08/05/23 15:02 Total Protein 5.3 g/dL (6.4-8.2) L 08/05/23 15:02 Albumin 2.1 g/dL (3.4-5.0) L 08/05/23 15:02 Globulin 3.2 g/dL (2.5-4.5) 08/05/23 15:02 Albumin/Globulin Ratio 0.7 Ratio (1.1-2.1) L 08/05/23 15:02 Mild anemia. Abnormal ABG XRAY XRAY Interpreted by: Both X-ray Results: EXAM: CHEST, 1 VIEW HISTORY: SOB; HX-CAD, HTN, CT, DIABETIES, CVA SX- BOWEL RESECTION, STENTS COMPARISON: Prior study or studies were utilized for comparison during interpretation with the most relevant dated 07/17/2023 TECHNIQUE: CHEST, 1 VIEW FINDINGS: Chest: Lines and tubes: Cardiac leads overlie the chest. Mediastinum: Cardiac and mediastinal shadow is within normal limits for size and contour. Pulmonary vessels: No pulmonary vascular congestion. Lung pang: Near-total opacification of the left lung field Pleura: Large left pleural effusion Bones and soft tissues: No acute osseous or soft tissue abnormality. IMPRESSION: 1. Increasing left pleural effusion THIS IS AN ELECTRONICALLY VERIFIED FINAL REPORT 08/05/2023 3:32 PM - Electronically signed by Florentino Nolen MD EKG Rate: 57 [place]: Normal Rhythm: SB ST: Normal Opioid Opioid Risk Tool Family Hx of Substance Abuse: Alcohol Age (Franki box if 16-45): No History of Preadolescent Sexual Abuse: No Psychological Disease: Depression Total: 0 Total Score Risk Category: Low Risk Copyright: Jarrett RUBIO predicting aberrant behaviors Discharge Plan Diagnosis Discharge Problem: Pleural effusion, left, Hypoxia Discharge Plan Patient Disposition: 09 ADMITTED INPATIENT Condition: Stable Orders to Discharge Patient Discharge Orders: Transfer (Routine); Ordered 08/05/23 Ordered By: Zenon Mitchell
[2023-08-05] MEDS: ZOFRAN INJ 4 MG VIAL IVP ONE (14:58)
--- NOTE | 2023-08-05 15:00 | EKG ---
Test Reason : short of breath Blood Pressure : */* mmHG Vent. Rate : 57 BPM Atrial Rate : 57 BPM P-R Int : 146 ms QRS Dur : 88 ms QT Int : 436 ms P-R-T Axes : 0 -14 51 degrees QTc Int : 424 ms Sinus bradycardia Otherwise normal ECG When compared with ECG of 20-JUL-2023 00:08, Vent. rate has decreased BY 30 BPM Nonspecific T wave abnormality no longer evident in Inferior leads QT has shortened Confirmed by Abad Suarez MD ([id number]) on 08/06/2023 7:22:39 AM Referred By: Confirmed By: Abad Suarez MD
[2023-08-05 15:26] LABS: ALBUMIN 2.1 g/dL (3.4-5.0); CALCIUM 8.8 mg/dL (8.5-10.1); CARBON DIOXIDE 36.1 mmol/L (21-32); COR CA(FOR HYPOALB) 10.3 mg/dL (8.5-10.1); CREATININE 1.61 mg/dL (0.70-1.30); MAGNESIUM 1.4 mg/dL (2.0-2.9); POTASSIUM 4.6 mmol/L (3.5-5.1); TOTAL PROTEIN 5.3 g/dL (6.4-8.2)
--- NOTE | 2023-08-05 15:35 | RAD ---
EXAM: CHEST, 1 VIEW HISTORY: SOB; HX-CAD, HTN, NE, DIABETIES, CVA SX- BOWEL RESECTION, STENTS COMPARISON: Prior study or studies were utilized for comparison during interpretation with the most relevant vadim ed 07/17/2023 TECHNIQUE: CHEST, 1 VIEW FINDINGS: Chest: Lines and tubes: Cardiac leads overlie the chest. Mediastinum: Cardiac and mediastinal shadow is within normal limits for size and contour. Pulmonary vessels: No pulmonary vascular congestion. Lung pang: Near-total opacification of the left lung field Pleura: Large left pleural effusion Bones and soft tissues: No acute osseous or soft tissue abnormality. IMPRESSION: 1. Increasing left pleural effusion THIS IS AN ELECTRONICALLY VERIFIED FINAL REPORT 08/05/2023 3:32 PM - Electronically signed by Florentino Nolen MD
[2023-08-05 15:43] LABS: BASOPHILS # (AUTO) 0.1 X10^3/uL (0.0-0.1); BASOPHILS % (AUTO) 0.9 % (0.2-1.0); EOSINOPHILS # (AUTO) 0.2 x10^3/uL (0.0-0.2); EOSINOPHILS % (AUTO) 3.1 % (0.9-2.9); HEMATOCRIT 28.3 % (42.0-54.0); HEMOGLOBIN 9.1 g/dL (13.5-18.0); LYMPHOCYTES # (AUTO) 1.4 X10^3/uL (1.3-2.9); LYMPHOCYTES % (AUTO) 18.5 % (21.0-51.0); MEAN CORPUSCULAR HEMOGLOBIN 28.4 pg (27.0-34.0); MEAN CORPUSCULAR HGB CONC 32.2 g/dL (33.0-35.0); MEAN CORPUSCULAR VOLUME 88.3 fL (80.0-100.0); MEAN PLATELET VOLUME 10.1 fL (7.4-11.0); MONOCYTES # (AUTO) 0.4 x10^3/uL (0.3-0.8); MONOCYTES % (AUTO) 5.8 % (0.0-13.0); NEUTROPHILS # (AUTO) 5.4 x10^3/uL (2.2-4.8); NEUTROPHILS % (AUTO) 71.7 % (42.0-75.0); PLATELET COUNT 115 X10^3/uL (150.0-450.0); RED CELL DISTRIBUTION WIDTH 17.3 % (11.6-16.5); WHITE BLOOD COUNT 7.6 X10^3/uL (3.6-10.0)
[2023-08-05] MEDS: DUONEB 0.5 MG/3 MG (3 mL) NEB ONE (17:48)
[2023-08-05 18:04] LABS: ABG BASE EXCESS 11.7 mmol/L (-2.0-2.0)
[2023-08-05 18:06] LABS: ABG ALLEN TEST POS; ABG HCO3 40.5 mmol/L (22-26)
--- NOTE | 2023-08-05 20:13 | RAD ---
EXAM:CHEST, 1 VIEWHISTORY:post thoracentesis;COMPARISON:August 05, 2023 3:15 p.m.TECHNIQUE:One view frontal chest radiographFINDINGS:Midline trachea. Heart silhouette is enlarged. Improved aeration of the left lung following thoracentesis. Mild residual left pleural fluid. No complicating pneumothorax. Right lung airspace infiltrates.IMPRESSION:No pneumothorax following left thoracentesis. Improved aeration of the left lung.THIS IS AN ELECTRONICALLY VERIFIED FINAL REPORT08/05/2023 8:05 PM - Electronically signed by Christiano Pavon MD
[2023-08-05] MEDS: ZOFRAN INJ 4 MG VIAL ONE (20:17)
[2023-08-05] MEDS: CONSULT PHARMACY - POTASSIUM & MAGNESIUM XX SCH (20:18)
[2023-08-05] MEDS: PULMICORT NEB TX 0.5 MG NEB SCH (20:50)
[2023-08-05] MEDS: DUONEB 0.5 MG/3 MG (3 mL) NEB SCH (20:50)
[2023-08-05] MEDS ORDERED: NovoLIN R (or HumuLIN R) SUBCUT PRN (20:53)
[2023-08-05] MEDS: ROCEPHIN VIAL 1 GRAM 1 G in NS 100 ML IV 100 ML IV SCH (21:22)
[2023-08-05] MEDS: MAGNESIUM SULFATE 1 GRAM/100 mL PREMIX 1 G/100 ML BAG IV SCH (21:23)
[2023-08-05] MEDS: LR 1,000 ML IV 1,000 ML IV SCH (21:23)
[2023-08-05] MEDS ORDERED: MAGNESIUM SULFATE 1 GRAM/100 mL PREMIX 1 G/100 ML BAG IV SCH (22:00)
[2023-08-06 05:08] LABS: BASOPHILS % (AUTO) 0.4 % (0.2-1.0); EOSINOPHILS # (AUTO) 0.3 x10^3/uL (0.0-0.2); EOSINOPHILS % (AUTO) 4.4 % (0.9-2.9); HEMATOCRIT 26.7 % (42.0-54.0); HEMOGLOBIN 8.5 g/dL (13.5-18.0); LYMPHOCYTES % (AUTO) 14.8 % (21.0-51.0); MEAN CORPUSCULAR HEMOGLOBIN 28.1 pg (27.0-34.0); MEAN CORPUSCULAR HGB CONC 31.9 g/dL (33.0-35.0); MEAN CORPUSCULAR VOLUME 87.9 fL (80.0-100.0); MEAN PLATELET VOLUME 9.8 fL (7.4-11.0); MONOCYTES # (AUTO) 0.6 x10^3/uL (0.3-0.8); MONOCYTES % (AUTO) 9.3 % (0.0-13.0); NEUTROPHILS # (AUTO) 4.8 x10^3/uL (2.2-4.8); NEUTROPHILS % (AUTO) 71.1 % (42.0-75.0); PLATELET COUNT 116 X10^3/uL (150.0-450.0); RED BLOOD COUNT 3.04 X10^6/uL (4.7-6.0); RED CELL DISTRIBUTION WIDTH 17.5 % (11.6-16.5); WHITE BLOOD COUNT 6.8 X10^3/uL (3.6-10.0)
[2023-08-06 05:19] LABS: ALBUMIN 1.9 g/dL (3.4-5.0); CALCIUM 8.7 mg/dL (8.5-10.1); CARBON DIOXIDE 37.5 mmol/L (21-32); COR CA(FOR HYPOALB) 10.4 mg/dL (8.5-10.1); CREATININE 1.59 mg/dL (0.70-1.30); POTASSIUM 4.4 mmol/L (3.5-5.1); TOTAL PROTEIN 5.1 g/dL (6.4-8.2)
[2023-08-06] MEDS: MORPHINE SULFATE INJ 2 MG INJ IVP PRN (09:46)
[2023-08-06] MEDS: ALPRAZOLAM ODT PO ONE ×2 (12:09→14:23)
[2023-08-06] MEDS ORDERED: ALPRAZOLAM ODT ONE (13:54)
[2023-08-06] MEDS: SNACK - Diabetic Appropriate PO SCH (21:00)
[2023-08-06 21:02] VITALS: BMI 20.7
[2023-08-07 05:13] LABS: BASOPHILS % (AUTO) 0.3 % (0.2-1.0); EOSINOPHILS # (AUTO) 0.2 x10^3/uL (0.0-0.2); EOSINOPHILS % (AUTO) 3.8 % (0.9-2.9); HEMATOCRIT 25.4 % (42.0-54.0); HEMOGLOBIN 8.1 g/dL (13.5-18.0); LYMPHOCYTES # (AUTO) 1.1 X10^3/uL (1.3-2.9); LYMPHOCYTES % (AUTO) 16.6 % (21.0-51.0); MEAN CORPUSCULAR HEMOGLOBIN 28.2 pg (27.0-34.0); MEAN CORPUSCULAR VOLUME 88.3 fL (80.0-100.0); MEAN PLATELET VOLUME 9.4 fL (7.4-11.0); MONOCYTES # (AUTO) 0.6 x10^3/uL (0.3-0.8); MONOCYTES % (AUTO) 9.2 % (0.0-13.0); NEUTROPHILS # (AUTO) 4.6 x10^3/uL (2.2-4.8); NEUTROPHILS % (AUTO) 70.1 % (42.0-75.0); PLATELET COUNT 113 X10^3/uL (150.0-450.0); RED BLOOD COUNT 2.88 X10^6/uL (4.7-6.0); RED CELL DISTRIBUTION WIDTH 17.2 % (11.6-16.5); WHITE BLOOD COUNT 6.6 X10^3/uL (3.6-10.0)
[2023-08-07 05:28] LABS: ALANINE AMINOTRANSFERASE 9 Units/L (12-78); ALBUMIN 1.9 g/dL (3.4-5.0); ALKALINE PHOSPHATASE 80 Units/L (46-116); ASPARTATE AMINO TRANSFERASE 12 Units/L (15-37); BLOOD UREA NITROGEN 31 mg/dL (7-18); CHLORIDE 105 mmol/L (98-107); COR CA(FOR HYPOALB) 10.7 mg/dL (8.5-10.1); CREATININE 1.53 mg/dL (0.70-1.30); GLUCOSE 69 mg/dL (65-99); SODIUM 142 mmol/L (136-145); TOTAL PROTEIN 5.1 g/dL (6.4-8.2); eGFR NON BLACK RACES 48 (>60)
[2023-08-07 05:33] LABS: POTASSIUM 5.3 mmol/L (3.5-5.1)
[2023-08-07] MEDS: ALPRAZOLAM ODT PO PRN (17:53)
[2023-08-08 04:45] LABS: BASOPHILS % (AUTO) 0.4 % (0.2-1.0); EOSINOPHILS # (AUTO) 0.3 x10^3/uL (0.0-0.2); EOSINOPHILS % (AUTO) 2.4 % (0.9-2.9); HEMATOCRIT 26.7 % (42.0-54.0); HEMOGLOBIN 8.5 g/dL (13.5-18.0); LYMPHOCYTES # (AUTO) 1.3 X10^3/uL (1.3-2.9); LYMPHOCYTES % (AUTO) 12.5 % (21.0-51.0); MEAN CORPUSCULAR HEMOGLOBIN 28.1 pg (27.0-34.0); MEAN CORPUSCULAR HGB CONC 31.9 g/dL (33.0-35.0); MEAN CORPUSCULAR VOLUME 88.1 fL (80.0-100.0); MEAN PLATELET VOLUME 9.4 fL (7.4-11.0); MONOCYTES # (AUTO) 0.9 x10^3/uL (0.3-0.8); MONOCYTES % (AUTO) 8.6 % (0.0-13.0); NEUTROPHILS # (AUTO) 8.2 x10^3/uL (2.2-4.8); NEUTROPHILS % (AUTO) 76.1 % (42.0-75.0); PLATELET COUNT 145 X10^3/uL (150.0-450.0); RED BLOOD COUNT 3.03 X10^6/uL (4.7-6.0); RED CELL DISTRIBUTION WIDTH 17.4 % (11.6-16.5); WHITE BLOOD COUNT 10.8 X10^3/uL (3.6-10.0)
[2023-08-08 04:58] LABS: ALANINE AMINOTRANSFERASE 10 Units/L (12-78); ALBUMIN 2.1 g/dL (3.4-5.0); ALKALINE PHOSPHATASE 86 Units/L (46-116); ASPARTATE AMINO TRANSFERASE 13 Units/L (15-37); BLOOD UREA NITROGEN 32 mg/dL (7-18); CALCIUM 9.2 mg/dL (8.5-10.1); CHLORIDE 107 mmol/L (98-107); COR CA(FOR HYPOALB) 10.7 mg/dL (8.5-10.1); CREATININE 1.49 mg/dL (0.70-1.30); GLUCOSE 82 mg/dL (65-99); SODIUM 143 mmol/L (136-145); TOTAL PROTEIN 5.6 g/dL (6.4-8.2); eGFR NON BLACK RACES 49 (>60)
[2023-08-08 05:02] LABS: POTASSIUM 5.4 mmol/L (3.5-5.1)
--- NOTE | 2023-08-08 07:25 | RAD ---
EXAM: AP chest HISTORY: Pleural effusion COMPARISON: 08/05/2023 FINDINGS: Similar heart size. Increasing opacity at the left base is consistent with recurrent pleural effusi on and suspect associated airspace involvement of the left lower lobe. Increasing atelectasis right base. The upper lobes are clear. IMPRESSION: Increasing right basal atelectasis. Increasing opacity left base as described above, consistent wit h recurrent left pleural effusion and suspect lower lobe atelectasis or pneumonia. THIS IS AN ELECTRONICALLY VERIFIED FINAL REPORT 08/08/2023 7:22 AM - Electronically signed by Lopez Magallon MD
[2023-08-08] MEDS ORDERED: PHENERGAN SYRUP PLAIN 6.25MG/5ML PO PRN (09:58)
[2023-08-08] MEDS: LASIX PO SCH (10:38)
[2023-08-08] MEDS: LASIX IVP ONE (10:58)
[2023-08-08] MEDS: COREG TAB 6.25 MG PO SCH (10:59)
[2023-08-08] MEDS: ENTRESTO 24/26 MG TABLET PO SCH (10:59)
[2023-08-08] MEDS: PROSCAR PO SCH (10:59)
[2023-08-08] MEDS: PLAVIX PO SCH (10:59)
[2023-08-08] MEDS: LEXAPRO PO SCH (10:59)
[2023-08-08] MEDS: PEPCID TAB 20 MG PO SCH (10:59)
[2023-08-08] MEDS: DALIRESP PO SCH (10:59)
[2023-08-08] MEDS: NEURONTIN TAB 600 MG PO SCH (10:59)
[2023-08-08] MEDS: LEXAPRO ONE (10:59)
[2023-08-08] MEDS: ZOFRAN INJ 4 MG VIAL IVP PRN (18:11)
[2023-08-08 22:41] LABS: ABG BASE EXCESS 13.2 mmol/L (-2.0-2.0)
[2023-08-08 22:42] LABS: ABG HCO3 42.8 mmol/L (22-26)
[2023-08-08 22:43] LABS: ABG ALLEN TEST POS
[2023-08-08] MEDS: TOPAMAX TAB 100 MG PO SCH (23:24)
[2023-08-08] MEDS: SINGULAIR TAB 10 MG PO SCH (23:24)
[2023-08-08] MEDS: FLOMAX PO SCH (23:24)
[2023-08-08] MEDS: FARXIGA PO SCH (23:25)
[2023-08-08] MEDS: LEVAQUIN PREMIX IV 500 MG 500 MG/100 ML BAG IV SCH (23:43)
[2023-08-09 04:53] LABS: BASOPHILS % (AUTO) 0.2 % (0.2-1.0); EOSINOPHILS # (AUTO) 0.2 x10^3/uL (0.0-0.2); EOSINOPHILS % (AUTO) 2.5 % (0.9-2.9); HEMATOCRIT 28.5 % (42.0-54.0); LYMPHOCYTES # (AUTO) 0.9 X10^3/uL (1.3-2.9); LYMPHOCYTES % (AUTO) 11.4 % (21.0-51.0); MEAN CORPUSCULAR HEMOGLOBIN 28.2 pg (27.0-34.0); MEAN CORPUSCULAR HGB CONC 31.6 g/dL (33.0-35.0); MEAN CORPUSCULAR VOLUME 89.1 fL (80.0-100.0); MEAN PLATELET VOLUME 9.5 fL (7.4-11.0); MONOCYTES # (AUTO) 0.5 x10^3/uL (0.3-0.8); NEUTROPHILS # (AUTO) 6.1 x10^3/uL (2.2-4.8); NEUTROPHILS % (AUTO) 78.9 % (42.0-75.0); PLATELET COUNT 136 X10^3/uL (150.0-450.0); RED CELL DISTRIBUTION WIDTH 17.3 % (11.6-16.5); WHITE BLOOD COUNT 7.7 X10^3/uL (3.6-10.0)
[2023-08-09 05:05] LABS: ALANINE AMINOTRANSFERASE 9 Units/L (12-78); ALKALINE PHOSPHATASE 82 Units/L (46-116); ASPARTATE AMINO TRANSFERASE 11 Units/L (15-37); BLOOD UREA NITROGEN 32 mg/dL (7-18); CALCIUM 9.4 mg/dL (8.5-10.1); CARBON DIOXIDE 39.5 mmol/L (21-32); CHLORIDE 105 mmol/L (98-107); CREATININE 1.39 mg/dL (0.70-1.30); GLUCOSE 83 mg/dL (65-99); SODIUM 143 mmol/L (136-145); TOTAL PROTEIN 5.7 g/dL (6.4-8.2); eGFR NON BLACK RACES 53 (>60)
[2023-08-09] MEDS: SYNTHROID 100 mcg TAB PO SCH (05:59)
[2023-08-09] MEDS ORDERED: LEXAPRO ONE (09:36)
[2023-08-09 13:13] VITALS: TEMP 97.3
--- NOTE | 2023-08-09 13:33 | RAD ---
EXAM:CHEST, 1 VIEWHISTORY:pleural effusion ;COMPARISON:Prior study or studies were utilized for comparison during interpretation with the most relevant dated yesterdayTECHNIQUE:CHEST, 1 VIEWFINDINGS:Chest:Lines and tubes: NoneMediastinum: Cardiac and mediastinal shadow is within normal limits for size and contour.Pulmonary vessels: No pulmonary vascular congestion.Lung pang: Bibasilar airspace opacities are notedPleura: Moderate left pleural effusionBones and soft tissues: No acute osseous or soft tissue abnormality.IMPRESSION:1. Improving right airspace opacity2. Worsening left airspace opacity3. Worsening left effusionTHIS IS AN ELECTRONICALLY VERIFIED FINAL REPORT08/09/2023 1:30 PM - Electronically signed by Florentino Nolen MD
[2023-08-09] MEDS ORDERED: LINZESS PO ONE (14:56)
--- NOTE | 2023-08-09 17:45 | RAD ---
EXAM:CHEST, 1 VIEWHISTORY:Post thoracentesis;COMPARISON:No relevant prior studies available.TECHNIQUE:Chest radiographic imaging, AP portable projection, 1 imageFINDINGS:No cardiomegaly.Trace right pleural effusion with basilar atelectasis.Airspace disease in the lower left lower lobe with no definite effusion.No pneumothorax.No acute osseous abnormality.IMPRESSION:No significant interval acute cardiopulmonary changes.THIS IS AN ELECTRONICALLY VERIFIED FINAL REPORT08/09/2023 5:42 PM - Electronically signed by William Dorsey MD
[2023-08-09] MEDS ORDERED: NS 250 ML IV 250 ML IV ONE (17:55)
[2023-08-09] MEDS ORDERED: ADRENALINE CHL INJ ONE (17:55)
[2023-08-09] MEDS ORDERED: LEVOPHED 8 MG/250 ML IV *PREMIX 8 MG/250 ML PLAST..BAG IV ONE (18:15)
[2023-08-09 18:44] LABS: ABG BASE EXCESS 6.1 mmol/L (-2.0-2.0)
[2023-08-09 18:45] LABS: ABG PO2 < 37.0 mmHg (80.0-100.0)
--- NOTE | 2023-08-09 18:45 | EKG ---
Test Reason : post cardiac arrest Blood Pressure : */* mmHG Vent. Rate : 106 BPM Atrial Rate : 106 BPM P-R Int : 186 ms QRS Dur : 136 ms QT Int : 366 ms P-R-T Axes : 31 146 21 degrees QTc Int : 486 ms Sinus tachycardia Right bundle branch block Abnormal ECG When compared with ECG of 05-AUG-2023 14:52, Vent. rate has increased BY 49 BPM Right bundle branch block is now present Confirmed by Abad Suarez MD ([id number]) on 08/10/2023 7:37:13 AM Referred By: Confirmed By: Abad Suarez MD
[2023-08-09 18:46] LABS: ABG ALLEN TEST POS
--- NOTE | 2023-08-09 18:55 | RAD ---
EXAM: CHEST X-RAYHISTORY: ET tube placement verification.TECHNIQUE: AP chest x-ray dated August 09, 2023 at 6:15 PM.COMPARISON: CXR dated August 09, 2023 at 5:11 PM.FINDINGS:An endotracheal tube is noted in situ with the distal tip approximately 4 cm above the ryley (adequate position).There is interval development of complete whiteout of the right hemithorax, in keeping with acute right main bronchial obstruction; rule out mucous plug; DDX includes (but is not limited to) large pleural effusion with compressive atelectasis. Recommend clinical correlation and follow evaluation with CT for further characterization as clinically warranted.There is compensatory emphysema of the left lung. No pneumothorax seen. The visualized bony structures are within normal limits.IMPRESSION:1. ETT noted in situ with the distal tip approximately 4 cm above the ryley (adequate position).2. Interval development of complete whiteout of the right hemithorax, in keeping with acute right main bronchial obstruction; rule out mucous plug; DDX includes (but is not limited to) large pleural effusion with compressive atelectasis. Recommend clinical correlation and follow evaluation with CT for further characterization as clinically warranted.3. Compensatory emphysema of the left lung.THIS IS AN ELECTRONICALLY VERIFIED FINAL REPORT08/09/2023 6:43 PM - Electronically signed by Malika Maravilla
[2023-08-09 18:59] VITALS: BP 77/53; PULSE 101; RESP 15; O2SAT 64
[2023-08-09] MEDS ORDERED: LEVAQUIN PREMIX IV 500 MG 500 MG/100 ML BAG IV SCH (21:00)
[2023-08-10] MEDS ORDERED: LEVAQUIN PREMIX IV 750 MG 750 MG/150 ML BAG IV SCH (09:00)
== END 2023-08-10 04:20 | disposition expired | DRG 208 ==
LOC: MED/SURG 14:11 → ER 14:11 → ICU 18:02
PROVIDERS: ADMIT Obstetrics & Gynecology Obstetrics; ATTEND Obstetrics & Gynecology Obstetrics